=== PATIENT | male | born 1990 | race Caucasian/White ===

== ENCOUNTER → 2020-10-08 10:29 | Outpatient (BNVA) | payer MEDICARE, MEDICAID, SELFPAY | PROVIDERS: Visit Provider Nurse Practitioner Family | DX: Z20.822 Contact with and (suspected) exposure to COVID-19 (principal) | CPT/HCPCS: 87635 ==

== ENCOUNTER 2020-10-12 13:54 | Inpatient (IN) | payer MEDICARE, MEDICAID, SELFPAY ==
[2020-10-12] VITALS (18 sets, daily range): BP systolic 87–126; BP diastolic 47–76; PULSE 98–135; RESP 14–25; TEMP 36.8–38.5; O2SAT 97–100; BMI 37.8
--- NOTE | 2020-10-12 15:38 | CTR_ITS ---
PROCEDURE INFORMATION: Exam: CT Left Lower Extremity With Contrast Exam date and time: 10/12/2020 3:38 PM Age: 30 years old Clinical indication: Cellulitis; Hip and thigh; Left; Prior surgery; Surgery date: 6+ months; Surgery type: Hip nail; Patient HX: Noticed pressure sore approx 3-4 days ago; Additional info: Buttock abscess extending into the posterior thigh TECHNIQUE: Imaging protocol: CT of the Left lower extremity with intravenous contrast was performed. Total images: 329 Radiation optimization: All CT scans at this facility use at least one of these dose optimization techniques: automated exposure control; mA and/or kV adjustment per patient size (includes targeted exams where dose is matched to clinical indication); or iterative reconstruction. Contrast material: VISI 320; Contrast volume: 95 ml; Contrast route: INTRAVENOUS (IV); COMPARISON: No relevant prior studies available. RADIATION DOSE METRICS: Total DLP (mGy-cm): 915.47 FINDINGS: Bones/joints: No visible acute osseous abnormality involvement. Bilateral hip compression plate and screw fixation devices. Spina bifida period no grossly visible osteolytic or osteoblastic destructive process. Soft tissues: Obesity. 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 Total area involvement approximately 25 cm x 14 cm x 17 cm. No visible associated loculated fluid collection to suggest the presence of an organized abscess. Urinary bladder: Neurogenic bladder. Within the field of view no visible intraperitoneal or retroperitoneal active or acute pelvic pathology. No visible pneumoperitoneum or intraperitoneal ascites. Reproductive: Large right hydrocele. Mild scrotal edema. No visible evidence of scrotal involvement of the Carmelita's gangrene, however. CT/CT hip LT w con [id number] IMPRESSION: 1. 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 2. No visible associated loculated fluid collection to suggest the presence of an organized abscess. 3. Large right hydrocele. 4. No visible associated osseous involvement. Radiation Dose CTDIVOL = (mGy): DLP = 915.47 (mGy-cm)
--- NOTE | 2020-10-12 15:48 | W.ED.SKABFB ---
HPI - Skin/Abscess/Foreign Bdy General: Chief complaint: Skin/Abscess/Foreign Body Stated complaint: infected pressure sore Time Seen by Provider: 10/12/20 15:21 History of Present Illness: HPI narrative: 30-year-old male presents with complaint of a abscess on the left buttock. He was seen earlier this week and started on Bactrim at an outpatient clinic. He has noticed foul-smelling drainage from a left buttock wound. Patient is wheelchair-bound due to spina bifida. He has had fever sweats and chills. He denies any shortness of breath or cough. MD complaint: abscess/boil Onset (ago): day(s) Location: buttocks (Left ischial tuberosity) Severity: severe Quality: burning and aching Pain Consistency: constant Exacerbating factors: palpation Context: other Associated symptoms: Reports chills, fever(s) and myalgias; Deny arthralgias, cough, itching, nausea, rigidity, short of breath or vomiting Treatments prior to arrival: antibiotic Review of Systems Const: Reports: fever(s) and chills ENMT: Denies: throat pain, ear or mastoid pain, nasal discharge or nasal congestion Card: Denies: chest pain, edema, dyspnea on exertion or orthopnea Resp: Denies: dyspnea, productive cough or non-productive cough GI: Denies: nausea or vomiting : Denies: flank pain, dysuria, urinary frequency or urinary urgency Skin/Breast: Denies: rash or pruritus PFSH ED PFSH: Medical History (Updated 10/19/20 @ 08:45 by Rey Zamarripa DO) Congenital imperforate anus Glaucoma Neurogenic bladder Pressure ulcer caused by device Spina bifida aperta of lumbar spine Surgical History (Updated 10/17/20 @ 00:01 by ) Colostomy status Status post hip surgery Bilateral pin surgery Status post ventriculo-peritoneal shunt placement Family History Other Spina bifida Social History Smoking and tobacco status: never smoked Alcohol intake: never Physical Exam Const: COMMON NORMALS: no acute distress GENERAL APPEARANCE: cooperative and comfortable ORIENTATION/CONSCIOUSNESS: Yes awake, Yes oriented to person, Yes oriented to place and Yes oriented to time HENMT: COMMON NORMALS: normocephalic, atraumatic, hearing grossly normal bilaterally, external ears normal, EAC's normal, TM's normal bilaterally, Normal nasal mucous membranes and turbinates present, moist oral mucous membranes and oropharynx normal HEAD & SCALP: normocephalic and atraumatic NOSE: Normal nasal mucous membranes and turbinates present EXTERNAL EAR: Yes external ears normal EXTERNAL AUDITORY CANAL: EAC's normal TYMPANIC MEMBRANE: TM's normal bilaterally Neck/C-Spine: COMMON NORMALS: no JVD Lymph: LYMPHATIC: no lymphadenopathy noted and no lymphedema noted Resp: COMMON NORMALS: normal respiratory effort, No retractions, No use of accessory muscles and clear to auscultation bilaterally AUSCULTATION: clear to auscultation bilaterally Cardio: COMMON NORMALS: no JVD, regular rate, regular rhythm and No murmurs present (Cardio) RATE: regular rate RHYTHM: regular rhythm GI: COMMON NORMALS: Soft to palpation and No hepatosplenomegaly present AUSCULTATION: Yes normoactive bowel sounds PALPATION: Yes Soft to palpation, No Tenderness to palpation present (GI), No Guarding due to palpation present (GI) and Yes No hepatosplenomegaly present Extremity: OTHER: Approximately 2 inch necrotic ulcer with moderate foul-smelling drainage overlying the ischial tuberosity on the left. There is a indurated fluctuant track extending down to the popliteal fossa across the posterior thigh. Neuro: SENSORIUM/ORIENTATION: Yes oriented to person, Yes oriented to place and Yes oriented to time Skin: COMMON NORMALS: no rashes or lesions noted GENERAL SKIN EXAM: no rashes or lesions noted Course Vital Signs: Vital signs: Vital Signs Temperature 97.9 F 10/16/20 16:57 Pulse Rate 86 10/16/20 16:57 Respiratory Rate 15 10/16/20 16:57 Blood Pressure 112/72 10/16/20 16:57 Pulse Oximetry 98 10/16/20 16:57 MDM - Skin/Abscess/Foreign Bdy MDM Narrative: Medical decision making narrative: Patient septic with a necrotic abscess with gas formation is noted on the CT. Start antibiotics consult surgery. Dr. Crowell consulted for the hospitalist service. Patient be taken directly to the OR for incision drainage and debridement. Labs and imaging reviewed as noted on the chart. Lab Data: Labs: Lab Results 10/12/20 10/12/20 10/12/20 Range/Units 16:07 16:10 16:10 WBC 19.6 H (4.0-10.0) 10^3/ uL RBC 4.68 (4.1-5.3) 10^6/u L Hgb 13.3 (11.7-16.6) g/dL Hct 40.2 L (42.0-52.0) % MCV 85.9 (80-94) fl MCH 28.4 (28.0-34.0) pg MCHC 33.1 (30.0-36.0) g/dL RDW 12.8 (12.1-15.1) % Plt Count 307 (130-400) 10^3/c mm MPV 10.9 H (7.4-10.4) fL Neut % (Auto) 84.2 % Lymph % (Auto) 6.0 % [place] % (Auto) 7.3 % Eos % (Auto) 0.5 % Baso % (Auto) 0.3 % Neut # (Auto) 16.49 H (1.8-7.7) 10^3/u L Lymph # (Auto) 1.2 (0.8-4.8) 10^3/u L [place] # (Auto) 1.4 H (0.2-0.9) 10^3/u L Eos # (Auto) 0.1 (0.0-0.8) 10^3/u L Baso # (Auto) 0.1 (0.0-0.1) 10^3/u L Nucleated RBC % (a uto) 0 % Nucleated RBCs # 0.0 /100WBC Specimen Type Arterial Sample Site Radial, right ABG pH 7.48 H (7.35-7.45) ABG pCO2 23.1 L (35-45) mmHg ABG pO2 79.9 L (80.0-100.0) mmH g ABG HCO3 17.0 L (22-26) mmol/L ABG O2 Saturation 97.7 ABG Base Excess -4.6 L (-2.0-2.0) mmol/ L Tong Test Pos A-a O2 Gradient 5.0 (5-10) mmHg Hematocrit 42.7 (42-52) % Hgb O2 Saturation 96.0 (95-100) % Carboxyhemoglobin 1.4 (0.4-20.1) %THgb Methemoglobin 0.3 L (0.4-1.5) % Total Hemoglobin 13.9 L (14-18) g/dL Sodium 134.0 (131-143) mmol/L Potassium 4.0 (3.5-5.0) mmol/L Glucose 115.0 (70-115) mg/dL Ionized Calcium 1.2 (1.1-1.4) mmol/L O2 Delivery Device Room air FiO2 21.0 % Skip Hoist Operator ID [place]ro Chloride (98-107) mmol/L Carbon Dioxide (22-29) mmol/L Anion Gap (5-19) BUN (6-20) mg/dL Creatinine (0.7-1.2) mg/dL GFR Calculation (90-130) mL/min Calculated Osmolal ity (285-295) mOsm/k g Lactic Acid 1.4 (0.5-2.2) mmol/L Calcium (8.5-10.5) mg/dL Total Bilirubin (0.15-1.2) mg/dL AST (0-40) U/L ALT (0-41) U/L Alkaline Phosphata se (40-130) IU/L Creatine Kinase (39-308) U/L Total Protein (6.6-8.7) g/dL Albumin (3.5-5.2) g/dL Globulin (1.3-4.6) g/dL Serum Ketones (Negative) 10/12/20 10/12/20 Range/Units 16:10 16:10 WBC (4.0-10.0) 10^3/ uL RBC (4.1-5.3) 10^6/u L Hgb (11.7-16.6) g/dL Hct (42.0-52.0) % MCV (80-94) fl MCH (28.0-34.0) pg MCHC (30.0-36.0) g/dL RDW (12.1-15.1) % Plt Count (130-400) 10^3/c mm MPV (7.4-10.4) fL Neut % (Auto) % Lymph % (Auto) % [place] % (Auto) % Eos % (Auto) % Baso % (Auto) % Neut # (Auto) (1.8-7.7) 10^3/u L Lymph # (Auto) (0.8-4.8) 10^3/u L [place] # (Auto) (0.2-0.9) 10^3/u L Eos # (Auto) (0.0-0.8) 10^3/u L Baso # (Auto) (0.0-0.1) 10^3/u L Nucleated RBC % (a uto) % Nucleated RBCs # /100WBC Specimen Type Sample Site ABG pH (7.35-7.45) ABG pCO2 (35-45) mmHg ABG pO2 (80.0-100.0) mmH g ABG HCO3 (22-26) mmol/L ABG O2 Saturation ABG Base Excess (-2.0-2.0) mmol/ L Tong Test A-a O2 Gradient (5-10) mmHg Hematocrit (42-52) % Hgb O2 Saturation (95-100) % Carboxyhemoglobin (0.4-20.1) %THgb Methemoglobin (0.4-1.5) % Total Hemoglobin (14-18) g/dL Sodium 135 L (131-143) mmol/L Potassium 4.0 (3.5-5.0) mmol/L Glucose 101 (70-115) mg/dL Ionized Calcium (1.1-1.4) mmol/L O2 Delivery Device FiO2 % Skip Hoist Operator ID Chloride 99 (98-107) mmol/L Carbon Dioxide 19 L (22-29) mmol/L Anion Gap 21.0 H (5-19) BUN 19 (6-20) mg/dL Creatinine 1.1 (0.7-1.2) mg/dL GFR Calculation 78.1 L (90-130) mL/min Calculated Osmolal ity 282 L (285-295) mOsm/k g Lactic Acid (0.5-2.2) mmol/L Calcium 8.4 L (8.5-10.5) mg/dL Total Bilirubin 0.4 (0.15-1.2) mg/dL AST 15 (0-40) U/L ALT 23 (0-41) U/L Alkaline Phosphata se 74 (40-130) IU/L Creatine Kinase 238 (39-308) U/L Total Protein 6.8 (6.6-8.7) g/dL Albumin 2.8 L (3.5-5.2) g/dL Globulin 4.0 (1.3-4.6) g/dL Serum Ketones Negative (Negative) Discharge Plan Discharge Patient Disposition: Admitted As Inpatient Admit Provider: Jenny Crowell Clinical Impression: Necrotizing soft tissue infection, Cellulitis Condition: Stable Discharge Diet: Regular Discharge Activity: Resume usual activity Coding Level of Care Code ED Dental Professional for Petros Mays
[2020-10-12 16:19] LABS: ABG PCO2 23.1 mmHg (35-45); ABG PH Result 7.48 (7.35-7.45); Arterial Blood Gas Hematocrit 42.7 % (42-52); Base Excess ABG -4.6 mmol/L (-2.0-2.0); Blood Gas Allen Test Pos; Blood Gas Sample Type Arterial; Carboxyhemoglobin 1.4 %THgb (0.4-20.1); Ionized Calcium Level - ABG 1.2 mmol/L (1.1-1.4); Methemoglobin 0.3 % (0.4-1.5); Oxygen Saturation ABG 97.7; PO2 ABG 79.9 mmHg (80.0-100.0); Total Hemoglobin 13.9 g/dL (14-18)
[2020-10-12 16:20] LABS: Blood Gas Operator Identificat MONRO; Blood Gas Sample Site Radial, right; Oxygen Device ROOM AIR
[2020-10-12 16:34] LABS: Basophils # 0.1 10^3/uL (0.0-0.1); Basophils % 0.3 %; Eosinophils # 0.1 10^3/uL (0.0-0.8); Eosinophils % 0.5 %; Hematocrit 40.2 % (42.0-52.0); Hemoglobin 13.3 g/dL (11.7-16.6); Lymphocytes # 1.2 10^3/uL (0.8-4.8); Mean Corpuscular HGB Conc 33.1 g/dL (30.0-36.0); Mean Corpuscular Hemoglobin 28.4 pg (28.0-34.0); Mean Corpuscular Volume 85.9 fl (80-94); Mean Platelet Volume 10.9 fL (7.4-10.4); Monocytes # 1.4 10^3/uL (0.2-0.9); Monocytes % 7.3 %; Neutrophils # 16.49 10^3/uL (1.8-7.7); Neutrophils % 84.2 %; Nucleated Red Blood Cells % 0 %; Platelet Count 307 10^3/cmm (130-400); Red Blood Count 4.68 10^6/uL (4.1-5.3); Red Cell Distribution Width 12.8 % (12.1-15.1); White Blood Count 19.6 10^3/uL (4.0-10.0)
[2020-10-12] MEDS: iodixanol 320 mg/mL 100mL Btl IV (16:40)
--- NOTE | 2020-10-12 16:45 | PC.NURSE ---
pt to ct scan by stretcher with tech
[2020-10-12] MEDS: vancomycin 1,000 MG in sodium chloride 0.9% 250 ML 250 MG IV (16:55)
[2020-10-12] MEDS: sodium chloride 0.9% 1,000 ML 999 ML IV (16:55)
[2020-10-12] MEDS: ondansetron 2 mg/ML SDV 2 mL 4 MG IVP (16:55)
[2020-10-12 17:02] LABS: Alanine Aminotransferase 23 U/L (0-41); Albumin Level 2.8 g/dL (3.5-5.2); Alkaline Phosphatase 74 IU/L (40-130); Aspartate Amino Transferase 15 U/L (0-40); Blood Urea Nitrogen 19 mg/dL (6-20); Calcium 8.4 mg/dL (8.5-10.5); Carbon Dioxide 19 mmol/L (22-29); Chloride 99 mmol/L (98-107); Creatine Phosphokinase 238 U/L (39-308); Glomerular Filtration Rate 78.1 mL/min (90-130); Glucose 101 mg/dL (65-115); Osmolality Calculated 282 mOsm/kg (285-295); Sodium 135 mmol/L (136-145); Total Bilirubin 0.4 mg/dL (0.15-1.2); Total Protein 6.8 g/dL (6.6-8.7)
[2020-10-12 17:03] LABS: Lactic Sepsis W/Reflex 1.4 mmol/L (0.5-2.2)
[2020-10-12 17:13] LABS: Ketone (Acetest) Serum Negative (Negative)
[2020-10-12] MEDS: piperacillin-tazobactam 4.5 GM in sodium chloride 0.9% (plus) 50 ML IV (17:57)
--- NOTE | 2020-10-12 18:00 | PM.CONSULT ---
Providers/Reason For Consult Consulting Physician/Specialty*: Jared Miller DO Reason for Consult*: left lower extremity infection Attending Physician: Jared Miller DO Primary Care Provider: LUIS Coleman History of Present Illness History of Present Illness Nico Herrera is a 30 year old male with several day history of pain and swelling in the left lower extremity. Patient has a past medical history of spina bifida with hemiparesis of the lower extremities. He is mostly insensate below the level of the knees bilaterally. He notes a sore on his left lower extremity and a generalized feeling of malaise, fatigue, and recent fever. He presented to an outside facility for Covid testing which was negative. He was sent home on Bactrim which she notes did not improve his symptoms. The pain is described as a full feeling and is rated as a 5 out of 10. He notes that the sore. Open up over the last day or so with minimal drainage however there was a foul smell that started. Movement makes the pain/discomfort worse. He presented today to the ER with fever chills, tachycardia, and hypotension. CT scan of the left lower extremity reveals a large gas-filled pocket extending from the left buttock down the posterior aspect of the left lower extremity. Does not appear to involve the scrotum however that is a possibility. Review of Systems General: Reports: 10 or more systems reviewed and unremarkable except in HPI and below Const: Reports: fever(s), chills, body aches and fatigue Musc: Reports: extremity pain and extremity swelling Meds/Allergies Home Medications and Allergies Home Medications Medication Instructions Recorded Confirmed Last Taken Type omeprazole 40 mg capsule,delayed 40 mg PO DAILY #90 cap 06/04/20 10/12/20 Unknown Rx release catheter 16 Fr #150 ea 07/03/20 10/12/20 Unknown Rx colostomy bags #30 ea 07/03/20 10/12/20 Unknown Rx ostomy adhesive #2 tube 07/03/20 10/12/20 Unknown Rx ostomy supplies 4 X 4 wafer #20 wafer 07/03/20 10/12/20 Unknown Rx cephalexin 500 mg capsule 500 mg PO BID #14 cap 10/10/20 10/12/20 10/12/20 Rx miscellaneous medical supply #1 ea 10/10/20 10/12/20 Unknown Rx mupirocin 2 % topical ointment 1 applic TOPICAL TID #22 g 10/10/20 10/12/20 Unknown Rx Allergies Allergy/AdvReac Type Severity Reaction Status Date / Time acetaminophen [From Tylenol] Allergy itching Verified 10/12/20 14:13 latex Allergy rash Verified 10/12/20 14:13 PFSH Acute PFSH: Medical History (Updated 10/12/20 @ 18:20 by Jared Miller DO) Congenital imperforate anus Glaucoma Neurogenic bladder Spina bifida aperta of lumbar spine Surgical History Colostomy status Status post hip surgery Bilateral pin surgery Status post ventriculo-peritoneal shunt placement Family History Other Spina bifida Social History Smoking and tobacco status: never smoked Alcohol intake: never Vitals/I&O/Wt Last Vital Signs Temp 98.2 F 10/12/20 14:08 Pulse 130 H 10/12/20 16:59 Resp 18 10/12/20 14:08 BP 95/47 10/12/20 16:59 Pulse Ox 98 10/12/20 16:59 Weight last 48 hrs Weight 220 lb Physical Exam Const: COMMON NORMALS: no acute distress, patient oriented x3, healthy appearing, alert and well nourished GENERAL APPEARANCE: cooperative ORIENTATION/CONSCIOUSNESS: Yes awake, Yes oriented to person, Yes oriented to place and Yes oriented to time HENMT: COMMON NORMALS: normocephalic and atraumatic HEAD & SCALP: normocephalic and atraumatic Lymph: LYMPHATIC: lymphadenopathy (left groin) Chest: COMMONS NORMALS: normal inspection of the chest and normal palpation of entire chest wall Resp: COMMON NORMALS: normal respiratory effort and clear to auscultation bilaterally AUSCULTATION: clear to auscultation bilaterally Cardio: COMMON NORMALS: regular rate and regular rhythm RATE: regular rate RHYTHM: regular rhythm GI: COMMON NORMALS: Soft to palpation and non-tender PALPATION: Yes Soft to palpation : SCROTUM: Yes erythematous Scrotal erythema laterality: left and Yes scrotal swelling Scrotal swelling laterality: left Back/Pelvis: GENERAL BACK: Yes mass (lower back related to spina bifida) Extremity: LEFT LOWER EXTREMITY: Yes upper leg (large area of erythema and induration extending from an area of erosion and) Neuro: COMMON NORMALS: patient oriented x3 SENSORIUM/ORIENTATION: Yes alert, Yes oriented to person, Yes oriented to place and Yes oriented to time Psych: COMMON NORMALS: mental status grossly normal Skin: GENERAL SKIN EXAM: erythema, eschar, fluctuance and induration Sepsis: Is patient septic: Yes Data Imaging^: Other CT: I personally reviewed and interpreted this imaging study as follows: My impression: large area of necrotizing soft tissue infection of left thigh Radiologist's impression: IMPRESSION: 1. 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 2. No visible associated loculated fluid collection to suggest the presence of an organized abscess. 3. Large right hydrocele. 4. No visible associated osseous involvement. A&P Assessment and plan (1) Necrotizing soft tissue infection: Status: Acute Additional A&P Information 30-year-old male with past medical history of spina bifida and immobility presents with large area of likely necrotizing soft tissue infection of his left thigh. Plan will be to take patient to the OR for emergent incision and debridement of this area. Patient has signs and symptoms of sepsis and was started on broad-spectrum antibiotics by the ER physician. Patient also started on 30 cc/kg bolus for sepsis as well of crystalloid. The plan will be to admit to hospitalist with admission to the ICU due to his sepsis. We will continue broad-spectrum antibiotics. Plan for reoperation and further debridement tomorrow. Risk benefits and alternatives were discussed with patient and his patient has consented to the procedure and consented on the chart. Consult Attestations Medical Necessity Statement: Nico Herrera's hospital stay will require greater than 2 midnights for treatment of sepsis related to left lower extremity necrotizing soft tissue infection. Coding Level of Care Code Acute Computer Laboratory Technician for [facility] Diagnoses Necrotizing soft tissue infection M79.89
--- NOTE | 2020-10-12 18:35 | P.ANESASSM_ITS ---
Pre-Anesthetic Assessment Pre-Anesthetic Assessment: Height/Weight: Height 1.63 m Weight 99.79 kg Temp Pulse Resp BP Pulse Ox 98.2 F 123 H 18 95/54 100 10/12/20 14:08 10/12/20 18:01 10/12/20 14:08 10/12/20 18:01 10/12/20 18:01 Preop Diagnosis: infected pressure ulcer Proposed Procedure: I & D Familial anesthetic complications: None Was Beta Go taken within 24 hours: N/A Was Clonidine taken within 24 hours: N/A Last intake: > 8 hrs Social: Social History: Tobacco and No alcohol Exam: Pre-Anes Outpt Exam: alert, oriented x 3, clear to auscultation bilaterally and regular rate & rhythm Airway: MP: 2 Dentition: Full : Comments: one kidney GI: GI: GERD Comments: colostomy for imperforate anus Metabolic: Metabolic: Morbid obesity Neuropsych: Comments: spina bifida w/ paralysis Anesthetic Plan: ASA status: 3E Anesthesia: General Risk of > 500 ml blood loss (7ml/kg in children): No PFSH Anesthesia PFSH: Medical History (Updated 10/12/20 @ 18:20 by Jared Miller DO) Congenital imperforate anus Glaucoma Neurogenic bladder Spina bifida aperta of lumbar spine Surgical History Colostomy status Status post hip surgery Bilateral pin surgery Status post ventriculo-peritoneal shunt placement Family History Other Spina bifida Social History Smoking and tobacco status: never smoked Alcohol intake: never Data Anesthesia CBC & Chem 7: 10/12/20 16:10 10/12/20 16:10 Other Labs: Laboratory Results - last 48 hr 10/12/20 10/12/20 10/12/20 16:07 16:10 16:10 WBC 19.6 H RBC 4.68 Hgb 13.3 Hct 40.2 L MCV 85.9 MCH 28.4 MCHC 33.1 RDW 12.8 Plt Count 307 MPV 10.9 H Neut % (Auto) 84.2 Lymph % (Auto) 6.0 [place] % (Auto) 7.3 Eos % (Auto) 0.5 Baso % (Auto) 0.3 Neut # (Auto) 16.49 H Lymph # (Auto) 1.2 [place] # (Auto) 1.4 H Eos # (Auto) 0.1 Baso # (Auto) 0.1 Nucleated RBC % (auto) 0 Nucleated RBCs # 0.0 Specimen Type Arterial Sample Site Radial, right ABG pH 7.48 H ABG pCO2 23.1 L ABG pO2 79.9 L ABG HCO3 17.0 L ABG O2 Saturation 97.7 ABG Base Excess -4.6 L Tong Test Pos A-a O2 Gradient 5.0 Hematocrit 42.7 Hgb O2 Saturation 96.0 Carboxyhemoglobin 1.4 Methemoglobin 0.3 L Total Hemoglobin 13.9 L Sodium 134.0 Potassium 4.0 Glucose 115.0 Ionized Calcium 1.2 O2 Delivery Device Room air FiO2 21.0 Power Generation Turbine Room Operator ID [place] Chloride Carbon Dioxide Anion Gap BUN Creatinine GFR Calculation Calculated Osmolality Lactic Acid 1.4 Calcium Total Bilirubin AST ALT Alkaline Phosphatase Creatine Kinase Total Protein Albumin Globulin Serum Ketones 10/12/20 10/12/20 16:10 16:10 WBC RBC Hgb Hct MCV MCH MCHC RDW Plt Count MPV Neut % (Auto) Lymph % (Auto) [place] % (Auto) Eos % (Auto) Baso % (Auto) Neut # (Auto) Lymph # (Auto) [place] # (Auto) Eos # (Auto) Baso # (Auto) Nucleated RBC % (auto) Nucleated RBCs # Specimen Type Sample Site ABG pH ABG pCO2 ABG pO2 ABG HCO3 ABG O2 Saturation ABG Base Excess Tong Test A-a O2 Gradient Hematocrit Hgb O2 Saturation Carboxyhemoglobin Methemoglobin Total Hemoglobin Sodium 135 L Potassium 4.0 Glucose 101 Ionized Calcium O2 Delivery Device FiO2 Power Generation Turbine Room Operator ID Chloride 99 Carbon Dioxide 19 L Anion Gap 21.0 H BUN 19 Creatinine 1.1 GFR Calculation 78.1 L Calculated Osmolality 282 L Lactic Acid Calcium 8.4 L Total Bilirubin 0.4 AST 15 ALT 23 Alkaline Phosphatase 74 Creatine Kinase 238 Total Protein 6.8 Albumin 2.8 L Globulin 4.0 Serum Ketones Negative Cardiac Studies: No Data to Display
--- NOTE | 2020-10-12 19:15 | PM.HP ---
Providers/Chief Complaint Primary Care Provider: LUIS Coleman Chief Complaint: infected pressure sore History of Present Illness 30-year-old male who is wheelchair-bound due to spinal bifida aparta of lumbar spine, neurogenic bladder rq self catheterization 5x/daily, congenital imperforate anus hx of colostomy, who presented to the hospital for evaluation of infected decubitus ulcer on left lower extremity. Patient was recently started on Keflex outpatient. Despite initiation of antibiotics noted to have ongoing fever, chills and weakness. Also noted to have purulent discharge. Patient was applying mupirocin as well.Laboratory workup on arrival showed a WBC of 19.6, hemoglobin of 13.3, hematocrit of 40.2 and a platelet count of 307. Arterial blood gas showed a pH of 7.48, pCO2 23.1, PO2 of 79.9 and a bicarb of 17. Sodium 135, potassium 4.0, chloride 99, bicarb of 19, BUN 19 and creatinine 1.1. Lactic acid 1.4. LFTs within normal limits. Serum ketones were negative. 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 No visible abscess noted. Also noted to have a large right hydrocele.In emergency room patient was started on vancomycin and Zosyn. General surgery was promptly consulted. Patient was taken to OR. Initial vital signs on arrival noted a blood pressure of 120/70 however patient became hypotensive with a blood pressure of 95/54 shortly after. Heart rate was elevated up to 135, temperature of 96.5, respiratory of 18. Review of Systems General: Reports: 10 or more systems reviewed and unremarkable except in HPI and below Medications/Allergies Home Medications Medication Instructions Recorded Confirmed Last Taken Type omeprazole 40 mg capsule,delayed 40 mg PO DAILY #90 cap 06/04/20 10/12/20 Unknown Rx release catheter 16 Fr #150 ea 07/03/20 10/12/20 Unknown Rx colostomy bags #30 ea 07/03/20 10/12/20 Unknown Rx ostomy adhesive #2 tube 07/03/20 10/12/20 Unknown Rx ostomy supplies 4 X 4 wafer #20 wafer 07/03/20 10/12/20 Unknown Rx cephalexin 500 mg capsule 500 mg PO BID #14 cap 10/10/20 10/12/20 10/12/20 Rx miscellaneous medical supply #1 ea 10/10/20 10/12/20 Unknown Rx mupirocin 2 % topical ointment 1 applic TOPICAL TID #22 g 10/10/20 10/12/20 Unknown Rx Allergies Allergy/AdvReac Type Severity Reaction Status Date / Time acetaminophen [From Tylenol] Allergy itching Verified 10/12/20 14:13 latex Allergy rash Verified 10/12/20 14:13 PFSH Acute PFSH: Medical History (Updated 10/12/20 @ 19:43 by Delfin Acosta MD) Congenital imperforate anus Glaucoma Neurogenic bladder Spina bifida aperta of lumbar spine Surgical History Colostomy status Status post hip surgery Bilateral pin surgery Status post ventriculo-peritoneal shunt placement Family History Other Spina bifida Social History Smoking and tobacco status: never smoked Alcohol intake: never Vitals/I&O/Wt Last Vital Signs Temp 98.2 F 10/12/20 14:08 Pulse 123 H 10/12/20 18:01 Resp 18 10/12/20 14:08 BP 95/54 10/12/20 18:01 Pulse Ox 100 10/12/20 18:01 10/12/20 10/12/20 10/12/20 06:59 14:59 22:59 Intake Total 1250 / 1250 Balance 1250 / 1250 Weight last 48 hrs Weight 99.79 kg Physical Exam Narrative: EXAM NARRATIVE: General: Alert, Awake oriented x3 HEENT : Grossly unremarkable CVS; Sinus tachycardia Chest: Non-labored respiraton Abd: Colostomy Ext: Left hip ulcer with surrounding erythema,central Escher, scrotal edema Data : 10/12/20 16:10 10/12/20 16:10 A&P Assessment and plan (1) Sepsis associated hypotension: Temp 96, HR 130, WBC 19 Sepsis protocol 30mg/kg fluid Continue NS at 125cc/hr after Vancomycin Pharmacy to dose Zosyn Pharmacy to dose Blood culture x 2 Wound culture Repeat lab in AM Admit to ICU Status: Acute (2) Necrotizing soft tissue infection: 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 Surgery consulted Emergent taken to OR for Debridement Plan for repeat OR/ debridement tomorrow Pain control - cautious use due to hypotension Postop care per surgery Status: Acute (3) Neurogenic bladder: Weaver catheter placement Status: Acute Additional A&P Information DVT prophylaxis-SCDs Attestations Medical Necessity Statement*: Anticipate over 2 midnights stay in hospital for evaluation and treatment of sepsis Time Spent in Patient Care: Greater than 35 minutes (>than 50% of time spent in counselling and/or direct pt care on unit). Critical Care Time: Critical Care Time (min): 45 Coding Level of Care Code Acute Shovel Log Loader Operator for Chg Fwd Diagnoses Sepsis associated hypotension A41.9; I95.9 Necrotizing soft tissue infection M79.89 Neurogenic bladder N31.9
--- NOTE | 2020-10-12 20:22 | PC.PHAR ---
Vancomycin is dosed at 1500mg IVPB every 12 hours to produce a predicted trough level of 15.86 (population based pharmacokinetic analysis),. A trough level has been ordered from the lab to be obtained before the fourth dose to confirm and adjust if needed. The Zosyn is dosed at 3.375gm IVPB every 8 hours on the basis of the creatinine clearance of 103.8.
--- NOTE | 2020-10-12 20:37 | PM.OP ---
Operative Report Date of procedure: October 12, 2020 Pre-op Diagnosis: infected pressure ulcer Post-op diagnosis: other Post-op Diagnosis: Necrotizing soft tissue infection Post-op Findings: Spent significant amount of purulent fluid and necrotic tissue Procedure Done: 1. Incision and drainage of left lower extremity necrotizing soft tissue infection Specimens removed/disposition: Culture sent Surgeon: Jared Miller Anesthesia: General Estimated blood loss (mL): 200 IV fluids (mL): 1,000 Complications: None Findings: Significant amount of purulent fluid and necrotic tissue extends from left buttock to mid thigh Condition: critical Disposition: ICU Brief History: 30-year-old male with past medical history of spina bifida and pressure ulcer of left posterior buttock. Patient had signs and symptoms of infection and sepsis on presentation to the ER today. CT scan findings of significant gas and soft tissue edema of the left lower extremity with concern for possible necrotizing soft tissue infection. Procedure: Informed consent was obtained patient was brought back from the ER to the to the preoperative holding area and then to the OR. Patient was placed in a right lateral decubitus position. General ventricular incision was induced with an LMA. Patient was prepped and draped in the usual sterile fashion. A timeout was performed prior to start procedure. The area of greatest fluctuance was identified. There was an area of full thickness tissue necrosis. The overlying tissues of the necrotic area were debrided sharply. A large amount of purulence was noted to be emanating from the wound. Cultures were sent. The posterior thigh tissues were sequentially opened from the area of the inferior aspect of the left buttock down to approximately 20 cm above the thigh. The total length of the incision was 30 cm long 10 cm deep and 20 cm wide. All of the necrotic tissue was sharply debrided. The wound probed inferiorly and superiorly and then somewhat anteriorly but did not appear to involve the scrotum or the perineal area. Hemostasis was assured after irrigation with 2 L of normal saline. The wound was packed with 4 Betadine soaked Kerlix gauzes and ABDs were placed. Patient was awakened from general anesthesia and taken to the ICU in critical condition. Plan will be to take patient back tomorrow or Wednesday for repeat debridement depending on patient's condition. Associated Problem List Diagnoses (1) Necrotizing soft tissue infection:
[2020-10-12] MEDS: sodium chloride 0.9% 1,000 ML 125 ML IV (21:00)
[2020-10-12] MEDS: clindamycin 900 MG/50 ML PREMIX 100 MG IV (22:33)
[2020-10-13] VITALS (30 sets, daily range): BP systolic 79–126; BP diastolic 44–78; PULSE 91–105; RESP 9–25; TEMP 37.7; O2SAT 97–100; BMI 41.6; BMI 41.5
[2020-10-13 00:34] LABS: Add Urine Microscopic? NO; Charge for UA Resulting for Rev
[2020-10-13 00:39] LABS: Bilirubin Urine Neg (Negative); Blood Urine Neg (Negative); Glucose Urine UA Norm (Normal); Ketones Urine 1+ (Negative); Leukocyte Esterase Urine Negative (Negative); Nitrate Urine Negative (Negative); Protein Urine Neg (Negative); Urine Appearance Clear (CLEAR); Urine Color Yellow (Yellow); Urobilinogen Urine Norm (Negative); pH Urine 5 (5-7)
[2020-10-13] MEDS: piperacillin-tazobactam 3.375 GM in sodium chloride 0.9% (plus) 50 ML IV ×3 (01:03→18:02)
[2020-10-13] MEDS: vancomycin 1,500 MG/300 ML PIGGYBACK 150 MG IV ×2 (01:04→13:16)
--- NOTE | 2020-10-13 02:36 | PC.NURSE ---
Addendum entered by Lianne Mccullough RN 10/13/20 05:56: Patient tolerated repositioning, no prn pain medication required. Blood pressure remained stable throughout the shift and nurse did not have to start levophed. Art line positional, able to flush easily with blood return. Patient self cath's at home with dribbling of urine, kim cath placed per MD to keep open wound on buttock clean, kim patient and draining. Redness marked at beginning of shift remains within the marked area. Original Note: Shift Note Frequent safety and comfort rounds continue. Orders and/or nursing care completed as indicated. Patient monitored for response to intervention and treatment(s). Education provided includes signs/symptoms to report, art line, medications with side effects, fall safety. Patient and/or district sales representative verbalized understanding of education provided. Patient transferred from OR, report provided by Rose Marie VELASCO. Dr. Miller rounded at bedside post op, marked edges of redness around debridement site and stated to report if it worsens. Patient's girlfriend, Gela, was given special permission by MD to see patient post op for a few minutes and give him his cell phone. Will continue to monitor.
[2020-10-13] MEDS: clindamycin 900 MG/50 ML PREMIX 100 MG IV ×3 (04:28→20:14)
[2020-10-13] MEDS: sodium chloride 0.9% 1,000 ML 125 ML IV (04:28)
[2020-10-13 04:43] LABS: Basophils # 0.1 10^3/uL (0.0-0.1); Basophils % 0.5 %; Eosinophils # 0.1 10^3/uL (0.0-0.8); Eosinophils % 0.6 %; Hemoglobin 10.4 g/dL (11.7-16.6); Lymphocytes # 1.4 10^3/uL (0.8-4.8); Lymphocytes % 8.1 %; Mean Corpuscular HGB Conc 31.5 g/dL (30.0-36.0); Mean Corpuscular Hemoglobin 28.7 pg (28.0-34.0); Mean Corpuscular Volume 90.9 fl (80-94); Monocytes # 1.3 10^3/uL (0.2-0.9); Monocytes % 7.8 %; Neutrophils # 13.72 10^3/uL (1.8-7.7); Neutrophils % 81.8 %; Nucleated Red Blood Cells % 0 %; Platelet Count 264 10^3/cmm (130-400); Red Blood Count 3.63 10^6/uL (4.1-5.3); White Blood Count 16.8 10^3/uL (4.0-10.0)
[2020-10-13 05:09] LABS: Alanine Aminotransferase 17 U/L (0-41); Albumin Level 2.1 g/dL (3.5-5.2); Alkaline Phosphatase 57 IU/L (40-130); Anion Gap 16.9 (5-19); Aspartate Amino Transferase 14 U/L (0-40); Blood Urea Nitrogen 11 mg/dL (6-20); Carbon Dioxide 16 mmol/L (22-29); Chloride 106 mmol/L (98-107); Glomerular Filtration Rate 87.2 mL/min (90-130); Glucose 112 mg/dL (65-115); Osmolality Calculated 280 mOsm/kg (285-295); Potassium 3.9 mmol/L (3.5-5.1); Sodium 135 mmol/L (136-145); Total Bilirubin 0.5 mg/dL (0.15-1.2); Total Protein 5.1 g/dL (6.6-8.7)
[2020-10-13 05:11] LABS: Lactic Sepsis W/Reflex 0.9 mmol/L (0.5-2.2)
[2020-10-13 05:43] LABS: Alanine Aminotransferase 17 U/L (0-41); Albumin Level 2.1 g/dL (3.5-5.2); Alkaline Phosphatase 46 IU/L (40-130); Anion Gap 16.7 (5-19); Aspartate Amino Transferase 11 U/L (0-40); Blood Urea Nitrogen 14 mg/dL (6-20); Calcium 6.9 mg/dL (8.5-10.5); Carbon Dioxide 15 mmol/L (22-29); Chloride 105 mmol/L (98-107); Globulin 3.2 g/dL (1.3-4.6); Glomerular Filtration Rate 87.2 mL/min (90-130); Glucose 97 mg/dL (65-115); Osmolality Calculated 276 mOsm/kg (285-295); Potassium 3.7 mmol/L (3.5-5.1); Sodium 133 mmol/L (136-145); Total Bilirubin 0.5 mg/dL (0.15-1.2); Total Protein 5.3 g/dL (6.6-8.7)
[2020-10-13 05:50] LABS: Procalcitonin 1.62 ng/mL (0-0.5)
[2020-10-13 07:59] LABS: Glucose Point of Care 133 mg/dL (70-110)
--- NOTE | 2020-10-13 08:05 | PC.NURSE ---
recd. alert. req. repositioning. to right side more. discussed possibility of return to o.r. and the fact he had heparin due. will hold for now. also discussed scd's with pt. not to thrilled with that but will do and see how it goes.
--- NOTE | 2020-10-13 08:19 | PC.NURSE ---
no noticeable increased redness around left hip wound.
[2020-10-13] MEDS: pantoprazole DR 40 mg Tablet PO (09:38)
--- NOTE | 2020-10-13 09:56 | PC.NURSE ---
Addendum entered by Christi Campos RN 10/13/20 10:01: below charting on wrong pt. Original Note: 2327 dr. perez notified of consistently low b/p after dopamine turned off. orders to restart dopamine, midorine on board and when in room to restart dopamine, next reading of b/p showing map of 71. will monitor map before turning dopamine.
[2020-10-13] MEDS: ondansetron 2 mg/ML SDV 2 mL 4 MG IVP (10:45)
[2020-10-13] MEDS: morphine 4 mg/mL SDV 1 mL IVP (10:45)
[2020-10-13] MEDS: heparin 5,000 unit/mL INJ 1 mL 5000 UNIT SUBCUT ×3 (10:47→21:57)
--- NOTE | 2020-10-13 10:51 | PM.PN ---
Subjective Subjective: Interval history: no acute events overnight, patient notes feeling 95% better than yesterday Vitals/I&O/Wt Last Vital Signs Temp 99.9 F H 10/13/20 04:00 Pulse 101 H 10/13/20 08:00 Resp 16 10/13/20 08:00 BP 90/51 10/13/20 08:00 Pulse Ox 99 10/13/20 08:00 10/12/20 10/13/20 10/13/20 22:59 06:59 14:59 Intake Total 4293.7 / 4293.7 1383.333 / 5677.033 Output Total 650 / 650 Balance 4293.7 / 4293.7 733.333 / 5027.033 Weight last 48 hrs Weight 242 lb 9.6 oz Weight 220 lb Physical Exam Const: COMMON NORMALS: no acute distress and patient oriented x3 Resp: COMMON NORMALS: normal respiratory effort Cardio: COMMON NORMALS: regular rate and regular rhythm RATE: regular rate RHYTHM: regular rhythm GI: COMMON NORMALS: Normal to inspection, nondistended, normoactive bowel sounds present Extremity: NARRATIVE EXTREMITY EXAM: LLE- packing removed, no further areas of necrosis identified on inspection, erythema stable from yesterday with some areas of resolution Neuro: COMMON NORMALS: patient oriented x3 Urinary Catheter Management^: Weaver: Cath Placed During This Visit: yes Reason for Continuing Indwelling Catheter: Assist healing open wound Urinary Catheter Date of Insertion: 10/12/20 Urinary Catheter Time of Insertion: 21:30 Data : 10/13/20 04:23 10/13/20 04:23 Micro: Microbiology 10/12/20 19:22 Gram Stain - Final Buttock 10/12/20 04:23 Blood Culture - Preliminary Blood SPECIMEN COLLECTED 10/12/20 04:23 Blood Culture - Preliminary Blood SPECIMEN COLLECTED A&P Additional A&P Information 30 yo male with necrotozing soft tissue infection of LLE. POD #1 from I&D. - improving hemodynamically - continue ICU care for now but may be able to transfer out later today if remains stable - d/c art line - regular diet - d/c IVF if tolerating diet well - no plan for OR today- will reassess in the AM Please call for any changes. [phone]. Attestations Medical Necessity Statement*: Nico Herrera's hospital stay will require greater than 2 midnights for sepsis and necrotizing soft tissue infection. Coding Level of Care Code Acute Credit Department Manager for Petros Mays
--- NOTE | 2020-10-13 10:57 | PC.NURSE ---
Addendum entered by Christi Campos RN 10/13/20 16:56: 1 roll kerlix used, dry to pack wound and covered with 2 abds Original Note: dr. buckner in. dressing change in room. unique and nadira given.
--- NOTE | 2020-10-13 13:03 | PC.NURSE ---
art line to right wrist removed intact. pressure applied to site for 2 min. no oozing noted. pressure dressing applied. eating lunch.
--- NOTE | 2020-10-13 13:38 | PC.NURSE ---
resting quietly, visiting with girlfriend.
--- NOTE | 2020-10-13 15:34 | PC.NURSE ---
dr. del cid in .
[2020-10-13 16:05] LABS: Basophils # 0.1 10^3/uL (0.0-0.1); Basophils % 0.6 %; Eosinophils # 0.1 10^3/uL (0.0-0.8); Eosinophils % 0.7 %; Hematocrit 32.5 % (42.0-52.0); Hemoglobin 10.3 g/dL (11.7-16.6); Lymphocytes # 1.8 10^3/uL (0.8-4.8); Lymphocytes % 11.7 %; Mean Corpuscular HGB Conc 31.7 g/dL (30.0-36.0); Mean Corpuscular Hemoglobin 28.7 pg (28.0-34.0); Mean Corpuscular Volume 90.5 fl (80-94); Mean Platelet Volume 11.7 fL (7.4-10.4); Monocytes # 1.3 10^3/uL (0.2-0.9); Monocytes % 8.2 %; Neutrophils # 12.09 10^3/uL (1.8-7.7); Neutrophils % 77.5 %; Nucleated Red Blood Cells % 0 %; Platelet Count 294 10^3/cmm (130-400); Red Blood Count 3.59 10^6/uL (4.1-5.3); Red Cell Distribution Width 13.2 % (12.1-15.1); White Blood Count 15.6 10^3/uL (4.0-10.0)
[2020-10-13 16:31] LABS: Albumin Level 2.1 g/dL (3.5-5.2); Alkaline Phosphatase 80 IU/L (40-130); Blood Urea Nitrogen 12 mg/dL (6-20); Calcium 7.3 mg/dL (8.5-10.5); Carbon Dioxide 15 mmol/L (22-29); Chloride 105 mmol/L (98-107); Globulin 3.4 g/dL (1.3-4.6); Glomerular Filtration Rate 131.5 mL/min (90-130); Glucose 102 mg/dL (65-115); Osmolality Calculated 278 mOsm/kg (285-295); Sodium 134 mmol/L (136-145); Total Bilirubin 0.4 mg/dL (0.15-1.2); Total Protein 5.5 g/dL (6.6-8.7)
[2020-10-13 16:42] LABS: Anion Gap 18.2 (5-19); Aspartate Amino Transferase 21 U/L (0-40); Potassium 4.2 mmol/L (3.5-5.1)
[2020-10-13 16:43] LABS: Alanine Aminotransferase 19 U/L (0-41)
--- NOTE | 2020-10-13 18:07 | P.PN_ITS ---
Subjective Subjective: Interval history: 30-year-old male who is wheelchair-bound due to spinal bifida aparta of lumbar spine, neurogenic bladder rq self catheterization 5x/daily, congenital imperforate anus hx of colostomy, who presented to the hospital for evaluation of infected decubitus ulcer on left lower extremity. Patient was recently started on Keflex outpatient. Despite initiation of antibiotics noted to have ongoing fever, chills and weakness. Also noted to have purulent discharge. Patient was applying mupirocin as well.Laboratory workup on arrival showed a WBC of 19.6, hemoglobin of 13.3, hematocrit of 40.2 and a platelet count of 307. Arterial blood gas showed a pH of 7.48, pCO2 23.1, PO2 of 79.9 and a bicarb of 17. Sodium 135, potassium 4.0, chloride 99, bicarb of 19, BUN 19 and creatinine 1.1. Lactic acid 1.4. LFTs within normal limits. Serum ketones were negative. 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 No visible abscess noted. Also noted to have a large right hydrocele.In emergency room patient was started on vancomycin and Zosyn. General surgery was promptly consulted. Patient was taken to OR. Initial vital signs on arrival noted a blood pressure of 120/70 however patient became hypotensive with a blood pressure of 95/54 shortly after. Heart rate was elevated up to 135, temperature of 96.5, respiratory of 18. In review of operative report patient was noted to have full thickness tissue necrosis. The overlying tissues of the necrotic area was debrided sharply. A large amount of purulence was noted to be emanating from the wound. Cultures were sent. The posterior thigh tissues were sequentially opened from the area of the inferior aspect of the left buttock down to approximately 20 cm above the thigh. The total length of the incision was 30 cm long 10 cm deep and 20 cm wide. All of the necrotic tissue was sharply debrided. The wound probed inferiorly and superiorly and then somewhat anteriorly but did not appear to involve the scrotum or the perineal area. Wound gram stain showed many gram negative rods and moderate gram positive cocci. WBC improved to 15. On 10/13, Patient was stable at the time of my eval. Stated he felt significantly better with notable pain improvement. No new complaints. Medications: Reviewed: Yes Vitals/I&O/Wt Last Vital Signs Temp 99.8 F H 10/13/20 20:27 Pulse 91 10/13/20 22:00 Resp 25 H 10/13/20 20:00 BP 95/73 10/13/20 20:00 Pulse Ox 99 10/13/20 20:00 10/13/20 10/13/20 10/14/20 14:59 22:59 06:59 Intake Total 1580 / 1580 760 / 2340 Output Total 800 / 800 Balance 1580 / 1580 -40 / 1540 Weight last 48 hrs Weight 109.769 kg Weight 110.042 kg Weight 99.79 kg Physical Exam Narrative: EXAM NARRATIVE: General: Alert, Awake oriented x3 HEENT : Grossly unremarkable CVS; Sinus tachycardia Chest: Non-labored respiraton Abd: Colostomy Ext: Left hip ulcer with surrounding erythema,central Escher, scrotal edema Urinary Catheter Management^: Weaver: Cath Placed During This Visit: yes Reason for Continuing Indwelling Catheter: Accurate Measurement of Urinary Output in Critically Ill Patients Urinary Catheter Date of Insertion: 10/12/20 Urinary Catheter Time of Insertion: 21:30 Data : 10/13/20 13:55 10/13/20 13:55 Micro: Microbiology 10/12/20 19:22 Gram Stain - Final Buttock 10/12/20 04:23 Blood Culture - Preliminary Blood SPECIMEN COLLECTED 10/12/20 04:23 Blood Culture - Preliminary Blood SPECIMEN COLLECTED A&P Assessment and plan (1) Sepsis associated hypotension: Temp 96, HR 130, WBC 19 on arrival On oral intake IVF stopped Vancomycin Pharmacy to dose Zosyn Pharmacy to dose Blood culture x 2 - NGTD Wound culture - Gram stain noted. 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 Surgery consulted Emergent taken to OR for Debridement - stable post op - management per surgery Pain control Status: Acute (3) Neurogenic bladder: Weaver catheter placement Status: Acute Additional A&P Information DVT prophylaxis-SCDs Attestations Medical Necessity Statement*: Continue hospitalization for management of necrotizing ulcer requiring debridement on IV antibiotics Time Spent in Patient Care: Greater than 35 minutes (>than 50% of time spent in counselling and/or direct pt care on unit) . Coding Level of Care Code Acute Junior Network Administrator for g Fwd Diagnoses Sepsis associated hypotension A41.9; I95.9 Necrotizing soft tissue infection M79.89 Neurogenic bladder N31.9
--- NOTE | 2020-10-13 18:41 | PC.NURSE ---
pt. turned q 2hr or more. wound with margin redness , not advanced some oozing to abds.
[2020-10-14] VITALS (15 sets, daily range): BP systolic 88–123; BP diastolic 58–85; PULSE 79–100; RESP 12–26; TEMP 36.7–37.3; O2SAT 94–99; BMI 41.5
[2020-10-14] MEDS: vancomycin 1,500 MG/300 ML PIGGYBACK 150 MG IV ×2 (01:35→14:38)
[2020-10-14] MEDS: piperacillin-tazobactam 3.375 GM in sodium chloride 0.9% (plus) 50 ML IV ×3 (01:35→18:02)
[2020-10-14 04:23] LABS: Basophils # 0.1 10^3/uL (0.0-0.1); Basophils % 0.5 %; Eosinophils # 0.2 10^3/uL (0.0-0.8); Eosinophils % 1.9 %; Hematocrit 29.2 % (42.0-52.0); Hemoglobin 9.4 g/dL (11.7-16.6); Lymphocytes # 1.8 10^3/uL (0.8-4.8); Lymphocytes % 14.2 %; Mean Corpuscular HGB Conc 32.2 g/dL (30.0-36.0); Mean Corpuscular Hemoglobin 28.7 pg (28.0-34.0); Mean Corpuscular Volume 89.3 fl (80-94); Mean Platelet Volume 11.3 fL (7.4-10.4); Monocytes % 8.1 %; Neutrophils # 9.03 10^3/uL (1.8-7.7); Nucleated Red Blood Cells % 0 %; Platelet Count 323 10^3/cmm (130-400); Red Blood Count 3.27 10^6/uL (4.1-5.3); Red Cell Distribution Width 13.3 % (12.1-15.1); White Blood Count 12.4 10^3/uL (4.0-10.0)
[2020-10-14] MEDS: clindamycin 900 MG/50 ML PREMIX 100 MG IV ×2 (04:49→15:13)
[2020-10-14 05:03] LABS: Procalcitonin 1.07 ng/mL (0-0.5)
[2020-10-14] MEDS: heparin 5,000 unit/mL INJ 1 mL 5000 UNIT SUBCUT ×3 (06:30→22:56)
--- NOTE | 2020-10-14 08:29 | PC.CHAP ---
Pastoral Care Encounter/Spiritual Assessment Type of Contact [] Declined paint specialist visit [] Patient/Family/Request visit [] Outpatient visit [] Follow-up visit [] Physician referral [] Code/Alert [x] Routine visit [] Staff referral [] Actively dying [] Patient sleeping [] Family support [] [] Out of room [] Palliative care [] [] Receiving care in room [] Pre-surgical visit [] Trauma [] Long length of stay [x] ICU visit [] Other: Relational/Emotional Strength [] Patient feels connected with others/family/visitors/staff [] Distress [] Loneliness/isolation [] Abandonment Spirituality of Patient [] Person of Ghada [] Attends Yazidism of their Ghada [] Believes in Prayer [] Reads Bible or Adventist materials [] There are Spiritual issues to be addressed Threading Machine Setter Interventions [x] Prayer [x] Active listening [x] Non-anxious presence [x] Spiritual/emotional support [] Crisis/trauma care [] Spiritual counseling [] Bereavement support [] Provided bereavement packet [] Provided Bible/devotional materials [] Provided toy/stuffed animal, coloring book to patient or family member [] Provided Communion [] Anointing/[place] [] Salvation [x] Completed spiritual assessment [] Other: Impact on Illness or Injury [] Angry [] Fearful [] Anxious [] Often cries [] Exhaustion [] Unable to work [] Unable to attend buddhism [] Unable to walk/stand [] Unable to read [] Unable to drive [] Unable to eat/drink [] Unable to sleep [] Unable to be with family [] Patient intubated [] Other: Summary Time spent with patient
[2020-10-14] MEDS: pantoprazole DR 40 mg Tablet PO (09:17)
[2020-10-14] MEDS: ondansetron 2 mg/ML SDV 2 mL 4 MG IVP (09:17)
--- NOTE | 2020-10-14 11:14 | P.PN_ITS ---
Subjective Subjective: Interval history: No acute overnight events. Patient notes that his pain is almost completely gone. He denies fever chills nausea vomiting or other constitutional signs or symptoms. Medications: Reviewed: Yes Vitals/I&O/Wt Last Vital Signs Temp 98.8 F 10/14/20 08:00 Pulse 92 10/14/20 08:00 Resp 16 10/14/20 09:17 BP 101/58 10/14/20 08:00 Pulse Ox 99 10/14/20 08:00 10/13/20 10/14/20 10/14/20 22:59 06:59 14:59 Intake Total 1010 / 2590 400 / 2990 Output Total 800 / 800 450 / 1250 350 / 350 Balance 210 / 1790 -50 / 1740 -350 / -350 Weight last 48 hrs Weight 242 lb 6.4 oz Weight 242 lb Weight 242 lb 9.6 oz Weight 220 lb Physical Exam Const: COMMON NORMALS: no acute distress and patient oriented x3 Resp: COMMON NORMALS: normal respiratory effort Cardio: COMMON NORMALS: regular rate and regular rhythm RATE: regular rate RHYTHM: regular rhythm GI: COMMON NORMALS: Normal to inspection, nondistended, normoactive bowel sounds present Extremity: NARRATIVE EXTREMITY EXAM: Left lower extremity?erythema has de creased from yesterday as has the induration. Dressing changed at bedside and patient with no evidence of further purulence or necrosis. Dressing reapplied Neuro: COMMON NORMALS: patient oriented x3 Urinary Catheter Management^: Weaver: Cath Placed During This Visit: yes Reason for Continuing Indwelling Catheter: Accurate Measurement of Urinary Output in Critically Ill Patients Urinary Catheter Date of Insertion: 10/12/20 Urinary Catheter Time of Insertion: 21:30 Data : 10/14/20 03:30 10/13/20 13:55 Micro: Microbiology 10/12/20 19:22 Gram Stain - Final Buttock Wound Culture - Preliminary Gram Negative Rods 10/12/20 04:23 Blood Culture - Preliminary Blood NEGATIVE TO DATE 10/12/20 04:23 Blood Culture - Preliminary Blood NEGATIVE TO DATE A&P Assessment and plan (1) Necrotizing soft tissue infection: Patient now is postop day 2 from incision and debridement of necrotizing soft tissue infection. Patient is looking good this morning and is able to be transferred from the ICU. He is tolerating bedside just changes well. The plan will be to place a wound VAC tomorrow morning. Discussed with nurse and she will initiate the necessary consults for home health and for the wound VAC. Status: Acute Attestations Medical Necessity Statement*: Nico Herrera's hospital stay will require greater than 2 midnights for sepsis related to necrotizing tissue infection of the left lower extremity. Coding Level of Care Code Acute Installment Account Checker for Petros Mays Diagnoses Necrotizing soft tissue infection M79.89
[2020-10-14] MEDS: bacitracin ointment 28 gm TOPICAL ×2 (14:40→21:13)
--- NOTE | 2020-10-14 15:58 | PM.PN ---
Subjective Subjective: Interval history: No acute overnight events. Patient notes that his pain is almost completely gone. He denies fever chills nausea vomiting or other constitutional signs or symptoms. Vitals/I&O/Wt Last Vital Signs Temp 99.2 F 10/14/20 15:03 Pulse 83 10/14/20 15:03 Resp 16 10/14/20 15:03 BP 109/70 10/14/20 15:03 Pulse Ox 98 10/14/20 15:03 10/14/20 10/14/20 10/14/20 06:59 14:59 22:59 Intake Total 400 / 2990 75 / 75 Output Total 450 / 1250 700 / 700 Balance -50 / 1740 -700 / -700 75 / -625 Weight last 48 hrs Weight 109.951 kg Weight 109.769 kg Weight 110.042 kg Physical Exam Narrative: EXAM NARRATIVE: General: Alert, Awake oriented x3 HEENT : Grossly unremarkable CVS; Sinus tachycardia Chest: Non-labored respiraton Abd: Colostomy Ext: Left hip with surgical dressing, no drainage or soakage. Scrotal edema Urinary Catheter Management^: Weaver: Cath Placed During This Visit: yes Reason for Continuing Indwelling Catheter: Accurate Measurement of Urinary Output in Critically Ill Patients Urinary Catheter Date of Insertion: 10/12/20 Urinary Catheter Time of Insertion: 21:30 Data : 10/14/20 03:30 10/13/20 13:55 Micro: Microbiology 10/12/20 19:22 Gram Stain - Final Buttock Wound Culture - Preliminary Gram Negative Rods 10/12/20 04:23 Blood Culture - Preliminary Blood NEGATIVE TO DATE 10/12/20 04:23 Blood Culture - Preliminary Blood NEGATIVE TO DATE A&P Assessment and plan (1) Sepsis associated hypotension: Status: Acute (2) Necrotizing soft tissue infection: Status: Acute (3) Neurogenic bladder: Weaver catheter placement Status: Acute (4) Congenital imperforate anus: Status: Acute (5) Colostomy status: Status: Acute (6) Spina bifida aperta of lumbar spine: Status: Acute Additional A&P Information Severe sepsis: No septic shock. Secondary to necrotizing cellulitis of left hip. Post debridement day 1. Appreciate surgical recommendations. For now will hold off on wound VAC. Wound dressing as per surgical team. For now continue with vancomycin and Zosyn. Wound cultures from OR growing gram-negative rods. Will await speciation and identification. Blood cultures so far negative. Pain control with tramadol 50 mg oral as needed every 8 hourly. Can be transferred out of ICU to regular floor. Regular diet. Famotidine for PUD prophylaxis. Heparin for DVT prophylaxis. Attestations Medical Necessity Statement*: Requires further hospitalization for management of severe sepsis secondary to necrotizing cellulitis of left hip in setting of bedbound status for spina bifida, neurogenic bladder, post colostomy status Time Spent in Patient Care: Greater than 35 minutes (>than 50% of time spent in counselling and/or direct pt care on unit). Coding Level of Care Code Acute Photovoltaic Technician for g Fwd Diagnoses Sepsis associated hypotension A41.9; I95.9 Necrotizing soft tissue infection M79.89 Neurogenic bladder N31.9 Congenital imperforate anus Q42.3 Colostomy status Z93.3 Spina bifida aperta of lumbar spine Q05.7
[2020-10-15] VITALS: BP 105/68; PULSE 86; RESP 18; TEMP 36.7; O2SAT 98
[2020-10-15 00:12] LABS: Vancomycin Trough 25.2 ug/mL (10-15)
[2020-10-15] MEDS: piperacillin-tazobactam 3.375 GM in sodium chloride 0.9% (plus) 50 ML IV ×3 (01:59→17:00)
[2020-10-15 04:00] VITALS: BP 107/70; PULSE 80; RESP 18; TEMP 36.6; O2SAT 97
[2020-10-15] MEDS: heparin 5,000 unit/mL INJ 1 mL 5000 UNIT SUBCUT ×3 (06:40→22:09)
[2020-10-15] MEDS: vancomycin 1,500 MG/300 ML PIGGYBACK 150 MG IV (06:40)
[2020-10-15 06:50] LABS: Basophils % 0.3 %; Eosinophils # 0.3 10^3/uL (0.0-0.8); Eosinophils % 2.5 %; Hematocrit 37.5 % (42.0-52.0); Hemoglobin 11.3 g/dL (11.7-16.6); Lymphocytes # 2.4 10^3/uL (0.8-4.8); Lymphocytes % 19.7 %; Mean Corpuscular HGB Conc 30.1 g/dL (30.0-36.0); Mean Corpuscular Hemoglobin 28.2 pg (28.0-34.0); Mean Corpuscular Volume 93.5 fl (80-94); Monocytes # 0.8 10^3/uL (0.2-0.9); Monocytes % 6.8 %; Neutrophils % 64.6 %; Nucleated Red Blood Cells % 0 %; Platelet Count 370 10^3/cmm (130-400); Red Blood Count 4.01 10^6/uL (4.1-5.3); Red Cell Distribution Width 13.6 % (12.1-15.1); White Blood Count 12.2 10^3/uL (4.0-10.0)
[2020-10-15 07:09] LABS: Alanine Aminotransferase 34 U/L (0-41); Albumin Level 2.2 g/dL (3.5-5.2); Alkaline Phosphatase 51 IU/L (40-130); Aspartate Amino Transferase 26 U/L (0-40); Blood Urea Nitrogen 9 mg/dL (6-20); Carbon Dioxide 16 mmol/L (22-29); Chloride 111 mmol/L (98-107); Creatinine Clr Calc Pharmacy 150.4435; Globulin 3.6 g/dL (1.3-4.6); Glomerular Filtration Rate 112.8 mL/min (90-130); Glucose 89 mg/dL (65-115); Magnesium 2.2 mg/dL (1.7-2.3); Osmolality Calculated 286 mOsm/kg (285-295); Sodium 139 mmol/L (136-145); Total Bilirubin 0.2 mg/dL (0.15-1.2); Total Protein 5.8 g/dL (6.6-8.7)
[2020-10-15 07:17] LABS: Anion Gap 16.2 (5-19); Potassium 4.2 mmol/L (3.5-5.1)
[2020-10-15 07:23] VITALS: BP 101/66; PULSE 76; RESP 18; TEMP 37.1; O2SAT 100
[2020-10-15 07:51] LABS: Slide Review Slide Review Perform
[2020-10-15 11:21] VITALS: BP 89/55; PULSE 75; RESP 12; TEMP 36.9; O2SAT 97
--- NOTE | 2020-10-15 11:21 | PC.SOCIAL ---
IMM update IMM updated with patient. Verbalized an understanding, copy Pg 2 provided. Initialled, dated, timed and placed in chart.
--- NOTE | 2020-10-15 13:20 | PM.PN ---
Subjective Subjective: Interval history: Patient doing a lot better. States pain is well controlled. Denies any nausea, vomiting, headache. Has remained hemodynamically stable and afebrile last 24 hours. Medications: Reviewed: Yes Vitals/I&O/Wt Last Vital Signs Temp 98.5 F 10/15/20 11:21 Pulse 75 10/15/20 11:21 Resp 12 10/15/20 11:21 BP 89/55 10/15/20 11:21 Pulse Ox 97 10/15/20 11:21 10/14/20 10/15/20 10/15/20 22:59 06:59 14:59 Intake Total 1170 / 1170 530 / 1700 1430 / 1430 Output Total 300 / 1000 400 / 1400 300 / 300 Balance 870 / 170 130 / 300 1130 / 1130 Weight last 48 hrs Weight 109.769 kg Weight 109.951 kg Physical Exam Narrative: EXAM NARRATIVE: General: Alert, Awake oriented x3 HEENT : Grossly unremarkable CVS; Sinus tachycardia Chest: Non-labored respiraton Abd: Colostomy Ext: Left hip with surgical dressing, no drainage or soakage. Scrotal edema Urinary Catheter Management^: Weaver: Cath Placed During This Visit: yes Reason for Continuing Indwelling Catheter: Other Urinary Catheter Date of Insertion: 10/12/20 Urinary Catheter Time of Insertion: 21:30 Data : 10/15/20 06:30 10/15/20 06:30 Micro: Microbiology 10/12/20 19:22 Gram Stain - Final Buttock Wound Culture - Final Proteus mirabilis 10/12/20 19:32 Anaerobic Culture - Preliminary Buttock A&P Assessment and plan (1) Sepsis associated hypotension: Status: Acute (2) Necrotizing soft tissue infection: Status: Acute (3) Neurogenic bladder: Weaver catheter placement Status: Acute (4) Congenital imperforate anus: Status: Acute (5) Colostomy status: Status: Acute (6) Spina bifida aperta of lumbar spine: Status: Acute Additional A&P Information Severe sepsis: No septic shock. Secondary to necrotizing cellulitis of left hip. Post debridement day 2. Appreciate surgical recommendations. Wound dressing as per surgical team. Will place wound VAC on the day of discharge. Wound culture growing Proteus mirabilis. Sensitivities appreciated. For now continue with Zosyn. Stop vancomycin. On discharge patient will be on Levaquin 500 mg daily for next 10 days. Pain control with tramadol 50 mg oral as needed every 8 hourly. Regular diet. Famotidine for PUD prophylaxis. Heparin for DVT prophylaxis. Discharge planning: Plan to discharge home with home health. Patient would need wound VAC on discharge. He will need to follow-up with wound care services as an outpatient. Case management has been alerted and is working on home health placement. Attestations Medical Necessity Statement*: Requires further hospitalization for management of sepsis secondary to necrotizing cellulitis of left hip, post debridement Time Spent in Patient Care: Greater than 35 minutes (>than 50% of time spent in counselling and/or direct pt care on unit). Coding Level of Care Code Acute Territory Manager General Sales for g Fwd Diagnoses Sepsis associated hypotension A41.9; I95.9 Necrotizing soft tissue infection M79.89 Neurogenic bladder N31.9 Congenital imperforate anus Q42.3 Colostomy status Z93.3 Spina bifida aperta of lumbar spine Q05.7
--- NOTE | 2020-10-15 13:45 | PM.PN ---
Subjective Subjective: Interval history: Postop day #3 status post incision and drainage of a large left anterior gluteal and proximal posterior left thigh abscess. He has been receiving wet-to-dry dressing changes. Culture results pending. Feels substantially improved since drainage. Vital signs are stable. He is eager for discharge to home. Currently awaiting wound VAC arrival for placement prior to discharge. Vitals/I&O/Wt Last Vital Signs Temp 98.5 F 10/15/20 11:21 Pulse 75 10/15/20 11:21 Resp 12 10/15/20 11:21 BP 89/55 10/15/20 11:21 Pulse Ox 97 10/15/20 11:21 10/14/20 10/15/20 10/15/20 22:59 06:59 14:59 Intake Total 1170 / 1170 530 / 1700 1430 / 1430 Output Total 300 / 1000 400 / 1400 300 / 300 Balance 870 / 170 130 / 300 1130 / 1130 Weight last 48 hrs Weight 242 lb Weight 242 lb 6.4 oz Physical Exam Extremity: OTHER: The substantial incision and drainage area over the inferior left gluteal region and proximal posterior left thigh underwent careful inspection. Previous wet-to-dry dressing was removed. Wound bed is clean. There is no evidence for substantial undermining. A wet-to-dry dressing was applied utilizing saline and Kerlix gauze. I concur with plans for wound VAC placement to assist with outpatient management. Though obviously with some discomfort, he tolerated dressing change well. Urinary Catheter Management^: Weaver: Cath Placed During This Visit: yes Reason for Continuing Indwelling Catheter: Other Urinary Catheter Date of Insertion: 10/12/20 Urinary Catheter Time of Insertion: 21:30 Data : 10/15/20 06:30 10/15/20 06:30 Micro: Microbiology 10/12/20 19:22 Gram Stain - Final Buttock Wound Culture - Final Proteus mirabilis 10/12/20 19:32 Anaerobic Culture - Preliminary Buttock A&P Assessment and plan (1) Status post incision and drainage: Postop day #3 status post incision and drainage of left gluteal and posterior left thigh abscess. Wound remains very clean and continue wet-to-dry dressings for now until wound VAC is available for placement. I performed rounds and dressing change today as the general surgeon on-call was unavailable. I have concurred with the [facility] general surgical team. Hopefully, wound VAC can arrive later today or tomorrow to allow for placement prior to discharge and may be followed up through [facility] wound care services. Status: Acute Attestations Medical Necessity Statement*: POD #3 status post I&D left thigh abscess Time Spent in Patient Care: 16 - 35 minutes Coding Level of Care Code Acute Transitions Manager for Petros Mays Diagnoses Status post incision and drainage Z98.890
[2020-10-15 15:56] VITALS: BP 112/66; PULSE 78; RESP 20; TEMP 36.6; O2SAT 98
[2020-10-15] MEDS: bacitracin ointment 28 gm TOPICAL ×2 (16:00→21:37)
[2020-10-15 19:45] VITALS: BP 121/71; PULSE 73; RESP 20; TEMP 37.4; O2SAT 99
[2020-10-16] VITALS: BP 119/73; PULSE 70; RESP 20; TEMP 36.6; O2SAT 98
[2020-10-16] MEDS: piperacillin-tazobactam 3.375 GM in sodium chloride 0.9% (plus) 50 ML IV ×2 (01:22→08:33)
[2020-10-16 04:00] VITALS: BP 105/70; PULSE 73; RESP 18; TEMP 36.7; O2SAT 99
[2020-10-16] MEDS: heparin 5,000 unit/mL INJ 1 mL 5000 UNIT SUBCUT ×2 (06:20→15:23)
[2020-10-16 07:51] VITALS: BP 118/73; PULSE 79; RESP 17; TEMP 36.7; O2SAT 99
--- NOTE | 2020-10-16 10:19 | PM.DCS ---
Discharge Providers Date of Admission: 10/12/20 20:39 Date of Discharge: October 16, 2020 Attending Provider at Admission: Jenny Crowell MD Attending Provider at Discharge: Marcelo Adams MD Consults: Surgery: Dr. Patel Primary Care Provider: LUIS Coleman Diagnoses at Discharge Discharge Diagnosis (1) Status post incision and drainage: Status: Acute (2) Necrotizing soft tissue infection: Status: Acute (3) Sepsis associated hypotension: Status: Acute (4) Congenital imperforate anus: Status: Acute (5) Spina bifida aperta of lumbar spine: Status: Acute (6) Neurogenic bladder: Status: Acute (7) Colostomy status: Status: Acute Reason for Visit Reason for Visit: infected pressure sore Hospital Course Hospital Course 30-year-old male who is wheelchair-bound due to spinal bifida aparta of lumbar spine, neurogenic bladder rq self catheterization 5x/daily, congenital imperforate anus hx of colostomy, who presented to the hospital for evaluation of infected decubitus ulcer on left lower extremity. Patient was recently started on Keflex outpatient. Despite initiation of antibiotics noted to have ongoing fever, chills and weakness. Also noted to have purulent discharge. On admission patient was on severe sepsis without shock. Surgery was consulted. 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 Patient was started on broad-spectrum antibiotics and was taken to the OR emergently on October 12 where he underwent incision and drainage of left lower limb extremity necrotizing soft tissue infection. His postoperative state unremarkable. He was started on broad-spectrum antibiotics. Wound cultures were concerning for Proteus mirabilis. Antibiotics were changed as per culture results. Wound VAC has been placed in home and has been arranged. Patient is to follow-up with wound care services as an outpatient. He is being discharged on oral levofloxacin for 10 more days. Physical Exam Narrative: EXAM NARRATIVE: General: Alert, Awake oriented x3 HEENT : Grossly unremarkable CVS; Sinus tachycardia Chest: Non-labored respiraton Abd: Colostomy Ext: Left hip with surgical dressing, no drainage or soakage. Scrotal edema Urinary Catheter Management^: Weaver: Cath Placed During This Visit: yes Reason for Continuing Indwelling Catheter: Other Urinary Catheter Date of Insertion: 10/12/20 Urinary Catheter Time of Insertion: 21:30 Discharge Data Data Completed and Pending: Completed Studies During Hospitalization Category Date Time Status CT hip LT w con [id number] Stat Cat Scan 10/12/20 15:38 Completed Pending at discharge Category Date Time Status Anaerobic Culture Routine Lab 10/12/20 19:32 Results Blood Culture [facility] Lab 10/12/20 04:23 Results Addt'l Data from Hospital Stay: Laboratory Results WBC 12.2 10^3/uL (4.0 -10.0) H 10/15/20 06:30 RBC 4.01 10^6/uL (4.1 -5.3) L 10/15/20 06:30 Hgb 11.3 g/dL (11.7-1 6.6) L 10/15/20 06:30 Hct 37.5 % (42.0-52.0 ) L 10/15/20 06:30 MCV 93.5 fl (80-94) 10/15/20 06:30 MCH 28.2 pg (28.0-34. 0) 10/15/20 06:30 MCHC 30.1 g/dL (30.0-3 6.0) D 10/15/20 06:30 RDW 13.6 % (12.1-15.1 ) 10/15/20 06:30 Plt Count 370 10^3/cmm (130 -400) 10/15/20 06:30 MPV 11.0 fL (7.4-10.4 ) H 10/15/20 06:30 Neut % (Auto) 64.6 % 10/15/20 06:30 Lymph % (Auto) 19.7 % 10/15/20 06:30 Perry % (Auto) 6.8 % 10/15/20 06:30 Eos % (Auto) 2.5 % 10/15/20 06:30 Baso % (Auto) 0.3 % 10/15/20 06:30 Neut # (Auto) 7.90 10^3/uL (1.8 -7.7) H 10/15/20 06:30 Lymph # (Auto) 2.4 10^3/uL (0.8- 4.8) 10/15/20 06:30 Perry # (Auto) 0.8 10^3/uL (0.2- 0.9) 10/15/20 06:30 Eos # (Auto) 0.3 10^3/uL (0.0- 0.8) 10/15/20 06:30 Baso # (Auto) 0.0 10^3/uL (0.0- 0.1) 10/15/20 06:30 Nucleated RBC % (a uto) 0 % 10/15/20 06:30 Nucleated RBCs # 0.0 /100WBC 10/15/20 06:30 Specimen Type Arterial 10/12/20 16:07 Sample Site Radial, right 10/12/20 16:07 ABG pH 7.48 (7.35-7.45) H 10/12/20 16:07 ABG pCO2 23.1 mmHg (35-45) L 10/12/20 16:07 ABG pO2 79.9 mmHg (80.0-1 00.0) L 10/12/20 16:07 ABG HCO3 17.0 mmol/L (22-2 6) L 10/12/20 16:07 ABG O2 Saturation 97.7 10/12/20 16:07 ABG Base Excess -4.6 mmol/L (-2.0 -2.0) L 10/12/20 16:07 Tong Test Pos 10/12/20 16:07 A-a O2 Gradient 5.0 mmHg (5-10) 10/12/20 16:07 Hematocrit 42.7 % (42-52) 10/12/20 16:07 Hgb O2 Saturation 96.0 % (95-100) 10/12/20 16:07 Carboxyhemoglobin 1.4 %THgb (0.4-20 .1) 10/12/20 16:07 Methemoglobin 0.3 % (0.4-1.5) L 10/12/20 16:07 Total Hemoglobin 13.9 g/dL (14-18) L 10/12/20 16:07 Sodium 134.0 mmol/L (131 -143) 10/12/20 16:07 Potassium 4.0 mmol/L (3.5-5 .0) 10/12/20 16:07 Glucose 115.0 mg/dL (70-1 15) 10/12/20 16:07 Ionized Calcium 1.2 mmol/L (1.1-1 .4) 10/12/20 16:07 O2 Delivery Device Room air 10/12/20 16:07 FiO2 21.0 % 10/12/20 16:07 Planning Lead ID Rebecca 10/12/20 16:07 Sodium 139 mmol/L (136-1 45) 10/15/20 06:30 Potassium 4.2 mmol/L (3.5-5 .1) 10/15/20 06:30 Chloride 111 mmol/L (98-10 7) H 10/15/20 06:30 Carbon Dioxide 16 mmol/L (22-29) L 10/15/20 06:30 Anion Gap 16.2 (5-19) 10/15/20 06:30 BUN 9 mg/dL (6-20) 10/15/20 06:30 Creatinine 0.8 mg/dL (0.7-1. 2) 10/15/20 06:30 GFR Calculation 112.8 mL/min (90- 130) 10/15/20 06:30 Glucose 89 mg/dL (65-115) 10/15/20 06:30 POC Glucose 133 mg/dL (70-110 ) H 10/12/20 22:58 Calculated Osmolal ity 286 mOsm/kg (285- 295) 10/15/20 06:30 Lactic Acid 0.9 mmol/L (0.5-2 .2) 10/13/20 04:23 Calcium 8.0 mg/dL (8.5-10 .5) L 10/15/20 06:30 Magnesium 2.2 mg/dL (1.7-2. 3) 10/15/20 06:30 Total Bilirubin 0.2 mg/dL (0.15-1 .2) 10/15/20 06:30 AST 26 U/L (0-40) 10/15/20 06:30 ALT 34 U/L (0-41) 10/15/20 06:30 Alkaline Phosphata se 51 IU/L (40-130) 10/15/20 06:30 Creatine Kinase 238 U/L (39-308) 10/12/20 16:10 Total Protein 5.8 g/dL (6.6-8.7 ) L 10/15/20 06:30 Albumin 2.2 g/dL (3.5-5.2 ) L 10/15/20 06:30 Globulin 3.6 g/dL (1.3-4.6 ) 10/15/20 06:30 Procalcitonin 1.07 ng/mL (0-0.5 ) H 10/14/20 03:30 Urine Color Yellow (Yellow) 10/13/20 00:17 Urine Appearance Clear (CLEAR) 10/13/20 00:17 Urine pH 5 (5-7) 10/13/20 00:17 Ur Specific Gravit y 1.010 (1.005-1.0 30) 10/13/20 00:17 Urine Protein Neg (Negative) 10/13/20 00:17 Urine Glucose (UA) Norm (Normal) 10/13/20 00:17 Urine Ketones 1+ (Negative) H 10/13/20 00:17 Urine Blood Neg (Negative) 10/13/20 00:17 Urine Nitrate Negative (Negati ve) 10/13/20 00:17 Urine Bilirubin Neg (Negative) 10/13/20 00:17 Urine Urobilinogen Norm mg/dL (Negat mikayla) 10/13/20 00:17 Ur Leukocyte Aurora ase Negative (Negati ve) 10/13/20 00:17 Vancomycin Trough 25.2 ug/mL (10-15 ) H* 10/14/20 23:31 Serum Ketones Negative (Negati ve) 10/12/20 16:[address] 10/12/20 15:38 IMPRESSION: 1. 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 2. No visible associated loculated fluid collection to suggest the presence of an organized abscess. 3. Large right hydrocele. 4. No visible associated osseous involvement. Radiation Dose CTDIVOL = (mGy): DLP = 915.47 (mGy-cm) ADDENDUM: 10/12/20 2087 THIS REPORT CONTAINS FINDINGS THAT MAY BE CRITICAL TO PATIENT CARE. The findings were verbally communicated via telephone conference with TRINITY GAYLE at 5:12 PM CDT on 10/12/2020. The findings were acknowledged and understood. Radiation Dose CTDIVOL = (mGy): DLP = 915.47 (mGy-cm) Preliminary micro results at discharge 10/12/20 19:32 Anaerobic Culture - Preliminary Buttock 10/12/20 04:23 Blood Culture - Pr eliminary Blood NEGATIVE TO JEOVANNY E 10/12/20 04:23 Blood Culture - Pr eliminary Blood NEGATIVE TO JEOVANNY E Microbiology 10/12/20 19:22 Buttock Gram Stain - Final 10/12/20 19:22 Buttock Wound Culture - Final Proteus mirabilis 10/12/20 19:32 Buttock Anaerobic Culture - Preliminary 10/12/20 04:23 Blood Blood Culture - Preliminary NEGATIVE TO DATE 10/12/20 04:23 Blood Blood Culture - Preliminary NEGATIVE TO DATE Vitals: Last Vital Signs Temp 98.1 F 10/16/20 07:51 Pulse 79 10/16/20 07:51 Resp 17 10/16/20 07:51 BP 118/73 10/16/20 07:51 Pulse Ox 99 10/16/20 07:51 Discharge Plan Discharge Patient Disposition: Home Health Service Condition: Stable Prescriptions: New bacitracin 500 unit/gram Ointment 1 applic topical TID 10 Days Qty: 30 RF: 0 levofloxacin 500 mg tablet 500 mg PO Q24H 10 Days Qty: 10 RF: 0 Continued mupirocin 2 % ointment 1 applic topical TID Qty: 22 RF: 0 (DME) miscellaneous medical supply Misc See Rx Instructions .Route Qty: 1 RF: 0 omeprazole 40 mg capsule,delayed release(DR/EC) 40 mg PO DAILY Qty: 90 RF: 0 (DME) catheter 16 Fr misc See Rx Instructions .Route Qty: 150 RF: 0 (DME) Stomahesive Paste Paste See Rx Instructions .Route Qty: 2 RF: 11 (DME) ostomy supplies 4 X 4 wafer See Rx Instructions .Route Qty: 20 RF: 0 (DME) colostomy bags Misc See Rx Instructions .Route Qty: 30 RF: 0 Discontinued cephalexin 500 mg capsule 500 mg PO BID Qty: 14 RF: 0 Discharge Orders: Discharge Order (Routine); Ordered 10/16/20 Ordered By: Marcelo Adams Referrals: [facility] [Outside] ([facility] will be contacting you about a time to admit you to their services. If you have any questions please call them at [phone].) MICHAELA Lucero, CASTING MACHINE SERVICE OPERATOR [Primary Care Provider] - 7-10 days (repeat cmp) WOUND [facility]ARE CLINIC, [Staff Physician] - 1-3 days Discharge Diet: Regular Discharge Activity: Resume usual activity Patient Instructions: Opioid Safety Activity Restrictions/Additional Instructions: Continue to follow-up with wound care clinic as directed. Continue local care however 10 more days. Discharge Attestations Time Spent in Discharge Care*: greater than 30 min Specific Discharge Activities: educating patient, discussing with pcp/other providers, discussing with case mgr/social workers/dc planners, documenting/other paperwork and evaluating patient/reviewing data Status at Discharge: Cognitive status at discharge: cognitively intact, Behavioral status at discharge: cooperative, Functional status at discharge: wheelchair bound Overall status at discharge: patient is back to baseline Quality Metrics Clinical Quality Measures During this hospital stay, did patient experience: None Coding Level of Care Code Acute Chg DC note Diagnoses Status post incision and drainage Z98.890 Necrotizing soft tissue infection M79.89 Sepsis associated hypotension A41.9; I95.9 Congenital imperforate anus Q42.3 Spina bifida aperta of lumbar spine Q05.7 Neurogenic bladder N31.9 Colostomy status Z93.3
[2020-10-16 11:19] VITALS: BP 118/73; PULSE 79; RESP 17; TEMP 36.7; O2SAT 99
[2020-10-16 11:49] VITALS: BP 117/76; PULSE 81; RESP 16; TEMP 36.8; O2SAT 97
[2020-10-16 16:57] VITALS: BP 112/72; PULSE 86; RESP 15; TEMP 36.6; O2SAT 98
[2020-10-16] MEDS: TRAMadol 50 mg Tablet PO (19:12)
--- NOTE | 2020-10-17 11:13 | PC.SOCIAL ---
follow up call made. patient filled medications today and is taking as prescribed. is having pain and wanting tramadol. spoke with Dr. Adams, Tramadol 50 mg q 6 hours prn #14 tabs called into [facility] medicine. patient is aware of follow up appointments. Home health hasn't saw patient as of yet.
== END 2020-10-16 19:25 | disposition home health service (06) | DRG 555 ==
LOC: ER 15:38 → OR 17:57 → ICU 20:40 → MEDSURG 10-14 12:25
PROVIDERS: Anesthesiology Critical Care Medicine; Hospitalist; Admitting Provider Hospitalist; Emergency Provider Family Medicine; PCP Nurse Practitioner Family; Visit Provider Student in an Organized Health Care Education/Training Program
PROC: 0Y9J0ZZ Drainage of Left Lower Leg, Open Approach (ICD-10-PCS; principal; 2020-10-12 19:00)
DX: M79.89 Other specified soft tissue disorders (principal); A41.9 Sepsis, unspecified organism; R65.20 Severe sepsis without septic shock; G81.90 Hemiplegia, unspecified affecting unspecified side; Q42.3 Congenital absence, atresia and stenosis of anus without fistula; Q05.7 Lumbar spina bifida without hydrocephalus; H40.9 Unspecified glaucoma; N31.9 Neuromuscular dysfunction of bladder, unspecified; F17.200 Nicotine dependence, unspecified, uncomplicated; N49.3 Fournier gangrene; Z99.3 Dependence on wheelchair; Z93.3 Colostomy status; Z91.040 Latex allergy status; Z20.822 Contact with and (suspected) exposure to COVID-19
CPT/HCPCS: 36415; 36416; 36600; 51702; 73701; 80051; 80053; 80202; 81003; 82009; 82330; 82550; 82805; 82962; 83605; 83735; 84145; 85025; 87040; 87070; 87075; 87077; 87186; 87205; 96365; 96367; 96372; 96375; 97161; 99285; J1644; J2270; J2370; J2405; J2543; J2704; J3010; J3370; J3490; J7030; J7050; P9041; Q9967

== ENCOUNTER 2020-10-22 08:36 | Outpatient (CLI) | payer MEDICARE, MEDICAID, SELFPAY | END 2020-10-22 08:37 | disposition home or self-care (01) | LOC: WOUND 08:37 | PROVIDERS: PCP Nurse Practitioner Family; Visit Provider Thoracic Surgery (Cardiothoracic Vascular Surgery) | DX: T81.89XA Other complications of procedures, not elsewhere classified, initial encounter (principal); Y83.8 Other surgical procedures as the cause of abnormal reaction of the patient, or of later complication, without mention of misadventure at the time of the procedure; F17.210 Nicotine dependence, cigarettes, uncomplicated | CPT/HCPCS: 11042; 11045; 97606; G0463 ==

== ENCOUNTER 2020-10-29 10:32 | Outpatient (CLI) | payer MEDICARE, MEDICAID, SELFPAY | END 2020-10-29 10:33 | disposition home or self-care (01) | LOC: WOUND 10:33 | PROVIDERS: PCP Nurse Practitioner Family; Visit Provider Thoracic Surgery (Cardiothoracic Vascular Surgery) | DX: T81.89XA Other complications of procedures, not elsewhere classified, initial encounter (principal); Y83.8 Other surgical procedures as the cause of abnormal reaction of the patient, or of later complication, without mention of misadventure at the time of the procedure; F17.210 Nicotine dependence, cigarettes, uncomplicated | CPT/HCPCS: 11042; 11045; 97606; A6250 ==

== ENCOUNTER 2020-11-05 10:34 | Outpatient (CLI) | payer MEDICARE, MEDICAID, SELFPAY | END 2020-11-05 10:35 | disposition home or self-care (01) | LOC: WOUND 10:36 | PROVIDERS: PCP Nurse Practitioner Family; Visit Provider Thoracic Surgery (Cardiothoracic Vascular Surgery) | DX: T81.89XA Other complications of procedures, not elsewhere classified, initial encounter (principal); Y83.8 Other surgical procedures as the cause of abnormal reaction of the patient, or of later complication, without mention of misadventure at the time of the procedure; F17.210 Nicotine dependence, cigarettes, uncomplicated | CPT/HCPCS: 11042; 11045; 97606; A6250 ==

== ENCOUNTER 2020-11-12 10:06 | Outpatient (CLI) | payer MEDICARE, MEDICAID, SELFPAY | END 2020-11-12 10:07 | disposition home or self-care (01) | LOC: WOUND 10:07 | PROVIDERS: PCP Nurse Practitioner Family; Visit Provider Thoracic Surgery (Cardiothoracic Vascular Surgery) | DX: T81.89XA Other complications of procedures, not elsewhere classified, initial encounter (principal); Y83.8 Other surgical procedures as the cause of abnormal reaction of the patient, or of later complication, without mention of misadventure at the time of the procedure; F17.210 Nicotine dependence, cigarettes, uncomplicated | CPT/HCPCS: 11042; 11045; A6237; A6250 ==

== ENCOUNTER 2020-11-19 13:59 | Outpatient (CLI) | payer MEDICARE, MEDICAID, SELFPAY | END 2020-11-19 14:00 | disposition home or self-care (01) | LOC: WOUND 14:00 | PROVIDERS: PCP Nurse Practitioner Family; Visit Provider Nurse Practitioner Family | DX: T81.89XA Other complications of procedures, not elsewhere classified, initial encounter (principal); Y83.8 Other surgical procedures as the cause of abnormal reaction of the patient, or of later complication, without mention of misadventure at the time of the procedure; F17.210 Nicotine dependence, cigarettes, uncomplicated | CPT/HCPCS: 11042; 11045 ==

== ENCOUNTER 2020-11-26 13:48 | Outpatient (CLI) | payer MEDICARE, MEDICAID, SELFPAY | END 2020-11-26 13:49 | disposition home or self-care (01) | LOC: WOUND 13:50 | PROVIDERS: PCP Nurse Practitioner Family; Visit Provider Thoracic Surgery (Cardiothoracic Vascular Surgery) | DX: T81.89XA Other complications of procedures, not elsewhere classified, initial encounter (principal); Y83.8 Other surgical procedures as the cause of abnormal reaction of the patient, or of later complication, without mention of misadventure at the time of the procedure; F17.210 Nicotine dependence, cigarettes, uncomplicated | CPT/HCPCS: 97597; 97598 ==

== ENCOUNTER 2020-12-03 14:05 | Outpatient (CLI) | payer MEDICARE, MEDICAID, SELFPAY | END 2020-12-03 14:06 | disposition home or self-care (01) | LOC: WOUND 14:06 | PROVIDERS: PCP Nurse Practitioner Family; Visit Provider Nurse Practitioner Family | DX: T81.89XA Other complications of procedures, not elsewhere classified, initial encounter (principal); Y83.8 Other surgical procedures as the cause of abnormal reaction of the patient, or of later complication, without mention of misadventure at the time of the procedure | CPT/HCPCS: 11042; 11045; 97605; A6237; A6250 ==

== ENCOUNTER 2020-12-10 15:01 | Outpatient (CLI) | payer MEDICARE, MEDICAID, SELFPAY | END 2020-12-10 15:02 | disposition home or self-care (01) | LOC: WOUND 15:03 | PROVIDERS: PCP Nurse Practitioner Family; Visit Provider Thoracic Surgery (Cardiothoracic Vascular Surgery) | DX: T81.89XA Other complications of procedures, not elsewhere classified, initial encounter (principal); Y83.8 Other surgical procedures as the cause of abnormal reaction of the patient, or of later complication, without mention of misadventure at the time of the procedure; F17.210 Nicotine dependence, cigarettes, uncomplicated | CPT/HCPCS: 11042; 11045; 97605; A6237; A6250 ==

== ENCOUNTER 2020-12-17 14:11 | Outpatient (CLI) | payer MEDICARE, MEDICAID, SELFPAY | END 2020-12-17 14:12 | disposition home or self-care (01) | LOC: WOUND 14:12 | PROVIDERS: PCP Nurse Practitioner Family; Visit Provider Thoracic Surgery (Cardiothoracic Vascular Surgery) | DX: T81.89XA Other complications of procedures, not elsewhere classified, initial encounter (principal); Y83.8 Other surgical procedures as the cause of abnormal reaction of the patient, or of later complication, without mention of misadventure at the time of the procedure; F17.210 Nicotine dependence, cigarettes, uncomplicated | CPT/HCPCS: 11042; 11045 ==

== ENCOUNTER 2020-12-24 14:55 | Outpatient (CLI) | payer MEDICARE, MEDICAID, SELFPAY | END 2020-12-24 14:56 | disposition home or self-care (01) | LOC: WOUND 14:59 | PROVIDERS: PCP Nurse Practitioner Family; Visit Provider Thoracic Surgery (Cardiothoracic Vascular Surgery) | DX: T81.89XA Other complications of procedures, not elsewhere classified, initial encounter (principal); Y83.8 Other surgical procedures as the cause of abnormal reaction of the patient, or of later complication, without mention of misadventure at the time of the procedure; F17.210 Nicotine dependence, cigarettes, uncomplicated | CPT/HCPCS: 97597; 97598 ==

== ENCOUNTER 2021-01-07 14:37 | Outpatient (CLI) | payer MEDICARE, MEDICAID, SELFPAY | END 2021-01-07 14:38 | disposition home or self-care (01) | LOC: WOUND 14:38 | PROVIDERS: PCP Nurse Practitioner Family; Visit Provider Nurse Practitioner Family | DX: T81.89XA Other complications of procedures, not elsewhere classified, initial encounter (principal); Y83.8 Other surgical procedures as the cause of abnormal reaction of the patient, or of later complication, without mention of misadventure at the time of the procedure; F17.210 Nicotine dependence, cigarettes, uncomplicated | CPT/HCPCS: 11042; 11045 ==

== ENCOUNTER 2021-01-14 14:48 | Outpatient (CLI) | payer MEDICARE, MEDICAID, SELFPAY | END 2021-01-14 14:49 | disposition home or self-care (01) | LOC: WOUND 14:49 | PROVIDERS: PCP Nurse Practitioner Family; Visit Provider Emergency Medicine | DX: T81.89XA Other complications of procedures, not elsewhere classified, initial encounter (principal); Y83.8 Other surgical procedures as the cause of abnormal reaction of the patient, or of later complication, without mention of misadventure at the time of the procedure; F17.210 Nicotine dependence, cigarettes, uncomplicated | CPT/HCPCS: 11042; 11045 ==

== ENCOUNTER 2021-01-21 14:21 | Outpatient (CLI) | payer MEDICARE, MEDICAID, SELFPAY | END 2021-01-21 14:22 | disposition home or self-care (01) | LOC: WOUND 14:22 | PROVIDERS: PCP Nurse Practitioner Family; Visit Provider Thoracic Surgery (Cardiothoracic Vascular Surgery) | DX: T81.89XA Other complications of procedures, not elsewhere classified, initial encounter (principal); Y83.8 Other surgical procedures as the cause of abnormal reaction of the patient, or of later complication, without mention of misadventure at the time of the procedure; F17.210 Nicotine dependence, cigarettes, uncomplicated | CPT/HCPCS: 97597 ==

== ENCOUNTER 2021-01-28 14:51 | Outpatient (CLI) | payer MEDICARE, MEDICAID, SELFPAY | END 2021-01-28 14:52 | disposition home or self-care (01) | LOC: WOUND 14:52 | PROVIDERS: PCP Nurse Practitioner Family; Visit Provider Nurse Practitioner Family | DX: T81.89XA Other complications of procedures, not elsewhere classified, initial encounter (principal); Y83.8 Other surgical procedures as the cause of abnormal reaction of the patient, or of later complication, without mention of misadventure at the time of the procedure; F17.210 Nicotine dependence, cigarettes, uncomplicated | CPT/HCPCS: 11042 ==

== ENCOUNTER 2021-02-04 14:06 | Outpatient (CLI) | payer MEDICARE, MEDICAID, SELFPAY | END 2021-02-04 14:07 | disposition home or self-care (01) | LOC: WOUND 14:07 | PROVIDERS: PCP Nurse Practitioner Family; Visit Provider Nurse Practitioner Family | DX: T81.89XA Other complications of procedures, not elsewhere classified, initial encounter (principal); Y83.8 Other surgical procedures as the cause of abnormal reaction of the patient, or of later complication, without mention of misadventure at the time of the procedure; F17.210 Nicotine dependence, cigarettes, uncomplicated | CPT/HCPCS: 11042 ==

== ENCOUNTER 2021-02-26 13:58 | Outpatient (CLI) | payer MEDICARE, MEDICAID, SELFPAY | END 2021-02-26 13:59 | disposition home or self-care (01) | LOC: WOUND 13:59 | PROVIDERS: PCP Nurse Practitioner Family; Visit Provider Nurse Practitioner Family | DX: T81.89XA Other complications of procedures, not elsewhere classified, initial encounter (principal); Y83.8 Other surgical procedures as the cause of abnormal reaction of the patient, or of later complication, without mention of misadventure at the time of the procedure; F17.210 Nicotine dependence, cigarettes, uncomplicated | CPT/HCPCS: 11042; A6219 ==

== ENCOUNTER 2021-03-05 14:50 | Outpatient (CLI) | payer MEDICARE, MEDICAID, SELFPAY | END 2021-03-05 14:51 | disposition home or self-care (01) | LOC: WOUND 14:51 | PROVIDERS: PCP Nurse Practitioner Family; Visit Provider Thoracic Surgery (Cardiothoracic Vascular Surgery) | DX: T81.89XA Other complications of procedures, not elsewhere classified, initial encounter (principal); Y83.8 Other surgical procedures as the cause of abnormal reaction of the patient, or of later complication, without mention of misadventure at the time of the procedure; F17.210 Nicotine dependence, cigarettes, uncomplicated | CPT/HCPCS: 97597 ==

== ENCOUNTER 2021-03-19 13:54 | Outpatient (CLI) | payer MEDICARE, MEDICAID, SELFPAY | END 2021-03-19 13:55 | disposition home or self-care (01) | LOC: WOUND 13:55 | PROVIDERS: PCP Nurse Practitioner Family; Visit Provider Thoracic Surgery (Cardiothoracic Vascular Surgery) | DX: T81.89XA Other complications of procedures, not elsewhere classified, initial encounter (principal); Y83.8 Other surgical procedures as the cause of abnormal reaction of the patient, or of later complication, without mention of misadventure at the time of the procedure; F17.210 Nicotine dependence, cigarettes, uncomplicated | CPT/HCPCS: 97597 ==

== ENCOUNTER 2021-04-16 14:04 | Outpatient (CLI) | payer MEDICARE, MEDICAID, SELFPAY | END 2021-04-16 14:05 | disposition home or self-care (01) | LOC: WOUND 14:06 | PROVIDERS: PCP Nurse Practitioner Family; Visit Provider Thoracic Surgery (Cardiothoracic Vascular Surgery) | DX: Z09 Encounter for follow-up examination after completed treatment for conditions other than malignant neoplasm (principal); L97.828 Non-pressure chronic ulcer of other part of left lower leg with other specified severity; F17.210 Nicotine dependence, cigarettes, uncomplicated | CPT/HCPCS: 99212 ==

== ENCOUNTER → 2021-09-17 09:28 | Outpatient (BNVA) | payer MEDICARE, MEDICAID, SELFPAY | PROVIDERS: PCP Nurse Practitioner Family; Visit Provider Thoracic Surgery (Cardiothoracic Vascular Surgery) | DX: I96 Gangrene, not elsewhere classified (principal); L89.322 Pressure ulcer of left buttock, stage 2 | CPT/HCPCS: 97597; 97598; 99213; A6210 ==

== ENCOUNTER → 2021-09-24 09:42 | Outpatient (BNVA) | payer MEDICARE, MEDICAID, SELFPAY | PROVIDERS: PCP Nurse Practitioner Family; Visit Provider Thoracic Surgery (Cardiothoracic Vascular Surgery) | DX: L89.622 Pressure ulcer of left heel, stage 2 (principal); I96 Gangrene, not elsewhere classified | CPT/HCPCS: 11042; 11045; A6210 ==

== ENCOUNTER → 2021-10-01 13:00 | Outpatient (BNVA) | payer MEDICARE, MEDICAID, SELFPAY | PROVIDERS: PCP Nurse Practitioner Family; Visit Provider Thoracic Surgery (Cardiothoracic Vascular Surgery) | DX: I96 Gangrene, not elsewhere classified (principal); L89.322 Pressure ulcer of left buttock, stage 2 | CPT/HCPCS: 97597; A6021 ==

== ENCOUNTER → 2021-10-08 08:39 | Outpatient (BNVA) | payer MEDICARE, MEDICAID, SELFPAY | PROVIDERS: PCP Nurse Practitioner Family; Visit Provider Nurse Practitioner Family | DX: L89.322 Pressure ulcer of left buttock, stage 2 (principal); I96 Gangrene, not elsewhere classified | CPT/HCPCS: 11042; A6021 ==

== ENCOUNTER → 2021-10-15 08:58 | Outpatient (BNVA) | payer MEDICARE, MEDICAID, SELFPAY | PROVIDERS: PCP Nurse Practitioner Family; Visit Provider Thoracic Surgery (Cardiothoracic Vascular Surgery) | DX: I96 Gangrene, not elsewhere classified (principal); L89.322 Pressure ulcer of left buttock, stage 2 | CPT/HCPCS: 97597; A6021 ==

== ENCOUNTER → 2021-10-29 09:00 | Outpatient (BNVA) | payer MEDICARE, MEDICAID, SELFPAY | PROVIDERS: PCP Nurse Practitioner Family; Visit Provider Thoracic Surgery (Cardiothoracic Vascular Surgery) | DX: I96 Gangrene, not elsewhere classified (principal); L89.322 Pressure ulcer of left buttock, stage 2 | CPT/HCPCS: 97597; A6021 ==

== ENCOUNTER → 2021-11-05 09:26 | Outpatient (BNVA) | payer MEDICARE, MEDICAID, SELFPAY | PROVIDERS: PCP Nurse Practitioner Family; Visit Provider Thoracic Surgery (Cardiothoracic Vascular Surgery) | DX: I96 Gangrene, not elsewhere classified (principal); L89.322 Pressure ulcer of left buttock, stage 2 | CPT/HCPCS: 11042 ==

== ENCOUNTER → 2021-11-12 10:26 | Outpatient (BNVA) | payer MEDICARE, MEDICAID, SELFPAY | PROVIDERS: PCP Nurse Practitioner Family; Visit Provider Thoracic Surgery (Cardiothoracic Vascular Surgery) | DX: L89.322 Pressure ulcer of left buttock, stage 2 (principal); I96 Gangrene, not elsewhere classified | CPT/HCPCS: 11042; A6021; A6248 ==

== ENCOUNTER → 2021-11-19 08:21 | Outpatient (BNVA) | payer MEDICARE, MEDICAID, SELFPAY | PROVIDERS: PCP Nurse Practitioner Family; Visit Provider Thoracic Surgery (Cardiothoracic Vascular Surgery) | DX: I96 Gangrene, not elsewhere classified (principal); L89.892 Pressure ulcer of other site, stage 2 | CPT/HCPCS: 11042; A6021; A6248 ==

== ENCOUNTER → 2021-11-26 08:09 | Outpatient (BNVA) | payer MEDICARE, MEDICAID, SELFPAY | PROVIDERS: PCP Nurse Practitioner Family; Visit Provider Thoracic Surgery (Cardiothoracic Vascular Surgery) | DX: I96 Gangrene, not elsewhere classified (principal); L89.322 Pressure ulcer of left buttock, stage 2 | CPT/HCPCS: 11042; A6021 ==

== ENCOUNTER → 2021-12-03 08:10 | Outpatient (BNVA) | payer MEDICARE, MEDICAID, SELFPAY | PROVIDERS: PCP Nurse Practitioner Family; Visit Provider Thoracic Surgery (Cardiothoracic Vascular Surgery) | DX: I96 Gangrene, not elsewhere classified (principal); L89.322 Pressure ulcer of left buttock, stage 2 | CPT/HCPCS: 97597; A6021 ==

== ENCOUNTER → 2021-12-10 08:06 | Outpatient (BNVA) | payer MEDICARE, MEDICAID, SELFPAY | PROVIDERS: PCP Nurse Practitioner Family; Visit Provider Thoracic Surgery (Cardiothoracic Vascular Surgery) | DX: I96 Gangrene, not elsewhere classified (principal); L89.322 Pressure ulcer of left buttock, stage 2 | CPT/HCPCS: 11042; A6021 ==

== ENCOUNTER → 2021-12-17 08:07 | Outpatient (BNVA) | payer MEDICARE, MEDICAID, SELFPAY | PROVIDERS: PCP Nurse Practitioner Family; Visit Provider Thoracic Surgery (Cardiothoracic Vascular Surgery) | DX: I96 Gangrene, not elsewhere classified (principal); L89.322 Pressure ulcer of left buttock, stage 2 | CPT/HCPCS: 97597; A6021 ==

== ENCOUNTER → 2021-12-24 08:12 | Outpatient (BNVA) | payer MEDICARE, MEDICAID, SELFPAY | PROVIDERS: PCP Nurse Practitioner Family; Visit Provider Thoracic Surgery (Cardiothoracic Vascular Surgery) | DX: I96 Gangrene, not elsewhere classified (principal); L89.322 Pressure ulcer of left buttock, stage 2 | CPT/HCPCS: 11042 ==

== ENCOUNTER → 2022-01-07 08:10 | Outpatient (BNVA) | payer MEDICARE, MEDICAID, SELFPAY | PROVIDERS: PCP Nurse Practitioner Family; Visit Provider Nurse Practitioner Family | DX: I96 Gangrene, not elsewhere classified (principal); L89.322 Pressure ulcer of left buttock, stage 2 | CPT/HCPCS: 11042; A6021 ==

== ENCOUNTER → 2022-01-14 08:09 | Outpatient (BNVA) | payer MEDICARE, MEDICAID, SELFPAY | PROVIDERS: PCP Nurse Practitioner Family; Visit Provider Thoracic Surgery (Cardiothoracic Vascular Surgery) | DX: I96 Gangrene, not elsewhere classified (principal); L97.822 Non-pressure chronic ulcer of other part of left lower leg with fat layer exposed | CPT/HCPCS: 11042; A6021 ==

== ENCOUNTER → 2022-01-21 08:38 | Outpatient (BNVA) | payer MEDICARE, MEDICAID, SELFPAY | PROVIDERS: PCP Nurse Practitioner Family; Visit Provider Thoracic Surgery (Cardiothoracic Vascular Surgery) | DX: I96 Gangrene, not elsewhere classified (principal); L89.322 Pressure ulcer of left buttock, stage 2 | CPT/HCPCS: 11042; A6021 ==

== ENCOUNTER → 2022-02-04 08:43 | Outpatient (BNVA) | payer MEDICARE, MEDICAID, SELFPAY | PROVIDERS: PCP Nurse Practitioner Family; Visit Provider Surgery | DX: I96 Gangrene, not elsewhere classified (principal); L89.322 Pressure ulcer of left buttock, stage 2 | CPT/HCPCS: 97597; A6021 ==

== ENCOUNTER → 2022-02-11 08:37 | Outpatient (BNVA) | payer MEDICARE, MEDICAID, SELFPAY | PROVIDERS: PCP Nurse Practitioner Family; Visit Provider Thoracic Surgery (Cardiothoracic Vascular Surgery) | DX: I96 Gangrene, not elsewhere classified (principal); L89.322 Pressure ulcer of left buttock, stage 2 | CPT/HCPCS: 11042 ==

== ENCOUNTER → 2022-02-18 09:19 | Outpatient (BNVA) | payer MEDICARE, MEDICAID, SELFPAY | PROVIDERS: PCP Nurse Practitioner Family; Visit Provider Thoracic Surgery (Cardiothoracic Vascular Surgery) | DX: I96 Gangrene, not elsewhere classified (principal); L89.322 Pressure ulcer of left buttock, stage 2 | CPT/HCPCS: 11042 ==

== ENCOUNTER → 2022-02-25 08:09 | Outpatient (BNVA) | payer MEDICARE, MEDICAID, SELFPAY | PROVIDERS: PCP Nurse Practitioner Family; Visit Provider Thoracic Surgery (Cardiothoracic Vascular Surgery) | DX: I96 Gangrene, not elsewhere classified (principal); L89.322 Pressure ulcer of left buttock, stage 2 | CPT/HCPCS: 11042 ==

== ENCOUNTER → 2022-03-18 08:40 | Outpatient (BNVA) | payer MEDICARE, MEDICAID, SELFPAY | PROVIDERS: PCP Nurse Practitioner Family; Visit Provider Thoracic Surgery (Cardiothoracic Vascular Surgery) | DX: I96 Gangrene, not elsewhere classified (principal); L89.322 Pressure ulcer of left buttock, stage 2 | CPT/HCPCS: 11042 ==

== ENCOUNTER → 2022-03-25 08:50 | Outpatient (BNVA) | payer MEDICARE, MEDICAID, SELFPAY | PROVIDERS: PCP Nurse Practitioner Family; Visit Provider Thoracic Surgery (Cardiothoracic Vascular Surgery) | DX: I96 Gangrene, not elsewhere classified (principal); L89.322 Pressure ulcer of left buttock, stage 2 | CPT/HCPCS: 11042; A6197; A6252 ==

== ENCOUNTER → 2022-04-01 08:54 | Outpatient (BNVA) | payer MEDICARE, MEDICAID, SELFPAY | PROVIDERS: PCP Nurse Practitioner Family; Visit Provider Thoracic Surgery (Cardiothoracic Vascular Surgery) | DX: I96 Gangrene, not elsewhere classified (principal); L89.322 Pressure ulcer of left buttock, stage 2 | CPT/HCPCS: 11042; A6197; A6252 ==

== ENCOUNTER → 2022-04-08 08:53 | Outpatient (BNVA) | payer MEDICARE, MEDICAID, SELFPAY | PROVIDERS: PCP Nurse Practitioner Family; Visit Provider Thoracic Surgery (Cardiothoracic Vascular Surgery) | DX: I96 Gangrene, not elsewhere classified (principal); L89.322 Pressure ulcer of left buttock, stage 2 | CPT/HCPCS: 11042; A6197; A6252 ==

== ENCOUNTER → 2022-04-15 08:40 | Outpatient (BNVA) | payer MEDICARE, MEDICAID, SELFPAY | PROVIDERS: PCP Nurse Practitioner Family; Visit Provider Thoracic Surgery (Cardiothoracic Vascular Surgery) | DX: I96 Gangrene, not elsewhere classified (principal); L89.322 Pressure ulcer of left buttock, stage 2 | CPT/HCPCS: 11042; A6197; A6251 ==

== ENCOUNTER → 2022-04-22 08:08 | Outpatient (BNVA) | payer MEDICARE, MEDICAID, SELFPAY | PROVIDERS: PCP Nurse Practitioner Family; Visit Provider Thoracic Surgery (Cardiothoracic Vascular Surgery) | DX: I96 Gangrene, not elsewhere classified (principal); L89.322 Pressure ulcer of left buttock, stage 2 | CPT/HCPCS: 11042; A6197; A6251 ==

== ENCOUNTER → 2022-04-29 07:58 | Outpatient (BNVA) | payer MEDICARE, MEDICAID, SELFPAY | PROVIDERS: PCP Nurse Practitioner Family; Visit Provider Thoracic Surgery (Cardiothoracic Vascular Surgery) | DX: I96 Gangrene, not elsewhere classified (principal); L89.322 Pressure ulcer of left buttock, stage 2 | CPT/HCPCS: 11042; A6197 ==

== ENCOUNTER → 2022-05-06 07:54 | Outpatient (BNVA) | payer MEDICARE, MEDICAID, SELFPAY | PROVIDERS: PCP Nurse Practitioner Family; Visit Provider Thoracic Surgery (Cardiothoracic Vascular Surgery) | DX: I96 Gangrene, not elsewhere classified (principal); L89.322 Pressure ulcer of left buttock, stage 2 | CPT/HCPCS: 11042; A6197 ==

== ENCOUNTER → 2022-05-13 08:01 | Outpatient (BNVA) | payer MEDICARE, MEDICAID, SELFPAY | PROVIDERS: PCP Nurse Practitioner Family; Visit Provider Thoracic Surgery (Cardiothoracic Vascular Surgery) | DX: I96 Gangrene, not elsewhere classified (principal); L89.322 Pressure ulcer of left buttock, stage 2 | CPT/HCPCS: 11042; A6197 ==

== ENCOUNTER → 2022-05-20 08:06 | Outpatient (BNVA) | payer MEDICARE, MEDICAID, SELFPAY | PROVIDERS: PCP Nurse Practitioner Family; Visit Provider Thoracic Surgery (Cardiothoracic Vascular Surgery) | DX: I96 Gangrene, not elsewhere classified (principal); L89.322 Pressure ulcer of left buttock, stage 2 | CPT/HCPCS: 11042; A6021; A6251 ==

== ENCOUNTER → 2022-05-27 08:04 | Outpatient (BNVA) | payer MEDICARE, MEDICAID, SELFPAY | PROVIDERS: PCP Nurse Practitioner Family; Visit Provider Thoracic Surgery (Cardiothoracic Vascular Surgery) | DX: I96 Gangrene, not elsewhere classified (principal); L89.322 Pressure ulcer of left buttock, stage 2 | CPT/HCPCS: 11042; A6021 ==

== ENCOUNTER → 2022-06-03 08:06 | Outpatient (BNVA) | payer MEDICARE, MEDICAID, SELFPAY | PROVIDERS: PCP Nurse Practitioner Family; Visit Provider Thoracic Surgery (Cardiothoracic Vascular Surgery) | DX: I96 Gangrene, not elsewhere classified (principal); L89.322 Pressure ulcer of left buttock, stage 2 | CPT/HCPCS: 11042 ==

== ENCOUNTER → 2022-06-10 08:07 | Outpatient (BNVA) | payer MEDICARE, MEDICAID, SELFPAY | PROVIDERS: PCP Nurse Practitioner Family; Visit Provider Thoracic Surgery (Cardiothoracic Vascular Surgery) | DX: I96 Gangrene, not elsewhere classified (principal); L89.322 Pressure ulcer of left buttock, stage 2 | CPT/HCPCS: 11042; A6021 ==

== ENCOUNTER → 2022-06-17 08:07 | Outpatient (BNVA) | payer MEDICARE, MEDICAID, SELFPAY | PROVIDERS: PCP Nurse Practitioner Family; Visit Provider Thoracic Surgery (Cardiothoracic Vascular Surgery) | DX: L89.322 Pressure ulcer of left buttock, stage 2 (principal) | CPT/HCPCS: 11042; A6197 ==

== ENCOUNTER → 2022-06-24 08:02 | Outpatient (BNVA) | payer MEDICARE, MEDICAID, SELFPAY | PROVIDERS: PCP Nurse Practitioner Family; Visit Provider Thoracic Surgery (Cardiothoracic Vascular Surgery) | DX: I96 Gangrene, not elsewhere classified (principal); L89.322 Pressure ulcer of left buttock, stage 2 | CPT/HCPCS: 11042; A6197; A6220; A6251 ==

== ENCOUNTER → 2022-07-01 08:12 | Outpatient (BNVA) | payer MEDICARE, MEDICAID, SELFPAY | PROVIDERS: PCP Nurse Practitioner Family; Visit Provider Thoracic Surgery (Cardiothoracic Vascular Surgery) | DX: I96 Gangrene, not elsewhere classified (principal); L89.322 Pressure ulcer of left buttock, stage 2 | CPT/HCPCS: 11042; A6210 ==

== ENCOUNTER → 2022-07-08 08:10 | Outpatient (BNVA) | payer MEDICARE, MEDICAID, SELFPAY | PROVIDERS: PCP Nurse Practitioner Family; Visit Provider Thoracic Surgery (Cardiothoracic Vascular Surgery) | DX: I96 Gangrene, not elsewhere classified (principal); L89.322 Pressure ulcer of left buttock, stage 2 | CPT/HCPCS: 11042; 11045 ==

== ENCOUNTER → 2022-07-15 07:59 | Outpatient (BNVA) | payer MEDICARE, MEDICAID, SELFPAY | PROVIDERS: PCP Nurse Practitioner Family; Visit Provider Thoracic Surgery (Cardiothoracic Vascular Surgery) | DX: I96 Gangrene, not elsewhere classified (principal); L89.322 Pressure ulcer of left buttock, stage 2 | CPT/HCPCS: 11042 ==

== ENCOUNTER → 2022-07-22 07:55 | Outpatient (BNVA) | payer MEDICARE, MEDICAID, SELFPAY | PROVIDERS: PCP Nurse Practitioner Family; Visit Provider Thoracic Surgery (Cardiothoracic Vascular Surgery) | DX: I96 Gangrene, not elsewhere classified (principal); L89.322 Pressure ulcer of left buttock, stage 2 | CPT/HCPCS: 11042 ==

== ENCOUNTER → 2022-07-29 07:56 | Outpatient (BNVA) | payer MEDICARE, MEDICAID, SELFPAY | PROVIDERS: PCP Nurse Practitioner Family; Visit Provider Thoracic Surgery (Cardiothoracic Vascular Surgery) | DX: I96 Gangrene, not elsewhere classified (principal); L89.323 Pressure ulcer of left buttock, stage 3 | CPT/HCPCS: 11042; 87070; 87077; 87176; 87186; 87205 ==

== ENCOUNTER → 2022-08-05 07:58 | Outpatient (BNVA) | payer MEDICARE, MEDICAID, SELFPAY | PROVIDERS: PCP Nurse Practitioner Family; Visit Provider Thoracic Surgery (Cardiothoracic Vascular Surgery) | DX: I96 Gangrene, not elsewhere classified (principal); L89.323 Pressure ulcer of left buttock, stage 3 | CPT/HCPCS: 11042 ==

== ENCOUNTER 2022-08-14 10:44 | Inpatient (IN) | payer MEDICARE, MEDICAID, SELFPAY ==
[2022-08-14] VITALS (7 sets, daily range): BP systolic 103–123; BP diastolic 62–82; PULSE 91–117; RESP 16–18; TEMP 36.1–37.4; O2SAT 93–99; BMI 41.1
--- NOTE | 2022-08-14 12:59 | ED_ITS ---
HPI - Skin/Abscess/Foreign Bdy General: Chief complaint: Skin/Abscess/Foreign Body Stated complaint: Left buttock sores Time Seen by Provider: 08/14/22 12:24 History of Present Illness: Patient's noticed 2 new pressure sores on buttocks. Patient currently sees Dr. Pereira for various other wounds on patient's buttocks. Patient is wheelchair-bound. She just recently finished up 1 round of levofloxacin approximately 3 days ago. Patient is having intermittent fever and chills. Review of Systems General: Reports: 10 or more systems reviewed and unremarkable except in HPI and below PFSH ED PFSH: Medical History Anxiety Congenital imperforate anus Essential hypertension Glaucoma Hypertension screen Medication management Neurogenic bladder Pressure ulcer caused by device Spina bifida aperta of lumbar spine Vitamin D deficiency Surgical History Colostomy status History of right nephrectomy 2013 [facility] Status post hip surgery Bilateral pin surgery Status post ventriculo-peritoneal shunt placement Family History Other Spina bifida Social History Smoking and tobacco status: former smoker Alcohol intake: never Substance/Drug Use: never Physical Exam Const: COMMON NORMALS: no acute distress, average body habitus, patient orient ed x3, no limitations, healthy appearing, alert and well nourished HENMT: COMMON NORMALS: normocephalic, atraumatic, hearing grossly normal bilaterally, external ears normal, Normal external nose present and moist oral mucous membranes HEAD & SCALP: normocephalic and atraumatic NOSE: Normal external nose present EXTERNAL EAR: Yes external ears normal Neck/C-Spine: COMMON NORMALS: full ROM, no lymphadenopathy, supple, no meningeal signs, no JVD and Thyroid normal THYROID: Thyroid normal Chest: COMMONS NORMALS: normal inspection of the chest and normal palpation of entire chest wall Resp: COMMON NORMALS: normal respiratory effort, No retractions, No use of accessory muscles and clear to auscultation bilaterally AUSCULTATION: clear to auscultation bilaterally Cardio: COMMON NORMALS: no JVD, regular rate, regular rhythm, S1 normal heart sound present, S2 normal heart sound present, No gallops present (Cardio), No clicks present (Cardio), No murmurs present (Cardio) and No rub (Cardio) RATE: regular rate RHYTHM: regular rhythm HEART SOUNDS: S1 normal heart sound present and S2 normal heart sound present GI: COMMON NORMALS: Normal to inspection, nondistended, normoactive bowel sounds present, Soft to palpation, non-tender, No hepatosplenomegaly present and no masses PALPATION: Yes Soft to palpation and Yes No hepatosplenomegaly present Neuro: COMMON NORMALS: patient oriented x3 SENSORIUM/ORIENTATION: Yes alert MENINGEAL SIGNS: Yes no meningeal signs Course Vital Signs: Vital signs: Vital Signs Temperature 99.4 F 08/14/22 17:16 Pulse Rate 117 H 08/14/22 17:16 Respiratory Rate 18 08/14/22 17:16 Blood Pressure 118/72 08/14/22 17:16 Pulse Oximetry 96 08/14/22 17:16 Oxygen Delivery Me thod Room Air 08/14/22 17:16 MDM - Skin/Abscess/Foreign Bdy Medicial Decision Making Patient presents to the ER with complaints of having another left buttock ulceration/abscess. Patient normally sees wound care for these was unable to see them at the last appointment. Patient is wheelchair-bound secondary to spina bifida and paralysis. Patient just finished a round of Levaquin. Patient's lab work showed elevated white count at 17.3. Patient's abdominal pelvic CT with contrast showed posterior subcutaneous fluid collection at L5, probable soft tissue abscess in the right buttock in the left buttock region measuring about 16.[address] Carrera was consulted for possible inpatient for further evaluation and treatment. He agreed and accepted however he did want surgery consulted Dr. Lerma surgeon was consulted. Differential Diagnosis Likely abscess of skin or subcutaneous tissue; Unlikely viral exanthem, dermatophytosis, urticaria, herpes zoster, allergic reaction to drug, cellulitis, eczema, insect bites, impetigo or contact dermatitis Medical Records I reviewed the patient's medical records. Lab Data I reviewed the patient's lab results. 08/14/22 13:00 08/14/22 13:00 Radiology Impressions Abdomen/Pelvis CT 08/14/22 14:06 Impression: 1. Posterior subcutaneous fluid containing density at the level of L5. 2. Probable soft tissue abscess in the buttocks unchanged in size and configuration from earlier study. 3. Absent right kidney. 4. Left lower quadrant colostomy. Cholecystectomy and peritoneal shunt tube. Laboratory Results WBC 17.3 10^3/uL (4.0-10.0) H 08/14/22 13:00 RBC 5.28 10^6/uL (4.1-5.3) 08/14/22 13:00 Hgb 12.5 g/dL (11.7-16.6) 08/14/22 13:00 Hct 42.5 % (42.0-52.0) 08/14/22 13:00 MCV 80.5 fl (80-94) 08/14/22 13:00 MCH 23.7 pg (28.0-34.0) L 08/14/22 13:00 MCHC 29.4 g/dL (30.0-36.0) L 08/14/22 13:00 RDW 15.9 % (12.1-15.1) H 08/14/22 13:00 Plt Count 504 10^3/cmm (130-400) H 08/14/22 13:00 MPV 10.2 fL (7.4-10.4) 08/14/22 13:00 Lymph % (Auto) Not Reportable 08/14/22 13:00 [place] % (Auto) Not Reportable 08/14/22 13:00 Lymph # (Auto) Not Reportable 08/14/22 13:00 [place] # (Auto) Not Reportable 08/14/22 13:00 Total Counted 100 (0-100) 08/14/22 13:00 Atypical Lymphs % 0.0 % (0-5) 08/14/22 13:00 Absolute Neutrophils 13.7 10^3/cmm (1.4-6.5) H 08/14/22 13:00 Segmented Neutrophils 78 % 08/14/22 13:00 Abs Segm Neuts (Man) 13.5 10/cmm (1.6-7.1) H 08/14/22 13:00 Band Neutrophils 1.0 % 08/14/22 13:00 Abs Band Neuts (Man) 0.2 10^3/cmm (0.0-1.2) 08/14/22 13:00 Absolute Lymphocytes 2.1 10^3/cmm (1.2-3.4) 08/14/22 13:00 Lymphocytes (Manual) 12 % 08/14/22 13:00 Monocytes (Manual) 4.0 % 08/14/22 13:00 Absolute Monocytes 0.7 10^3/cmm (0.1-0.6) H 08/14/22 13:00 Eosinophils (Manual) 1 % 08/14/22 13:00 Absolute Eosinophils 0.1 10^3/cmm (0.0-0.7) 08/14/22 13:00 Basophils (Manual) 1.0 % 08/14/22 13:00 Absolute Basophils 0.2 10^3/cmm (0.0-0.2) 08/14/22 13:00 Metamyelocytes 2.0 % 08/14/22 13:00 Myelocytes 1.0 % 08/14/22 13:00 Promyelocytes 0.0 % 08/14/22 13:00 Blast Cells Cnc Machine Programmer 08/14/22 13:00 Toxic Vacuolation 1+ H 08/14/22 13:00 Platelet Estimate Increased (Normal) 08/14/22 13:00 Hypochromasia 1+ H 08/14/22 13:00 ESR 125 mm/hr (0-10) H 08/14/22 13:00 Sodium 137 mmol/L (136-145) 08/14/22 13:00 Potassium 4.6 mmol/L (3.5-5.1) 08/14/22 13:00 Chloride 106 mmol/L (98-107) 08/14/22 13:00 Carbon Dioxide 16 mmol/L (22-29) L 08/14/22 13:00 Anion Gap 19.6 (5-19) H 08/14/22 13:00 BUN 15 mg/dL (6-20) 08/14/22 13:00 Creatinine 0.8 mg/dL (0.7-1.2) 08/14/22 13:00 GFR Calculation 111.3 mL/min (90-130) 08/14/22 13:00 Glucose 96 mg/dL (65-115) 08/14/22 13:00 Calculated Osmolality 285 mOsm/kg (285-295) 08/14/22 13:00 Lactic Acid 1.9 mmol/L (0.5-2.2) 08/14/22 13:00 Calcium 9.2 mg/dL (8.5-10.5) 08/14/22 13:00 Total Bilirubin 0.2 mg/dL (0.15-1.2) 08/14/22 13:00 AST 18 U/L (0-40) 08/14/22 13:00 ALT 46 U/L (0-41) H 08/14/22 13:00 Alkaline Phosphatase 105 U/L (40-130) 08/14/22 13:00 C-Reactive Protein 216.0 mg/L (0.0-4.9) H 08/14/22 13:00 Total Protein 8.5 g/dL (6.6-8.7) 08/14/22 13:00 Albumin 2.6 g/dL (3.5-5.2) L 08/14/22 13:00 Globulin 5.9 g/dL (1.3-4.6) H 08/14/22 13:00 Discharge Plan Discharge Patient Disposition: Admitted As Inpatient Admit Provider: Keith Carrera Clinical Impression: Pressure sore, Spina bifida aperta of lumbar spine, Abscess of left buttock Condition: Stable Coding Level of Care Code ED Dock Manager for Petros Mays
[2022-08-14 13:23] LABS: Hematocrit 42.5 % (42.0-52.0); Hemoglobin 12.5 g/dL (11.7-16.6); Mean Corpuscular HGB Conc 29.4 g/dL (30.0-36.0); Mean Corpuscular Hemoglobin 23.7 pg (28.0-34.0); Mean Corpuscular Volume 80.5 fl (80-94); Mean Platelet Volume 10.2 fL (7.4-10.4); Platelet Count 504 10^3/cmm (130-400); Red Blood Count 5.28 10^6/uL (4.1-5.3); Red Cell Distribution Width 15.9 % (12.1-15.1); White Blood Count 17.3 10^3/uL (4.0-10.0)
[2022-08-14 13:26] LABS: Slide Review Slide Review Perform
[2022-08-14 13:27] LABS: Erythrocyte Sedimentation Rate 125 mm/hr (0-10)
[2022-08-14 13:43] LABS: Alanine Aminotransferase 46 U/L (0-41); Albumin Level 2.6 g/dL (3.5-5.2); Alkaline Phosphatase 105 U/L (40-130); Aspartate Amino Transferase 18 U/L (0-40); Blood Urea Nitrogen 15 mg/dL (6-20); Calcium 9.2 mg/dL (8.5-10.5); Carbon Dioxide 16 mmol/L (22-29); Chloride 106 mmol/L (98-107); Globulin 5.9 g/dL (1.3-4.6); Glomerular Filtration Rate 111.3 mL/min (90-130); Glucose 96 mg/dL (65-115); Osmolality Calculated 285 mOsm/kg (285-295); Sodium 137 mmol/L (136-145); Total Bilirubin 0.2 mg/dL (0.15-1.2); Total Protein 8.5 g/dL (6.6-8.7)
[2022-08-14 13:44] LABS: Lactic Sepsis W/Reflex 1.9 mmol/L (0.5-2.2)
[2022-08-14 13:46] LABS: Anion Gap 19.6 (5-19); Potassium 4.6 mmol/L (3.5-5.1)
[2022-08-14 13:48] LABS: Absolute Eosinophils 0.1 10^3/cmm (0.0-0.7); Absolute Neutrophil 13.7 10^3/cmm (1.4-6.5); Absolute Segmented Neutrophil 13.5 10/cmm (1.6-7.1); Band Neutrophils Absolute 0.2 10^3/cmm (0.0-1.2); Basophils Absolute 0.2 10^3/cmm (0.0-0.2); Eosinophils 1 %; Hypochromasia 1+; Lymphocytes 12 %; Lymphocytes Absolute 2.1 10^3/cmm (1.2-3.4); Monocytes Absolute 0.7 10^3/cmm (0.1-0.6); Platelet Estimate Increased (Normal); Segmented Neutrophils 78 %; Total Cells Counted 100 (0-100)
[2022-08-14 13:49] LABS: Toxic Vacuolation 1+
--- NOTE | 2022-08-14 14:06 | CT_ITS ---
WS: [id number] CT scan of the abdomen and pelvis with IV contrast. Additional two-dimensional coronal and sagittal r econstruction was performed. 08/14/2022 Clinical Data: multiple pressure sore buttock, r/o abscess Comparison: CT left hip and buttocks, 10/12/2020 DLP: 1296.[address] scans at [facility] use at least one of these dose optimization techniques: automated e xposure control; mA and/or kV adjustment per patient size (includes targeted exams where dose is matc hed to clinical indication); or iterative reconstruction. Findings: The lower lungs show no nodules, masses or effusions. The liver, gallbladder, spleen, adrenal glands and pancreas are normal. Right kidney is absent. The left kidney shows normal excretion with small lobulations of the superior aspect. No left renal masses, hydronephrosis or calculi are seen. A peritoneal shunt tube is seen. T here is a left lower quadrant colostomy. The abdominal aorta is normal in size. No appendicitis or diverticulitis is seen. The stomach and small bowel are unremarkable. No intra-abd ominal abscess, ascites, mass, obstruction, or free air is seen. There is spina bifida at L5. There is a posterior 12.5 cm complex soft tissue mass which probably contains fluid at the level of L5. The bladder shows wall thickening with irregularity. There are orthopedic devices in both femoral tro chanters. There is a soft tissue abscess containing air in the buttocks. This abscess has a transver se diameter of 16.5 cm and contains air. No osteomyelitis is seen. No inguinal hernia is seen. CT/CT abdomen pelvis w con* [id number] Impression: 1. Posterior subcutaneous fluid containing density at the level of L5. 2. Probable soft tissue abscess in the buttocks unchanged in size and configura tion from earlier study. 3. Absent right kidney. 4. Left lower quadrant colostomy. Cholecystectomy and peritoneal shunt tube.
--- NOTE | 2022-08-14 16:56 | PC.NURSE ---
PT SELF CATHS AND HAS HIS PRODUCTS TO DO SO. PT ALSO HAS OSTOMY SUPPLIES
--- NOTE | 2022-08-14 16:59 | P.CONIM_ITS ---
Providers/Reason For Consult Consulting Physician/Specialty*: Gerardo zhu MD general surgery Reason for Consult*: infected decubitus ulcer left side, new areas x2 Requesting Physician: Red Potts in ER History of Present Illness History of Present Illness Nico Herrera is a 32 year old male born with spina bifida paraplegia with mi nimal sensation. He was last hospitalized withleft leg and ischial ulcer. He continues to be seen in our wound center for this nonhealing ulcer for at least 6 months. Now over last few days especially over last 24 hours has noted increased drainage and two new ulcers both cephalad and medial to current ulcer. No high grade F/C/S. He uses RoHo cushion on wheelchair and just memory foam topper on bed. He normally lies on sides because it hurts along spine if lies flat from spina biffida and can't lie on stomach. He has not eaten in 24 hours and while probing the three connecting wounds it did not cause any discomfort. Review of Systems Narrative: Constitutional: denies rigors, significant weight gain, increased appetite HEENT: denies chronic cough, blurry vision, excessive tearing, eye pain, flashing lights, odynophagia, painful mastication, change in voice, change in taste, chronic sore throat, hypersalivation Heart: denies racing heart, palpitations, othropnea, PND Lungs: denies hemoptysis, pain with deep inspiration, chronic bronchitis GI: denies hematemesis, hematochezia, dysphagia, tenesmus : denies polyuria, hematuria, painful micturation Musculoskeletal: denies hemarthrosis Neuro: denies new onset syncope, ptosis eyelid or face SKin: denies new onset hyperalgia, new rash new cyanosis Endocrine: denies new polyuria, polydipsia, polyphagia, heat intolerance, excessive energy Hem/Onc: denies new petechiae, swollen glands, new excessive epstaxis Psych: denies racing thought Medications/Allergies Home Medications Medication Instructions Recorded Confirmed Last Taken Type catheter 16 Fr #150 ea 07/03/20 08/14/22 Unknown Rx colostomy bags #30 ea 07/03/20 08/14/22 Unknown Rx ostomy adhesive (Stomahesive Paste) #2 tubes 07/03/20 08/14/22 Unknown Rx ostomy supplies 4 X 4 wafer #20 wafers 07/03/20 08/14/22 Unknown Rx miscellaneous medical supply 1 ea miscellaneous ONCE #1 ea 04/01/22 08/14/22 Unknown Rx DME: Walker #1 ea 04/21/22 08/14/22 Unknown Rx miscellaneous medical supply #1 ea 07/15/22 08/14/22 Unknown Rx WHEELCHAIR #1 ea 07/30/22 08/14/22 Unknown Rx levofloxacin 500 mg tablet 500 mg PO DAILY #10 tabs 08/03/22 08/14/22 08/12/22 Rx FINISHED 08/12/22 ibuprofen 200 mg tablet 800 mg PO BID 08/14/22 08/14/22 08/14/22 07:30 History lisinopril 5 mg tablet 5 mg PO QAM 08/14/22 08/14/22 08/14/22 07:30 History omeprazole 40 mg capsule,delayed 40 mg PO QAM 08/14/22 08/14/22 08/14/22 07:30 History release sertraline 50 mg tablet 50 mg PO QAM 08/14/22 08/14/22 08/14/22 07:30 History sodium hypochlorite 0.25 % 1 applic topical .2-3 TIMES A DAY 08/14/22 08/14/22 Unknown History solution (Dakin's Solution) WTD dressing changes Allergies Allergy/AdvReac Type Severity Reaction Status Date / Time acetaminophen [From Tylenol] Allergy itching Verified 08/14/22 16:13 latex Allergy rash Verified 08/14/22 16:13 PFSH Acute PFSH: Medical History Anxiety Congenital imperforate anus Essential hypertension Glaucoma Hypertension screen Medication management Neurogenic bladder Pressure ulcer caused by device Spina bifida aperta of lumbar spine Vitamin D deficiency Surgical History Colostomy status History of right nephrectomy 2013 [facility] Status post hip surgery Bilateral pin surgery Status post ventriculo-peritoneal shunt placement Family History Other Spina bifida Social History Smoking and tobacco status: former smoker Alcohol intake: never Substance/Drug Use: never Vitals/I&O/Wt Last Vital Signs Temp 98.2 F 08/14/22 11:12 Pulse 91 08/14/22 11:12 Resp 17 08/14/22 11:12 BP 123/82 08/14/22 11:12 Pulse Ox 97 08/14/22 11:12 O2 Del Method Room Air 08/14/22 11:12 Weight last 48 hrs Weight 240 lb Physical Exam Narrative: Patient is a well developed well nourished and in NAD and is afebrile with vitals stable and is answering questions appropriately with a normal affect and is alert and oriented x3 HEENT: normocephalic with normal external ears and nonicteric, oral mucosa moist and dentition normal for age, trachea midline with no large masses visualized Heart: RRR, no gallops murmurs or rubs, normal PMI with no thrills Lungs: normal excursions, no loud audible wheezing, no subcutaneous emphysema Abdomen: nondistended, no gross hepatosplenomegaly, no masses, no rigidity or rebound, no loud borborygmi Neuro: paraplegic lower extremities and essentially no sensation here Musculoskeletal: paraplegic in lower legs Skin: pink warm and dry with no rashes or ecchymosis Vascular: good radial pulses, no ulceration, less than 2 second capillary refill in hand : deferred chronic 6-8 cm left ischial ulcer with deep extention with deep necrotic material andcephalad and medial undermining tunnel to 4-5 cm ulcer with moist black eschar and another more cephalad and medial with 2-3 cm black eshar Data 08/14/22 13:00 08/14/22 13:00 Micro: Microbiology 08/14/22 13:00 Blood Culture - Preliminary Blood SPECIMEN COLLECTED A&P Assessment and plan (1) Abscess of left buttock: (2) Spina bifida aperta of lumbar spine: (3) Pressure sore: Qualifiers: Laterality: left Pressure injury location: buttock Pressure injury stage: unspecified pressure injury stage Qualified Code(s): L89.329 - Pressure ulcer of left buttock, unspecified stage Plan Patient will need sharp debridement and pressure irrigation of deep ulcers that have tunneling connects and necrotic skin and necrotic material deep. 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 He last ate yesterday. He does not have much feeling and does not want deep sedation. He may require no local or minimal local anesthesia. Coding Level of Care Code 80920 Diagnoses Abscess of left buttock L02.31 Spina bifida aperta of lumbar spine Q05.7 Pressure sore L89.329 Laterality: left Pressure injury location: buttock Pressure injury stage: unspecified pressure injury stage
--- NOTE | 2022-08-14 17:38 | ANES.PREANE2 ---
Pre-Anesthetic Assessment Height/Weight: Height 1.63 m Weight 108.862 kg Temp Pulse Resp BP Pulse Ox O2 Del Method 99.4 F 117 H 18 118/72 96 Room Air 08/14/22 17:16 08/14/22 17:16 08/14/22 17:16 08/14/22 17:16 08/14/22 17:16 08/14/22 17:16 Operation Date: 08/14/22 18:00 Proposed Procedures p Incision And Drainage(Not Applicable) - Elias Lerma MD Familial anesthetic complications: none Was Beta Go taken within 24 hours: N/A Was Clonidine taken within 24 hours: N/A Social No alcohol and No tobacco Exam alert, oriented x 3, clear to auscultation bilaterally and regular rate & rhythm Airway Submandibular: within normal limits Cervical ROM: within normal limits Mallampati: Class II Dentition: full CV/HEM Hypertension h/o nephrectomy GI Gastroesophageal Reflux Disease Neuropsych Anxiety and Depression Spina bifida Anesthetic Plan ASA status: 3E Anesthesia: Choice Medications/Allergies Home Medications Medication Instructions Recorded Confirmed Last Taken Type catheter 16 Fr #150 ea 07/03/20 08/14/22 Unknown Rx colostomy bags #30 ea 07/03/20 08/14/22 Unknown Rx ostomy adhesive (Stomahesive Paste) #2 tubes 07/03/20 08/14/22 Unknown Rx ostomy supplies 4 X 4 wafer #20 wafers 07/03/20 08/14/22 Unknown Rx miscellaneous medical supply 1 ea miscellaneous ONCE #1 ea 04/01/22 08/14/22 Unknown Rx DME: Walker #1 ea 04/21/22 08/14/22 Unknown Rx miscellaneous medical supply #1 ea 07/15/22 08/14/22 Unknown Rx WHEELCHAIR #1 ea 07/30/22 08/14/22 Unknown Rx levofloxacin 500 mg tablet 500 mg PO DAILY #10 tabs 08/03/22 08/14/22 08/12/22 Rx FINISHED 08/12/22 ibuprofen 200 mg tablet 800 mg PO BID 08/14/22 08/14/22 08/14/22 07:30 History lisinopril 5 mg tablet 5 mg PO QAM 08/14/22 08/14/22 08/14/22 07:30 History omeprazole 40 mg capsule,delayed 40 mg PO QAM 08/14/22 08/14/22 08/14/22 07:30 History release sertraline 50 mg tablet 50 mg PO QAM 08/14/22 08/14/22 08/14/22 07:30 History sodium hypochlorite 0.25 % 1 applic topical .2-3 TIMES A DAY 08/14/22 08/14/22 Unknown History solution (Dakin's Solution) WTD dressing changes Allergies Allergy/AdvReac Type Severity Reaction Status Date / Time acetaminophen [From Tylenol] Allergy itching Verified 08/14/22 16:13 latex Allergy rash Verified 08/14/22 16:13 [facility] Anesthesia Medical History Anxiety Congenital imperforate anus Essential hypertension Glaucoma Hypertension screen Medication management Neurogenic bladder Pressure ulcer caused by device Spina bifida aperta of lumbar spine Vitamin D deficiency Surgical History Colostomy status History of right nephrectomy 2013 [facility] Status post hip surgery Bilateral pin surgery Status post ventriculo-peritoneal shunt placement Family History Other Spina bifida Social History Smoking and tobacco status: former smoker Alcohol intake: never Substance/Drug Use: never Data Anesthesia 08/14/22 13:00 08/14/22 13:00 Short CBC 08/14/22 Range/Units 13:00 WBC 17.3 H (4.0-10.0) 10^3/uL Hgb 12.5 (11.7-16.6) g/dL Hct 42.5 (42.0-52.0) % MCV 80.5 (80-94) fl Plt Count 504 H (130-400) 10^3/cmm BMP 08/14/22 13:00 Sodium 137 Potassium 4.6 Chloride 106 Carbon Dioxide 16 L BUN 15 Creatinine 0.8 Glucose 96 Calcium 9.2 Liver Function 08/14/22 Range/Units 13:00 Total Bilirubin 0.2 (0.15-1.2) mg/dL AST 18 (0-40) U/L ALT 46 H (0-41) U/L Alkaline Phosphatase 105 (40-130) U/L Albumin 2.6 L (3.5-5.2) g/dL Coags 08/14/22 08/14/22 13:00 13:00 ESR 125 H C-Reactive Protein 216.0 H Microbiology 08/14/22 13:00 Blood Culture - Preliminary Blood SPECIMEN COLLECTED Cardiac Studies: No Data to Display
[2022-08-14] MEDS: sodium chloride 0.9% 1,000 ML 30 ML IV (17:39)
--- NOTE | 2022-08-14 17:39 | P.HP_ITS ---
Providers/Chief Complaint Admitting Physician: Keith Carrera MD Chief Complaint: Left buttock sores History of Present Illness Nico Herrera is a 32 year old male wheelchair-bound due to spinal bifida aparta of lumbar spine, neurogenic bladder rq self catheterization 5x/daily, congenital imperforate anus hx of colostomy came in today with complaints of having another left buttock ulceration/abscess.? Patient normally sees wound ca re for these was unable to see them at the last appointment.? Patient is wheelchair-bound secondary to spina bifida and paralysis.? Patient just finished a round of Levaquin.? Patient's lab work showed elevated white count at 17.3.? Patient's abdominal pelvic CT with contrast showed posterior subcutaneous fluid collection at L5, probable soft tissue abscess in the right buttock in the left buttock region measuring about 16.5 cm.Surgery was consulted by ER debridement, patient has been started on broard spectrum abxs. Review of Systems General: Reports: 10 or more systems reviewed and unremarkable except in HPI and below Const: Denies: fever(s), chills, body aches, change in appetite or diaphoresis Card: Denies: palpitations, edema, swelling of feet/ankles, dyspnea on exertion, orthopnea or leg pain with exertion Resp: Denies: dyspnea, productive cough, wheezing or pain on inspiration GI: Denies: abdominal pain, nausea, vomiting, diarrhea or constipation : Denies: flank pain or difficulty urinating Musc: Denies: back pain, extremity pain or extremity swelling Neuro: Denies: headache(s) or confusion Medications/Allergies Home Medications Medication Instructions Recorded Confirmed Last Taken Type catheter 16 Fr #150 ea 07/03/20 08/14/22 Unknown Rx colostomy bags #30 ea 07/03/20 08/14/22 Unknown Rx ostomy adhesive (Stomahesive Paste) #2 tubes 07/03/20 08/14/22 Unknown Rx ostomy supplies 4 X 4 wafer #20 wafers 07/03/20 08/14/22 Unknown Rx miscellaneous medical supply 1 ea miscellaneous ONCE #1 ea 04/01/22 08/14/22 Unknown Rx DME: Walker #1 ea 04/21/22 08/14/22 Unknown Rx miscellaneous medical supply #1 ea 07/15/22 08/14/22 Unknown Rx WHEELCHAIR #1 ea 07/30/22 08/14/22 Unknown Rx levofloxacin 500 mg tablet 500 mg PO DAILY #10 tabs 08/03/22 08/14/22 08/12/22 Rx FINISHED 08/12/22 ibuprofen 200 mg tablet 800 mg PO BID 08/14/22 08/14/22 08/14/22 07:30 History lisinopril 5 mg tablet 5 mg PO QAM 08/14/22 08/14/22 08/14/22 07:30 History omeprazole 40 mg capsule,delayed 40 mg PO QAM 08/14/22 08/14/22 08/14/22 07:30 History release sertraline 50 mg tablet 50 mg PO QAM 08/14/22 08/14/22 08/14/22 07:30 History sodium hypochlorite 0.25 % 1 applic topical .2-3 TIMES A DAY 08/14/22 08/14/22 Unknown History solution (Dakin's Solution) WTD dressing changes Allergies Allergy/AdvReac Type Severity Reaction Status Date / Time acetaminophen [From Tylenol] Allergy itching Verified 08/14/22 16:13 latex Allergy rash Verified 08/14/22 16:13 PFSH Acute PFSH: Medical History Anxiety Congenital imperforate anus Essential hypertension Glaucoma Hypertension screen Medication management Neurogenic bladder Pressure ulcer caused by device Spina bifida aperta of lumbar spine Vitamin D deficiency Surgical History Colostomy status History of right nephrectomy 2013 [facility] Status post hip surgery Bilateral pin surgery Status post ventriculo-peritoneal shunt placement Family History Other Spina bifida Social History Smoking and tobacco status: former smoker Alcohol intake: never Substance/Drug Use: never Vitals/I&O/Wt Last Vital Signs Temp 99.4 F 08/14/22 17:16 Pulse 117 H 08/14/22 17:16 Resp 18 08/14/22 17:16 BP 118/72 08/14/22 17:16 Pulse Ox 96 08/14/22 17:16 O2 Del Method Room Air 08/14/22 17:31 Weight last 48 hrs Weight 108.862 kg Weight 108.862 kg Physical Exam HENMT: COMMON NORMALS: normocephalic and atraumatic HEAD & SCALP: normocephalic and atraumatic Resp: COMMON NORMALS: normal respiratory effort, No retractions, No use of accessory muscles and clear to auscultation bilaterally EFFORT & INSPECTION: Yes symmetric chest movement AUSCULTATION: clear to auscultation bilaterally Cardio: COMMON NORMALS: regular rate, regular rhythm, S1 normal heart sound present, S2 normal heart sound present, No gallops present (Cardio), No murmurs present (Cardio), No rub (Cardio) and Peripheral pulses 2+ throughout RATE: regular rate RHYTHM: regular rhythm HEART SOUNDS: S1 normal heart sound present and S2 normal heart sound present PERIPHERAL PULSES: Peripheral pulses 2+ throughout GI: COMMON NORMALS: Normal to inspection, nondistended, normoactive bowel sounds present, Soft to palpation, non-tender, No hepatosplenomegaly present and no masses AUSCULTATION: Yes normoactive bowel sounds PALPATION: Yes Soft to palpation and Yes No hepatosplenomegaly present RECTAL EXAM: Yes deferred Extremity: COMMON NORMALS: no clubbing, cyanosis or edema and no pedal edema Data 08/15/22 06:06 08/15/22 06:06 Micro: Microbiology 08/14/22 13:00 Blood Culture - Preliminary Blood SPECIMEN COLLECTED A&P Assessment and plan (1) Abscess of left buttock: (2) Spina bifida aperta of lumbar spine: (3) Essential hypertension: (4) History of right nephrectomy: Plan 32 year old male wheelchair-bound due to spinal bifida aparta of lumbar spine, neurogenic bladder rq self catheterization 5x/daily, congenital imperforate anus hx of colostomy came in today with complaints of having another left buttock ulceration/abscess.? Assessment : left decubitus ulcers of buttock : Follow Blood Culture [facility] Code Status :Full Code DVT PPX: Attestations Medical Necessity Statement*: Patient need to be in hospital for the management of lt decubitus ulcer,need for I.V Abxs. Anticipated LOS greater then 2 midnights. Coding Level of Care Code Acute Code for g Fwd Diagnoses Abscess of left buttock L02.31 Spina bifida aperta of lumbar spine Q05.7 Essential hypertension I10 History of right nephrectomy Z90.5
[2022-08-14 18:04] LABS: Add Urine Microscopic? YES; Bilirubin Urine Neg (Negative); Blood Urine Neg (Negative); Glucose Urine UA Norm (Normal); Ketones Urine 2+ (Negative); Leukocyte Esterase Urine 1+ (Negative); Nitrate Urine Negative (Negative); Protein Urine Neg (Negative); Urine Appearance Hazy (CLEAR); Urine Color Colorless (Yellow); Urobilinogen Urine Norm (Negative); pH Urine 5 (5-7)
[2022-08-14] MEDS: ceFAZolin 2,000 MG in sodium chloride 0.9% (plus) 50 ML 100 MG IV (18:05)
[2022-08-14 18:06] LABS: RBC Urine 25-40 /hpf (0-2); Squamous Epithelial Cell Urine 0-4 /hpf (0-5)
[2022-08-14 18:07] LABS: Bacteria Urine TRACE /hpf; WBC Urine 55-80 /hpf (0-5)
[2022-08-14 18:08] LABS: Hyaline Casts Urine 0-4 /lpf; Mucus Urine TRACE /hpf
[2022-08-14 18:09] LABS: Add Urine Culture? Yes
[2022-08-14] MEDS: ceFAZolin 2,000 mg SDV 3000 MG IRRIGATION (18:45)
--- NOTE | 2022-08-14 19:19 | ANE.PACU2 ---
Inpatient post-anesthesia follow up: Airway intact: Yes Vital signs: Temperature 97 F Pulse Rate 101 Respiratory Rate 16 Blood Pressure 114/62 Pulse Oximetry 98 Oxygen Delivery Me thod Room Air Oxygen Flow Rate Fraction of Inspir ed Oxygen Hydration adequate: Yes Nausea and vomiting: No Pain level: 1 Mental status: Baseline
[2022-08-14] MEDS: vancomycin 1,500 MG/300 ML PIGGYBACK 200 MG IV (19:53)
--- NOTE | 2022-08-14 20:18 | P.OP_ITS ---
Operative Report Date of procedure: August 14, 2022 Pre-op diagnosis: left decubitus ulcers of ischial and buttock Post-op diagnosis: same Procedure done: ID infection/abscess of left old decubitus ischial ulcer and debridement of two new ulcers medial and cephalad to old ulcer Specimens removed/disposition: skin and subcutaneous tissue, culture and sensitivity of fluid from wound Surgeon: Gerardo Lerma MD general surgery Anesthesia: MAC Brief History: Patient born with imperforate anus and paraplegia from spina bifida. He has had previous decubitus ulcers in past and healed with dressing changes and wound v ac. He is being followed for what appears to be left ischial ulcer in our wound clinic for 6 months. For the last few days he has noted increased drainage and formation of two new decubitus ulcers on the left side. CT scan is showing abscess and on exam he has necrotic skin and subcutaneous tissue. He understands risks, benfits and alternatives to procedure including bleeding, infection, cardiopulmonary problems, poor cosmesis, poor healing, more surgery. Procedure: Patient does not have much sensation where ulcers are at. He was given MAC and told to tell me if he felt discomfort and lidocaine could be instilled but he never felt anything. Area was prepped and draped in sterile manner. Old decubitu in left ischial area had some necrotic skin and deeper necrotic tissue that was black and [place]. It was foul smelling. Fluid here was sent for culture and sensitivity. This area had opening of 8 cm and was about 4 cm deep. Itconnected with a tunnel to the second new ulcer with necrotic black skin and appeared at anal dimple and was 6 cm in diameter and about 3 cm deep. This further was connected to the third ulcer with overlying necrotic black skin and this was more cephalad and medial and skin was 4 cm wide and about 2 cm deep. Necrotic skin and subcutaneous fat was excised and sent to path. Wounds were pressure washed with 4 liters of saline with a gram of ancef in it with pulsavac magic wand that appeared to be a bottle brush type of end. It was used along tunnels. Wounds were then packed with 2 inch roller guaze with three tied together at ends forming one long roll that was soaked in betadine. It was placed in all three cavities and along tract. Wound was covered with ABD dressing and held in place with Depends incontinence underwear. Patient tolerated procedure well.
[2022-08-14] MEDS: piperacillin-tazobactam 3.375 GM in sodium chloride 0.9% (plus) 50 ML IV (21:42)
[2022-08-15] VITALS (15 sets, daily range): BP systolic 101–129; BP diastolic 58–78; PULSE 79–108; RESP 15–18; TEMP 36.3–37.7; O2SAT 97–100
[2022-08-15] MEDS: vancomycin 1,500 MG/300 ML PIGGYBACK 200 MG IV (03:01)
[2022-08-15] MEDS: pantoprazole DR 40 mg Tablet PO (06:03)
[2022-08-15] MEDS: sertraline 50 mg Tablet PO (06:03)
[2022-08-15] MEDS: piperacillin-tazobactam 3.375 GM in sodium chloride 0.9% (plus) 50 ML IV ×2 (06:04→17:03)
[2022-08-15 06:19] LABS: Basophils # 0.1 10^3/uL (0.0-0.1); Basophils % 0.5 %; Eosinophils # 0.1 10^3/uL (0.0-0.8); Eosinophils % 0.4 %; Hematocrit 32.8 % (42.0-52.0); Hemoglobin 10.2 g/dL (11.7-16.6); Lymphocytes # 2.3 10^3/uL (0.8-4.8); Lymphocytes % 11.5 %; Mean Corpuscular HGB Conc 31.1 g/dL (30.0-36.0); Mean Corpuscular Hemoglobin 24.4 pg (28.0-34.0); Mean Corpuscular Volume 78.5 fl (80-94); Mean Platelet Volume 9.2 fL (7.4-10.4); Monocytes # 1.5 10^3/uL (0.2-0.9); Monocytes % 7.6 %; Neutrophils # 14.68 10^3/uL (1.8-7.7); Nucleated Red Blood Cells % 0 %; Platelet Count 577 10^3/cmm (130-400); Red Blood Count 4.18 10^6/uL (4.1-5.3); Red Cell Distribution Width 15.8 % (12.1-15.1); White Blood Count 19.7 10^3/uL (4.0-10.0)
[2022-08-15 06:38] LABS: Anion Gap 17.3 (5-19); Blood Urea Nitrogen 13 mg/dL (6-20); Calcium 8.1 mg/dL (8.5-10.5); Carbon Dioxide 18 mmol/L (22-29); Chloride 105 mmol/L (98-107); Glomerular Filtration Rate 111.3 mL/min (90-130); Glucose 110 mg/dL (65-115); Osmolality Calculated 283 mOsm/kg (285-295); Potassium 4.3 mmol/L (3.5-5.1); Sodium 136 mmol/L (136-145)
[2022-08-15 06:44] LABS: Procalcitonin 0.61 ng/mL (0-0.5)
--- NOTE | 2022-08-15 06:54 | PC.NURSE ---
Lisionpril non-admined morning of surgery per protocol. Blood pressure 105/69.
[2022-08-15 07:16] LABS: Neutrophils % 80.4 %
[2022-08-15 07:17] LABS: Slide Review Slide Review Perform
--- NOTE | 2022-08-15 10:59 | ANES.PAUD2 ---
Pre-Anesthetic Update Pre-Anesthetic Assessment: Date of Surgery/Procedure: 08/15/22 Proposed Procedure: Operation Date: 08/14/22 18:00 Proposed Procedures p Incision And Drainage(Not Applicable) - Elias Lerma MD Operation Date: 08/15/22 12:10 Proposed Procedures p Incision And Drainage with pulse vac(Not Applicable) - Elias Lerma MD Operation Date: 08/15/22 15:00 Proposed Procedures p Incision And Drainage(Not Applicable) - Elias Lerma MD Operation Date: 08/16/22 10:40 Proposed Procedures p Incision And Drainage with pulse vac(Not Applicable) - Elias Lerma MD Any changes to Pre-Anesthetic Assessment?: No Last Intake: Intake Last Liquid Date 08/14/22 Last Liquid Time 11:30 Last Solid Date 08/13/22 Last Solid Time 19:30 Labs Last 48hrs: Short CBC 08/14/22 08/15/22 Range/Units 13:00 06:06 WBC 17.3 H 19.7 H (4.0-10.0) 10^3/ uL Hgb 12.5 10.2 L (11.7-16.6) g/dL Hct 42.5 32.8 L (42.0-52.0) % MCV 80.5 78.5 L (80-94) fl Plt Count 504 H 577 H (130-400) 10^3/c mm Neut % (Auto) 80.4 % Neut # (Auto) 14.68 H (1.8-7.7) 10^3/u L BMP 08/14/22 08/15/22 13:00 06:06 Sodium 137 136 Potassium 4.6 4.3 Chloride 106 105 Carbon Dioxide 16 L 18 L BUN 15 13 Creatinine 0.8 0.8 Glucose 96 110 Calcium 9.2 8.1 L Liver Function 08/14/22 Range/Units 13:00 Total Bilirubin 0.2 (0.15-1.2) mg/dL AST 18 (0-40) U/L ALT 46 H (0-41) U/L Alkaline Phosphata se 105 (40-130) U/L Albumin 2.6 L (3.5-5.2) g/dL Urine 08/14/22 Range/Units 17:41 Urine Color Colorless (Yellow) Urine Appearance Hazy A (CLEAR) Urine pH 5 (5-7) Ur Specific Gravit y 1.010 (1.005-1.030) Urine Protein Neg (Negative) Urine Glucose (UA) Norm (Normal) Urine Ketones 2+ H (Negative) Urine Nitrate Negative (Negative) Urine Bilirubin Neg (Negative) Ur Leukocyte Aurora ase 1+ H (Negative) Urine RBC 25-40 H (0-2) /hpf Urine WBC 55-80 H (0-5) /hpf Coags 08/14/22 08/14/22 13:00 13:00 ESR 125 H C-Reactive Protein 216.0 H Vitals: Temperature 98.9 F 08/15/22 07:54 Temperature Source Oral 08/15/22 07:54 Pulse Rate 88 08/15/22 07:54 Respiratory Rate 17 08/15/22 07:54 Respiratory Effort Spontaneous, Non- Labored 08/14/22 19:21 Respiratory Depth Normal 08/14/22 19:21 Respiratory Patter n Normal 08/14/22 19:21 Blood Pressure 102/67 08/15/22 07:54 Blood Pressure Myriam n 78 08/15/22 07:54 Pulse Oximetry 97 08/15/22 07:54 Oxygen Delivery Me thod Room Air 08/15/22 07:54 Sepsis Recent Feve r Within 48 Hours Yes 08/14/22 11:12 Exam: Pre-Anes Outpt Exam: alert, oriented x 3, clear to auscultation bilaterally and regular rate & rhythm Cardiac Studies: No Data to Display
[2022-08-15] MEDS: ceFAZolin 1,000 mg SDV 3000 MG IRRIGATION (12:52)
[2022-08-15] MEDS: vancomycin 1,500 MG/300 ML PIGGYBACK 150 MG IV (13:50)
--- NOTE | 2022-08-15 15:12 | ANE.PACU2 ---
Inpatient post-anesthesia follow up: Airway intact: Yes Vital signs: Temperature 97.6 F Pulse Rate 82 Respiratory Rate 16 Blood Pressure 109/70 Pulse Oximetry 100 Oxygen Delivery Me thod Room Air Oxygen Flow Rate Fraction of Inspir ed Oxygen Hydration adequate: Yes Nausea and vomiting: No Pain level: 1 Mental status: Baseline
--- NOTE | 2022-08-15 15:25 | PM.PN ---
Subjective Subjective: Patient was seen and examined this morning denied any significant, buttock pain, he is due for his another round of washout today, continue IV antibiotics for now. Medications: Medication Review Details: Generic Name Dose Route Start Last Admin Trade Name Evans PRN Reason Stop Dose Admin Sodium Chloride 1,000 mls @ 30 ml s/hr 08/14/22 17:30 08/15/22 06:20 Sodium Chloride 0.9% IV 08/15/22 17:29 Infused .Q24H [facility] Infusion Piperacillin Sod/T azobactam 50 mls @ 12.5 mls /hr 08/14/22 19:30 08/15/22 10:28 Sod 3.375 gm/ So dium Chloride IV Infused Q8H [facility] Protocol Vancomycin/PEG/NAD A/Lysine/Water 1,500 mg in 300 m ls @ 200 mls/hr 08/14/22 20:00 08/15/22 13:50 Vancocin IV 150 mls/hr Q8H [facility] Administration Pantoprazole Sodiu m 40 mg 08/15/22 06:00 08/15/22 06:[address] 40 Mg Tablet PO 40 mg QAM [facility] Administration Sertraline HCl 50 mg 08/15/22 06:00 08/15/22 06:03 Sertraline 50 Mg Tablet PO 50 mg QAM [facility] Administration Vitals/I&O/Wt Last Vital Signs Temp 97.6 F 08/15/22 13:20 Pulse 82 08/15/22 13:25 Resp 16 08/15/22 13:25 BP 109/70 08/15/22 13:25 Pulse Ox 100 08/15/22 13:25 O2 Del Method Room Air 08/15/22 13:25 08/15/22 08/15/22 08/15/22 06:59 14:59 22:59 Intake Total 550.000 / 900.000 100 / 100 Output Total Balance 550.000 / 895.000 99 / 99 Weight last 48 hrs Weight 108.862 kg Weight 108.862 kg Physical Exam HENMT: COMMON NORMALS: normocephalic and atraumatic HEAD & SCALP: normocephalic and atraumatic Resp: COMMON NORMALS: normal respiratory effort, No retractions, No use of accessory muscles and clear to auscultation bilaterally EFFORT & INSPECTION: Yes symmetric chest movement AUSCULTATION: clear to auscultation bilaterally Cardio: COMMON NORMALS: regular rate, regular rhythm, S1 normal heart sound present, S2 normal heart sound present, No gallops present (Cardio), No murmurs present (Cardio), No rub (Cardio) and Peripheral pulses 2+ throughout RATE: regular rate RHYTHM: regular rhythm HEART SOUNDS: S1 normal heart sound present and S2 normal heart sound present PERIPHERAL PULSES: Peripheral pulses 2+ throughout GI: COMMON NORMALS: Normal to inspection, nondistended, normoactive bowel sounds present, Soft to palpation, non-tender, No hepatosplenomegaly present and no masses AUSCULTATION: Yes normoactive bowel sounds PALPATION: Yes Soft to palpation and Yes No hepatosplenomegaly present RECTAL EXAM: Yes deferred Extremity: COMMON NORMALS: no clubbing, cyanosis or edema and no pedal edema Data 08/15/22 06:06 08/15/22 06:06 Micro: Microbiology 08/14/22 13:00 Blood Culture - Preliminary Blood NEGATIVE TO DATE 08/14/22 17:41 Urine Culture - Preliminary Urine,Clean Catch A&P Assessment and plan (1) Abscess of left buttock: (2) Spina bifida aperta of lumbar spine: (3) Essential hypertension: (4) History of right nephrectomy: Plan 32 year old male wheelchair-bound due to spinal bifida aparta of lumbar spine, neurogenic bladder rq self catheterization 5x/daily, congenital imperforate anus hx of colostomy came in today with complaints of having another left buttock ulceration/abscess.? Assessment : left decubitus ulcers of buttock : Follow Blood Culture Currently on braod spectrum Abxs [facility] Surgery on Board Code Status :Full Code DVT PPX: Attestations Medical Necessity Statement*: Needs to be in hospital for IV antibiotics. Coding Level of Care Code Acute Code for Chg Fwd Diagnoses Abscess of left buttock L02.31 Spina bifida aperta of lumbar spine Q05.7 Essential hypertension I10 History of right nephrectomy Z90.5
--- NOTE | 2022-08-15 16:43 | PM.OP ---
Operative Report Date of procedure: August 15, 2022 Pre-op diagnosis: left decubitus ulcers of ischial and buttock Post-op diagnosis: same Procedure done: debridement of decubitus ulcers and pulsa vac irrigation and dressing change Specimens removed/disposition: necrotic deep tissue on old lateral large ischial ulcer Surgeon: Gerardo zhu MD general surgeon Estimated blood loss: minimal Brief History: Patient born paraplegic from spina bifida and imperforate anus. He now comes in with two new decubitus ulcers connected to old left ischial ulcer treated at wound clinic with wet to dry dakins solution dressing changes. He is here for second debridement and pressure irrigation and dressing change. Procedure: After adequate prepping and draping patient and after some sedation, some necrotic tissue deep in old left ischial ulcer was debrided out. Then all three ulcers that are connected with subcutaneous tunnels were irrigated with ancef solution puls a vac pressure irrigation. Wound was repacked with 3 roller guaze packages of 2 inch dressing soaked in betadine. The rolls' ends were tied to each other forming a long one and passed between the three ulcers through the connecting tunnels. Wound was then covered with ABD guaze and held in place with depends incontinence underwear. Patient tolerated procedure well and taken to recovery room in stable condition.
[2022-08-15 20:10] LABS: Vancomycin Trough 28.4 ug/mL (10-15)
--- NOTE | 2022-08-15 20:12 | PC.NURSE ---
Vanc trough 28.4. Pharmacy notified.
[2022-08-15] MEDS: vancomycin 1,250 MG/250 ML PIGGYBACK 250 MG IV (22:21)
[2022-08-16] VITALS (11 sets, daily range): BP systolic 80–123; BP diastolic 59–71; PULSE 72–87; RESP 16–18; TEMP 36.2–36.8; O2SAT 96–99
[2022-08-16] MEDS: piperacillin-tazobactam 3.375 GM in sodium chloride 0.9% (plus) 50 ML IV ×2 (00:09→17:44)
--- NOTE | 2022-08-16 00:58 | PC.NURSE ---
Patient empties ostomy and does straight cath without nursing assistance. Fiance at bedside. Patient and fiance stated they do not need nursing assistance or supplies for straight cathing or ostomy, as patient as supplies from home.
[2022-08-16] MEDS: sertraline 50 mg Tablet PO (05:51)
[2022-08-16] MEDS: pantoprazole DR 40 mg Tablet PO (05:51)
[2022-08-16 06:20] LABS: Basophils # 0.1 10^3/uL (0.0-0.1); Basophils % 0.6 %; Eosinophils # 0.1 10^3/uL (0.0-0.8); Eosinophils % 0.4 %; Hematocrit 32.6 % (42.0-52.0); Hemoglobin 10.1 g/dL (11.7-16.6); Lymphocytes # 2.1 10^3/uL (0.8-4.8); Lymphocytes % 11.5 %; Mean Corpuscular Hemoglobin 24.3 pg (28.0-34.0); Mean Corpuscular Volume 78.6 fl (80-94); Mean Platelet Volume 9.3 fL (7.4-10.4); Monocytes # 1.1 10^3/uL (0.2-0.9); Monocytes % 6.1 %; Neutrophils # 13.82 10^3/uL (1.8-7.7); Nucleated Red Blood Cells % 0 %; Platelet Count 528 10^3/cmm (130-400); Red Blood Count 4.15 10^6/uL (4.1-5.3); Red Cell Distribution Width 15.8 % (12.1-15.1); White Blood Count 18.3 10^3/uL (4.0-10.0)
[2022-08-16 06:36] LABS: Anion Gap 13.9 (5-19); Blood Urea Nitrogen 9 mg/dL (6-20); Calcium 7.7 mg/dL (8.5-10.5); Carbon Dioxide 17 mmol/L (22-29); Chloride 103 mmol/L (98-107); Glomerular Filtration Rate 111.3 mL/min (90-130); Glucose 118 mg/dL (65-115); Osmolality Calculated 270 mOsm/kg (285-295); Potassium 3.9 mmol/L (3.5-5.1); Sodium 130 mmol/L (136-145)
[2022-08-16 06:38] LABS: Neutrophils % 81.3 %
[2022-08-16 06:39] LABS: Vancomycin Trough 21.7 ug/mL (10-15)
--- NOTE | 2022-08-16 06:49 | PC.NURSE ---
Pharmacy notified of vanc trough of 21.7.
--- NOTE | 2022-08-16 09:16 | ANES.PAUD2 ---
Pre-Anesthetic Update Pre-Anesthetic Assessment: Date of Surgery/Procedure: 08/16/22 Proposed Procedure: Operation Date: 08/14/22 18:00 Proposed Procedures p Incision And Drainage(Not Applicable) - Elias Lerma MD Operation Date: 08/15/22 12:10 Proposed Procedures p Incision And Drainage with pulse vac(Not Applicable) - Elias Lerma MD Operation Date: 08/15/22 15:00 Proposed Procedures p Incision And Drainage(Not Applicable) - Elias Lerma MD Operation Date: 08/16/22 11:40 Proposed Procedures p Incision And Drainage with pulse vac(Not Applicable) - Elias Lerma MD Any changes to Pre-Anesthetic Assessment?: No Last Intake: Intake Last Liquid Date 08/14/22 Last Liquid Time 23:59 Last Solid Date 08/14/22 Last Solid Time 22:00 Labs Last 48hrs: Short CBC 08/14/22 08/15/22 08/16/22 Range/Units 13:00 06:06 06:00 WBC 17.3 H 19.7 H 18.3 H (4.0-10.0) 10^3/ uL Hgb 12.5 10.2 L 10.1 L (11.7-16.6) g/dL Hct 42.5 32.8 L 32.6 L (42.0-52.0) % MCV 80.5 78.5 L 78.6 L (80-94) fl Plt Count 504 H 577 H 528 H (130-400) 10^3/c mm Neut % (Auto) 80.4 81.3 % Neut # (Auto) 14.68 H 13.82 H (1.8-7.7) 10^3/u L BMP 08/14/22 08/15/22 08/16/22 13:00 06:06 06:00 Sodium 137 136 130 L Potassium 4.6 4.3 3.9 Chloride 106 105 103 Carbon Dioxide 16 L 18 L 17 L BUN 15 13 9 Creatinine 0.8 0.8 0.8 Glucose 96 110 118 H Calcium 9.2 8.1 L 7.7 L Liver Function 08/14/22 Range/Units 13:00 Total Bilirubin 0.2 (0.15-1.2) mg/dL AST 18 (0-40) U/L ALT 46 H (0-41) U/L Alkaline Phosphata se 105 (40-130) U/L Albumin 2.6 L (3.5-5.2) g/dL Urine 08/14/22 Range/Units 17:41 Urine Color Colorless (Yellow) Urine Appearance Hazy A (CLEAR) Urine pH 5 (5-7) Ur Specific Gravit y 1.010 (1.005-1.030) Urine Protein Neg (Negative) Urine Glucose (UA) Norm (Normal) Urine Ketones 2+ H (Negative) Urine Nitrate Negative (Negative) Urine Bilirubin Neg (Negative) Ur Leukocyte Aurora ase 1+ H (Negative) Urine RBC 25-40 H (0-2) /hpf Urine WBC 55-80 H (0-5) /hpf Coags 08/14/22 08/14/22 13:00 13:00 ESR 125 H C-Reactive Protein 216.0 H Vitals: Temperature 97.1 F L 08/16/22 08:12 Temperature Source Temporal Artery S can 08/16/22 08:00 Pulse Rate 80 08/16/22 08:12 Respiratory Rate 16 08/16/22 08:12 Respiratory Effort Spontaneous, Non- Labored 08/15/22 08:00 Respiratory Depth Normal 08/15/22 08:00 Respiratory Patter n Normal 08/15/22 08:00 Blood Pressure 100/65 08/16/22 08:12 Blood Pressure Myriam n 76 08/16/22 08:12 Blood Pressure Pos ition Semi Fowlers 08/16/22 04:00 Pulse Oximetry 98 08/16/22 08:12 Oxygen Delivery Me thod Room Air 08/16/22 08:12 Sepsis Recent Feve r Within 48 Hours Yes 08/14/22 11:12 Exam: Pre-Anes Outpt Exam: alert, oriented x 3, clear to auscultation bilaterally and regular rate & rhythm Cardiac Studies: No Data to Display
[2022-08-16] MEDS: ceFAZolin 1,000 mg SDV 3000 MG IRRIGATION (09:25)
[2022-08-16] MEDS: sodium chloride 0.9% 1,000 ML 100 ML IV ×2 (10:49→20:44)
[2022-08-16] MEDS: vancomycin 1,000 MG in sodium chloride 0.9% 250 ML 250 MG IV ×2 (10:49→23:20)
--- NOTE | 2022-08-16 11:51 | ANE.PACU2 ---
Inpatient post-anesthesia follow up: Airway intact: Yes Vital signs: Temperature 97.7 F Pulse Rate 81 Respiratory Rate 18 Blood Pressure 99/61 Pulse Oximetry 96 Oxygen Delivery Me thod Room Air Oxygen Flow Rate Fraction of Inspir ed Oxygen Hydration adequate: Yes Nausea and vomiting: No Pain level: 1 Mental status: Baseline
--- NOTE | 2022-08-16 15:23 | PM.PN ---
Subjective Subjective: Patient was seen and examined this morning, has remained afebrile, s/p debridement yesterday, clinical suspicion for ischial osteomyelitis. Medications: Medication Review Details: Generic Name Dose Route Start Last Admin Trade Name Evans PRN Reason Stop Dose Admin Enoxaparin Sodium 30 mg 08/15/22 19:00 08/15/22 18:51 Enoxaparin 30 Mg /0.3 Ml Syringe SUBCUT Not Given Q24H [facility]IAN Piperacillin Sod/T azobactam 50 mls @ 12.5 mls /hr 08/14/22 19:30 08/16/22 04:47 Sod 3.375 gm/ So dium Chloride IV Infused Q8H [facility] Infusion Protocol Vancomycin HCl 1,0 00 mg/ 250 mls @ 250 mls /hr 08/16/22 11:00 08/16/22 12:05 Sodium Chloride IV Infused Q8H [facility] Infusion Sodium Chloride 1,000 mls @ 100 m ls/hr 08/16/22 08:15 08/16/22 10:49 Sodium Chloride 0.9% IV 08/17/22 08:14 100 mls/hr .Q10H [facility]IAN Administration Pantoprazole Sodiu m 40 mg 08/15/22 06:00 08/16/22 05:[address] 40 Mg Tablet PO 40 mg QAM [facility]IAN Administration Sertraline HCl 50 mg 08/15/22 06:00 08/16/22 05:51 Sertraline 50 Mg Tablet PO 50 mg QAM [facility] Administration Vitals/I&O/Wt Last Vital Signs Temp 97.7 F 08/16/22 11:33 Pulse 81 08/16/22 11:33 Resp 18 08/16/22 11:33 BP 99/61 08/16/22 11:33 Pulse Ox 96 08/16/22 11:33 O2 Del Method Room Air 08/16/22 11:33 08/16/22 08/16/22 08/16/22 06:59 14:59 22:59 Intake Total 300 / 990 730 / 730 Output Total Balance 300 / 689 729 / 729 Weight last 48 hrs Weight 108.862 kg Physical Exam HENMT: COMMON NORMALS: normocephalic and atraumatic HEAD & SCALP: normocephalic and atraumatic Resp: COMMON NORMALS: normal respiratory effort, No retractions, No use of accessory muscles and clear to auscultation bilaterally EFFORT & INSPECTION: Yes symmetric chest movement AUSCULTATION: clear to auscultation bilaterally Cardio: COMMON NORMALS: regular rate, regular rhythm, S1 normal heart sound present, S2 normal heart sound present, No gallops present (Cardio), No murmurs present (Cardio), No rub (Cardio) and Peripheral pulses 2+ throughout RATE: regular rate RHYTHM: regular rhythm HEART SOUNDS: S1 normal heart sound present and S2 normal heart sound present PERIPHERAL PULSES: Peripheral pulses 2+ throughout GI: COMMON NORMALS: Normal to inspection, nondistended, normoactive bowel sounds present, Soft to palpation, non-tender, No hepatosplenomegaly present and no masses AUSCULTATION: Yes normoactive bowel sounds PALPATION: Yes Soft to palpation and Yes No hepatosplenomegaly present RECTAL EXAM: Yes deferred : COMMON NORMALS: Yes no CVA tenderness BLADDER/KIDNEY EXAM: Yes no CVA tenderness Back/Pelvis: COMMON NORMALS: no CVA tenderness Extremity: COMMON NORMALS: no clubbing, cyanosis or edema and no pedal edema Data 08/16/22 06:00 08/16/22 06:00 Micro: Microbiology 08/14/22 18:18 Gram Stain - Final Buttock Anaerobic Culture - Preliminary 08/14/22 17:41 Urine Culture - Final Urine,Clean Catch 08/14/22 18:18 Gram Stain - Final Buttock 08/14/22 13:00 Blood Culture - Preliminary Blood NEGATIVE TO DATE A&P Assessment and plan (1) Abscess of left buttock: (2) Spina bifida aperta of lumbar spine: (3) Essential hypertension: (4) History of right nephrectomy: Plan 32 year old male wheelchair-bound due to spinal bifida aparta of lumbar spine, neurogenic bladder rq self catheterization 5x/daily, congenital imperforate anus hx of colostomy came in today with complaints of having another left buttock ulceration/abscess.? 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 Code Status :Full Code DVT PPX: Attestations Medical Necessity Statement*: Needs to be in hospital for IV antibiotics. Coding Level of Care Code Acute Code for Chg Fwd Diagnoses Abscess of left buttock L02.31 Spina bifida aperta of lumbar spine Q05.7 Essential hypertension I10 History of right nephrectomy Z90.5
[2022-08-17] VITALS: BP 97/61; PULSE 83; RESP 17; TEMP 36.5; O2SAT 98
[2022-08-17] MEDS: piperacillin-tazobactam 3.375 GM in sodium chloride 0.9% (plus) 50 ML IV ×3 (01:45→16:59)
[2022-08-17 04:00] VITALS: BP 118/67; PULSE 72; RESP 16; TEMP 36.6; O2SAT 98
[2022-08-17] MEDS: pantoprazole DR 40 mg Tablet PO (06:10)
[2022-08-17] MEDS: sertraline 50 mg Tablet PO (06:10)
[2022-08-17] MEDS: vancomycin 1,000 MG in sodium chloride 0.9% 250 ML 250 MG IV ×3 (06:11→21:44)
[2022-08-17 06:42] LABS: Hematocrit 34.5 % (42.0-52.0); Hemoglobin 10.3 g/dL (11.7-16.6); Mean Corpuscular HGB Conc 29.9 g/dL (30.0-36.0); Mean Corpuscular Hemoglobin 24.5 pg (28.0-34.0); Mean Corpuscular Volume 81.9 fl (80-94); Mean Platelet Volume 9.3 fL (7.4-10.4); Platelet Count 500 10^3/cmm (130-400); Red Blood Count 4.21 10^6/uL (4.1-5.3); Red Cell Distribution Width 15.8 % (12.1-15.1); White Blood Count 14.4 10^3/uL (4.0-10.0)
[2022-08-17 06:55] LABS: Anion Gap 13.1 (5-19); Blood Urea Nitrogen 8 mg/dL (6-20); Calcium 8.1 mg/dL (8.5-10.5); Carbon Dioxide 19 mmol/L (22-29); Chloride 111 mmol/L (98-107); Glomerular Filtration Rate 129.9 mL/min (90-130); Glucose 97 mg/dL (65-115); Osmolality Calculated 286 mOsm/kg (285-295); Potassium 4.1 mmol/L (3.5-5.1); Sodium 139 mmol/L (136-145)
--- NOTE | 2022-08-17 06:55 | PM.OP ---
Operative Report Date of procedure: August 16, 2022 Pre-op diagnosis: left decubitus ulcers of ischial and buttock Post-op diagnosis: same and possible osteomyelitis of left ischial tuberosity Post-op findings: 1-2 cm [place] tissue overllying left ischial tuberosity that can now be palpated in deepest part of wound Procedure done: Pressure irrigation of wounds with pulsavac and dressing change Brief History: Patient with recurrent decubitus ulcers followed at wound clinic with malia wet to dry as outpatient. He developed two new ulcers with connection by subcutaneous tunnels from old main and larger left ischial ulcer. Procedure: After adequate IV sedation, area was prepped and draped at left ischial ulcer and two new connecting ulcers. Old packing had been removed. There was not any soft necrotic tissue to excise. There was some soft [place] tissue about 1-2 cm overlying palpable left ishcial tuberositiy. This tissue was left in situ to avoid exposing bone. This tissue was about 2-3 cm in diameter over the bone. Pulsavac with ancef was used to pressure wash wounds and then betadine soaked roller guazed was used in one long continuous packing into all three ulcers and both tunnels. Wounds was aseptically dressed. There is concern patient may have oseomyelitis of ischial tuberosity since it is essentially exposed. He is on vancomycin for staph coverage. He only has one functioning kidney but his vanco levels are being monitored.
[2022-08-17 07:06] LABS: Slide Review Slide Review Perform
[2022-08-17 07:19] LABS: Absolute Segmented Neutrophil 10.2 10/cmm (1.6-7.1); Eosinophils 0 %; Lymphocytes 14 %; Monocytes Absolute 0.9 10^3/cmm (0.1-0.6); Segmented Neutrophils 71 %; Total Cells Counted 100 (0-100)
[2022-08-17 07:20] LABS: Anisocytosis Trace; Poikilocytosis Trace; Toxic Granulation 1+
[2022-08-17 07:21] LABS: Absolute Neutrophil 11.2 10^3/cmm (1.4-6.5); Giant Platelets Trace; Platelet Estimate Increased (Normal); Smudge Cells 1+
[2022-08-17 07:30] VITALS: BP 103/68; PULSE 80; RESP 17; TEMP 36.7; O2SAT 99
--- NOTE | 2022-08-17 10:26 | PC.SOCIAL ---
Imm update Imm updated with patient at bedside. Copy of page 2 provided. Patient verbalized understanding. Copy in chart initialed, dated and timed.
[2022-08-17 11:48] VITALS: BP 111/73; PULSE 76; RESP 16; TEMP 36.3; O2SAT 98
--- NOTE | 2022-08-17 13:19 | PM.PN ---
Subjective Subjective: Patient seen and examined. He reports no pain Vitals/I&O/Wt Last Vital Signs Temp 97.4 F L 08/17/22 11:48 Pulse 76 08/17/22 11:48 Resp 16 08/17/22 11:48 BP 111/73 08/17/22 11:48 Pulse Ox 98 08/17/22 11:48 O2 Del Method Room Air 08/16/22 16:00 08/16/22 08/17/22 08/17/22 22:59 06:59 14:59 Intake Total 1281.667 / 2010.667 350 / 2361.667 1850 / 1850 Output Total 1000 / 1001 900 / 900 Balance 1281.667 / 2009.667 -650 / 1360.667 950 / 950 Physical Exam Narrative: General: No acute distress, awake alert and oriented x3 Skin: Dressings removed and significant fibrinous material still in wound Data 08/17/22 05:33 08/17/22 05:33 Micro: Microbiology 08/14/22 18:18 Gram Stain - Final Buttock Tissue Culture - Preliminary 08/14/22 18:18 Gram Stain - Final Buttock Anaerobic Culture - Preliminary Abscess Culture - Preliminary 08/14/22 17:41 Urine Culture - Final Urine,Clean Catch A&P Assessment and plan (1) Pressure sore: Qualifiers: Laterality: left Pressure injury location: buttock Pressure injury stage: unspecified pressure injury stage Qualified Code(s): L89.329 - Pressure ulcer of left buttock, unspecified stage Plan N.p.o. after midnight To operating room tomorrow for debridement of ischial decubitus ulcer The risks and benefits of the procedure, including but not limited to, bleeding, infection, scar, numbness, pain, damage to surrounding structures, need for repeat surgery, problems with wound healing, were explained to the patient. He is understanding of the risks and wishes to proceed Attestations Medical Necessity Statement*: Patient requires least 2 more nights in the hospital for treatment of large ischial decubitus ulcer including debridement tomorrow Coding Level of Care Code Acute Code for Chg Fwd Diagnoses Pressure sore L89.329 Laterality: left Pressure injury location: buttock Pressure injury stage: unspecified pressure injury stage
[2022-08-17 13:52] LABS: Procalcitonin 0.21 ng/mL (0-0.5); Thyroid Stimulating Hormone 3.66 uIU/mL (0.27-4.20); Vitamin B12 627 pg/mL (232-1245)
[2022-08-17 14:03] LABS: C Reactive Protein 55.1 mg/L (0.0-4.9); Iron 32 ug/dL (59-158); Percent Saturation 24.6 % (20-50); Total Iron Binding Capacity 130 mcg/dl; Unsaturated Iron Binding 98 ug/dL (112-347)
--- NOTE | 2022-08-17 14:52 | PM.PN ---
Subjective Subjective: Hospital course, labs appreciated. Examination patient lying comfortably in bed, AOx3. Caregiver at bedside. Patient denies any nausea, vomiting, headache. Has remained hemodynamically stable and afebrile. Tmax 99.9 on August 15 since admission. Blood work stools slight improvement in leukocytosis down to 14.4, stable hemoglobin of 10.3, stable BMP. Vitals/I&O/Wt Last Vital Signs Temp 97.4 F L 08/17/22 11:48 Pulse 76 08/17/22 11:48 Resp 16 08/17/22 11:48 BP 111/73 08/17/22 11:48 Pulse Ox 98 08/17/22 11:48 O2 Del Method Room Air 08/16/22 16:00 08/16/22 08/17/22 08/17/22 22:59 06:59 14:59 Intake Total 1281.667 / 2010.667 350 / 2361.667 1850 / 1850 Output Total 1000 / 1001 900 / 900 Balance 1281.667 / 2009.667 -650 / 1360.667 950 / 950 Physical Exam HENMT: COMMON NORMALS: normocephalic and atraumatic HEAD & SCALP: normocephalic and atraumatic Resp: COMMON NORMALS: normal respiratory effort, No retractions, No use of accessory muscles and clear to auscultation bilaterally EFFORT & INSPECTION: Yes symmetric chest movement AUSCULTATION: clear to auscultation bilaterally Cardio: COMMON NORMALS: regular rate, regular rhythm, S1 normal heart sound present, S2 normal heart sound present, No gallops present (Cardio), No murmurs present (Cardio), No rub (Cardio) and Peripheral pulses 2+ throughout RATE: regular rate RHYTHM: regular rhythm HEART SOUNDS: S1 normal heart sound present and S2 normal heart sound present PERIPHERAL PULSES: Peripheral pulses 2+ throughout GI: COMMON NORMALS: Normal to inspection, nondistended, normoactive bowel sounds present, Soft to palpation, non-tender, No hepatosplenomegaly present and no masses AUSCULTATION: Yes normoactive bowel sounds PALPATION: Yes Soft to palpation and Yes No hepatosplenomegaly present RECTAL EXAM: Yes deferred : COMMON NORMALS: Yes no CVA tenderness BLADDER/KIDNEY EXAM: Yes no CVA tenderness Back/Pelvis: COMMON NORMALS: no CVA tenderness Extremity: COMMON NORMALS: no clubbing, cyanosis or edema and no pedal edema Data 08/17/22 05:33 08/17/22 05:33 Micro: Microbiology 08/14/22 18:18 Gram Stain - Final Buttock Tissue Culture - Preliminary 08/14/22 18:18 Gram Stain - Final Buttock Anaerobic Culture - Preliminary Abscess Culture - Preliminary 08/14/22 17:41 Urine Culture - Final Urine,Clean Catch A&P Assessment and plan (1) Abscess of left buttock: (2) Spina bifida aperta of lumbar spine: (3) Essential hypertension: (4) History of right nephrectomy: (5) Single functional kidney: (6) Status post incision and drainage: Plan 32 year old male wheelchair-bound due to spinal bifida aparta of lumbar spine, neurogenic bladder rq self catheterization 5x/daily, congenital imperforate anus hx of colostomy came in today with complaints of having another left buttock ulceration/abscess.? Assessment : left decubitus ulcers of buttock : With some concerns for ischial left tuberosity osteomyelitis intraoperatively. S/p debridement. Plan for further debridement in AM. N.p.o. after midnight. Follow-up blood culture and wound culture. Review of old culture history wound cultures have been growing Proteus mirabilis which has been developing resistance with last culture on July 2022 2 ceftriaxone and cefuroxime though is sensitive to Zosyn. For now continue with empiric vancomycin and Zosyn. ID has been consulted from surgery. Will follow recommendations. Patient most likely will need 6 weeks of IV antibiotics. If blood cultures remain negative can plan for PICC line placement. Wound care as per surgical team. History of single functional kidney post right nephrectomy Spina bifida History of hypertension Attestations Medical Necessity Statement*: Requires further hospitalization for management of likely colitis ulcer with abscess along with high concerns for left ischial tuberosity osteomyelitis requiring multiple debridement and most likely long-term IV antibiotics Diagnoses Abscess of left buttock L02.31 Spina bifida aperta of lumbar spine Q05.7 Essential hypertension I10 History of right nephrectomy Z90.5 Single functional kidney Z90.5 Status post incision and drainage Z98.890
[2022-08-17 15:55] VITALS: BP 100/64; PULSE 84; RESP 16; O2SAT 98
[2022-08-17 20:00] VITALS: BP 103/64; PULSE 78; RESP 18; TEMP 36.4; O2SAT 97
[2022-08-17 21:51] LABS: Vancomycin Trough 21.8 ug/mL (10-15)
[2022-08-18] VITALS (19 sets, daily range): BP systolic 96–130; BP diastolic 61–89; PULSE 58–87; RESP 14–21; TEMP 36.2–36.8; O2SAT 96–100
[2022-08-18] MEDS: piperacillin-tazobactam 3.375 GM in sodium chloride 0.9% (plus) 50 ML IV ×3 (00:19→16:47)
--- NOTE | 2022-08-18 06:43 | P.CONIM_ITS ---
Providers/Reason For Consult Consulting Physician/Specialty*: Radha Barragan MD/ Infectious Disease Reason for Consult*: possible osteomyelitis Requesting Physician: Elias Lerma MD/General surgery Attending Physician: Elias Lerma MD History of Present Illness History of Present Illness 32M with Spina bifida, congenital imperforate anus, status post colonoscopy. Currently he has developed a left posterior thigh wound at the inferior margin of the left buttock since September 2021. This wound occurred at the superior margin of the previously healed left thigh wound. He has been followed by wound care closely since September and the wound has had a waxing and waning course though for the most part it appears it was stable to improving with local wound care measures until July 2022. Mr. Herrera continues to be fairly active in spite of being in a wheelchair. He has had extended hours at work recently. In july he was noted to have regression of his wound, increased discharge and maceration. He received treatment with clindamycin 300 mg 3 times daily in late July however the wound continued to worsen. He started developing low-grade fever up to 100.7 Fahrenheit at home. Levaquin was then added on August 05, 2022. VAC was started on July 29 but then held by August 05 due to concern for infection. He was recommended to take a break from work to allow offloading. He presented to the emergency room on August 14, 2022 after he noticed increased drainage and formation of 2 new decubitus ulcers on the left side. CT of the pelvis was performed which showed an abscess in the buttocks. He was evaluated by general surgery in the hospital and exam showed abundant necrotic skin and subcutaneous tissue. he underwent I&D on August 14 and August 15. Intraoperative findings were dose with an 8 x 4 cm left ischial ulcer which connected with a tunnel to a second new ulcer with necrotic black skin and appeared at anal dimple and was 6 cm x 3 cm deep. This further connected to a third ulcer with overlying necrotic black skin which was more cephalad. He is planned to undergo further debridement today. Tmax 99.9 Fahrenheit since admission. Leukocytosis of 17.3 upon admission. CRP 216, ESR 125. He was previosuly treated for Carmelita's gangrene in 2020. Review of Systems General: Reports: 10 or more systems reviewed and unremarkable except in HPI and below Const: Denies: fever(s), chills or body aches Eyes: Denies: change in vision, blurry vision or photophobia ENMT: Reports: hoarseness; Denies: throat pain, enlarged tonsils, odynophagia or nasal congestion Card: Denies: chest pain, palpitations, irregular heart rhythm, edema, swelling of feet/ankles, lightheadedness, pre-syncope, dyspnea on exertion or orthopnea Resp: Denies: dyspnea, productive cough, non-productive cough, wheezing, stridor, pain on inspiration, change in phlegm color, hemoptysis or chest congestion GI: Denies: abdominal pain, nausea, vomiting, hematemesis, coffee ground emesis, dysphagia, heartburn, diarrhea, constipation, GI cramping, change in stool character, hematochezia or melena : Denies: flank pain, dysuria, urinary frequency, urinary urgency, urinary hesitancy or hematuria Musc: Denies: neck pain, back pain, extremity pain, joint swelling, joint warmth or deformity Neuro: Denies: headache(s), numbness in extremities, weakness in extremities, sensory changes, difficulty walking, frequent falls, dizziness, vertigo, behavioral changes, Slurred speech present or seizure-like activity Psych: Denies: anxiety, depression, suicidal ideation or homicidal ideation Endo: Denies: polyuria, polydipsia, tired all the time, cold intolerance or hot flashes Bradly/Lymph: Denies: easy bruising or easy bleeding Medications/Allergies Home Medications Medication Instructions Recorded Confirmed Last Taken Type catheter 16 Fr #150 ea 07/03/20 08/25/22 Unknown Rx colostomy bags #30 ea 07/03/20 08/25/22 Unknown Rx ostomy adhesive (Stomahesive Paste) #2 tubes 07/03/20 08/25/22 Unknown Rx ostomy supplies 4 X 4 wafer #20 wafers 07/03/20 08/25/22 Unknown Rx miscellaneous medical supply 1 ea miscellaneous ONCE #1 ea 04/01/22 08/25/22 Unknown Rx DME: Walker #1 ea 04/21/22 08/25/22 Unknown Rx miscellaneous medical supply #1 ea 07/15/22 08/25/22 Unknown Rx WHEELCHAIR #1 ea 07/30/22 08/25/22 Unknown Rx ibuprofen 200 mg tablet 800 mg PO BID 08/14/22 08/25/22 08/14/22 07:30 History omeprazole 40 mg capsule,delayed 40 mg PO QAM 08/14/22 08/25/22 08/14/22 07:30 History release sertraline 50 mg tablet 50 mg PO QAM 08/14/22 08/25/22 08/14/22 07:30 History sodium hypochlorite 0.25 % 1 applic topical .2-3 TIMES A DAY 08/14/22 08/25/22 Unknown History solution (Dakin's Solution) WTD dressing changes Allergies Allergy/AdvReac Type Severity Reaction Status Date / Time acetaminophen [From Tylenol] Allergy itching Verified 08/25/22 09:56 latex Allergy rash Verified 08/25/22 09:56 Current Medications Generic Name Dose Route Start Last Admin Trade Name Freq PRN Reason Stop Dose Admin Enoxaparin Sodium 30 mg 08/15/22 19:00 08/17/22 16:57 Enoxaparin 30 Mg/0.3 Ml Syringe SUBCUT Not Given Q24H CHRISTIAN Piperacillin Sod/Tazobactam 50 mls @ 12.5 mls/hr 08/14/22 19:30 08/18/22 00:19 Sod 3.375 gm/ Sodium Chloride IV 12.5 mls/hr Q8H CHRISTIAN Administration Protocol Pantoprazole Sodium 40 mg 08/15/22 06:00 08/18/22 06:[address] 40 Mg Tablet PO Not Given QAM CHRISTIAN Sertraline HCl 50 mg 08/15/22 06:00 08/18/22 06:11 Sertraline 50 Mg Tablet PO Not Given QAM CHRISTIAN PFSH Acute PFSH: Medical History Anxiety Congenital imperforate anus Essential hypertension Glaucoma Hypertension screen Medication management Neurogenic bladder Pressure ulcer caused by device Single functional kidney Spina bifida aperta of lumbar spine Vitamin D deficiency Surgical History Colostomy status History of right nephrectomy 2013 [facility] Status post hip surgery Bilateral pin surgery Status post ventriculo-peritoneal shunt placement Family History Other Spina bifida Social History Smoking and tobacco status: former smoker Alcohol intake: never Substance/Drug Use: never Vitals/I&O/Wt Last Vital Signs Temp 97.8 F 08/18/22 04:00 Pulse 80 08/18/22 04:00 Resp 17 08/18/22 04:00 BP 110/70 08/18/22 04:00 Pulse Ox 99 08/18/22 04:00 O2 Del Method Room Air 08/17/22 15:55 08/17/22 08/17/22 08/18/22 14:59 22:59 06:59 Intake Total 1850 / 1850 490 / 2340 50 / 2390 Output Total 900 / 900 1450 / 2350 Balance 950 / 950 490 / 1440 -1400 / 40 Physical Exam Narrative: General: No acute distress, AO x3 HEENT: PERRLA, pupils bilaterally equal and reactive, pallors not present Chest: Normal vesicular breath sounds, no added sounds, equal good air entry bilaterally CVS: S1-S2 regular, no murmurs, no tachycardia, no gallops, no rubs Abdomen: Soft, nontender, no organomegaly, bowel sounds present Extremities: Data 08/19/22 10:27 08/19/22 10:27 Micro: Microbiology 08/14/22 18:18 Gram Stain - Final Buttock Tissue Culture - Preliminary 08/14/22 18:18 Gram Stain - Final Buttock Anaerobic Culture - Preliminary Abscess Culture - Preliminary [facility] [address] [place] [address] DR. REMBERTO DE LOS SANTOS, BEHAVIORAL HEALTH TECHNICIAN NAME: [facility] Herrera [id number] LOC: [facility] U #: [id number] AGE/SX: 32/M ROOM: 257 RE08/14/[address]: Elias Lerma MD : 1990 BED: 1 DIS: FAX #: STATUS: ADM IN TLOC: Spec #: [id number] Ruby: 08/14/22 Status: RES Req #: [id number] Recd: 08/14/[address]: Elias Lerma MD Src: Buttock SpDesc: Ordered: Absces Cult&GS, Anaer Comments: Comment left side decubitus ulcer Procedure Result Verified Site Gram Stain Final 08/15/22 Result MODERATE GRAM POSITIVE COCCI MANY GRAM NEGATIVE RODS MANY GRAM NEGATIVE COCCI MANY POLYMORPHONUCLEAR NEUTROPHILS Anaerobic Culture Preliminary 08/17/22-1143 NO ANAEROBES ISOLATED ON DAY 2 Anaerobic Culture Preliminary (changed) 08/16/22-1432 NO ANAEROBES ISOLATED ON DAY 1 Abscess Culture Preliminary 08/17/22-1247 MODERATE MIXED SUPERFICIAL RONNELL ON DAY 2 Abscess Culture Preliminary (changed) 08/16/22-1536 MODERATE MIXED SUPERFICIAL RONNELL ON DAY 1 [facility] [address] [place] [address] [id number] [address] REMBERTO DE LOS SANTOS, BEHAVIORAL HEALTH TECHNICIAN NAME: Nico Herrera LOC: [facility] U #: [id number] AGE/SX: 32/M ROOM: 257 RE08/14/[address]: Elias Lerma MD : 1990 BED: 1 DIS: FAX #: STATUS: ADM IN TLOC: Spec #: [id number] Ruby: 08/14/22 Status: RES Req #: [id number] Recd: 08/14/[address]: Amos Guallpa Src: Blood SpDesc: Ordered: Bcult Procedure Result Verified Site Blood Culture Preliminary 08/15/22 NEGATIVE TO DATE Blood Culture Preliminary (changed) 08/14/22 SPECIMEN COLLECTED [facility] [address] [place] [id number] [address] REMBERTO DE LOS SANTOS, BEHAVIORAL HEALTH TECHNICIAN NAME: Nico Herrera LOC: [facility] U #: [id number] AGE/SX: 32/M ROOM: 257 RE08/14/[address]: Elias Lerma MD : 1990 BED: 1 DIS: FAX #: STATUS: ADM IN TLOC: Spec #: [id number] Ruby: 08/14/22 Status: RES Req #: [id number] Recd: 08/14/[address]: Elias Lerma MD Src: Buttock SpDesc: Ordered: Tissue Cult GS Comments: Comment tissue decubitus ulcer Procedure Result Verified Site Gram Stain Final 08/15/22-1538 Result MANY GRAM NEGATIVE COCCI MANY GRAM NEGATIVE RODS MODERATE GRAM POSITIVE COCCI MODERATE GRAM POSITIVE RODS FEW WHITE BLOOD CELLS Tissue Culture Preliminary 08/17/22-1256 MODERATE MIXED SUPERFICIAL RONNELL ON DAY 2 Tissue Culture Preliminary (changed) 08/16/22-153 MODERATE MIXED SUPERFICIAL RONNELL ON DAY 1 [facility] [address] [place] [id number] REMBERTO DE LOS SANTOS, BEHAVIORAL HEALTH TECHNICIAN NAME: Nico Herrera LOC: [facility] U #: [id number] AGE/SX: 32/M ROOM: RE07/29/[address]: Curtis Pereira(A : 1990 BED: DIS: FAX #: STATUS: DEP AMB TLOC: Spec #: [id number] Ruby: 07/29/22 Status: COMP Req #: [id number] Recd: 07/29/[address]: Curtis Pereira([facility]) Src: Buttock SpDesc: Ordered: Tissue Cult GS Procedure Result Verified Site Gram Stain Final 07/30/22-154 Result MODERATE GRAM NEGATIVE COCCI IN PAIRS RARE GRAM NEGATIVE RODS NO WHITE BLOOD CELLS Tissue Culture Final 08/01/22-1818 Organism 1 Proteus mirabilis Growth HEAVY Organism 2 Strep agalactiae - (group b) Growth MODERATE Strep Typing Strep Typing DAY 3 P mirabili M.I.C. RX --------- ------ * Amikacin <=16 S * Amoxicillin/Clavulanate >16/8 R * Ampicillin >16 R * Ampicillin/Sulbactam >16/8 R * Aztreonam 16 I * Cefepime <=8 S * Ceftriaxone >32 R * Cefuroxime >16 R * Ciprofloxacin 2 I * Gentamicin 8 I * Levofloxacin <=2 S * Tetracycline >8 R * Tobramycin <=4 S * Trimethoprim/Sulfamethoxazole >2/38 R * Piperacillin/Tazobactam <=16 S Tissue Culture Preliminary (changed) 07/31/22-1951 Organism 1 Gram Negative Rods Growth FEW Organism 2 Strep agalactiae - (group b) Growth MODERATE Strep Typing Strep Typing DAY 2, RESULTS TO FOLLOW Tissue Culture Preliminary (changed) 07/30/22-1600 DAY 1, RESULTS TO FOLLOW Other data: inophen, latex Close Abdomen/Pelvis CT (Signed) Malena Caballero - 08/14/[address] (Signed) Javier Mg - 10/12/20 Launch?Image [facility] [address] [place] [address] CT Scan Report Signed Patient: Nico Herrera Unit #: [id number] : 1990 Age/Sex: 32 / M ADM Date: 08/14/22 Loc: ER Room/Bed: Attending Dr: Ordering Provider/Ordering MD: Red Quevedo DO Date of Service: 08/14/22 Procedure(s): CT abdomen pelvis w con* [id number] Accession Number(s): [id number] Report Number: [id number] WS: [id number] CT scan of the abdomen and pelvis with IV contrast. Additional two-dimensional coronal and sagittal reconstruction was performed. 08/14/2022 Clinical Data: multiple pressure sore buttock, r/o abscess Comparison: CT left hip and buttocks, 10/12/2020 DLP: 1296.[address] scans at [facility] use at least one of these dose optimization techniques: automated exposure control; mA and/or kV adjustment per patient size (includes targeted exams where dose is matched to clinical indication); or iterative reconstruction. Findings: The lower lungs show no nodules, masses or effusions. The liver, gallbladder, spleen, adrenal glands and pancreas are normal. Right kidney is absent. The left kidney shows normal excretion with small lobulations of the superior aspect. No left renal masses, hydronephrosis or calculi are seen. A peritoneal shunt tube is seen. There is a left lower quadrant colostomy. The abdominal aorta is normal in size. No appendicitis or diverticulitis is seen. The stomach and small bowel are unremarkable. No intra-abdominal abscess, ascites, mass, obstruction, or free air is seen. There is spina bifida? at L5. There is a posterior 12.5 cm complex soft tissue mass which probably contains fluid at the level of L5. The bladder shows wall thickening with irregularity. There are orthopedic devices in both femoral trochanters. There is a soft tissue abscess containing air in the buttocks. This abscess has a? transverse diameter? of 16.5 cm and contains air. No osteomyelitis is seen. No inguinal hernia is seen. CT/CT abdomen pelvis w con* [id number] Impression: ? 1. Posterior subcutaneous fluid containing density at the level of L5. 2. Probable soft tissue abscess in the buttocks unchanged in size and configuration from earlier study. 3. Absent right kidney. 4. Left lower quadrant colostomy. Cholecystectomy and peritoneal shunt tube. A&P Assessment and plan (1) Abscess of left buttock: 32-year-old male wheelchair-bound due to spina bifida, currently admitted to the hospital with worsening pressure ulcers over the left buttocks. He has undergone multiple debridements here during the course of his admission on August 14 August 16 and again today. Discussed extensively with Dr. Cristina today. There was no evidence of bone exposure on multiple debridements. CT imaging is currently negative for signs of osteomyelitis. Discussed with the patient that an MRI would be optimal to exclude any definitive evidence of osteomyelitis, however patient is resistant to the idea of getting more imaging or having a PICC line placed and doing long- term antibiotics. Since changes are not currently seen extending down to the bone, possibility of osteomyelitis is low and further testing is deferred after risk-benefit discuss ion with the patient. For his complicated skin and soft tissue infection and review of cultures, r ecommend ertapenem 1 g IV 24 hours for overall 10-14 days from last day of debridement. Recommended to continue follow-up with wound care clinic. Thank you for this consult. Please call with any further questions. Consult Attestations Medical Necessity Statement: per admitting Coding Level of Care Code Acute Code for [facility] Fw Diagnoses Abscess of left buttock L02.31
[2022-08-18 08:16] LABS: Basophils # 0.1 10^3/uL (0.0-0.1); Basophils % 0.9 %; Eosinophils # 0.1 10^3/uL (0.0-0.8); Eosinophils % 0.4 %; Hematocrit 36.8 % (42.0-52.0); Hemoglobin 10.5 g/dL (11.7-16.6); Lymphocytes # 1.8 10^3/uL (0.8-4.8); Lymphocytes % 15.3 %; Mean Corpuscular HGB Conc 28.5 g/dL (30.0-36.0); Mean Corpuscular Hemoglobin 24.3 pg (28.0-34.0); Mean Corpuscular Volume 85.2 fl (80-94); Mean Platelet Volume 9.9 fL (7.4-10.4); Monocytes # 0.7 10^3/uL (0.2-0.9); Monocytes % 5.9 %; Neutrophils # 8.38 10^3/uL (1.8-7.7); Neutrophils % 73.2 %; Nucleated Red Blood Cells % 0 %; Platelet Count 377 10^3/cmm (130-400); Red Blood Count 4.32 10^6/uL (4.1-5.3); Red Cell Distribution Width 15.7 % (12.1-15.1); White Blood Count 11.4 10^3/uL (4.0-10.0)
[2022-08-18] MEDS: vancomycin 1,250 MG/250 ML PIGGYBACK 250 MG IV ×2 (08:29→22:17)
[2022-08-18 08:30] LABS: Alanine Aminotransferase 38 U/L (0-41); Alkaline Phosphatase 65 U/L (40-130); Blood Urea Nitrogen 8 mg/dL (6-20); Calcium 8.4 mg/dL (8.5-10.5); Carbon Dioxide 17 mmol/L (22-29); Chloride 109 mmol/L (98-107); Globulin 4.6 g/dL (1.3-4.6); Glomerular Filtration Rate 129.9 mL/min (90-130); Glucose 92 mg/dL (65-115); Osmolality Calculated 278 mOsm/kg (285-295); Sodium 135 mmol/L (136-145); Total Bilirubin 0.2 mg/dL (0.15-1.2); Total Protein 6.6 g/dL (6.6-8.7)
[2022-08-18 08:48] LABS: Anion Gap 13.5 (5-19); Potassium 4.5 mmol/L (3.5-5.1)
[2022-08-18 08:49] LABS: Aspartate Amino Transferase 20 U/L (0-40)
[2022-08-18 11:18] LABS: Estmated Average Glucose 120; Hemoglobin A1C 5.8 % (4.0-6.0)
[2022-08-18 11:47] LABS: Chol HDL Ratio 3.95 mg/dL (1.0-5.00); Cholesterol 83 mg/dL (0-200); HDL Cholesterol 21 mg/dL (60-100); LDL Cholesterol Calculated 48 mg/dL (50-129); Triglycerides 69 mg/dL (0-150); VLDL Cholestrol Calculation 14 mg/dL (0-30)
[2022-08-18 11:52] LABS: Folate Level 13.6 ng/mL (4.5-32.2)
--- NOTE | 2022-08-18 12:51 | ANES.PREANE2 ---
Pre-Anesthetic Assessment Height/Weight: Height 1.63 m Weight 108.862 kg Temp Pulse Resp BP Pulse Ox O2 Del Method 98.2 F 79 16 117/66 98 Room Air 08/18/22 11:14 08/18/22 12:29 08/18/22 12:29 08/18/22 12:29 08/18/22 12:29 08/18/22 12:29 Operation Date: 08/14/22 18:00 Proposed Procedures p Incision And Drainage(Not Applicable) - Elias Lerma MD Operation Date: 08/15/22 12:10 Proposed Procedures p Incision And Drainage with pulse vac(Not Applicable) - Elias Lerma MD Operation Date: 08/15/22 15:00 Proposed Procedures p Incision And Drainage(Not Applicable) - Elias Lerma MD Operation Date: 08/16/22 11:40 Proposed Procedures p Incision And Drainage with pulse vac(Not Applicable) - Elias Lerma MD Operation Date: 08/18/22 12:50 Proposed Procedures p DEBRIDEMENT ISCHIAL DECUBITUS ULCER(Not Applicable) - Marty Cristina, DO Was Beta Go taken within 24 hours: Yes Was Clonidine taken within 24 hours: N/A Last intake: Intake Last Liquid Date 08/17/22 Last Liquid Time 23:00 Last Solid Date 08/17/22 Last Solid Time 23:00 Social No alcohol and No tobacco Exam alert, oriented x 3, clear to auscultation bilaterally and regular rate & rhythm Airway Submandibular: within normal limits Cervical ROM: within normal limits Mallampati: Class II Dentition: full History/ROS No significant history except as noted and No significant complaints Pulmonary None reported CV/HEM Hypertension Neurogenic bladder. Single kidney Hepatic None reported GI Gastroesophageal Reflux Disease (controlled) Metabolic None reported Musc/skel Spina Bifida Neuropsych Anxiety Anesthetic Plan ASA status: 3 Anesthesia: Anesthesia Evaluation and General Risk of > 500 ml blood loss (7ml/kg in children): No Medications/Allergies Home Medications Medication Instructions Recorded Confirmed Last Taken Type catheter 16 Fr #150 ea 07/03/20 08/14/22 Unknown Rx colostomy bags #30 ea 07/03/20 08/14/22 Unknown Rx ostomy adhesive (Stomahesive Paste) #2 tubes 07/03/20 08/14/22 Unknown Rx ostomy supplies 4 X 4 wafer #20 wafers 07/03/20 08/14/22 Unknown Rx miscellaneous medical supply 1 ea miscellaneous ONCE #1 ea 04/01/22 08/14/22 Unknown Rx DME: Walker #1 ea 04/21/22 08/14/22 Unknown Rx miscellaneous medical supply #1 ea 07/15/22 08/14/22 Unknown Rx WHEELCHAIR #1 ea 07/30/22 08/14/22 Unknown Rx levofloxacin 500 mg tablet 500 mg PO DAILY #10 tabs 08/03/22 08/14/22 08/12/22 Rx FINISHED 08/12/22 ibuprofen 200 mg tablet 800 mg PO BID 08/14/22 08/14/22 08/14/22 07:30 History lisinopril 5 mg tablet 5 mg PO QAM 08/14/22 08/14/22 08/14/22 07:30 History omeprazole 40 mg capsule,delayed 40 mg PO QAM 08/14/22 08/14/22 08/14/22 07:30 History release sertraline 50 mg tablet 50 mg PO QAM 08/14/22 08/14/22 08/14/22 07:30 History sodium hypochlorite 0.25 % 1 applic topical .2-3 TIMES A DAY 08/14/22 08/14/22 Unknown History solution (Dakin's Solution) WTD dressing changes Allergies Allergy/AdvReac Type Severity Reaction Status Date / Time acetaminophen [From Tylenol] Allergy itching Verified 08/14/22 16:13 latex Allergy rash Verified 08/14/22 16:13 Current Medications Generic Name Dose Route Start Last Admin Trade Name Freq PRN Reason Stop Dose Admin Enoxaparin Sodium 30 mg 08/15/22 19:00 08/17/22 16:57 Enoxaparin 30 Mg/0.3 Ml Syringe SUBCUT Not Given Q24H CHRISTIAN Piperacillin Sod/Tazobactam 50 mls @ 12.5 mls/hr 08/14/22 19:30 08/18/22 09:41 Sod 3.375 gm/ Sodium Chloride IV 12.5 mls/hr Q8H CHRISTIAN Administration Protocol Vancomycin/PEG/NADA/Lysine/Water 1,250 mg in 250 mls @ 250 mls/hr 08/18/22 10:00 08/18/22 09:33 Vancocin IV Infused Q12H CHRISTIAN Infusion Pantoprazole Sodium 40 mg 08/15/22 06:00 08/18/22 06:[address] 40 Mg Tablet PO Not Given QAM CHRISTIAN Sertraline HCl 50 mg 08/15/22 06:00 08/18/22 06:11 Sertraline 50 Mg Tablet PO Not Given QAM CHRISTIAN Additional Medication Information Generic Name Dose Route Start Last Admin Trade Name Evans PRN Reason Stop Dose Admin Enoxaparin Sodium 30 mg 08/15/22 19:00 08/15/22 18:51 Enoxaparin 30 Mg/0.3 Ml Syringe SUBCUT Not Given Q24H CHRISTIAN Piperacillin Sod/Tazobactam 50 mls @ 12.5 mls/hr 08/14/22 19:30 08/16/22 04:47 Sod 3.375 gm/ Sodium Chloride IV Infused Q8H CHRISTIAN Infusion Protocol Vancomycin HCl 1,000 mg/ 250 mls @ 250 mls/hr 08/16/22 11:00 08/16/22 12:05 Sodium Chloride IV Infused Q8H CHRISTIAN Infusion Sodium Chloride 1,000 mls @ 100 mls/hr 08/16/22 08:15 08/16/22 10:49 Sodium Chloride 0.9% IV 08/17/22 08:14 100 mls/hr .Q10H CHRISTIAN Administration Pantoprazole Sodium 40 mg 08/15/22 06:00 08/16/22 05:[address] 40 Mg Tablet PO 40 mg QAM CHRISTIAN Administration Sertraline HCl 50 mg 08/15/22 06:00 08/16/22 05:51 Sertraline 50 Mg Tablet PO 50 mg QAM CHRISTIAN Administration [facility] Anesthesia Medical History Anxiety Congenital imperforate anus Essential hypertension Glaucoma Hypertension screen Medication management Neurogenic bladder Pressure ulcer caused by device Single functional kidney Spina bifida aperta of lumbar spine Vitamin D deficiency Surgical History Colostomy status History of right nephrectomy 2013 [facility] Status post hip surgery Bilateral pin surgery Status post ventriculo-peritoneal shunt placement Family History Other Spina bifida Social History Smoking and tobacco status: former smoker Alcohol intake: never Substance/Drug Use: never Data Anesthesia 08/18/22 07:33 08/18/22 07:33 Short CBC 08/17/22 08/18/22 Range/Units 05:33 07:33 WBC 14.4 H 11.4 H (4.0-10.0) 10^3/uL Hgb 10.3 L 10.5 L (11.7-16.6) g/dL Hct 34.5 L 36.8 L (42.0-52.0) % MCV 81.9 85.2 (80-94) fl Plt Count 500 H 377 (130-400) 10^3/cmm Neut % (Auto) 73.2 % Neut # (Auto) 8.38 H (1.8-7.7) 10^3/uL BMP 08/17/22 08/18/22 05:33 07:33 Sodium 139 135 L Potassium 4.1 4.5 Chloride 111 H 109 H Carbon Dioxide 19 L 17 L BUN 8 8 Creatinine 0.7 0.7 Glucose 97 92 Calcium 8.1 L 8.4 L Liver Function 08/18/22 Range/Units 07:33 Total Bilirubin 0.2 (0.15-1.2) mg/dL AST 20 (0-40) U/L ALT 38 (0-41) U/L Alkaline Phosphatase 65 (40-130) U/L Albumin 2.0 L (3.5-5.2) g/dL Coags 08/17/22 05:33 C-Reactive Protein 55.1 H Microbiology 08/14/22 18:18 Gram Stain - Final Buttock Tissue Culture - Preliminary 08/14/22 18:18 Gram Stain - Final Buttock Anaerobic Culture - Preliminary Abscess Culture - Preliminary Cardiac Studies: No Data to Display
--- NOTE | 2022-08-18 13:16 | PM.PN ---
Vitals/I&O/Wt Last Vital Signs Temp 98.2 F 08/18/22 11:14 Pulse 79 08/18/22 12:29 Resp 16 08/18/22 12:29 BP 117/66 08/18/22 12:29 Pulse Ox 98 08/18/22 12:29 O2 Del Method Room Air 08/18/22 12:29 08/17/22 08/18/22 08/18/22 22:59 06:59 14:59 Intake Total 490 / 2340 50 / 2390 550 / 550 Output Total 1450 / 2350 800 / 800 Balance 490 / 1440 -1400 / 40 -250 / -250 Data 08/18/22 07:33 08/18/22 07:33 Micro: Microbiology 08/14/22 18:18 Gram Stain - Final Buttock Anaerobic Culture - Preliminary Abscess Culture - Final 08/14/22 18:18 Gram Stain - Final Buttock Tissue Culture - Final A&P Assessment and plan (1) Pressure sore: Qualifiers: Laterality: left Pressure injury location: buttock Pressure injury stage: unspecified pressure injury stage Qualified Code(s): L89.329 - Pressure ulcer of left buttock, unspecified stage Plan To operating room tomorrow for debridement of ischial decubitus ulcer The risks and benefits of the procedure, including but not limited to, bleeding, infection, scar, numbness, pain, damage to surrounding structures, need for repeat surgery, problems with wound healing, were explained to the patient. He is understanding of the risks and wishes to proceed Attestations Medical Necessity Statement*: Requires further hospitalization for management of likely colitis ulcer with abscess along with high concerns for left ischial tuberosity osteomyelitis requiring multiple debridement and most likely long-term IV antibiotics Coding Level of Care Code Acute Code for Chg Fwd Diagnoses Pressure sore L89.329 Laterality: left Pressure injury location: buttock Pressure injury stage: unspecified pressure injury stage
[2022-08-18] MEDS: sodium chloride 0.9% 1,000 ML 30 ML IV (13:17)
--- NOTE | 2022-08-18 14:34 | P.PN_ITS ---
Subjective Subjective: No acute events overnight. Patient has remained hemodynamically stable and afebrile. Today morning laying comfortably in bed. Denies any nausea, vomiting, headache. Awaiting to go to the OR for further debridement. Blood work today shows improving leukocytosis with WBC down to 11.4, stable he moglobin, stable CMP. Vitals/I&O/Wt Last Vital Signs Temp 98.2 F 08/18/22 11:14 Pulse 79 08/18/22 12:29 Resp 16 08/18/22 12:29 BP 117/66 08/18/22 12:29 Pulse Ox 98 08/18/22 12:29 O2 Del Method Room Air 08/18/22 12:29 08/17/22 08/18/22 08/18/22 22:59 06:59 14:59 Intake Total 490 / 2340 50 / 2390 550 / 550 Output Total 1450 / 2350 800 / 800 Balance 490 / 1440 -1400 / 40 -250 / -250 Physical Exam HENMT: COMMON NORMALS: normocephalic and atraumatic HEAD & SCALP: normocephalic and atraumatic Resp: COMMON NORMALS: normal respiratory effort, No retractions, No use of accessory muscles and clear to auscultation bilaterally EFFORT & INSPECTION: Yes symmetric chest movement AUSCULTATION: clear to auscultation bilaterally Cardio: COMMON NORMALS: regular rate, regular rhythm, S1 normal heart sound present, S2 normal heart sound present, No gallops present (Cardio), No murmurs present (Cardio), No rub (Cardio) and Peripheral pulses 2+ throughout RATE: regular rate RHYTHM: regular rhythm HEART SOUNDS: S1 normal heart sound present and S2 normal heart sound present PERIPHERAL PULSES: Peripheral pulses 2+ throughout GI: COMMON NORMALS: Normal to inspection, nondistended, normoactive bowel sounds present, Soft to palpation, non-tender, No hepatosplenomegaly present and no masses AUSCULTATION: Yes normoactive bowel sounds PALPATION: Yes Soft to palpation and Yes No hepatosplenomegaly present RECTAL EXAM: Yes deferred : COMMON NORMALS: Yes no CVA tenderness BLADDER/KIDNEY EXAM: Yes no CVA tenderness Back/Pelvis: COMMON NORMALS: no CVA tenderness Extremity: COMMON NORMALS: no clubbing, cyanosis or edema and no pedal edema Data 08/18/22 07:33 08/18/22 07:33 Micro: Microbiology 08/14/22 18:18 Gram Stain - Final Buttock Anaerobic Culture - Preliminary Abscess Culture - Final 08/14/22 18:18 Gram Stain - Final Buttock Tissue Culture - Final A&P Assessment and plan (1) Abscess of left buttock: (2) Spina bifida aperta of lumbar spine: (3) Essential hypertension: (4) History of right nephrectomy: (5) Single functional kidney: (6) Status post incision and drainage: Plan 32 year old male wheelchair-bound due to spinal bifida aparta of lumbar spine, neurogenic bladder rq self catheterization 5x/daily, congenital imperforate anus hx of colostomy came in today with complaints of having another left buttock ulceration/abscess.? Assessment : left decubitus ulcers of buttock : With some concerns for ischial left tuberosity osteomyelitis intraoperatively. S/p debridement x2 on 0 08/14 and 08/17. Plan for further debridement today. Follow-up intraoperative cultures. Blood cultures so far negative. Review of old culture history wound cultures have been growing Proteus mirabilis. Appreciate surgical and ID recommendations. ID recommends patient to have antibiotics for at least 6 weeks with high concern for osteomyelitis. Patient so far does not want to have 6 weeks of IV antibiotics until osteomyelitis is confirmed. Patient will need MRI for confirmation of osteomyelitis which is going to be difficult to obtain given concerns for hardware in bilateral hips. Will confirm and get paperwork from outside [facility] in [place] where hardware was placed. If MRI is not able to obtained plan will be to IV antibiotics for at least 2 weeks. Plan for PICC line placement. Patient is agreeable for PICC line given IV antibiotic requirement for at least 2 weeks. For now continue with empiric vancomycin and Zosyn. Maintain vancomycin trough between 15-20. Wound care as per surgical team. Does have lumbar collection. As per patient he has history of collection in lumbar area for a long time which has not been excised given concerns for possible nerve involvement in past. We will hold off on CT lumbar spine for now and will try to do MRI if able to. History of single functional kidney post right nephrectomy Spina bifida History of hypertension N.p.o. for now. Regular diet postoperatively. Lovenox for DVT prophylaxis Protonix for PUD prophylaxis. Attestations Medical Necessity Statement*: Requires further hospitalization for management of left decubitus ulcer with abscess while osteomyelitis is ruled out and patient undergoes further debridement and outpatient antibiotics are sought Diagnoses Abscess of left buttock L02.31 Spina bifida aperta of lumbar spine Q05.7 Essential hypertension I10 History of right nephrectomy Z90.5 Single functional kidney Z90.5 Status post incision and drainage Z98.890
--- NOTE | 2022-08-18 14:49 | P.OP_ITS ---
Operative Report Date of procedure: August 18, 2022 Pre-op diagnosis: Stage IV sacral and left ischial decubitus ulcers Post-op diagnosis: same Procedure done: Sharp excisional debridement of stage IV sacral decubitus ulcers including muscle subcutaneous tissue and skin Implants: None Specimens removed/disposition: Necrotic tissue-not sent to pathology Surgeon: Dr. Marty Cristina DO Anesthesia: General Estimated blood loss (mL): 20 Complications: None apparent Findings: Ulcers went down to bone. There was good coverage overall bone with no bone exposed whatsoever. Tunnel connecting the 2 sacral ulcers was opened. Brief History: Is a very pleasant 32-year-old gentleman who was born with spina bifida. He has stage IV sacral and left ischial decubitus ulcers. Sharp excisional debridement was indicated. The risk and benefits were explained and documented. Procedure: Patient was brought into the operating room and placed on the OR table in the prone position after general endotracheal intubation by the department of anesthesia. A timeout was performed. All present were in agreement. The gluteus area was inspected prepped and draped in usual sterile fashion. A 10 blade scalpel was used to open the tunnel between the 2 sacral ulcers. There was only thin skin overlying this. Bovie cautery was used and cut mode to remove some necrotic skin down to fresh bleeding scan. Fibrinous tissue and ex udate was also removed with Bovie cautery. Further necrotic tissue was removed with curved Forbes scissors and curettes. Dissection was carried down to fresh bleeding tissue. Debridement went down to muscle only. No bone was exposed. There is good healthy tissue overlying all bone. There is some tunneling at the 10 o'clock position to 12 o'clock position at the superior sacral ulcer. There is also inferior medial tunneling at the ischial ulcer. Pulse lavage was then used to further debride and irrigate with 3 L of normal saline wet-to-dry Kerlix was placed in the wound. Sterile dressings were applied. Patient tolerated procedure well.
--- NOTE | 2022-08-18 15:42 | ANE.PACU2 ---
Inpatient post-anesthesia follow up: Airway intact: Yes Vital signs: Temperature 97.7 F Pulse Rate 64 Respiratory Rate 18 Blood Pressure 108/69 Pulse Oximetry 98 Oxygen Delivery Me thod Room Air Oxygen Flow Rate 8 Fraction of Inspir ed Oxygen Hydration adequate: Yes Nausea and vomiting: Yes Pain level: 1 Mental status: Baseline
[2022-08-19] VITALS: BP 102/60; PULSE 80; RESP 17; TEMP 36.6; O2SAT 95
[2022-08-19] MEDS: piperacillin-tazobactam 3.375 GM in sodium chloride 0.9% (plus) 50 ML IV ×2 (01:18→09:43)
[2022-08-19 04:00] VITALS: BP 111/67; PULSE 72; RESP 18; TEMP 36.4; O2SAT 99
[2022-08-19] MEDS: sertraline 50 mg Tablet PO (05:25)
[2022-08-19] MEDS: pantoprazole DR 40 mg Tablet PO (05:25)
[2022-08-19 06:53] VITALS: BP 110/70; PULSE 70; RESP 18; TEMP 36.6; O2SAT 97
[2022-08-19] MEDS: vancomycin 1,250 MG/250 ML PIGGYBACK 250 MG IV (08:21)
[2022-08-19 10:38] LABS: Basophils # 0.1 10^3/uL (0.0-0.1); Basophils % 0.3 %; Eosinophils % 0.1 %; Hematocrit 33.8 % (42.0-52.0); Hemoglobin 10.5 g/dL (11.7-16.6); Lymphocytes # 2.3 10^3/uL (0.8-4.8); Lymphocytes % 11.3 %; Mean Corpuscular HGB Conc 31.1 g/dL (30.0-36.0); Mean Corpuscular Hemoglobin 24.7 pg (28.0-34.0); Mean Corpuscular Volume 79.5 fl (80-94); Mean Platelet Volume 9.3 fL (7.4-10.4); Monocytes # 0.8 10^3/uL (0.2-0.9); Monocytes % 4.1 %; Neutrophils # 16.53 10^3/uL (1.8-7.7); Neutrophils % 82.5 %; Nucleated Red Blood Cells % 0 %; Platelet Count 539 10^3/cmm (130-400); Red Blood Count 4.25 10^6/uL (4.1-5.3); Red Cell Distribution Width 15.6 % (12.1-15.1)
[2022-08-19 10:53] LABS: Alanine Aminotransferase 37 U/L (0-41); Albumin Level 2.6 g/dL (3.5-5.2); Alkaline Phosphatase 68 U/L (40-130); Anion Gap 17.3 (5-19); Aspartate Amino Transferase 19 U/L (0-40); Blood Urea Nitrogen 9 mg/dL (6-20); Calcium 8.2 mg/dL (8.5-10.5); Carbon Dioxide 19 mmol/L (22-29); Chloride 106 mmol/L (98-107); Globulin 4.3 g/dL (1.3-4.6); Glomerular Filtration Rate 129.9 mL/min (90-130); Glucose 146 mg/dL (65-115); Osmolality Calculated 287 mOsm/kg (285-295); Potassium 4.3 mmol/L (3.5-5.1); Sodium 138 mmol/L (136-145); Total Bilirubin 0.2 mg/dL (0.15-1.2); Total Protein 6.9 g/dL (6.6-8.7)
[2022-08-19] MEDS: ertapenem 1,000 MG in sodium chloride 0.9% (plus) 100 ML 200 MG IV (11:05)
[2022-08-19 11:41] VITALS: BP 112/72; PULSE 77; RESP 17; TEMP 36.7; O2SAT 98
--- NOTE | 2022-08-19 13:07 | P.DS_ITS ---
Discharge Providers Date of Admission: 08/14/22 16:01 Date of Discharge: August 19, 2022 Attending Provider at Admission: Keith Carrera MD Attending Provider at Discharge: Marcelo Adams MD Consults: Surgery: Dr. Lerma/Dr. Cristina ID: Dr. Barragan Diagnoses at Discharge Discharge Diagnosis (1) Abscess of left buttock: Status: Acute (2) Spina bifida aperta of lumbar spine: Status: Acute (3) Essential hypertension: Status: Acute (4) History of right nephrectomy: Status: Acute Permanent problem details: 2013 [facility] (5) Single functional kidney: Status: Inactive (6) Status post incision and drainage: Status: Acute Reason for Visit Reason for Visit: Left buttock sores Brief History: History as per HPI: Nico Herrera is a 32 year old male wheelchair-bound due to spinal bifida aparta of lumbar spine, neurogenic bladder rq self catheterization 5x/daily, congenital imperforate anus hx of colostomy came in today with complaints of having another left buttock ulceration/abscess.? Patient normally sees wound care for these was unable to see them at the last appointment.? Patient is wheelchair-bound secondary to spina bifida and paralysis.? Patient just finished a round of Levaquin.? Patient's lab work showed elevated white count at 17.3.? Patient's abdominal pelvic CT with contrast showed posterior subcutaneous fluid collection at L5, probable soft tissue abscess in the right buttock in the left buttock region measuring about 16.5 cm.Surgery was consulted by ER debridement, patient has been started on broard spectrum abxs. Hospital Course Hospital Course Patient was admitted to the hospital further evaluation and management of abscess of the left buttocks in setting of baseline spina bifida. Surgery was c onsulted. He was started on broad-spectrum antibiotics. Patient underwent multiple debridement with surgical team on 08/14, 08/16 and 08/18. During hospitalization his blood cultures remain negative though OR cultures are growing anaerobic gram-negative rods. On review of his old culture history he has history of infection with Proteus mirabilis. ID was consulted. CT was done which showed abscess without any osteomyelitis. Surgical findings intraoperatively also showed that osteomyelitis is less likely. Possible prolonged IV course with antibiotics for around 6 weeks of discussed in detail with the patient though he was hesitant and wanted to go for IV antibiotics for back along only if osteomyelitis was confirmed. Given less likelihood of osteomyelitis on CT scan and findings intraoperatively decision was made to treat with IV ertapenem for overall 10 days from the day of last debridement. Midline has been placed. Patient has to have CBC, CMP, ESR and CRP drawn in 4 days which will be followed up by primary care provider. He is to follow-up with the PCP in 1 week and with wound care onset appointment. Midline should be removed post completion of IV antibiotic treatment Physical Exam HENMT: COMMON NORMALS: normocephalic and atraumatic HEAD & SCALP: normocephalic and atraumatic Resp: COMMON NORMALS: normal respiratory effort, No retractions, No use of accessory muscles and clear to auscultation bilaterally EFFORT & INSPECTION: Yes symmetric chest movement AUSCULTATION: clear to auscultation bilaterally Cardio: COMMON NORMALS: regular rate, regular rhythm, S1 normal heart sound present, S2 normal heart sound present, No gallops present (Cardio), No murmurs present (Cardio), No rub (Cardio) and Peripheral pulses 2+ throughout RATE: regular rate RHYTHM: regular rhythm HEART SOUNDS: S1 normal heart sound present and S2 normal heart sound present PERIPHERAL PULSES: Peripheral pulses 2+ throughout GI: COMMON NORMALS: Normal to inspection, nondistended, normoactive bowel sounds present, Soft to palpation, non-tender, No hepatosplenomegaly present and no masses AUSCULTATION: Yes normoactive bowel sounds PALPATION: Yes Soft to palpation and Yes No hepatosplenomegaly present RECTAL EXAM: Yes deferred : COMMON NORMALS: Yes no CVA tenderness BLADDER/KIDNEY EXAM: Yes no CVA tenderness Back/Pelvis: COMMON NORMALS: no CVA tenderness Extremity: COMMON NORMALS: no clubbing, cyanosis or edema and no pedal edema Discharge Data Studies Completed and Pending Completed Studies During Hospitalization Category Date Time Status CT abdomen pelvis w con* [id number] Stat Cat Scan 08/14/22 14:06 Completed Pending at discharge Category Date Time Status Abscess Culture and Gram Stain Routine Lab 08/14/22 18:18 Results Anaerobic Culture Routine Lab 08/14/22 18:18 Results Blood Culture Stat Lab 08/14/22 11:42 Results Radiology Impressions Abdomen/Pelvis CT 08/14/22 14:06 Impression: 1. Posterior subcutaneous fluid containing density at the level of L5. 2. Probable soft tissue abscess in the buttocks unchanged in size and configuration from earlier study. 3. Absent right kidney. 4. Left lower quadrant colostomy. Cholecystectomy and peritoneal shunt tube. Microbiology 08/14/22 18:18 Buttock Gram Stain - Final 08/14/22 18:18 Buttock Anaerobic Culture - Preliminary Anaerobic gram negative rods 08/14/22 18:18 Buttock Abscess Culture - Final 08/17/22 16:35 Nose MRSA Culture - Final 08/14/22 18:18 Buttock Gram Stain - Final 08/14/22 18:18 Buttock Tissue Culture - Final 08/14/22 17:41 Urine,Clean Catch Urine Culture - Final 08/14/22 13:00 Blood Blood Culture - Preliminary NEGATIVE TO DATE Laboratory Results WBC 20.0 10^3/uL (4.0-10.0) H 08/19/22 10:27 RBC 4.25 10^6/uL (4.1-5.3) 08/19/22 10:27 Hgb 10.5 g/dL (11.7-16.6) L 08/19/22 10:27 Hct 33.8 % (42.0-52.0) L 08/19/22 10:27 MCV 79.5 fl (80-94) L D 08/19/22 10:27 MCH 24.7 pg (28.0-34.0) L 08/19/22 10:27 MCHC 31.1 g/dL (30.0-36.0) D 08/19/22 10:27 RDW 15.6 % (12.1-15.1) H 08/19/22 10:27 Plt Count 539 10^3/cmm (130-400) H D 08/19/22 10:27 MPV 9.3 fL (7.4-10.4) 08/19/22 10:27 Neut % (Auto) 82.5 % 08/19/22 10:27 Lymph % (Auto) 11.3 % 08/19/22 10:27 Hardy % (Auto) 4.1 % 08/19/22 10:27 Eos % (Auto) 0.1 % 08/19/22 10:27 Baso % (Auto) 0.3 % 08/19/22 10:27 Neut # (Auto) 16.53 10^3/uL (1.8-7.7) H 08/19/22 10:27 Lymph # (Auto) 2.3 10^3/uL (0.8-4.8) 08/19/22 10:27 Hardy # (Auto) 0.8 10^3/uL (0.2-0.9) 08/19/22 10:27 Eos # (Auto) 0.0 10^3/uL (0.0-0.8) 08/19/22 10:27 Baso # (Auto) 0.1 10^3/uL (0.0-0.1) 08/19/22 10:27 Nucleated RBC % (auto) 0 % 08/19/22 10:27 Total Counted 100 (0-100) 08/17/22 05:33 Atypical Lymphs % 0.0 % (0-5) 08/17/22 05:33 Absolute Neutrophils 11.2 10^3/cmm (1.4-6.5) H 08/17/22 05:33 Segmented Neutrophils 71 % 08/17/22 05:33 Abs Segm Neuts (Man) 10.2 10/cmm (1.6-7.1) H 08/17/22 05:33 Band Neutrophils 7.0 % 08/17/22 05:33 Abs Band Neuts (Man) 1.0 10^3/cmm (0.0-1.2) 08/17/22 05:33 Absolute Lymphocytes 2.0 10^3/cmm (1.2-3.4) 08/17/22 05:33 Lymphocytes (Manual) 14 % 08/17/22 05:33 Monocytes (Manual) 6.0 % 08/17/22 05:33 Absolute Monocytes 0.9 10^3/cmm (0.1-0.6) H 08/17/22 05:33 Eosinophils (Manual) 0 % 08/17/22 05:33 Absolute Eosinophils 0.0 10^3/cmm (0.0-0.7) 08/17/22 05:33 Basophils (Manual) 0.0 % 08/17/22 05:33 Absolute Basophils 0.0 10^3/cmm (0.0-0.2) 08/17/22 05:33 Metamyelocytes 1.0 % 08/17/22 05:33 Myelocytes 1.0 % 08/17/22 05:33 Promyelocytes 0.0 % 08/14/22 13:00 Nucleated RBCs # 0.0 /100WBC 08/19/22 10:27 Blast Cells Consulting Solution Director 08/14/22 13:00 Smudge Cells 1+ H 08/17/22 05:33 Toxic Granulation 1+ H 08/17/22 05:33 Toxic Vacuolation 1+ H 08/14/22 13:00 Platelet Estimate Increased (Normal) 08/17/22 05:33 Giant Platelets Trace 08/17/22 05:33 Hypochromasia 1+ H 08/14/22 13:00 Poikilocytosis Trace 08/17/22 05:33 Anisocytosis Trace 08/17/22 05:33 ESR 125 mm/hr (0-10) H 08/14/22 13:00 Sodium 138 mmol/L (136-145) 08/19/22 10:27 Potassium 4.3 mmol/L (3.5-5.1) 08/19/22 10:27 Chloride 106 mmol/L (98-107) 08/19/22 10:27 Carbon Dioxide 19 mmol/L (22-29) L 08/19/22 10:27 Anion Gap 17.3 (5-19) 08/19/22 10:27 BUN 9 mg/dL (6-20) 08/19/22 10:27 Creatinine 0.7 mg/dL (0.7-1.2) 08/19/22 10:27 GFR Calculation 129.9 mL/min (90-130) 08/19/22 10:27 Glucose 146 mg/dL (65-115) H 08/19/22 10:27 Estimat Average Glucose 120 08/17/22 05:33 Hemoglobin A1c 5.8 % (4.0-6.0) 08/17/22 05:33 Calculated Osmolality 287 mOsm/kg (285-295) 08/19/22 10:27 Lactic Acid 1.9 mmol/L (0.5-2.2) 08/14/22 13:00 Calcium 8.2 mg/dL (8.5-10.5) L 08/19/22 10:27 Iron 32 ug/dL (59-158) L 08/17/22 05:33 TIBC 130 mcg/dl 08/17/22 05:33 % Saturation 24.6 % (20-50) 08/17/22 05:33 Unsat Iron Binding 98 ug/dL (112-347) L 08/17/22 05:33 Total Bilirubin 0.2 mg/dL (0.15-1.2) 08/19/22 10:27 AST 19 U/L (0-40) 08/19/22 10: ALT 37 U/L (0-41) 08/19/22 10: Alkaline Phosphatase 68 U/L (40-130) 08/19/22 10: C-Reactive Protein 55.1 mg/L (0.0-4.9) H 08/17/22 05:33 Total Protein 6.9 g/dL (6.6-8.7) 08/19/22 10: Albumin 2.6 g/dL (3.5-5.2) L 08/19/22 10: Globulin 4.3 g/dL (1.3-4.6) 08/19/22 10: Triglycerides 69 mg/dL (0-150) 08/17/22 21:03 Cholesterol 83 mg/dL (0-200) 08/17/22 21:03 LDL Cholesterol, Calc 48 mg/dL (50-129) L 08/17/22 21:03 Total VLDL Cholesterol 14 mg/dL (0-30) 08/17/22 21:03 HDL Cholesterol 21 mg/dL (60-100) L 08/17/22 21:03 Cholesterol/HDL Ratio 3.95 mg/dL (1.0-5.00) 08/17/22 21:03 Vitamin B12 627 pg/mL (232-1245) 08/17/22 05:33 Folate 13.6 ng/mL (4.5-32.2) 08/17/22 21:03 Procalcitonin 0.21 ng/mL (0-0.5) 08/17/22 05:33 TSH 3.66 uIU/mL (0.27-4.20) 08/17/22 05:33 Urine Color Colorless (Yellow) 08/14/22 17:41 Urine Appearance Hazy (CLEAR) A 08/14/22 17:41 Urine pH 5 (5-7) 08/14/22 17:41 Ur Specific [place] 1.010 (1.005-1.030) 08/14/22 17:41 Urine Protein Neg (Negative) 08/14/22 17:41 Urine Glucose (UA) Norm (Normal) 08/14/22 17:41 Urine Ketones 2+ (Negative) H 08/14/22 17:41 Urine Blood Neg (Negative) 08/14/22 17:41 Urine Nitrate Negative (Negative) 08/14/22 17:41 Urine Bilirubin Neg (Negative) 08/14/22 17:41 Urine Urobilinogen Norm mg/dL (Negative) 08/14/22 17:41 Ur Leukocyte Esterase 1+ (Negative) H 08/14/22 17:41 Urine RBC 25-40 /hpf (0-2) H 08/14/22 17:41 Urine WBC 55-80 /hpf (0-5) H 08/14/22 17:41 Ur Squamous Epith Cells 0-4 /hpf (0-5) H 08/14/22 17:41 Amorphous Sediment Not Reportable 08/14/22 17:41 Urine Bacteria Trace /hpf (NONE) 08/14/22 17:41 Hyaline Casts 0-4 /lpf H 08/14/22 17:41 Urine Mucus Trace /hpf 08/14/22 17:41 Vancomycin Trough 21.8 ug/mL (10-15) H 08/17/22 21:03 Vitals Last Vital Signs Temp 98.1 F 08/19/22 11:41 Pulse 77 08/19/22 11:41 Resp 17 08/19/22 11:41 BP 112/72 08/19/22 11:41 Pulse Ox 98 08/19/22 11:41 O2 Del Method Room Air 08/19/22 11:41 O2 Flow Rate 8 08/18/22 14:50 Discharge Plan Discharge Patient Disposition: Home Health Service Condition: Stable Prescriptions: Continued (DME) catheter 16 Fr misc See Rx Instructions .Route Qty: 150 0RF Rx Instructions: As directed code [id number] (DME) Stomahesive Paste Paste See Rx Instructions .Route Qty: 2 11RF Rx Instructions: As directed (DME) ostomy supplies 4 X 4 wafer See Rx Instructions .Route Qty: 20 0RF Rx Instructions: As directed (DME) colostomy bags Misc See Rx Instructions .Route Qty: 30 0RF Rx Instructions: closed end pouch code [id number] miscellaneous medical supply Kit 1 ea miscellaneous ONCE Qty: 1 0RF Rx Instructions: Please replace wheelchair seat cover. (DME) DME: Walker Unit See Rx Instructions .Route Qty: 1 0RF Rx Instructions: As directed (DME) miscellaneous medical supply Misc See Rx Instructions .Route Qty: 1 0RF Rx Instructions: Left fork needs repaired and wheel (DME) WHEELCHAIR See Rx Instructions .Route .MEDSUPPLY Qty: 1 0RF Rx Instructions: As directed ibuprofen 200 mg Tablet 800 mg PO BID omeprazole 40 mg capsule,delayed release(DR/EC) 40 mg PO QAM sertraline 50 mg tablet 50 mg PO QAM Dakin's Solution 0.25 % solution 1 applic topical .2-3 TIMES A DAY Discontinued levofloxacin 500 mg tablet 500 mg PO DAILY Qty: 10 0RF Rx Instructions: FOR 10 DAYS (RX FILLED 08/03/22) lisinopril 5 mg tablet 5 mg PO QAM Discharge Orders: Discharge Order (Routine); Ordered 08/19/22 Ordered By: Marcelo Adams Referrals: Tete Dang FNP [Nurse Practitioner] - 08/25/22 10:00 am [facility], [Staff Physician] - 08/19/22 8:00 am ([phone] wound care) Discharge Diet: Regular Discharge Activity: Resume usual activity and Increase activity as tolerated Patient Instructions: Opioid Safety Activity Restrictions/Additional Instructions: Repeat CBC, CMP, ESR and CRP in 4 days. Labs to be followed up with PCP. C/w Ertapenem 1 gm IV for next 8 days. C/w wound care on set appointment. Weekly PICC line/midline dressing change. Remove midline after completion of antibiotic course. Discharge Attestations Time Spent in Discharge Care*: greater than 30 min Specific Discharge Activities: educating patient, discussing with pcp/other providers, discussing with case folder/social workers/dc planners, documenting/other paperwork and evaluating patient/reviewing data Status at Discharge: Cognitive status at discharge: cognitively intact , Behavioral status at discharge: cooperative , Functional status at discharge: other assisted ambulation , Quality Metrics Clinical Quality Measures [ No reported AMI, CVA or VTE this stay] Coding Level of Care Code 94408 Total time (in minutes) for Discharge: 60 Diagnoses Abscess of left buttock L02.31 Spina bifida aperta of lumbar spine Q05.7 Essential hypertension I10 History of right nephrectomy Z90.5 Single functional kidney Z90.5 Status post incision and drainage Z98.890
--- NOTE | 2022-08-19 15:00 | PC.NURSE ---
Midline placed to right basilic vein without difficulty. Pt referred for midline due to needing IV antibiotics x 10 days. Right basilic vein assessed, 3.5 mm, straight, and apparent best choice for insertion. Informed consent obtained from pt prior to procedure. Using sterile technique and MST, right basilic vein accessed x 1 stick. Mid arm circumference measured 10 cm from right AC 34 cm. Trimmed cath length 10 cm with 0 cm external length noted. Line secured with stat lock. Insertion site covered with Biopatch and TSM. Report given to bedside nurse, Simon.
== END 2022-08-19 16:28 | disposition home health service (06) | DRG 571 ==
LOC: ER 15:08 → MEDSURG 17:31
PROVIDERS: Physician Assistant; Specialist; Surgery; Admitting Provider Internal Medicine; Emergency Provider Emergency Medicine; Visit Provider Student in an Organized Health Care Education/Training Program
PROC: 0JB90ZZ Excision of Buttock Subcutaneous Tissue and Fascia, Open Approach (ICD-10-PCS; principal; 2022-08-14 18:00)
PROC: 0JD90ZZ Extraction of Buttock Subcutaneous Tissue and Fascia, Open Approach (ICD-10-PCS; principal; 2022-08-15 12:00)
PROC: 0KBP0ZZ Excision of Left Hip Muscle, Open Approach (ICD-10-PCS; principal; 2022-08-18 12:40)
DX: L89.324 Pressure ulcer of left buttock, stage 4 (principal); G82.20 Paraplegia, unspecified; L02.31 Cutaneous abscess of buttock; Q42.3 Congenital absence, atresia and stenosis of anus without fistula; L89.329 Pressure ulcer of left buttock, unspecified stage; Q05.7 Lumbar spina bifida without hydrocephalus; I10 Essential (primary) hypertension; Z90.5 Acquired absence of kidney; Z99.3 Dependence on wheelchair; N31.9 Neuromuscular dysfunction of bladder, unspecified; Z93.3 Colostomy status; F41.9 Anxiety disorder, unspecified; H40.9 Unspecified glaucoma; Z87.891 Personal history of nicotine dependence
CPT/HCPCS: 36415; 36569; 74177; 80048; 80053; 80061; 80202; 81001; 82607; 82746; 83036; 83540; 83550; 83605; 84145; 84443; 85007; 85025; 85651; 86140; 87040; 87070; 87075; 87077; 87086; 87176; 87205; 87641; 96365; 99285; C1751; J0690; J1100; J1335; J2250; J2371; J2405; J2543; J2704; J2710; J3010; J3370; J3490; J7030; J7050; Q3014; Q9967

== ENCOUNTER 2022-08-24 15:04 | Outpatient (CLI) | payer MEDICARE, MEDICAID, SELFPAY ==
[2022-08-24 16:01] LABS: Basophils # 0.1 10^3/uL (0.0-0.1); Basophils % 0.7 %; Eosinophils # 0.1 10^3/uL (0.0-0.8); Eosinophils % 0.5 %; Hematocrit 37.3 % (42.0-52.0); Hemoglobin 11.8 g/dL (11.7-16.6); Mean Corpuscular HGB Conc 31.6 g/dL (30.0-36.0); Mean Corpuscular Hemoglobin 25.2 pg (28.0-34.0); Mean Corpuscular Volume 79.7 fl (80-94); Mean Platelet Volume 9.5 fL (7.4-10.4); Monocytes # 0.7 10^3/uL (0.2-0.9); Monocytes % 7.6 %; Neutrophils # 6.66 10^3/uL (1.8-7.7); Neutrophils % 69.6 %; Nucleated Red Blood Cells % 0 %; Platelet Count 487 10^3/cmm (130-400); Red Blood Count 4.68 10^6/uL (4.1-5.3); Red Cell Distribution Width 17.3 % (12.1-15.1); White Blood Count 9.6 10^3/uL (4.0-10.0)
[2022-08-24 16:11] LABS: Erythrocyte Sedimentation Rate 62 mm/hr (0-10)
[2022-08-24 16:40] LABS: Alanine Aminotransferase 32 U/L (0-41); Albumin Level 3.2 g/dL (3.5-5.2); Alkaline Phosphatase 86 U/L (40-130); Anion Gap 14.8 (5-19); Aspartate Amino Transferase 13 U/L (0-40); Blood Urea Nitrogen 16 mg/dL (6-20); C Reactive Protein 14.1 mg/L (0.0-4.9); Calcium 8.8 mg/dL (8.5-10.5); Carbon Dioxide 23 mmol/L (22-29); Chloride 102 mmol/L (98-107); Globulin 3.9 g/dL (1.3-4.6); Glomerular Filtration Rate 129.9 mL/min (90-130); Glucose 91 mg/dL (65-115); Osmolality Calculated 283 mOsm/kg (285-295); Potassium 3.8 mmol/L (3.5-5.1); Sodium 136 mmol/L (136-145); Total Bilirubin 0.2 mg/dL (0.15-1.2); Total Protein 7.1 g/dL (6.6-8.7)
== END 2022-08-24 15:05 | disposition home or self-care (01) ==
PROVIDERS: Visit Provider Student in an Organized Health Care Education/Training Program
DX: L02.31 Cutaneous abscess of buttock (principal); Q05.7 Lumbar spina bifida without hydrocephalus
CPT/HCPCS: 80053; 85025; 85651; 86140

== ENCOUNTER → 2022-08-26 07:56 | Outpatient (BNVA) | payer MEDICARE, MEDICAID, SELFPAY | PROVIDERS: PCP Nurse Practitioner Family; Visit Provider Thoracic Surgery (Cardiothoracic Vascular Surgery) | DX: I96 Gangrene, not elsewhere classified (principal); L89.323 Pressure ulcer of left buttock, stage 3 | CPT/HCPCS: 11043; 11046 ==

== ENCOUNTER → 2022-09-02 07:56 | Outpatient (BNVA) | payer MEDICARE, MEDICAID, SELFPAY | PROVIDERS: PCP Nurse Practitioner Family; Visit Provider Nurse Practitioner Family | DX: I96 Gangrene, not elsewhere classified (principal); L89.323 Pressure ulcer of left buttock, stage 3 | CPT/HCPCS: 11042; 11045 ==

== ENCOUNTER → 2022-09-09 08:09 | Outpatient (BNVA) | payer MEDICARE, MEDICAID, SELFPAY | PROVIDERS: PCP Nurse Practitioner Family; Visit Provider Thoracic Surgery (Cardiothoracic Vascular Surgery) | DX: I96 Gangrene, not elsewhere classified (principal); L89.323 Pressure ulcer of left buttock, stage 3 | CPT/HCPCS: 11043; 11046 ==

== ENCOUNTER → 2022-09-23 07:50 | Outpatient (BNVA) | payer MEDICARE, MEDICAID, SELFPAY | PROVIDERS: PCP Nurse Practitioner Family; Visit Provider Thoracic Surgery (Cardiothoracic Vascular Surgery) | DX: I96 Gangrene, not elsewhere classified (principal); L89.323 Pressure ulcer of left buttock, stage 3; L89.152 Pressure ulcer of sacral region, stage 2 | CPT/HCPCS: 11042; 11045 ==

== ENCOUNTER → 2022-09-30 08:10 | Outpatient (BNVA) | payer MEDICARE, MEDICAID, SELFPAY | PROVIDERS: PCP Nurse Practitioner Family; Visit Provider Thoracic Surgery (Cardiothoracic Vascular Surgery) | DX: I96 Gangrene, not elsewhere classified (principal); L89.323 Pressure ulcer of left buttock, stage 3; L89.152 Pressure ulcer of sacral region, stage 2 | CPT/HCPCS: 11044; 87070; 87176; 87205; 97597; 97598 ==

== ENCOUNTER → 2022-10-01 07:55 | Outpatient (BNVA) | payer MEDICARE, MEDICAID, SELFPAY | PROVIDERS: PCP Nurse Practitioner Family; Referring Provider Dermatology; Visit Provider Student in an Organized Health Care Education/Training Program | DX: M25.511 Pain in right shoulder; M89.8X1 Other specified disorders of bone, shoulder | CPT/HCPCS: 73030; 99203 ==

== ENCOUNTER 2022-10-02 14:38 | Outpatient (CLI) | payer MEDICARE, MEDICAID, SELFPAY ==
--- NOTE | 2022-10-02 14:45 | CTR_ITS ---
PROCEDURE INFORMATION: Exam: CT Pelvis With Contrast Exam date and time: 10/02/2022 3:29 PM Age: 32 years old Clinical indication: Condition or disease; Other: Pressure ulcer of left buttock, stage 4; Prior surgery; Surgery date: 6+ months; Surgery type: Bladder, RT kidney, pins in hips, colostomy; Additional info: L89.324 - pressure ulcer of left buttock, stage 4 TECHNIQUE: Imaging protocol: Computed tomography of the pelvis with contrast. Radiation optimization: All CT scans at this facility use at least one of these dose optimization techniques: automated exposure control; mA and/or kV adjustment per patient size (includes targeted exams where dose is matched to clinical indication); or iterative reconstruction. Contrast material: OMNI 350; Contrast volume: 100 ml; Contrast route: INTRAVENOUS (IV); REPORTING DATA: Count of CT and Cardiac NM exams in prior 12 months: This patient has received [address] and 0 known cardiac nuclear medicine studies in the 12 months prior to the current study. COMPARISON: CT abdomen pelvis w con* [id number] 08/14/2022 2:33 PM RADIATION DOSE METRICS: Total DLP (mGy-cm): 736.83 FINDINGS: Tubes, catheters and devices: Partially visualized presumed shunt catheter in the anterior right lower quadrant. Stomach and bowel: Visualized small bowel and colon are unremarkable. Appendix: No evidence of appendicitis. Intraperitoneal space: Unremarkable. No free air. No significant fluid collection. Lymph nodes: Unremarkable. No enlarged lymph nodes. Urinary bladder: Stable mild wall thickening in the inferior urinary bladder. Reproductive: Bilateral large hydroceles. Bones/joints: There are multiple gas bubbles adjacent to the left ischial tuberosity and in the soft tissues of the inferior left medial buttock. Stable spinal dysraphism from L3 through the upper sacrum. Stable metal plates with screws in the proximal femurs. There is cortical destruction in the posterior left ischial tuberosity, new since the prior study. Small hip effusions. Soft tissues: Stable large soft tissue ulceration in the medial left buttock which extends to the posterior surface of the left ischial tuberosity. This likely extends to the posterior hip joint. Subcutaneous soft tissue stranding in the medial left buttock. Stable large multiloculated cystic structure in the posterior lumbosacral soft tissues. Other findings: Left lower quadrant mucous fistula. CT/CT pelvis w con* [id number] IMPRESSION: 1. Large decubitus ulcer in the medial left buttock with extension to the left ischial tuberosity, and probable extension to the posterior left hip joint. 2. Osteomyelitis with cortical destruction in the posterior left ischial tuberosity, new since the prior study. 3. Hip effusions. A septic left hip joint is not excluded. 4. Stable large complex cystic lesion in the posterior lumbar soft tissues, presumably a large myelomeningocele or myelocystocele.
[2022-10-02] MEDS: iohexol 350 mg/mL 500 mL Btl (per mL) IV (15:37)
== END 2022-10-02 14:39 | disposition home or self-care (01) ==
PROVIDERS: PCP Nurse Practitioner Family; Visit Provider Thoracic Surgery (Cardiothoracic Vascular Surgery)
DX: L89.324 Pressure ulcer of left buttock, stage 4 (principal); M86.9 Osteomyelitis, unspecified; M25.452 Effusion, left hip; M25.451 Effusion, right hip
CPT/HCPCS: 72193; Q9967

== ENCOUNTER → 2022-10-07 07:57 | Outpatient (BNVA) | payer MEDICARE, MEDICAID, SELFPAY | PROVIDERS: PCP Nurse Practitioner Family; Visit Provider Thoracic Surgery (Cardiothoracic Vascular Surgery) | DX: I96 Gangrene, not elsewhere classified (principal); L89.323 Pressure ulcer of left buttock, stage 3; L89.152 Pressure ulcer of sacral region, stage 2 | CPT/HCPCS: 11044; 11047; 87070; 87077; 87176; 87186; 87205; 97597; 97598 ==

== ENCOUNTER → 2022-10-14 07:50 | Outpatient (BNVA) | payer MEDICARE, MEDICAID, SELFPAY | PROVIDERS: PCP Nurse Practitioner Family; Visit Provider Thoracic Surgery (Cardiothoracic Vascular Surgery) | DX: I96 Gangrene, not elsewhere classified (principal); L89.324 Pressure ulcer of left buttock, stage 4; L89.152 Pressure ulcer of sacral region, stage 2 | CPT/HCPCS: 11042; 11045; 97597; 97598 ==

== ENCOUNTER 2022-10-15 15:32 | Outpatient (CLI) | payer MEDICARE, MEDICAID, SELFPAY ==
--- NOTE | 2022-10-15 17:00 | CT_ITS ---
WS: [id number] CT RIGHT SHOULDER, 3D HISTORY: RULE OUT FRACTURE, attention to clavicle. Technique: All CT scans at [facility] use at least one of these dose optimization techniques: automated exposure control; mA and/or kV adjustment per patient size (includes targeted exams where dose is matched to clinical indication); or iterative reconstruction. DLP: 742.38 mGy.cm COMPARISON: Shoulder radiograph 10/01/2022 Normal position of the humeral head at the glenoid. No fracture or dislocation. Normal scapula and co racoid process. No RIGHT clavicle fracture. There is normal alignment at the sternal manubrial joints. Degenerative c hanges at the AC joint. There is air at the AC joint and small subchondral cysts in the distal clavic le. Visualized RIGHT lung is clear. No rib abnormality. 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 IMPRESSION: 1. No RIGHT clavicular fracture. 2. Moderate AC joint arthritis. Degenerative air in the AC joint with osteophytes and subchondral cys tic changes. 3. Normal glenohumeral joint articulation.
== END 2022-10-15 15:33 | disposition home or self-care (01) ==
PROVIDERS: PCP Nurse Practitioner Family; Visit Provider Student in an Organized Health Care Education/Training Program
DX: M89.8X1 Other specified disorders of bone, shoulder (principal); Z03.89 Encounter for observation for other suspected diseases and conditions ruled out; M19.011 Primary osteoarthritis, right shoulder
CPT/HCPCS: 73200

== ENCOUNTER → 2022-10-21 07:56 | Outpatient (BNVA) | payer MEDICARE, MEDICAID, SELFPAY | PROVIDERS: PCP Nurse Practitioner Family; Visit Provider Thoracic Surgery (Cardiothoracic Vascular Surgery) | DX: I96 Gangrene, not elsewhere classified (principal); L89.324 Pressure ulcer of left buttock, stage 4; L89.152 Pressure ulcer of sacral region, stage 2 | CPT/HCPCS: 11042; 97597; 97598 ==

== ENCOUNTER → 2022-11-03 13:22 | Outpatient (BNVA) | payer MEDICARE, MEDICAID, SELFPAY | PROVIDERS: PCP Nurse Practitioner Family; Visit Provider Physician Assistant | DX: M89.8X1 Other specified disorders of bone, shoulder (principal) | CPT/HCPCS: 99213 ==

== ENCOUNTER → 2022-11-04 07:51 | Outpatient (BNVA) | payer MEDICARE, MEDICAID, SELFPAY | PROVIDERS: PCP Nurse Practitioner Family; Visit Provider Thoracic Surgery (Cardiothoracic Vascular Surgery) | DX: I96 Gangrene, not elsewhere classified (principal); L89.324 Pressure ulcer of left buttock, stage 4; L89.152 Pressure ulcer of sacral region, stage 2 | CPT/HCPCS: 11044; 11047; 87070; 87077; 87186; 97597; 97598 ==

== ENCOUNTER → 2022-11-11 07:52 | Outpatient (BNVA) | payer MEDICARE, MEDICAID, SELFPAY | PROVIDERS: PCP Nurse Practitioner Family; Visit Provider Thoracic Surgery (Cardiothoracic Vascular Surgery) | DX: I96 Gangrene, not elsewhere classified (principal); L89.324 Pressure ulcer of left buttock, stage 4; L89.152 Pressure ulcer of sacral region, stage 2 | CPT/HCPCS: 11042; 97597; 97598 ==

== ENCOUNTER → 2022-11-18 08:02 | Outpatient (BNVA) | payer MEDICARE, MEDICAID, SELFPAY | PROVIDERS: PCP Nurse Practitioner Family; Visit Provider Thoracic Surgery (Cardiothoracic Vascular Surgery) | DX: L89.324 Pressure ulcer of left buttock, stage 4 (principal); L89.152 Pressure ulcer of sacral region, stage 2 | CPT/HCPCS: 11042; 97597 ==

== ENCOUNTER → 2022-11-25 07:56 | Outpatient (BNVA) | payer MEDICARE, MEDICAID, SELFPAY | PROVIDERS: PCP Nurse Practitioner Family; Visit Provider Thoracic Surgery (Cardiothoracic Vascular Surgery) | DX: L89.324 Pressure ulcer of left buttock, stage 4 (principal); L89.152 Pressure ulcer of sacral region, stage 2 | CPT/HCPCS: 97597; 97598 ==

== ENCOUNTER → 2022-12-09 07:58 | Outpatient (BNVA) | payer MEDICARE, MEDICAID, SELFPAY | PROVIDERS: PCP Nurse Practitioner Family; Visit Provider Thoracic Surgery (Cardiothoracic Vascular Surgery) | DX: I96 Gangrene, not elsewhere classified (principal); L89.324 Pressure ulcer of left buttock, stage 4; L89.152 Pressure ulcer of sacral region, stage 2 | CPT/HCPCS: 97597; 97598 ==

== ENCOUNTER → 2022-12-16 07:52 | Outpatient (BNVA) | payer MEDICARE, MEDICAID, SELFPAY | PROVIDERS: PCP Nurse Practitioner Family; Visit Provider Thoracic Surgery (Cardiothoracic Vascular Surgery) | DX: I96 Gangrene, not elsewhere classified (principal); L89.324 Pressure ulcer of left buttock, stage 4 | CPT/HCPCS: 97597; A6446 ==

== ENCOUNTER → 2022-12-23 08:01 | Outpatient (BNVA) | payer MEDICARE, MEDICAID, SELFPAY | PROVIDERS: PCP Nurse Practitioner Family; Visit Provider Thoracic Surgery (Cardiothoracic Vascular Surgery) | DX: I96 Gangrene, not elsewhere classified (principal); L89.324 Pressure ulcer of left buttock, stage 4 | CPT/HCPCS: 11042 ==

== ENCOUNTER → 2022-12-30 08:02 | Outpatient (BNVA) | payer MEDICARE, MEDICAID, SELFPAY | PROVIDERS: PCP Nurse Practitioner Family; Visit Provider Thoracic Surgery (Cardiothoracic Vascular Surgery) | DX: L89.324 Pressure ulcer of left buttock, stage 4 (principal) | CPT/HCPCS: 11042; 99212; A6446 ==

== ENCOUNTER → 2023-01-06 08:19 | Outpatient (BNVA) | payer MEDICARE, MEDICAID, SELFPAY | PROVIDERS: PCP Nurse Practitioner Family; Visit Provider Nurse Practitioner Family | DX: L89.324 Pressure ulcer of left buttock, stage 4 (principal) | CPT/HCPCS: 11042; A6446 ==

== ENCOUNTER 2023-01-13 08:50 | Outpatient (CLI) | payer MEDICARE, MEDICAID, SELFPAY ==
--- NOTE | 2023-01-13 09:00 | CT_ITS ---
WS: [id number] CT ABDOMEN AND PELVIS NONCONTRAST HISTORY: R/O ABSCESS TECHNIQUE: Imaging performed through the abdomen and pelvis. Coronal and sagittal reformats are submi tted. All CT scans at [facility] use at least one of these dose optimization techniques: auto mated exposure control; mA and/or kV adjustment per patient size (includes targeted exams where dose is matched to clinical indication); or iterative reconstruction. DLP: 1124.13 mGy.cm COMPARISON: 08/14/2022 and 10/02/2022 Lower thorax: Lung bases are clear. Visualized heart is normal. No hiatal hernia. Liver: Normal size liver. No mass or bile duct dilatation. Gallbladder: Normal gallbladder. No pericholecystic fluid or cholelithiasis. No gallbladder wall thic kening. Pancreas: Normal size and attenuation. Normal pancreatic duct. No pancreatitis or mass. Spleen: Normal. Adrenal glands: Normal. No mass. Right kidney: Absent. Left kidney: Normal size kidney with no mass or hydronephrosis. Aorta: Normal abdominal aorta, no aneurysm or atherosclerosis. No free fluid, intraperitoneal air or significant lymphadenopathy. GI tract: Normal noncontrast imaging of the stomach, small bowel and colon. No obstruction or wall th ickening. Normal appendix. Abdominal wall: Muscular defect in the LEFT lateral abdominal wall contains a loop of colon but there is no obstruction. There is an additional LEFT abdominal colostomy. Pelvis: Mildly thickened urinary bladder. Diffuse thickening of the wall is similar to prior studies. There is a very large decubitus ulcer centered over the most inferior pelvis. Ulcer is just to the L EFT of midline and there is a fluid and air-filled tract extending to the LEFT ischial tuberosity. Th e amount of soft tissue thickening and infiltration is more pronounced than 10/02/2022. The increase i n size of the ulcer tract may be due to a debridement process. There is no focal collection containin g fluid. Again noted is sclerotic and lytic destructive changes involving the ischial tuberosity. Zeynep pect this is combination of acute on chronic osteomyelitis. The lytic changes in the ischial tuberosi ty are slightly more pronounced suggesting continued osteomyelitis. Osseous structures: There is a large open spinal defect in the lower lumbar spine containing fluid an d cord contents. This is probably a myelomeningocele. Very similar to prior studies. IMPRESSION: 1. LEFT posterior pelvis large decubitus ulcer has progressed since 10/02/2022. The air component in the soft tissue tract are more pronounced on the prior study. 2. Mixed lytic and sclerotic changes involving the LEFT ischial tuberosity. Progression of the lytic changes suggesting ongoing osteomyelitis. 3. LEFT lower quadrant colostomy and an additional LEFT lower quadrant hernia. 4. Peritoneal shunt catheter. No complications.
== END 2023-01-13 08:51 | disposition home or self-care (01) ==
LOC: RAD 08:51
PROVIDERS: PCP Nurse Practitioner Family; Visit Provider Thoracic Surgery (Cardiothoracic Vascular Surgery)
DX: L02.31 Cutaneous abscess of buttock (principal); L89.899 Pressure ulcer of other site, unspecified stage; Z93.3 Colostomy status; K43.9 Ventral hernia without obstruction or gangrene; Z98.2 Presence of cerebrospinal fluid drainage device
CPT/HCPCS: 11042; 74176; 99212; A6446

== ENCOUNTER → 2023-01-20 07:58 | Outpatient (BNVA) | payer MEDICARE, MEDICAID, SELFPAY | PROVIDERS: PCP Nurse Practitioner Family; Visit Provider Thoracic Surgery (Cardiothoracic Vascular Surgery) | DX: L89.324 Pressure ulcer of left buttock, stage 4 (principal) | CPT/HCPCS: 11044; 87070; 87176; 87186; 87205 ==

== ENCOUNTER → 2023-01-27 07:58 | Outpatient (BNVA) | payer MEDICARE, MEDICAID, SELFPAY | PROVIDERS: PCP Nurse Practitioner Family; Visit Provider Thoracic Surgery (Cardiothoracic Vascular Surgery) | DX: L89.324 Pressure ulcer of left buttock, stage 4 (principal) | CPT/HCPCS: 11042 ==

== ENCOUNTER → 2023-02-02 11:51 | Day surgery (SDC) | payer MEDICARE, MEDICAID, SELFPAY ==
--- NOTE | 2023-02-02 12:27 | XRR_ITS ---
PROCEDURE INFORMATION: Exam: XR Chest Exam date and time: 02/02/2023 1:58 PM Age: 32 years old Clinical indication: Device placement; Picc; Additional info: Post picc insertion, ange placing in gi specials room (across from nursing TECHNIQUE: Imaging protocol: Radiologic exam of the chest. Views: 1 view. COMPARISON: CT abdomen pelvis wo con [id number] 01/13/2023 9:06 AM FINDINGS: Tubes, catheters and devices: A PICC line enters from the left and terminates in the SVC near the atrial caval junction. Lungs: Unremarkable. No consolidation. Pleural spaces: Unremarkable. No pleural effusion. No pneumothorax. Heart/Mediastinum: Unremarkable. No cardiomegaly. Bones/joints: Unremarkable. XR/XR chest 1V portable [id number] IMPRESSION: PICC line insertion.
[2023-02-02 13:30] LABS: Basophils # 0.1 10^3/uL (0.0-0.1); Basophils % 0.7 %; Eosinophils # 0.3 10^3/uL (0.0-0.8); Eosinophils % 3.4 %; Lymphocytes # 2.4 10^3/uL (0.8-4.8); Lymphocytes % 24.5 %; Mean Corpuscular HGB Conc 29.2 g/dL (30-55); Mean Corpuscular Hemoglobin 21.5 pg (27-33); Mean Corpuscular Volume 73.7 fl (82-101); Mean Platelet Volume 8.9 fL (7.4-10.4); Monocytes # 0.7 10^3/uL (0.2-0.9); Monocytes % 6.5 %; Neutrophils # 6.44 10^3/uL (1.8-7.7); Neutrophils % 64.6 %; Nucleated Red Blood Cells % 0 %; Platelet Count 439 10^3/cmm (157-399); Red Blood Count 5.02 10^6/uL (3.85-5.65); White Blood Count 9.97 10^3/uL (3.29-11.43)
--- NOTE | 2023-02-02 13:35 | PC.NURSE ---
Single lumen PICC placed to left basilic vein. Referred to vascular access nurse from wound care for IV daptomycin x 6 weeks. Risks and benefits and informed consent obtained from patient. Pt right hand dominate. Left arm assessed with left basilic vein measuring 7 mm, straight, and apparent best choice for placement. Using sterile technique and MST, left basilic vein accessed x 1 stick. Mid-arm circumference measured 10 cm from left AC 36 cm. Trimmed cath 43 cm with 0 cm external length noted. CXR shows tip in distal SVC, in good position for use. Line secured with stat-lock. Insertion site covered with Biopatch and TSM. Report called to wound care. Pt to have [facility] for home health to manage dressing changes and infusions.
[2023-02-02 14:06] LABS: Alanine Aminotransferase 13 U/L (0-41); Albumin Level 3.4 g/dL (3.5-5.2); Alkaline Phosphatase 78 U/L (40-130); Blood Urea Nitrogen 10 mg/dL (6-20); C Reactive Protein 30.6 mg/L (0.0-4.9); Calcium 9.4 mg/dL (8.5-10.5); Carbon Dioxide 24 mmol/L (22-29); Chloride 105 mmol/L (98-107); Creatine Phosphokinase 50 U/L (39-308); Creatinine Clr Calc Pharmacy 195.8318; Globulin 4.2 g/dL (1.3-4.6); Glomerular Filtration Rate 155.2 mL/min (90-130); Glucose 69 mg/dL (65-115); Osmolality Calculated 283 mOsm/kg (285-295); Sodium 138 mmol/L (136-145); Total Bilirubin 0.2 mg/dL (0.15-1.2); Total Protein 7.6 g/dL (6.6-8.7)
[2023-02-02 14:08] LABS: Anion Gap 13.6 (5-19); Aspartate Amino Transferase 14 U/L (0-40); Potassium 4.6 mmol/L (3.5-5.1)
[2023-02-02 14:19] LABS: Erythrocyte Sedimentation Rate 99 mm/hr (0-10)
== END ==
LOC: GILAB 11:54
PROVIDERS: PCP Nurse Practitioner; Visit Provider Thoracic Surgery (Cardiothoracic Vascular Surgery)
DX: M86.9 Osteomyelitis, unspecified (principal); Z45.2 Encounter for adjustment and management of vascular access device; L89.322 Pressure ulcer of left buttock, stage 2
CPT/HCPCS: 11042; 36573; 36592; 71045; 80053; 82550; 85025; 85651; 86140; 96365; J0878

== ENCOUNTER 2023-02-09 10:18 | Outpatient (CLI) | payer MEDICARE, MEDICAID, SELFPAY ==
[2023-02-09 12:45] LABS: Creatine Phosphokinase 2982 U/L (39-308)
[2023-02-09 12:52] LABS: Alanine Aminotransferase 26 U/L (0-41); Albumin Level 3.5 g/dL (3.5-5.2); Alkaline Phosphatase 85 U/L (40-130); Blood Urea Nitrogen 16 mg/dL (6-20); Carbon Dioxide 20 mmol/L (22-29); Chloride 102 mmol/L (98-107); Globulin 3.5 g/dL (1.3-4.6); Glomerular Filtration Rate 129.9 mL/min (90-130); Glucose 86 mg/dL (65-115); Osmolality Calculated 286 mOsm/kg (285-295); Sodium 138 mmol/L (136-145); Total Bilirubin 0.2 mg/dL (0.15-1.2)
[2023-02-09 13:02] LABS: Aspartate Amino Transferase 67 U/L (0-40)
== END 2023-02-09 10:19 | disposition home or self-care (01) ==
LOC: LAB 10:19
PROVIDERS: PCP Nurse Practitioner; Visit Provider Thoracic Surgery (Cardiothoracic Vascular Surgery)
DX: M86.652 Other chronic osteomyelitis, left thigh (principal); M62.82 Rhabdomyolysis; Z79.2 Long term (current) use of antibiotics; Z79.899 Other long term (current) drug therapy
CPT/HCPCS: 80053; 82550; 99204

== ENCOUNTER → 2023-02-10 07:51 | Outpatient (BNVA) | payer MEDICARE, MEDICAID, SELFPAY | PROVIDERS: PCP Nurse Practitioner; Visit Provider Thoracic Surgery (Cardiothoracic Vascular Surgery) | DX: I96 Gangrene, not elsewhere classified (principal); L89.324 Pressure ulcer of left buttock, stage 4 | CPT/HCPCS: 11042; A6446 ==

== ENCOUNTER 2023-02-15 11:02 | Outpatient (CLI) | payer MEDICARE, MEDICAID, SELFPAY ==
[2023-02-15 12:26] LABS: Alanine Aminotransferase 15 U/L (0-41); Albumin Level 3.6 g/dL (3.5-5.2); Alkaline Phosphatase 96 U/L (40-130); Blood Urea Nitrogen 19 mg/dL (6-20); C Reactive Protein 14.3 mg/L (0.0-4.9); Calcium 9.1 mg/dL (8.5-10.5); Carbon Dioxide 24 mmol/L (22-29); Chloride 101 mmol/L (98-107); Creatine Phosphokinase 89 U/L (39-308); Globulin 3.5 g/dL (1.3-4.6); Glomerular Filtration Rate 129.9 mL/min (90-130); Glucose 78 mg/dL (65-115); Osmolality Calculated 281 mOsm/kg (285-295); Sodium 135 mmol/L (136-145); Total Bilirubin 0.2 mg/dL (0.15-1.2); Total Protein 7.1 g/dL (6.6-8.7)
[2023-02-15 12:27] LABS: Anion Gap 14.8 (5-19); Aspartate Amino Transferase 15 U/L (0-40); Potassium 4.8 mmol/L (3.5-5.1)
== END 2023-02-15 11:03 | disposition home or self-care (01) ==
LOC: LAB 11:09
PROVIDERS: Absent Provider Thoracic Surgery (Cardiothoracic Vascular Surgery); PCP Nurse Practitioner; Visit Provider Student in an Organized Health Care Education/Training Program
DX: M62.82 Rhabdomyolysis (principal); M86.60 Other chronic osteomyelitis, unspecified site; Z79.899 Other long term (current) drug therapy
CPT/HCPCS: 80053; 82550; 86140

== ENCOUNTER 2023-02-16 11:58 | Outpatient (CLI) | payer MEDICARE, MEDICAID, SELFPAY ==
[2023-02-16 14:34] LABS: Vancomycin Random 31.6 ug/mL (20.0-40.0)
== END 2023-02-16 11:59 | disposition home or self-care (01) ==
PROVIDERS: PCP Nurse Practitioner; Visit Provider Student in an Organized Health Care Education/Training Program
DX: M86.68 Other chronic osteomyelitis, other site (principal); Z79.2 Long term (current) use of antibiotics
CPT/HCPCS: 80202

== ENCOUNTER 2023-02-17 06:08 | Outpatient (CLI) | payer MEDICARE, MEDICAID, SELFPAY ==
[2023-02-17 06:45] LABS: Vancomycin Trough 6.9 ug/mL (10-15)
== END 2023-02-17 06:09 | disposition home or self-care (01) ==
PROVIDERS: PCP Nurse Practitioner; Visit Provider Student in an Organized Health Care Education/Training Program
DX: I96 Gangrene, not elsewhere classified (principal); L89.324 Pressure ulcer of left buttock, stage 4; M86.68 Other chronic osteomyelitis, other site
CPT/HCPCS: 11042; 80202; A6446

== ENCOUNTER 2023-02-19 11:33 | Outpatient (CLI) | payer MEDICARE, MEDICAID, SELFPAY ==
[2023-02-19 13:03] LABS: Basophils # 0.1 10^3/uL (0.0-0.1); Basophils % 1.3 %; Eosinophils # 0.3 10^3/uL (0.0-0.8); Eosinophils % 4.2 %; Hematocrit 36.7 % (37-53); Lymphocytes # 2.1 10^3/uL (0.8-4.8); Mean Corpuscular Hemoglobin 22.3 pg (27-33); Mean Corpuscular Volume 74.4 fl (82-101); Mean Platelet Volume 10.2 fL (7.4-10.4); Monocytes # 0.6 10^3/uL (0.2-0.9); Monocytes % 8.5 %; Neutrophils # 3.64 10^3/uL (1.8-7.7); Neutrophils % 54.7 %; Nucleated Red Blood Cells % 0 %; Platelet Count 286 10^3/cmm (157-399); Red Blood Count 4.93 10^6/uL (3.85-5.65); Red Cell Distribution Width 20.4 % (12.1-15.1); White Blood Count 6.67 10^3/uL (3.29-11.43)
[2023-02-19 13:20] LABS: Vancomycin Trough 12.8 ug/mL (10-15)
[2023-02-19 13:21] LABS: Alanine Aminotransferase 14 U/L (0-41); Albumin Level 3.6 g/dL (3.5-5.2); Alkaline Phosphatase 86 U/L (40-130); Blood Urea Nitrogen 15 mg/dL (6-20); Calcium 8.9 mg/dL (8.5-10.5); Carbon Dioxide 22 mmol/L (22-29); Chloride 103 mmol/L (98-107); Globulin 3.5 g/dL (1.3-4.6); Glomerular Filtration Rate 129.9 mL/min (90-130); Glucose 85 mg/dL (65-115); Osmolality Calculated 284 mOsm/kg (285-295); Sodium 137 mmol/L (136-145); Total Bilirubin 0.4 mg/dL (0.15-1.2); Total Protein 7.1 g/dL (6.6-8.7)
[2023-02-19 13:32] LABS: Anion Gap 17.1 (5-19); Aspartate Amino Transferase 15 U/L (0-40); Potassium 5.1 mmol/L (3.5-5.1)
== END 2023-02-19 11:34 | disposition home or self-care (01) ==
LOC: LAB 11:34
PROVIDERS: PCP Nurse Practitioner; Visit Provider Student in an Organized Health Care Education/Training Program
DX: M86.68 Other chronic osteomyelitis, other site (principal)
CPT/HCPCS: 80053; 80202; 85025

== ENCOUNTER → 2023-02-24 08:56 | Day surgery (SDC) | payer MEDICARE, MEDICAID, SELFPAY ==
[2023-02-24] MEDS: alteplase 1 mg/mL SDV 2 mL 2 MG INTRACATH (09:19)
[2023-02-24 09:23] VITALS: BP 150/84; PULSE 89; RESP 18; TEMP 36.9; O2SAT 98
[2023-02-24 10:23] LABS: Basophils # 0.1 10^3/uL (0.0-0.1); Basophils % 0.9 %; Eosinophils # 0.3 10^3/uL (0.0-0.8); Eosinophils % 3.8 %; Hematocrit 40.6 % (37-53); Lymphocytes # 1.4 10^3/uL (0.8-4.8); Lymphocytes % 19.4 %; Mean Corpuscular HGB Conc 30.3 g/dL (30-55); Mean Corpuscular Hemoglobin 22.2 pg (27-33); Mean Corpuscular Volume 73.4 fl (82-101); Mean Platelet Volume 9.3 fL (7.4-10.4); Monocytes # 0.7 10^3/uL (0.2-0.9); Monocytes % 9.6 %; Neutrophils # 4.88 10^3/uL (1.8-7.7); Neutrophils % 66.2 %; Nucleated Red Blood Cells % 0 %; Platelet Count 300 10^3/cmm (157-399); Red Blood Count 5.53 10^6/uL (3.85-5.65); Red Cell Distribution Width 20.3 % (12.1-15.1); White Blood Count 7.38 10^3/uL (3.29-11.43)
[2023-02-24 10:45] LABS: Alanine Aminotransferase 14 U/L (0-41); Albumin Level 3.9 g/dL (3.5-5.2); Alkaline Phosphatase 93 U/L (40-130); Blood Urea Nitrogen 15 mg/dL (6-20); Calcium 9.3 mg/dL (8.5-10.5); Carbon Dioxide 23 mmol/L (22-29); Chloride 101 mmol/L (98-107); Globulin 3.8 g/dL (1.3-4.6); Glomerular Filtration Rate 129.9 mL/min (90-130); Glucose 89 mg/dL (65-115); Osmolality Calculated 282 mOsm/kg (285-295); Sodium 136 mmol/L (136-145); Total Bilirubin 0.2 mg/dL (0.15-1.2); Total Protein 7.7 g/dL (6.6-8.7)
[2023-02-24 10:47] LABS: Anion Gap 16.6 (5-19); Potassium 4.6 mmol/L (3.5-5.1)
[2023-02-24 10:48] LABS: Aspartate Amino Transferase 16 U/L (0-40)
[2023-02-24 11:35] LABS: Vancomycin Trough 11.5 ug/mL (10-15)
== END ==
PROVIDERS: PCP Nurse Practitioner; Visit Provider Student in an Organized Health Care Education/Training Program
DX: Z45.2 Encounter for adjustment and management of vascular access device (principal); M62.82 Rhabdomyolysis; M86.60 Other chronic osteomyelitis, unspecified site; I96 Gangrene, not elsewhere classified; L89.324 Pressure ulcer of left buttock, stage 4
CPT/HCPCS: 11042; 36592; 36593; 80053; 80202; 85025; A6446; J2997

== ENCOUNTER → 2023-03-03 07:56 | Outpatient (BNVA) | payer MEDICARE, MEDICAID, SELFPAY | PROVIDERS: PCP Nurse Practitioner; Visit Provider Thoracic Surgery (Cardiothoracic Vascular Surgery) | DX: I96 Gangrene, not elsewhere classified (principal); L89.324 Pressure ulcer of left buttock, stage 4 | CPT/HCPCS: 11042; A6446 ==

== ENCOUNTER 2023-03-08 11:12 | Outpatient (RCR) | payer MEDICARE, MEDICAID, SELFPAY ==
[2023-03-08 11:53] LABS: Basophils % 0.8 %; Eosinophils # 0.2 10^3/uL (0.0-0.8); Eosinophils % 4.4 %; Hematocrit 38.6 % (37-53); Lymphocytes # 1.4 10^3/uL (0.8-4.8); Mean Corpuscular HGB Conc 29.8 g/dL (30-55); Mean Corpuscular Hemoglobin 22.7 pg (27-33); Mean Corpuscular Volume 76.3 fl (82-101); Mean Platelet Volume 10.7 fL (7.4-10.4); Monocytes # 0.5 10^3/uL (0.2-0.9); Neutrophils # 3.07 10^3/uL (1.8-7.7); Neutrophils % 58.6 %; Nucleated Red Blood Cells % 0 %; Platelet Count 323 10^3/cmm (157-399); Red Blood Count 5.06 10^6/uL (3.85-5.65); Red Cell Distribution Width 20.4 % (12.1-15.1); White Blood Count 5.23 10^3/uL (3.29-11.43)
[2023-03-08 12:12] LABS: Alanine Aminotransferase 12 U/L (0-41); Albumin Level 3.5 g/dL (3.5-5.2); Alkaline Phosphatase 78 U/L (40-130); Aspartate Amino Transferase 14 U/L (0-40); C Reactive Protein 31.3 mg/L (0.0-4.9); Globulin 3.8 g/dL (1.3-4.6); Glomerular Filtration Rate 129.9 mL/min (90-130); Total Bilirubin 0.2 mg/dL (0.15-1.2); Total Protein 7.3 g/dL (6.6-8.7)
== END 2023-03-10 23:59 | disposition home or self-care (01) ==
LOC: LAB 11:12
PROVIDERS: PCP Nurse Practitioner; Visit Provider Student in an Organized Health Care Education/Training Program
DX: M86.60 Other chronic osteomyelitis, unspecified site (principal); Z79.899 Other long term (current) drug therapy
CPT/HCPCS: 80076; 82565; 85025; 86140

== ENCOUNTER → 2023-03-10 07:52 | Outpatient (BNVA) | payer MEDICARE, MEDICAID, SELFPAY | PROVIDERS: PCP Nurse Practitioner; Visit Provider Thoracic Surgery (Cardiothoracic Vascular Surgery) | DX: I96 Gangrene, not elsewhere classified (principal); L89.324 Pressure ulcer of left buttock, stage 4 | CPT/HCPCS: 11042; 87070; 87077; 87176; 87186; 87205; A6446 ==

== ENCOUNTER 2023-03-16 08:38 | Oncology outpatient (recurring) (ONCR) | payer MEDICARE, MEDICAID, SELFPAY ==
[2023-03-16 08:49] VITALS: BP 144/94; PULSE 68; RESP 16; TEMP 37; O2SAT 96
[2023-03-16] MEDS: alteplase 1 mg/mL SDV 2 mL 2 MG INTRACATH (08:51)
[2023-03-16 10:32] LABS: Basophils # 0.1 10^3/uL (0.0-0.1); Basophils % 1.2 %; Eosinophils # 0.1 10^3/uL (0.0-0.8); Eosinophils % 1.4 %; Hematocrit 40.1 % (37-53); Lymphocytes # 1.4 10^3/uL (0.8-4.8); Lymphocytes % 15.1 %; Mean Corpuscular HGB Conc 30.7 g/dL (30-55); Mean Corpuscular Hemoglobin 22.8 pg (27-33); Mean Corpuscular Volume 74.3 fl (82-101); Mean Platelet Volume 9.2 fL (7.4-10.4); Monocytes # 0.6 10^3/uL (0.2-0.9); Monocytes % 6.6 %; Neutrophils # 6.94 10^3/uL (1.8-7.7); Neutrophils % 75.3 %; Nucleated Red Blood Cells % 0 %; Platelet Count 369 10^3/cmm (157-399); Red Cell Distribution Width 19.2 % (12.1-15.1); White Blood Count 9.22 10^3/uL (3.29-11.43)
[2023-03-16 10:53] LABS: Alanine Aminotransferase 13 U/L (0-41); Albumin Level 3.9 g/dL (3.5-5.2); Alkaline Phosphatase 96 U/L (40-130); Globulin 4.2 g/dL (1.3-4.6); Glomerular Filtration Rate 110.7 mL/min (90-130); Total Bilirubin 0.2 mg/dL (0.15-1.2); Total Protein 8.1 g/dL (6.6-8.7)
[2023-03-16 11:28] LABS: Aspartate Amino Transferase 18 U/L (0-40)
--- NOTE | 2023-03-16 12:46 | PC.NURSE ---
0825--Patient arrived for assessment of PICC line to the left medial upper arm. PICC line dressing is intact and last changes on 03/15/2023 by patient's home health agency at home. Patient is seen at home by home health weekly for labs and PICC line dressing changes. Reports that nurse was no able to get blood return yesterday from PICC line. PICC line flushes well today without resistance, one way valve will not allow blood return post flushing with saline flushes x 6. Alteplase 2mg injected to PICC line and was checked at 0925 and again at 0955. Blood return was positive upon second attempt. Labs were obtained as per orders in chart. Patient tolerated well and line was flushed with saline, and patient will flush with Heparin once at home, after antibiotic infusion. Patient denies further needs or concerns. Stable upon leaving. Labs sent to [facility] lab for processing and they will fax to provider. - Drew Humphries.
[2023-03-16 14:52] LABS: C Reactive Protein 30.1 mg/L (0.0-4.9)
== END 2023-04-08 23:59 | disposition home or self-care (01) ==
PROVIDERS: Student in an Organized Health Care Education/Training Program; PCP Nurse Practitioner; Visit Provider Radiology Radiation Oncology
DX: L02.31 Cutaneous abscess of buttock (principal); M86.60 Other chronic osteomyelitis, unspecified site; I96 Gangrene, not elsewhere classified; L89.324 Pressure ulcer of left buttock, stage 4
CPT/HCPCS: 36592; 36593; 80076; 82565; 85025; 86140; 99213; A6446; J2997

== ENCOUNTER → 2023-03-17 07:50 | Outpatient (BNVA) | payer MEDICARE, MEDICAID, SELFPAY | PROVIDERS: PCP Nurse Practitioner; Visit Provider Thoracic Surgery (Cardiothoracic Vascular Surgery) | DX: I96 Gangrene, not elsewhere classified (principal); L89.324 Pressure ulcer of left buttock, stage 4 | CPT/HCPCS: 99213; A6446 ==

== ENCOUNTER 2023-03-22 10:55 | Outpatient (CLI) | payer MEDICARE, MEDICAID, SELFPAY ==
[2023-03-22 11:22] LABS: Basophils # 0.1 10^3/uL (0.0-0.1); Basophils % 1.6 %; Eosinophils # 0.2 10^3/uL (0.0-0.8); Eosinophils % 3.4 %; Hematocrit 37.9 % (37-53); Lymphocytes # 1.7 10^3/uL (0.8-4.8); Lymphocytes % 29.5 %; Mean Corpuscular HGB Conc 29.8 g/dL (30-55); Mean Corpuscular Hemoglobin 22.9 pg (27-33); Mean Corpuscular Volume 76.7 fl (82-101); Mean Platelet Volume 10.6 fL (7.4-10.4); Monocytes # 0.4 10^3/uL (0.2-0.9); Monocytes % 7.8 %; Neutrophils # 3.26 10^3/uL (1.8-7.7); Neutrophils % 57.5 %; Nucleated Red Blood Cells % 0 %; Platelet Count 358 10^3/cmm (157-399); Red Blood Count 4.94 10^6/uL (3.85-5.65); Red Cell Distribution Width 18.8 % (12.1-15.1); White Blood Count 5.66 10^3/uL (3.29-11.43)
[2023-03-22 11:42] LABS: Alanine Aminotransferase 12 U/L (0-41); Albumin Level 3.4 g/dL (3.5-5.2); Alkaline Phosphatase 90 U/L (40-130); Blood Urea Nitrogen 11 mg/dL (6-20); Calcium 8.5 mg/dL (8.5-10.5); Carbon Dioxide 23 mmol/L (22-29); Chloride 103 mmol/L (98-107); Globulin 3.7 g/dL (1.3-4.6); Glomerular Filtration Rate 129.1 mL/min (90-130); Glucose 78 mg/dL (65-115); Osmolality Calculated 278 mOsm/kg (285-295); Sodium 135 mmol/L (136-145); Total Bilirubin 0.2 mg/dL (0.15-1.2); Total Protein 7.1 g/dL (6.6-8.7)
[2023-03-22 11:48] LABS: Anion Gap 13.3 (5-19); Aspartate Amino Transferase 13 U/L (0-40); Potassium 4.3 mmol/L (3.5-5.1)
[2023-03-22 12:12] LABS: Vancomycin Trough < 4.0 ug/mL (10-15)
[2023-03-22 16:15] LABS: C Reactive Protein 26.6 mg/L (0.0-4.9)
== END 2023-03-22 10:56 | disposition home or self-care (01) ==
PROVIDERS: PCP Nurse Practitioner; Visit Provider Student in an Organized Health Care Education/Training Program
DX: M86.60 Other chronic osteomyelitis, unspecified site (principal)
CPT/HCPCS: 80053; 80202; 85025; 86140

== ENCOUNTER → 2023-03-23 11:03 | Outpatient (BNVA) | payer MEDICARE, MEDICAID, SELFPAY | PROVIDERS: PCP Nurse Practitioner; Visit Provider Student in an Organized Health Care Education/Training Program | DX: M62.82 Rhabdomyolysis (principal) | CPT/HCPCS: 99214 ==

== ENCOUNTER → 2023-04-14 07:53 | Outpatient (BNVA) | payer MEDICARE, MEDICAID, SELFPAY | PROVIDERS: PCP Nurse Practitioner; Visit Provider Thoracic Surgery (Cardiothoracic Vascular Surgery) | DX: I96 Gangrene, not elsewhere classified (principal); L89.324 Pressure ulcer of left buttock, stage 4 | CPT/HCPCS: 97597; A6446 ==

== ENCOUNTER → 2023-04-28 08:01 | Outpatient (BNVA) | payer MEDICARE, MEDICAID, SELFPAY | PROVIDERS: PCP Nurse Practitioner; Visit Provider Thoracic Surgery (Cardiothoracic Vascular Surgery) | DX: I96 Gangrene, not elsewhere classified (principal); L89.324 Pressure ulcer of left buttock, stage 4 | CPT/HCPCS: 97597 ==

== ENCOUNTER → 2023-05-05 09:04 | Outpatient (BNVA) | payer MEDICARE, MEDICAID, SELFPAY | PROVIDERS: PCP Nurse Practitioner; Visit Provider Thoracic Surgery (Cardiothoracic Vascular Surgery) | DX: L89.324 Pressure ulcer of left buttock, stage 4 (principal); I96 Gangrene, not elsewhere classified | CPT/HCPCS: 97597; A6220; A6251; A6446 ==

== ENCOUNTER → 2023-05-12 08:55 | Outpatient (BNVA) | payer MEDICARE, MEDICAID, SELFPAY | PROVIDERS: PCP Nurse Practitioner; Visit Provider Thoracic Surgery (Cardiothoracic Vascular Surgery) | DX: I96 Gangrene, not elsewhere classified (principal); L89.324 Pressure ulcer of left buttock, stage 4 | CPT/HCPCS: 97597; A6446 ==

== ENCOUNTER → 2023-05-19 09:00 | Outpatient (BNVA) | payer MEDICARE, MEDICAID, SELFPAY | PROVIDERS: PCP Nurse Practitioner; Visit Provider Thoracic Surgery (Cardiothoracic Vascular Surgery) | DX: I96 Gangrene, not elsewhere classified (principal); L89.324 Pressure ulcer of left buttock, stage 4 | CPT/HCPCS: 97597 ==

== ENCOUNTER → 2023-05-26 08:37 | Outpatient (BNVA) | payer MEDICARE, MEDICAID, SELFPAY | PROVIDERS: PCP Nurse Practitioner; Visit Provider Thoracic Surgery (Cardiothoracic Vascular Surgery) | DX: I96 Gangrene, not elsewhere classified (principal); L89.324 Pressure ulcer of left buttock, stage 4 | CPT/HCPCS: 97597 ==

== ENCOUNTER → 2023-06-02 08:37 | Outpatient (BNVA) | payer MEDICARE, MEDICAID, SELFPAY | PROVIDERS: PCP Nurse Practitioner; Visit Provider Thoracic Surgery (Cardiothoracic Vascular Surgery) | DX: I96 Gangrene, not elsewhere classified (principal); L89.324 Pressure ulcer of left buttock, stage 4 | CPT/HCPCS: 97597 ==

== ENCOUNTER → 2023-06-09 09:00 | Outpatient (BNVA) | payer MEDICARE, MEDICAID, SELFPAY | PROVIDERS: PCP Nurse Practitioner; Visit Provider Thoracic Surgery (Cardiothoracic Vascular Surgery) | DX: I96 Gangrene, not elsewhere classified (principal); L89.324 Pressure ulcer of left buttock, stage 4 | CPT/HCPCS: 97597; A6237; A6250 ==

== ENCOUNTER → 2023-06-16 09:51 | Outpatient (BNVA) | payer MEDICARE, MEDICAID, SELFPAY | PROVIDERS: PCP Nurse Practitioner; Visit Provider Thoracic Surgery (Cardiothoracic Vascular Surgery) | DX: I96 Gangrene, not elsewhere classified (principal); L89.324 Pressure ulcer of left buttock, stage 4 | CPT/HCPCS: 97597; 97605; A6237; A6250 ==

== ENCOUNTER → 2023-06-23 09:05 | Outpatient (BNVA) | payer MEDICARE, MEDICAID, SELFPAY | PROVIDERS: PCP Nurse Practitioner; Visit Provider Thoracic Surgery (Cardiothoracic Vascular Surgery) | DX: L89.324 Pressure ulcer of left buttock, stage 4 (principal) | CPT/HCPCS: 97597; A6237; A6250 ==

== ENCOUNTER → 2023-06-30 09:11 | Outpatient (BNVA) | payer MEDICARE, MEDICAID, SELFPAY | PROVIDERS: PCP Nurse Practitioner; Visit Provider Thoracic Surgery (Cardiothoracic Vascular Surgery) | DX: I96 Gangrene, not elsewhere classified (principal); L89.324 Pressure ulcer of left buttock, stage 4 | CPT/HCPCS: 97597 ==

== ENCOUNTER → 2023-07-07 10:10 | Outpatient (BNVA) | payer MEDICARE, MEDICAID, SELFPAY | PROVIDERS: PCP Nurse Practitioner; Visit Provider Thoracic Surgery (Cardiothoracic Vascular Surgery) | DX: I96 Gangrene, not elsewhere classified (principal); L89.324 Pressure ulcer of left buttock, stage 4 | CPT/HCPCS: 97597; 97605; A6446 ==

== ENCOUNTER → 2023-07-14 09:56 | Outpatient (BNVA) | payer MEDICARE, MEDICAID, SELFPAY | PROVIDERS: PCP Nurse Practitioner; Visit Provider Thoracic Surgery (Cardiothoracic Vascular Surgery) | DX: L89.324 Pressure ulcer of left buttock, stage 4 (principal); I96 Gangrene, not elsewhere classified | CPT/HCPCS: 87070; 87176; 87205; 97597; A6446 ==

== ENCOUNTER → 2023-07-28 10:07 | Outpatient (BNVA) | payer MEDICARE, MEDICAID, SELFPAY | PROVIDERS: PCP Nurse Practitioner; Visit Provider Thoracic Surgery (Cardiothoracic Vascular Surgery) | DX: I96 Gangrene, not elsewhere classified (principal); L89.324 Pressure ulcer of left buttock, stage 4 | CPT/HCPCS: 97597 ==

== ENCOUNTER → 2023-08-04 09:18 | Outpatient (BNVA) | payer MEDICARE, MEDICAID, SELFPAY | PROVIDERS: PCP Nurse Practitioner; Visit Provider Thoracic Surgery (Cardiothoracic Vascular Surgery) | DX: I96 Gangrene, not elsewhere classified (principal); L89.324 Pressure ulcer of left buttock, stage 4 | CPT/HCPCS: 11044; 87070; 87176; 87205; A6446 ==

== ENCOUNTER → 2023-08-11 09:59 | Outpatient (BNVA) | payer MEDICARE, MEDICAID, SELFPAY | PROVIDERS: PCP Nurse Practitioner; Visit Provider Thoracic Surgery (Cardiothoracic Vascular Surgery) | DX: I96 Gangrene, not elsewhere classified (principal); L89.324 Pressure ulcer of left buttock, stage 4 | CPT/HCPCS: 97597; A6237; A6250 ==

== ENCOUNTER → 2023-08-18 09:58 | Outpatient (BNVA) | payer MEDICARE, MEDICAID, SELFPAY | PROVIDERS: PCP Nurse Practitioner; Visit Provider Thoracic Surgery (Cardiothoracic Vascular Surgery) | DX: I96 Gangrene, not elsewhere classified (principal); L89.324 Pressure ulcer of left buttock, stage 4 | CPT/HCPCS: 97597; 97605 ==

== ENCOUNTER → 2023-08-25 10:32 | Outpatient (BNVA) | payer MEDICARE, MEDICAID, SELFPAY | PROVIDERS: PCP Nurse Practitioner; Visit Provider Thoracic Surgery (Cardiothoracic Vascular Surgery) | DX: I96 Gangrene, not elsewhere classified (principal); L89.324 Pressure ulcer of left buttock, stage 4 | CPT/HCPCS: 97597 ==

== ENCOUNTER → 2023-09-08 09:54 | Outpatient (BNVA) | payer MEDICARE, MEDICAID, SELFPAY | PROVIDERS: PCP Nurse Practitioner; Visit Provider Thoracic Surgery (Cardiothoracic Vascular Surgery) | DX: I96 Gangrene, not elsewhere classified (principal); L89.324 Pressure ulcer of left buttock, stage 4 | CPT/HCPCS: 97597; 97605; A6237; A6250 ==

== ENCOUNTER → 2023-09-22 10:03 | Outpatient (BNVA) | payer MEDICARE, MEDICAID, SELFPAY | PROVIDERS: PCP Nurse Practitioner; Visit Provider Thoracic Surgery (Cardiothoracic Vascular Surgery) | DX: I96 Gangrene, not elsewhere classified (principal); L89.324 Pressure ulcer of left buttock, stage 4 | CPT/HCPCS: 97597; 97605; A6237; A6250 ==

== ENCOUNTER → 2023-09-29 10:00 | Outpatient (BNVA) | payer MEDICARE, MEDICAID, SELFPAY | PROVIDERS: PCP Nurse Practitioner; Visit Provider Thoracic Surgery (Cardiothoracic Vascular Surgery) | DX: I96 Gangrene, not elsewhere classified (principal); L89.324 Pressure ulcer of left buttock, stage 4 | CPT/HCPCS: 97597; 97605; A6237; A6250 ==

== ENCOUNTER → 2023-10-06 09:03 | Outpatient (BNVA) | payer MEDICARE, MEDICAID, SELFPAY | PROVIDERS: PCP Nurse Practitioner; Visit Provider Thoracic Surgery (Cardiothoracic Vascular Surgery) | DX: I96 Gangrene, not elsewhere classified (principal); L89.324 Pressure ulcer of left buttock, stage 4 | CPT/HCPCS: 97597; 97605; A6237; A6250 ==

== ENCOUNTER → 2023-10-13 09:00 | Outpatient (BNVA) | payer MEDICARE, MEDICAID, SELFPAY | PROVIDERS: PCP Nurse Practitioner; Visit Provider Thoracic Surgery (Cardiothoracic Vascular Surgery) | DX: I96 Gangrene, not elsewhere classified (principal); L89.324 Pressure ulcer of left buttock, stage 4 | CPT/HCPCS: 97597; 97605 ==

== ENCOUNTER → 2023-10-27 09:03 | Outpatient (BNVA) | payer MEDICARE, MEDICAID, SELFPAY | PROVIDERS: PCP Nurse Practitioner; Visit Provider Thoracic Surgery (Cardiothoracic Vascular Surgery) | DX: I96 Gangrene, not elsewhere classified (principal); L89.324 Pressure ulcer of left buttock, stage 4 | CPT/HCPCS: 97597; 97605 ==

== ENCOUNTER → 2023-11-17 08:54 | Outpatient (BNVA) | payer MEDICARE, MEDICAID, SELFPAY | PROVIDERS: PCP Nurse Practitioner; Visit Provider Thoracic Surgery (Cardiothoracic Vascular Surgery) | DX: I96 Gangrene, not elsewhere classified (principal); L89.324 Pressure ulcer of left buttock, stage 4 | CPT/HCPCS: 97597; A6021; A6237 ==

== ENCOUNTER → 2023-11-30 13:30 | Outpatient (BNVA) | payer MEDICARE, MEDICAID, SELFPAY | PROVIDERS: PCP Nurse Practitioner; Visit Provider Student in an Organized Health Care Education/Training Program | DX: M62.82 Rhabdomyolysis (principal) | CPT/HCPCS: 36415; 80053; 85025; 86140; 99214 ==

== ENCOUNTER → 2023-12-01 08:56 | Outpatient (BNVA) | payer MEDICARE, MEDICAID, SELFPAY | PROVIDERS: PCP Nurse Practitioner; Visit Provider Thoracic Surgery (Cardiothoracic Vascular Surgery) | DX: I96 Gangrene, not elsewhere classified (principal); L89.324 Pressure ulcer of left buttock, stage 4 | CPT/HCPCS: 97597; A6237; A6250 ==

== ENCOUNTER 2023-12-10 10:00 | Outpatient (CLI) | payer MEDICARE, MEDICAID, SELFPAY ==
--- NOTE | 2023-12-10 10:00 | CT_ITS ---
WS: [id number] CT ABDOMEN AND PELVIS NONCONTRAST HISTORY: chronic osteomyelitis TECHNIQUE: Imaging performed through the abdomen and pelvis. Coronal and sagittal reformats are submi tted. All CT scans at [facility] use at least one of these dose optimization techniques: auto mated exposure control; mA and/or kV adjustment per patient size (includes targeted exams where dose is matched to clinical indication); or iterative reconstruction. DLP: 1079.45 mGy.cm COMPARISON: 01/13/2023 Lower thorax: Lung bases are clear. Visualized heart is normal. No hiatal hernia. Liver: Normal size liver. No mass or bile duct dilatation. Gallbladder: Contracted. No adjacent inflammation. Pancreas: Normal size and attenuation. Normal pancreatic duct. No pancreatitis or mass. Spleen: Normal. Adrenal glands: Normal. No mass. Right kidney: RIGHT nephrectomy. No mass in the renal bed. Left kidney: Normal size kidney with no mass or hydronephrosis. Aorta: Normal abdominal aorta, no aneurysm or atherosclerosis. SCREENER PERFUMER shunt catheter is reidentified with the tip ending in the anterior RIGHT upper abdomen. LEFT colos sami. Additional LEFT lower abdominal wall pelvis hernia. No change. No obstruction. GI tract: No GI tract obstruction. Pelvis: No free fluid in the pelvis. Large air-containing tract along the posterior LEFT pelvis extends to the ischial tuberosity. This is an air-filled tract with thick soft tissue wall. As compared to 01/13/2023 there has been a decrease in size of the overall peripheral soft tissue thickening. Sclerosis is now present at the LEFT ischia l tuberosity where there was a lytic change before. Overall there is been a slight improvement in the decubitus ulcer and the extent of acute appearing osteomyelitis. Osseous sclerosis involving the LEF T posterior acetabulum and the inferior pubic rami. Osseous structures: Dystrophic femoral heads. CT/CT abdomen pelvis wo con [id number] IMPRESSION: 1. Large decubitus ulcer tract over the posterior LEFT pelvis extends to the i schial tuberosity. There has been moderate improvement in the overall size of t he tract and the peripheral soft tissue thickening. No focal fluid collection. 2. Increasing sclerosis involving the ischial tuberosity and the inferior LEFT pubic rami consistent with healing or chronic osteomyelitis. No new area of charlie cency or osseous destruction.
== END 2023-12-10 10:05 | disposition home or self-care (01) ==
PROVIDERS: PCP Nurse Practitioner; Visit Provider Student in an Organized Health Care Education/Training Program
DX: M86.652 Other chronic osteomyelitis, left thigh (principal); L97.129 Non-pressure chronic ulcer of left thigh with unspecified severity
CPT/HCPCS: 74176

== ENCOUNTER → 2023-12-15 09:08 | Outpatient (BNVA) | payer MEDICARE, MEDICAID, SELFPAY | PROVIDERS: PCP Nurse Practitioner; Visit Provider Thoracic Surgery (Cardiothoracic Vascular Surgery) | DX: I96 Gangrene, not elsewhere classified (principal); L89.324 Pressure ulcer of left buttock, stage 4 | CPT/HCPCS: 97597; 97605; A6237; A6250 ==

== ENCOUNTER → 2023-12-29 09:04 | Outpatient (BNVA) | payer MEDICARE, MEDICAID, SELFPAY | PROVIDERS: PCP Nurse Practitioner; Visit Provider Thoracic Surgery (Cardiothoracic Vascular Surgery) | DX: I96 Gangrene, not elsewhere classified (principal); L89.324 Pressure ulcer of left buttock, stage 4 | CPT/HCPCS: 97597 ==

== ENCOUNTER → 2024-01-05 09:03 | Outpatient (BNVA) | payer MEDICARE, MEDICAID, SELFPAY | PROVIDERS: PCP Nurse Practitioner; Visit Provider Thoracic Surgery (Cardiothoracic Vascular Surgery) | DX: I96 Gangrene, not elsewhere classified (principal); L89.324 Pressure ulcer of left buttock, stage 4 | CPT/HCPCS: 97597; A6446 ==

== ENCOUNTER → 2024-01-19 08:57 | Outpatient (BNVA) | payer MEDICARE, MEDICAID, SELFPAY | PROVIDERS: PCP Nurse Practitioner; Visit Provider Thoracic Surgery (Cardiothoracic Vascular Surgery) | DX: I96 Gangrene, not elsewhere classified (principal); L89.324 Pressure ulcer of left buttock, stage 4 | CPT/HCPCS: 97597 ==

== ENCOUNTER → 2024-01-26 09:15 | Outpatient (BNVA) | payer MEDICARE, MEDICAID, SELFPAY | PROVIDERS: PCP Nurse Practitioner; Visit Provider Thoracic Surgery (Cardiothoracic Vascular Surgery) | DX: I96 Gangrene, not elsewhere classified (principal); L89.324 Pressure ulcer of left buttock, stage 4 | CPT/HCPCS: 97597 ==

== ENCOUNTER → 2024-02-16 09:38 | Outpatient (BNVA) | payer MEDICARE, MEDICAID, SELFPAY | PROVIDERS: PCP Nurse Practitioner; Visit Provider Thoracic Surgery (Cardiothoracic Vascular Surgery) | DX: I96 Gangrene, not elsewhere classified (principal); L89.324 Pressure ulcer of left buttock, stage 4 | CPT/HCPCS: 97597; A6251; A6446 ==

== ENCOUNTER → 2024-03-01 09:45 | Outpatient (BNVA) | payer MEDICARE, MEDICAID, SELFPAY | PROVIDERS: PCP Nurse Practitioner; Visit Provider Thoracic Surgery (Cardiothoracic Vascular Surgery) | DX: I96 Gangrene, not elsewhere classified (principal); L89.324 Pressure ulcer of left buttock, stage 4 | CPT/HCPCS: 97597; A6446 ==

== ENCOUNTER → 2024-03-08 09:36 | Outpatient (BNVA) | payer MEDICARE, MEDICAID, SELFPAY | PROVIDERS: PCP Nurse Practitioner; Visit Provider Thoracic Surgery (Cardiothoracic Vascular Surgery) | DX: I96 Gangrene, not elsewhere classified (principal); L89.324 Pressure ulcer of left buttock, stage 4 | CPT/HCPCS: 11044; 87070; 87176; 87205; A6220; A6251; A6446 ==

== ENCOUNTER 2024-03-15 08:56 | Outpatient (CLI) | payer MEDICARE, MEDICAID, SELFPAY ==
[2024-03-15 09:20] LABS: Basophils # 0.1 10^3/uL (0.0-0.1); Basophils % 0.8 %; Eosinophils # 0.3 10^3/uL (0.0-0.8); Eosinophils % 2.1 %; Lymphocytes % 16.9 %; Mean Corpuscular Hemoglobin 21.5 pg (27-33); Mean Corpuscular Volume 71.8 fl (82-101); Mean Platelet Volume 8.8 fL (7.4-10.4); Monocytes # 0.7 10^3/uL (0.2-0.9); Monocytes % 5.8 %; Neutrophils # 8.74 10^3/uL (1.8-7.7); Nucleated Red Blood Cells % 0 %; Platelet Count 474 10^3/cmm (157-399); Red Blood Count 5.43 10^6/uL (3.85-5.65); Red Cell Distribution Width 19.1 % (12.1-15.1); White Blood Count 11.81 10^3/uL (3.29-11.43)
[2024-03-15 10:03] LABS: Anion Gap 17.9 (5-19); Blood Urea Nitrogen 20 mg/dL (6-20); C Reactive Protein 25.4 mg/L (0.0-4.9); Calcium 8.7 mg/dL (8.5-10.5); Carbon Dioxide 19 mmol/L (22-29); Chloride 104 mmol/L (98-107); Glomerular Filtration Rate 129.1 mL/min (90-130); Glucose 128 mg/dL (65-115); Osmolality Calculated 286 mOsm/kg (285-295); Potassium 4.9 mmol/L (3.5-5.1); Sodium 136 mmol/L (136-145)
== END 2024-03-15 08:57 | disposition home or self-care (01) ==
LOC: LAB 08:58
PROVIDERS: PCP Nurse Practitioner Family; Visit Provider Thoracic Surgery (Cardiothoracic Vascular Surgery)
DX: R52 Pain, unspecified (principal); L89.304 Pressure ulcer of unspecified buttock, stage 4; I96 Gangrene, not elsewhere classified; L89.324 Pressure ulcer of left buttock, stage 4
CPT/HCPCS: 36415; 80048; 85025; 86140; 97597; A6220; A6251; A6446

== ENCOUNTER 2024-03-16 14:57 | Outpatient (CLI) | payer MEDICARE, MEDICAID, SELFPAY ==
--- NOTE | 2024-03-16 15:00 | CT_ITS ---
WS: [id number] CT ABDOMEN AND PELVIS NONCONTRAST HISTORY: L89.304 - Pressure ulcer of unspecified buttock, stage 4 TECHNIQUE: Imaging performed through the abdomen and pelvis. Coronal and sagittal reformats are submitted. All CT scans at [facility] use at least one of these dose optimization techniques: automated exposure control; mA and/or kV adjustment per patient size (includes targeted exams where dose is matched to clinical indication); or iterative reconstruction. DLP: 970.63 mGy.cm COMPARISON: 12/10/2023 Lower thorax: Lung bases are clear. Visualized heart is normal. Small hiatal hernia. Liver: Normal size liver. No mass or bile duct dilatation. Gallbladder: Prior cholecystectomy. Pancreas: Normal size and attenuation. Normal pancreatic duct. No pancreatitis or mass. Spleen: Normal size spleen with granulomata. Adrenal glands: Normal. No mass. Right kidney: Absent RIGHT kidney. No mass at the renal bed. Left kidney: Normal size kidney with no mass or hydronephrosis. Aorta: Normal abdominal aorta, no aneurysm or atherosclerosis. No free fluid, intraperitoneal air or significant lymphadenopathy. GI tract: Nondistended stomach. LEFT lower quadrant colostomy. Abdominal wall: COCOA PRESS OPERATOR shunt catheter enters the peritoneal cavity in the mid abdomen with tip terminating on the RIGHT. LEFT lower quadrant hernia contains a loop of nondilated colon. Pelvis: Urinary bladder is slightly over distended. There is a large decubitus ulcer which has progressed since 12/10/2023 centered around the LEFT ischium. Tract of air extends to the ischial tuberosity. The surrounding soft tissue measures 11.9 x 8.0 cm and extends greater towards the midline. There is extension of abnormal soft tissue along the perineum and scrotum. Increased sclerosis and chronic irregularity involving the LEFT ischial tuberosity is similar to the prior study. The extent of the air contact on the ischial tuberosity has progressed since the prior study. No definite acute osteomyelitis. Moderate LEFT curvature lumbar spine. Increase in the lumbar lordosis. CT/CT abdomen pelvis wo con [id number] IMPRESSION: 1. Decubitus ulcer with large air-filled tract in the posterior LEFT pelvis ex tending to the ischial tuberosity. The air tract has increased in size and now does extend and contact the ischial tuberosity in a greater extent as compared to the prior study. There is increased soft tissue. Ulcer measures approximatel y 11.9 x 8.0 cm. 2. Sclerosis and cortical irregularity of the LEFT ischial tuberosity is simil ar to the prior CT. No new cortical lucency. 3. The soft tissue inflammation has progressed from the decubitus ulcer into t he perineum and posterior scrotum. 4. LEFT lower abdominal wall hernia contains sigmoid colon with no obstruction . 5. LEFT lower quadrant colostomy is unchanged. 6. Prior RIGHT nephrectomy.
== END 2024-03-16 14:58 | disposition home or self-care (01) ==
PROVIDERS: PCP Nurse Practitioner Family; Visit Provider Thoracic Surgery (Cardiothoracic Vascular Surgery)
DX: L89.324 Pressure ulcer of left buttock, stage 4 (principal); M89.8X8 Other specified disorders of bone, other site; L08.89 Other specified local infections of the skin and subcutaneous tissue; N49.2 Inflammatory disorders of scrotum; K43.9 Ventral hernia without obstruction or gangrene; R93.89 Abnormal findings on diagnostic imaging of other specified body structures; Z98.890 Other specified postprocedural states; K44.9 Diaphragmatic hernia without obstruction or gangrene; Z90.49 Acquired absence of other specified parts of digestive tract; D73.89 Other diseases of spleen; M43.8X6 Other specified deforming dorsopathies, lumbar region; M40.56 Lordosis, unspecified, lumbar region; Z96.89 Presence of other specified functional implants
CPT/HCPCS: 74176

== ENCOUNTER → 2024-03-20 13:53 | Outpatient (BNVA) | payer MEDICARE, MEDICAID, SELFPAY | PROVIDERS: PCP Nurse Practitioner Family; Visit Provider Nurse Practitioner Family | DX: L72.0 Epidermal cyst (principal); D22.39 Melanocytic nevi of other parts of face | CPT/HCPCS: 10060; 99214 ==

== ENCOUNTER → 2024-03-22 10:16 | Outpatient (BNVA) | payer MEDICARE, MEDICAID, SELFPAY | PROVIDERS: PCP Nurse Practitioner Family; Visit Provider Thoracic Surgery (Cardiothoracic Vascular Surgery) | DX: I96 Gangrene, not elsewhere classified (principal); L89.324 Pressure ulcer of left buttock, stage 4 | CPT/HCPCS: 97597; A6220; A6251; A6446 ==

== ENCOUNTER → 2024-04-06 10:35 | Outpatient (BNVA) | payer MEDICARE, MEDICAID, SELFPAY | PROVIDERS: PCP Nurse Practitioner Family; Visit Provider Thoracic Surgery (Cardiothoracic Vascular Surgery) | DX: I96 Gangrene, not elsewhere classified (principal); L89.324 Pressure ulcer of left buttock, stage 4 | CPT/HCPCS: 97597; A6220; A6251; A6446 ==

== ENCOUNTER → 2024-04-13 09:33 | Outpatient (BNVA) | payer MEDICARE, MEDICAID, SELFPAY | PROVIDERS: PCP Nurse Practitioner Family; Visit Provider Thoracic Surgery (Cardiothoracic Vascular Surgery) | DX: I96 Gangrene, not elsewhere classified (principal); L89.324 Pressure ulcer of left buttock, stage 4 | CPT/HCPCS: 97597; A6220; A6251; A6446 ==

== ENCOUNTER → 2024-04-27 08:48 | Outpatient (BNVA) | payer MEDICARE, MEDICAID, SELFPAY | PROVIDERS: PCP Nurse Practitioner Family; Visit Provider Thoracic Surgery (Cardiothoracic Vascular Surgery) | DX: I96 Gangrene, not elsewhere classified (principal); L89.324 Pressure ulcer of left buttock, stage 4; L89.892 Pressure ulcer of other site, stage 2 | CPT/HCPCS: 97597; A6021; A6220; A6251; A6446 ==

== ENCOUNTER → 2024-05-11 09:32 | Outpatient (BNVA) | payer MEDICARE, MEDICAID, SELFPAY | PROVIDERS: PCP Nurse Practitioner Family; Visit Provider Thoracic Surgery (Cardiothoracic Vascular Surgery) | DX: I96 Gangrene, not elsewhere classified (principal); L89.144 Pressure ulcer of left lower back, stage 4; L89.892 Pressure ulcer of other site, stage 2 | CPT/HCPCS: 97597; A6021; A6446 ==

== ENCOUNTER → 2024-05-24 11:12 | Outpatient (BNVA) | payer MEDICARE, MEDICAID, SELFPAY | PROVIDERS: PCP Nurse Practitioner Family | DX: I96 Gangrene, not elsewhere classified (principal); L89.324 Pressure ulcer of left buttock, stage 4; L89.892 Pressure ulcer of other site, stage 2 | CPT/HCPCS: 11042; 97597; A6021; A6212; A6446 ==

== ENCOUNTER → 2024-06-07 09:32 | Outpatient (BNVA) | payer MEDICARE, MEDICAID, SELFPAY | PROVIDERS: PCP Nurse Practitioner Family; Visit Provider Thoracic Surgery (Cardiothoracic Vascular Surgery) | DX: I96 Gangrene, not elsewhere classified (principal); L89.324 Pressure ulcer of left buttock, stage 4; L89.893 Pressure ulcer of other site, stage 3 | CPT/HCPCS: 97597; A6446 ==

== ENCOUNTER → 2024-06-21 09:35 | Outpatient (BNVA) | payer MEDICARE, MEDICAID, SELFPAY | PROVIDERS: PCP Nurse Practitioner Family; Visit Provider Thoracic Surgery (Cardiothoracic Vascular Surgery) | DX: I96 Gangrene, not elsewhere classified (principal); L89.893 Pressure ulcer of other site, stage 3; L89.324 Pressure ulcer of left buttock, stage 4 | CPT/HCPCS: 97597; A6446 ==

== ENCOUNTER → 2024-06-28 09:38 | Outpatient (BNVA) | payer MEDICARE, MEDICAID, SELFPAY | PROVIDERS: PCP Nurse Practitioner Family; Visit Provider Thoracic Surgery (Cardiothoracic Vascular Surgery) | DX: I96 Gangrene, not elsewhere classified (principal); L89.324 Pressure ulcer of left buttock, stage 4; L89.893 Pressure ulcer of other site, stage 3 | CPT/HCPCS: 11044; 87070; 87176; 87205; 97597; A6212 ==

== ENCOUNTER → 2024-07-12 08:48 | Outpatient (BNVA) | payer MEDICARE, MEDICAID, SELFPAY | PROVIDERS: PCP Nurse Practitioner Family; Visit Provider Thoracic Surgery (Cardiothoracic Vascular Surgery) | DX: L89.324 Pressure ulcer of left buttock, stage 4 (principal); I96 Gangrene, not elsewhere classified; L89.893 Pressure ulcer of other site, stage 3 | CPT/HCPCS: 11044; 87070; 87176; 87205; 97597; A6212 ==

== ENCOUNTER 2024-07-20 16:35 | Outpatient (CLI) | payer MEDICARE, MEDICAID, SELFPAY ==
--- NOTE | 2024-07-20 16:41 | CTR_ITS ---
PROCEDURE INFORMATION: Exam: CT Abdomen And Pelvis Without And With Contrast Exam date and time: 07/20/2024 5:24 PM Age: 34 years old Clinical indication: Condition or disease; Other: Pressure ulcer on left buttock; Prior surgery; Surgery date: 6+ months; Surgery type: Bilat hips, colostomy, shunt, right nephrectomy; Pressure ulcer of left buttock x 2 years; Additional info: Pressure ulcer of left buttock, stage 4 TECHNIQUE: Imaging protocol: Computed tomography of the abdomen and pelvis without and with contrast. Radiation optimization: All CT scans at this facility use at least one of these dose optimization techniques: automated exposure control; mA and/or kV adjustment per patient size (includes targeted exams where dose is matched to clinical indication); or iterative reconstruction. Contrast material: OMNIPAQUE 350; Contrast volume: 100 ml; Contrast route: INTRAVENOUS (IV); COMPARISON: CT abdomen pelvis wo con [id number] 03/16/2024 3:44 PM RADIATION DOSE METRICS: Total DLP (mGy-cm): 1540.46 FINDINGS: Tubes, catheters and devices: Shunt catheter with tip in the anterior right peritoneal cavity. The catheter appears disrupted in the lower right chest wall. Liver: Normal. No mass. Gallbladder and biliary ducts: Normal. No calcified stones. No ductal dilation. Pancreas: Normal. No ductal dilation. Spleen: Normal. No splenomegaly. Adrenal glands: Normal. No mass. Kidneys and ureters: Right nephrectomy. Chronic cortical scarring in the superior left kidney with a lobulated contour. No calculus or hydronephrosis. Normal contrast excretion. Stomach and bowel: Left upper quadrant colostomy. Left lower quadrant mucous fistula. The stomach and small bowel are unremarkable. No wall thickening or obstruction. Appendix: The appendix is visualized and is normal. Intraperitoneal space: Unremarkable. No free air. No significant fluid collection. Retroperitoneal space: Clips in the right retroperitoneum. Vasculature: Unremarkable. No abdominal aortic aneurysm. Lymph nodes: Unremarkable. No enlarged lymph nodes. Urinary bladder: Mild wall thickening in the urinary bladder. Small gas bubble in the bladder, presumably from recent catheterization. Reproductive: Unremarkable as visualized. Bones/joints: Thoracolumbar scoliosis. Old healed subtrochanteric right femur fracture with metal hardware. Old healed subtrochanteric left femur fracture with metal hardware in place. Sclerosis of the left ischial tuberosity with heterotopic bone formation. Sclerosis and thickening of the inferior left pubic ramus. No bone lucency or permeative appearance. Posterior neural tube defect at L4-L5 with a large myelomeningocele measuring 10.0 x 8.9 x 9.1 cm. Soft tissues: Decubitus pressure sore at the tip of the sacrum with a 1.2 x 3.3 x 2.2 cm subcutaneous fluid collection with a thin rind of enhancement. Large decubitus ulcer in the left buttock which extends to the left ischial tuberosity. Other findings: Fatty atrophy of the inferior left abdominal rectus muscle. CT/CT abdomen pelvis wo/w [id number] IMPRESSION: 1. Stable large decubitus ulcer in the left buttock region extending to the ischial tuberosity. 2. Stable chronic sclerosis of the left ischial tuberosity and inferior pubic ramus, likely indicating chronic osteomyelitis. 3. Stable small decubitus wound over the tip of the sacrum with a stable 3.3 cm subcutaneous fluid collection. A small chronic abscess is not excluded. 4. Urinary bladder wall thickening. Cystitis is not excluded. Clinical correlation recommended. 5. Large lower lumbar myelomeningocele.
[2024-07-20] MEDS: iohexol 350 mg/mL 500 mL Btl (per mL) IV (17:41)
== END 2024-07-20 16:36 | disposition home or self-care (01) ==
LOC: RAD 16:36
PROVIDERS: PCP Nurse Practitioner Family; Visit Provider Thoracic Surgery (Cardiothoracic Vascular Surgery)
DX: L89.324 Pressure ulcer of left buttock, stage 4 (principal)
CPT/HCPCS: 74178

== ENCOUNTER → 2024-07-21 09:05 | Outpatient (BNVA) | payer MEDICARE, MEDICAID, SELFPAY | PROVIDERS: PCP Nurse Practitioner Family; Visit Provider Thoracic Surgery (Cardiothoracic Vascular Surgery) | DX: I96 Gangrene, not elsewhere classified (principal); L89.324 Pressure ulcer of left buttock, stage 4; L89.893 Pressure ulcer of other site, stage 3 | CPT/HCPCS: 97597; A6212 ==

== ENCOUNTER → 2024-07-28 08:25 | Outpatient (BNVA) | payer MEDICARE, MEDICAID, SELFPAY | PROVIDERS: PCP Nurse Practitioner Family; Visit Provider Thoracic Surgery (Cardiothoracic Vascular Surgery) | DX: I96 Gangrene, not elsewhere classified (principal); L89.324 Pressure ulcer of left buttock, stage 4; L89.893 Pressure ulcer of other site, stage 3 | CPT/HCPCS: 97597; A6212 ==

== ENCOUNTER 2024-08-02 10:07 | Outpatient (CLI) | payer MEDICARE, MEDICAID, SELFPAY ==
[2024-08-02 10:56] LABS: Basophils # 0.1 10^3/uL (0.0-0.1); Basophils % 0.5 %; Eosinophils # 0.3 10^3/uL (0.0-0.8); Eosinophils % 2.4 %; Hematocrit 40.4 % (37-53); Lymphocytes % 18.5 %; Mean Corpuscular HGB Conc 29.7 g/dL (30-55); Mean Corpuscular Hemoglobin 21.1 pg (27-33); Mean Corpuscular Volume 71.1 fl (82-101); Mean Platelet Volume 9.2 fL (7.4-10.4); Monocytes # 0.4 10^3/uL (0.2-0.9); Monocytes % 3.9 %; Neutrophils # 7.84 10^3/uL (1.8-7.7); Neutrophils % 74.4 %; Nucleated Red Blood Cells % 0 %; Platelet Count 373 10^3/cmm (157-399); Red Blood Count 5.68 10^6/uL (3.85-5.65); Red Cell Distribution Width 19.4 % (12.1-15.1); White Blood Count 10.53 10^3/uL (3.29-11.43)
[2024-08-02 11:17] LABS: Anion Gap 17.4 (5-19); Blood Urea Nitrogen 19 mg/dL (6-20); C Reactive Protein 18.7 mg/L (0.0-4.9); Calcium 9.2 mg/dL (8.5-10.5); Carbon Dioxide 21 mmol/L (22-29); Chloride 102 mmol/L (98-107); Glomerular Filtration Rate 128.3 mL/min (90-130); Glucose 106 mg/dL (65-115); Osmolality Calculated 285 mOsm/kg (285-295); Potassium 4.4 mmol/L (3.5-5.1); Sodium 136 mmol/L (136-145)
== END 2024-08-02 10:08 | disposition home or self-care (01) ==
LOC: LAB 10:10
PROVIDERS: PCP Nurse Practitioner Family; Visit Provider Thoracic Surgery (Cardiothoracic Vascular Surgery)
DX: L89.324 Pressure ulcer of left buttock, stage 4 (principal); Z09 Encounter for follow-up examination after completed treatment for conditions other than malignant neoplasm
CPT/HCPCS: 80048; 85025; 86140; 97597; A6212; A6446

== ENCOUNTER → 2024-08-16 08:43 | Outpatient (BNVA) | payer MEDICARE, MEDICAID, SELFPAY | PROVIDERS: PCP Nurse Practitioner Family; Visit Provider Thoracic Surgery (Cardiothoracic Vascular Surgery) | DX: I96 Gangrene, not elsewhere classified (principal); L89.324 Pressure ulcer of left buttock, stage 4 | CPT/HCPCS: 97597; A6446 ==

== ENCOUNTER → 2024-08-22 13:31 | Outpatient (BNVA) | payer MEDICARE, MEDICAID, SELFPAY | PROVIDERS: PCP Nurse Practitioner Family; Visit Provider Student in an Organized Health Care Education/Training Program | DX: Z09 Encounter for follow-up examination after completed treatment for conditions other than malignant neoplasm (principal) | CPT/HCPCS: 99214 ==

== ENCOUNTER → 2024-08-30 08:57 | Outpatient (BNVA) | payer MEDICARE, MEDICAID, SELFPAY | PROVIDERS: PCP Nurse Practitioner Family; Visit Provider Thoracic Surgery (Cardiothoracic Vascular Surgery) | DX: L89.324 Pressure ulcer of left buttock, stage 4 (principal) | CPT/HCPCS: 97597; A6446 ==

== ENCOUNTER → 2024-09-20 10:37 | Outpatient (BNVA) | payer MEDICARE, MEDICAID, SELFPAY | PROVIDERS: PCP Nurse Practitioner Family; Visit Provider Thoracic Surgery (Cardiothoracic Vascular Surgery) | DX: I96 Gangrene, not elsewhere classified (principal); L89.324 Pressure ulcer of left buttock, stage 4 | CPT/HCPCS: 97597; A6446 ==

== ENCOUNTER 2024-10-18 11:34 | Outpatient (CLI) | payer MEDICARE, MEDICAID, SELFPAY | END 2024-10-18 11:35 | disposition home or self-care (01) | LOC: LAB 11:37 | PROVIDERS: PCP Nurse Practitioner Family; Visit Provider Student in an Organized Health Care Education/Training Program | DX: M86.60 Other chronic osteomyelitis, unspecified site (principal); L89.324 Pressure ulcer of left buttock, stage 4 | CPT/HCPCS: 36415; 85651; 86140; 97597 ==

== ENCOUNTER → 2024-11-15 10:42 | Outpatient (BNVA) | payer MEDICARE, MEDICAID, SELFPAY | PROVIDERS: PCP Nurse Practitioner Family; Visit Provider Thoracic Surgery (Cardiothoracic Vascular Surgery) | DX: I96 Gangrene, not elsewhere classified (principal); L89.324 Pressure ulcer of left buttock, stage 4 | CPT/HCPCS: 97597 ==

== ENCOUNTER → 2024-11-29 10:39 | Outpatient (BNVA) | payer MEDICARE, MEDICAID, SELFPAY | PROVIDERS: PCP Nurse Practitioner Family; Visit Provider Thoracic Surgery (Cardiothoracic Vascular Surgery) | DX: I96 Gangrene, not elsewhere classified (principal); L89.324 Pressure ulcer of left buttock, stage 4 | CPT/HCPCS: 97597 ==

== ENCOUNTER → 2024-12-13 10:34 | Outpatient (BNVA) | payer MEDICARE, MEDICAID, SELFPAY | PROVIDERS: PCP Nurse Practitioner Family; Visit Provider Thoracic Surgery (Cardiothoracic Vascular Surgery) | DX: I96 Gangrene, not elsewhere classified (principal); L89.324 Pressure ulcer of left buttock, stage 4 | CPT/HCPCS: 97597 ==

== ENCOUNTER → 2024-12-27 08:25 | Outpatient (BNVA) | payer MEDICARE, MEDICAID, SELFPAY | PROVIDERS: PCP Nurse Practitioner Family; Visit Provider Thoracic Surgery (Cardiothoracic Vascular Surgery) | DX: I96 Gangrene, not elsewhere classified (principal); L89.324 Pressure ulcer of left buttock, stage 4 | CPT/HCPCS: 97597; 97598 ==

== ENCOUNTER 2025-01-01 12:11 | Inpatient (IN) | payer MEDICARE, MEDICAID, SELFPAY ==
[2025-01-01] VITALS (9 sets, daily range): BP systolic 104–126; BP diastolic 59–70; PULSE 82–128; RESP 16–18; TEMP 36.6–38.8; O2SAT 94–100; BMI 32.8
--- NOTE | 2025-01-01 12:30 | ED_ITS ---
HPI - Wound/Laceration 2 General: Chief Complaint: Wound/Laceration Stated Complaint: chills, fever, has a sore on L side bottom Time Seen by Provider: 01/01/25 12:23 History of Present Illness: 34-year-old man with a history of spina bifida with paraplegia and wheelchair dependence, single functional kidney, hypertension, anxiety, congenital imperforate anus, neurogenic bladder, and chronic pressure ulcer who presents to the emergency room today with worsening of the pressure ulcer. He follows Dr. Pereira in wound clinic and Dr. Barragan for ID. He is febrile on presentation. Tachycardic initially. No altered mental status. No chest pain. Related Data Home Medications ?Medication ?Instructions ?Recorded ?Confirmed ibuprofen 200 mg tablet 800 mg PO BID PRN Pain 08/1401/01/25 Previous Rx's ?Medication ?Instructions ?Recorded catheter 16 Fr #150 ea 07/03/20 colostomy bags #30 ea 07/03/20 ostomy adhesive (Stomahesive Paste) #2 tubes 07/03/20 ostomy supplies 4 X 4 wafer #20 wafers 07/03/20 WHEELCHAIR #1 ea 07/30/22 WHEELCHAIR REPAIRS #1 ea 02/16/23 wheels for wheelchair #1 ea 10/04/23 Wheelchair #1 ea 02/08/24 miscellaneous medical supply #1 ea 03/30/24 Allergies Allergy/AdvReac Type Severity Reaction Status Date / Time daptomycin Allergy Severe ADR-Muscle Verified 07/17/24 10:57 Pain sulfamethoxazole (From Allergy Mild ADR-Itching Verified 03/13/24 12:54 Bactrim) trimethoprim (From Bactrim) Allergy Mild ADR-Itching Verified 03/13/24 12:54 acetaminophen (From Tylenol) Allergy itching Verified 03/13/24 12:54 latex Allergy rash Verified 03/13/24 12:54 Review of Systems 2 Narrative: Constitutional symptoms: Negative except as documented in HPI. Skin symptoms: Negative except as documented in HPI. Eye symptoms: Negative except as documented in HPI. ENMT symptoms: Negative except as documented in HPI. Respiratory symptoms: Negative except as documented in HPI. Cardiovascular symptoms: Negative except as documented in HPI. Gastrointestinal symptoms: Negative except as documented in HPI. Genitourinary symptoms: Negative except as documented in HPI. Musculoskeletal symptoms: Negative except as documented in HPI. Neurologic symptoms: Negative except as documented in HPI. Psychiatric symptoms: Negative except as documented in HPI. Endocrine symptoms: Negative except as documented in HPI. PFSH ED 2 PFSH: Medical History (Updated 01/01/25 @ 14:33 by Adore Rodriguez MD) Wheelchair dependent Single functional kidney Vitamin D deficiency Medication management Hypertension screen Essential hypertension Anxiety Pressure ulcer caused by device Congenital imperforate anus Neurogenic bladder Spina bifida aperta of lumbar spine Glaucoma Surgical History History of right nephrectomy 2013 [facility] Colostomy status Status post ventriculo-peritoneal shunt placement Status post hip surgery Bilateral pin surgery Family History Other Spina bifida Social History Smoking and tobacco/nicotine status: former use of tobacco/nicotine Alcohol intake: never Substance/Drug Use: never Physical Exam 2 Narrative: EXAM NARRATIVE: General: Alert, no acute distress. Skin: Warm, dry. Large wound. It is currently fairly foul-smelling and the area to the top of the picture below does appear to be infected Head: Normocephalic, atraumatic. Neck: Supple, trachea midline. Eye: Extraocular movements are intact. Ears, nose, mouth and throat: mucosa moist. Cardiovascular: Regular, Normal peripheral perfusion. Respiratory: Lungs are clear to auscultation, respirations are non-labored, breath sounds are equal, Symmetrical chest wall expansion. Gastrointestinal: Soft, Nontender, Non distended Musculoskeletal: Contractured lower extremities Neurological: Alert and oriented, No focal neurological deficit observed. Psychiatric: Cooperative, appropriate mood & affect. Course 2 Vital Signs: Vital signs: Vital Signs Temperature 101.9 F H 01/01/25 12:15 Pulse Rate 99 01/01/25 13:48 Respiratory Rate 16 01/01/25 13:48 Blood Pressure 108/67 01/01/25 13:48 Pulse Oximetry 99 01/01/25 13:48 Oxygen Delivery Me thod Room Air 01/01/25 13:03 MDM - Wound/Laceration Medical Decision Making Medical decision making Patient's reason for coming to the emergency room: Worsening pressure ulcer with concern for infection Social determinants: Patient is disabled I reviewed the patient's medical record. 34-year-old man with a history of spina bifida with paraplegia and wheelchair dependence, single functional kidney, hypertension, anxiety, congenital imperforate anus, neurogenic bladder, and chronic pressure ulcer I reviewed the patient's current home meds Patient does not have any chronic medications listed. Alternate historians: provides some history as well Differential diagnosis: including but not limited to and based on the above HPI, review of systems and physical exam: In this person with a wound that is appearing more infected would have concern for sepsis, SIRS, renal failure etc. Basic labs cultures lactate all ordered. Orders placed to evaluate differential diagnosis based on the above differential, HPI and physical exam Lab Review: Laboratory results were reviewed and interpreted by myself the emergency room physician. Leukocytosis with white count 16,000. Extremely elevated ESR and CRP at greater than 130 and 226 respectively. This is significantly over what these labs have been in the past. No renal failure. Assessment of risk: Level of risk: Moderate risk patient. Chronic wound. Paraplegia. Hospitalization considerations: Patient is being admitted. I believe he may be septic today. Reexamination: Patient has no altered mental status. No increased work of breathing. Heart rate has improved some. Consultation: I spoke Dr. Jasso was on-call for the hospital service who agrees to admission. Consultation: I spoke with Dr. Gibson who is on for general surgery. He will see the patient as well. Assessment and plan: Wound infection decubitus ulcer Sepsis Fever Spina bifida Paraplegia Neurogenic bladder -2.5 L normal saline bolus. Fluid volumes based on ideal body weight. -Broad-spectrum antibiotics were administered. Zyvox and meropenem -Sepsis quality measures. -Lactic acid with a reflex was ordered. -Blood cultures were ordered. ?I reevaluated the patient's volume status after sepsis fluids were given. -I discussed the patient with the hospitalist on-call who is admitting the patient. - Discussed findings and plan with patient. Answered any questions. - All laboratory values were reviewed and interpreted personally by myself, the ER physician - Evaluation and treatment of this problem were appropriate in the emergency setting Critical Care: -I spent a total of 44 minutes of critical care time managing the patient, independent of any other practitioner. -The time involved in the performance of separately reportable procedures was not counted towards critical care time. Lab Data 01/01/25 13:40 01/01/25 13:40 Laboratory Results WBC 16.09 10^3/uL (3.29-11.43) H 01/01/25 13:40 RBC 4.63 10^6/uL (3.85-5.65) 01/01/25 13:40 Hgb 10.00 g/dL (11.27-16.99) L 01/01/25 13:40 Hct 32.6 % (37-53) L 01/01/25 13:40 MCV 70.4 fl (82-101) L 01/01/25 13:40 MCH 21.6 pg (27-33) L 01/01/25 13:40 MCHC 30.7 g/dL (30-55) 01/01/25 13:40 RDW 16.3 % (12.1-15.1) H 01/01/25 13:40 Plt Count 494 10^3/cmm (157-399) H 01/01/25 13:40 MPV 9.5 fL (7.4-10.4) 01/01/25 13:40 Neut % (Auto) 83.6 % 01/01/25 13:40 Lymph % (Auto) 6.9 % 01/01/25 13:40 [place] % (Auto) 8.0 % 01/01/25 13:40 Eos % (Auto) 0.4 % 01/01/25 13:40 Baso % (Auto) 0.4 % 01/01/25 13:40 Neut # (Auto) 13.45 10^3/uL (1.8-7.7) H 01/01/25 13:40 Lymph # (Auto) 1.1 10^3/uL (0.8-4.8) 01/01/25 13:40 [place] # (Auto) 1.3 10^3/uL (0.2-0.9) H 01/01/25 13:40 Eos # (Auto) 0.1 10^3/uL (0.0-0.8) 01/01/25 13:40 Baso # (Auto) 0.1 10^3/uL (0.0-0.1) 01/01/25 13:40 Nucleated RBC % (auto) 0 % 01/01/25 13:40 Nucleated RBCs # 0.0 /100WBC 01/01/25 13:40 ESR > 130 mm/hr (0-10) H 01/01/25 13:40 Sodium 134 mmol/L (136-145) L 01/01/25 13:40 Potassium 3.9 mmol/L (3.5-5.1) 01/01/25 13:40 Chloride 102 mmol/L (98-107) 01/01/25 13:40 Carbon Dioxide 17 mmol/L (22-29) L 01/01/25 13:40 Anion Gap 18.9 (5-19) 01/01/25 13:40 BUN 11 mg/dL (6-20) 01/01/25 13:40 Creatinine 0.8 mg/dL (0.7-1.2) 01/01/25 13:40 GFR Calculation 110.0 mL/min (90-130) 01/01/25 13:40 Glucose 123 mg/dL (65-115) H 01/01/25 13:40 Calculated Osmolality 279 mOsm/kg (285-295) L 01/01/25 13:40 Lactic Acid 1.0 mmol/L (0.5-2.2) 01/01/25 13:40 Calcium 8.7 mg/dL (8.5-10.5) 01/01/25 13:40 Total Bilirubin 0.5 mg/dL (0.15-1.2) 01/01/25 13:40 AST 16 U/L (0-40) 01/01/25 13:40 ALT 25 U/L (0-41) 01/01/25 13:40 Alkaline Phosphatase 73 U/L (40-130) 01/01/25 13:40 C-Reactive Protein 226.0 mg/L (0.0-4.9) H 01/01/25 13:40 Total Protein 7.3 g/dL (6.6-8.7) 01/01/25 13:40 Albumin 3.0 g/dL (3.5-5.2) L 01/01/25 13:40 Globulin 4.3 g/dL (1.3-4.6) 01/01/25 13:40 All radiology interpretation(s) finalized by discharge Discharge Plan Discharge Patient Disposition: Admitted As Inpatient Clinical Impression: Wound infection, Decubitus ulcer, Sepsis, Fever, Spina bifida aperta of lumbar spine, Paraplegia, Neurogenic bladder Condition: Stable Coding Level of Care Code ED Scientific Programmer for Petros Mays
--- OUTSIDE RECORDS SUMMARY | 2025-01-01 12:41 | XMS_ITS | Encounter Summary ---
Author Organization [facility] Address [address] [place] [address] Care Team Providers Care Elder Assistant Name Role Phone Unavailable Primary Care Provider Unavailabl e Encounter Details Date Type Department Care Team (Latest Contact Info) Description 01/28/1998 Outpatient Historical [facility]- [address] [phone] Rickie Shrestha DO NO ADDRESS ON FILE Spina bifida without mention of hydrocephalus, cervical region (CMS/HCC) (Primary Dx) Social History Tobacco Use Types Packs/Day Years Used Date Smoking Tobacco: Never Assessed Sex and Gender Information Value Date Recorded Sex Assigned at Not on file 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
--- OUTSIDE RECORDS SUMMARY | 2025-01-01 12:41 | XMS_ITS | Clinical Summary ---
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 Gender Identity Not on file Sexual Orientation Not on file Plan of Treatment Health Maintenance Due Date Last Done Comments Medicare Annual Wellness 1989 IPV Vaccines (4 of 4 - 4-dos e series) 1993 06/21/1990, 1989, 1989 Varicella Vaccines (1 of 2 - 13+ 2-dose series) 2002 Td, Tdap Vaccines Adult 2008 HPV Vaccines (1 - 3-dose SCD M series) 2016 Influenza Vaccination (#1) 2024 HIB Vaccines Aged Out 04/25/1990 No longer eligi ble based on patient's age to complete this topic MMR Vaccines Completed 06/21/1990 Hepatitis B Vaccines Completed 04/22/2000, 12/03/1998, 10/11/1998 Hepatitis A Vaccines Aged Out No long er eligible based on patient's age to complete this topic Meningococcal Vaccines Aged Out No lo nger eligible based on patient's age to complete this topic Pneumococcal Vaccine: Pediatrics (0 to 5 Years) and At-Risk Patients (6 to 49 Years) Aged Out No longer eligible b ased on patient's age to complete this topic RSV Mab Nirsevimab (Beyfortu s) <20 months Aged Out No longer eligible b ased on patient's age to complete this topic Rotavirus Vaccines Aged Out No longer eligible based on patient's age to complete this topic Insurance MEDICARE [facility]
--- OUTSIDE RECORDS SUMMARY | 2025-01-01 12:41 | XMS_ITS | Clinical Summary ---
Author Organization [facility] Address [address] [facility] Attn: [place] [address] Care Team Providers Care Asphalt Paver Operator Name Role Phone Unavailable Primary Care Provider Unavailabl e Allergies Active Allergy Reactions Criticality Noted Date Comments Latex Hives High 11/04/2009 Active Problems Problem Noted Date Diagnosed Date Spina bifida 01/27/2011 Immunizations Immunization Administration Dates Next Due (M-M-R II/PRIORIX)(12 MO UP) MEASLES, MUMPS AND RUBELLA VIRUS VACCINE, 0.5 ML IM/SUBCUT 06/21/1990 Dt Dtp Dtap Vaccine 06/21/1990, 0,1989,1989 HIB, Unspecified Formulation 04/25/1990 Hepatitis B Vaccine 04/22/2000,12/03/1998,1998 IPV/OPV 06/21/1990,1989,1989 Social History Tobacco Use Types Packs/Day Years Used Date Smoking Tobacco: Every Day Cigarettes Smokeless Tobacco: Never Alcohol Use Standard Drinks/Week Comments No 0 (1 standard drink = 0.6 oz pur e alcohol) Sex and Gender Information Value Date Recorded Sex Assigned at Not on file Legal Sex Male 11:42 PM CDT Gender Identity Not on file Sexual Orientation Not on file Last Filed Vital Signs Vital Sign Reading Time Taken Comments Blood Pressure 135/79 04/24/2014 2:48 PM CDT Pulse 95 04/24/2014 2:48 PM CDT Temperature 37.1 C (98.7 F) 04/24/2014 2:48 PM CDT Respiratory Rate 20 04/24/2014 2:48 PM CDT Oxygen Saturation - - Inhaled Oxygen Concentration - - Weight 89.8 kg (198 lb) 04/24/2014 2:48 PM CDT Height 170.2 cm (5' 7 ) 04/24/2014 2:48 PM CDT Body Mass Index 31.01 04/24/2014 2:48 PM CDT Plan of Treatment Health Maintenance Due Date Last Done Comments DTAP/TDAP/TD VACCINES (5 - Tdap) 2000 06/21/1990, 01/18/1990, 1989, Additional history exists HPV VACCINES (1 - 3-dose SCD M series) 2016 INFLUENZA VACCINE (#1) 2024 HEPATITIS B VACCINES Completed 04/22/2000, 12/03/1998, 10/11/1998
--- OUTSIDE RECORDS SUMMARY | 2025-01-01 12:41 | XMS_ITS | Clinical Summary ---
Author Organization [facility] Address [address] [place] [address] Care Team Providers Care Solar Sales Representative And Assessor Name Role Phone Unavailable Primary Care Provider Unavailabl e Allergies Active Allergy Reactions Criticality Noted Date Comments Latex Hives High 11/04/2009 Medications ranitidine (ZANTAC) 150 mg tablet TAKE 1 TAB BY MOUTH 2 TIMES DAILY. 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
--- OUTSIDE RECORDS SUMMARY | 2025-01-01 12:41 | XMS_ITS | Data Portability ---
Author Organization [place] - [facility], [facility] Address [address] [facility] [address] Assessment Encounter Date Assessment Date Assessment LastModified by Organization Details LastModified Time 05/14/2016 05/14/2016 Discussed healthy eating and upper body exercise. Blood drawn and sent to lab. Follow up in 6-12 months. Order for wheelchair, ostomy supplies and catheter. He states he will have them request refills from us. Physical Therapy consult eval and treat. [email or web address] Not available 05/14/2016 21:25:50 06/17/2017 06/17/2017 Will fax office note to [facility] in [facility] FAX: [email or web address] Not available 06/17/2017 09:53:00 09/13/2018 09/13/2018 Discussed the importance of maintaining an active lifestyle and a healthy diet. Will send DME order for a new wheelchair to DME company of Pt's choice. Advised to see stock room manager for help losing weight and Pt states they are too busy. Discussed the possibility of having gastric bypass surgery. Not available 09/13/2018 10:17:59 Plan of Treatment Reminders Order Date Submit Date Provider Last Modified By Organization Details Last Modified Time Details Appointments None recorded. Lab hepatitis panel (A+B+C), acute, serum 2016 017 [facility], [address] [place], [address], 7 13:42:54 iron + TIBC + ferritin, serum 2016 017 [facility], [address] [address], 7 13:42:54 CBC w/ auto diff 2016 017 [facility], [address] [employer], [address], 7 13:42:55 TSH, serum or plasma 2016 017 [facility], [address] [address] [address], 7 13:42:56 vitamin B12 + folate, serum or blood 2016 017 [facility], [address], [address], 7 13:42:55 CMP, serum or plasma 2016 017 [facility], [address] [place], [address], 7 13:42:54 Referral physical therapist referral 2017 018 [email or web address] Not available 8 12:34:29 physical therapist referral - Wheelchair evaluation 2016 017 [email or web address] [facility], [address] [place], [address], 7 11:56:36 Procedures None recorded. Surgeries None recorded. Imaging None recorded. Medication Orders Xyzal 5 mg tablet 2017 018 [facility], [address], [place], [address], 9 10:01:44 ranitidine 150 mg tablet 2017 018 [facility], [address] [place], [address], 0 13:06:46 ranitidine 150 mg tablet 2016 017 [facility], [address] [place], [address], 0 13:06:46 Patient TargetsNo targets recorded. Patient Instructions Encounter Date Encounter Id Patient Instructions Last Modified By Organization Details Last Modified Time 05/14/2016 [id number] A healthy lifestyle: care instructions Not available 05/14/2016 15:54:09 09/13/2018 [id number] heart-healthy diet: care instructions [email or web address] Not available 09/13/2018 11:28:08 walking for exercise: care instructions [email or web address] Not available 09/13/2018 11:28:08 04/25/2024 [id number] wheelchair repair* Not available 05/10/2024 14:45:08 Recommended to follow up for Medicare Wellness Exam and Labs. [email or web address] Not available 04/25/2024 11:54:38 10/17/2024 [id number] heart-healthy diet: care instructions Not available 10/18/2024 09:59:45 walking for exercise: care instructions Not available 10/18/2024 09:59:45 Reason for Referral Wheelchair evaluation Referring Physician: Joan Gongora, Family Medicine, Encounter Date: 05/14/2016 Referring Physician: Dipak Gil, Family Medicine, Encounter Date: 06/17/2017 Results Created Date Observation Date Name Description Value Unit Range Abnormal Flag Note LastModifiedBy Organization Detail LastModifiedTime 05/16/19 17 05/15/2016 iron + TIBC + dell tin, serum iron, total 104 mcg/d L 50-195 normal Not Available [employer] [facility] [address] [place], [address], 05/15/2016 13:42:54 05/16/19 17 05/15/2016 iron + TIBC + dell tin, serum iron binding capacity 309 mcg/d L_(ca lc) 250-42 5 normal Not Available [address], [address], 05/15/2016 13:42:54 05/16/19 17 05/15/2016 iron + TIBC + dell tin, serum % saturation 34 %_(ca lc) 15-60 normal Not Available [address], [address], 05/15/2016 13:42:54 05/16/19 17 05/15/2016 iron + TIBC + dell tin, serum ferritin 75 NG/mL 20-345 normal Not Available [address], [address], 05/15/2016 13:42:54 05/16/19 17 05/15/2016 hepat itis panel (A+B+ C), acute , serum hepatitis A IgM NON-RE ACTIVE non-re active normal Not Available [address] [address] [place], [address], 05/15/2016 13:42:54 05/16/19 17 05/15/2016 hepat itis panel (A+B+ C), acute , serum hepatitis B surface antigen NON-RE ACTIVE non-re active normal Not Available [address], [address], 05/15/2016 13:42:54 05/16/19 17 05/15/2016 hepat itis panel (A+B+ C), acute , serum hepatitis B core antibody (IgM) NON-RE ACTIVE non-re active normal Not Available [address], [address], 05/15/2016 13:42:54 05/16/19 17 05/15/2016 hepat itis panel (A+B+ C), acute , serum hepatitis C antibody NON-RE ACTIVE non-re active normal Not Available [address], [place], [address], 05/15/2016 13:42:54 05/16/19 17 05/15/2016 hepat itis panel (A+B+ C), acute , serum signal to cut-off 0.03 <1.00 normal Not Available [facility] [address], [address], 05/15/2016 13:42:54 05/16/19 17 05/15/2016 CMP, serum or plasm a glucose 110 mg/dL 65-99 high Fasti ng refer ence inter kecia For someo ne witho ut known diabe mary, a gluco se value betwe en 100 and 125 mg/dL is consi stent with predi abete s and shoul d be confi rmed with a follo w-up test. Not Available [facility] [address], [address], 05/15/2016 13:42:54 05/16/19 17 05/15/2016 CMP, serum or plasm a urea nitrogen (BUN) 21 mg/dL 7-25 normal Not Available [facility] [address], [address], 05/15/2016 13:42:54 05/16/19 17 05/15/2016 CMP, serum or plasm a creatinine 0.86 mg/dL 0.60-1 .35 normal Not Available [facility] [address], [address], 05/15/2016 13:42:54 05/16/19 17 05/15/2016 CMP, serum or plasm a eGFR non-afr. slovenian 119 mL/mi n/1.7 3m2 > or = 60 normal Not Available [facility] [address], [address], 05/15/2016 13:42:54 05/16/19 17 05/15/2016 CMP, serum or plasm a eGFR 138 mL/mi n/1.7 3m2 > or = 60 normal Not Available [facility] [address] [address], [place], [address], 05/15/2016 13:42:54 05/16/19 17 05/15/2016 CMP, serum or plasm a BUN/creatini ne ratio NOT APPLIC ABLE (calc ) 6-22 Not Available [address], [address], 05/15/2016 13:42:54 05/16/19 17 05/15/2016 CMP, serum or plasm a sodium 139 mmol/ L 135-14 6 normal Not Available [address], [address], 05/15/2016 13:42:54 05/16/19 17 05/15/2016 CMP, serum or plasm a potassium 4.1 mmol/ L 3.5-5. 3 normal Not Available [address], [address], 05/15/2016 13:42:54 05/16/19 17 05/15/2016 CMP, serum or plasm a chloride 108 mmol/ L 98-110 normal Not Available [address], [address], 05/15/2016 13:42:54 05/16/19 17 05/15/2016 CMP, serum or plasm a carbon dioxide 20 mmol/ L 20-31 normal Not Available [address], [address], 05/15/2016 13:42:54 05/16/19 17 05/15/2016 CMP, serum or plasm a calcium 9.4 mg/dL 8.6-10 .3 normal Not Available [address], [address], 05/15/2016 13:42:54 05/16/19 17 05/15/2016 CMP, serum or plasm a protein, total 6.7 g/dL 6.1-8. 1 normal Not Available [address], [address], 05/15/2016 13:42:54 05/16/19 17 05/15/2016 CMP, serum or plasm a albumin 4.2 g/dL 3.6-5. 1 normal Not Available [address], [address], 05/15/2016 13:42:54 05/16/19 17 05/15/2016 CMP, serum or plasm a globulin 2.5 g/dL_ (calc ) 1.9-3. 7 normal Not Available [address], [address], 05/15/2016 13:42:54 05/16/19 17 05/15/2016 CMP, serum or plasm a albumin/glob ulin ratio 1.7 (calc ) 1.0-2. 5 normal Not Available [address], [address], 05/15/2016 13:42:54 05/16/19 17 05/15/2016 CMP, serum or plasm a bilirubin, total 0.3 mg/dL 0.2-1. 2 normal Not Available [address], [address], 05/15/2016 13:42:54 05/16/19 17 05/15/2016 CMP, serum or plasm a alkaline phosphatase 73 U/L 40-115 normal Not Available [facility] [employer] [address], [address], 05/15/2016 13:42:54 05/16/19 17 05/15/2016 CMP, serum or plasm a AST 12 U/L 10-40 normal Not Available [address], [address], 05/15/2016 13:42:54 05/16/19 17 05/15/2016 CMP, serum or plasm a ALT 21 U/L 9-46 normal Not Available [address], [address], 05/15/2016 13:42:54 05/16/19 17 05/15/2016 CBC w/ auto diff white blood cell count 9.4 thous and/u L 3.8-10 .8 normal Not Available [address], [address], 05/15/2016 13:42:55 05/16/19 17 05/15/2016 CBC w/ auto diff red blood cell count 5.57 subha on/uL 4.20-5 .80 normal Not Available [address], [address], 05/15/2016 13:42:55 05/16/19 17 05/15/2016 CBC w/ auto diff hemoglobin 16.4 g/dL 13.2-1 7.1 normal Not Available [address], [address], 05/15/2016 13:42:55 05/16/19 17 05/15/2016 CBC w/ auto diff hematocrit 49.2 % 38.5-5 0.0 normal Not Available [address], [address], 05/15/2016 13:42:55 05/16/19 17 05/15/2016 CBC w/ auto diff MCV 88.2 fL 80.0-1 00.0 normal Not Available [address], [address], 05/15/2016 13:42:55 05/16/19 17 05/15/2016 CBC w/ auto diff MCH 29.5 pg 27.0-3 3.0 normal Not Available [address], [address], 05/15/2016 13:42:55 05/16/19 17 05/15/2016 CBC w/ auto diff MCHC 33.4 g/dL 32.0-3 6.0 normal Not Available [address], [address], 05/15/2016 13:42:55 05/16/19 17 05/15/2016 CBC w/ auto diff RDW 13.9 % 11.0-1 5.0 normal Not Available [address], [address], 05/15/2016 13:42:55 05/16/19 17 05/15/2016 CBC w/ auto diff platelet count 193 thous and/u L 140-40 0 normal Not Available [address], [address], 05/15/2016 13:42:55 05/16/19 17 05/15/2016 CBC w/ auto diff MPV 10.8 fL 7.5-12 .5 normal Not Available [address], [address], 05/15/2016 13:42:55 05/16/19 17 05/15/2016 CBC w/ auto diff absolute neutrophils 6505 cells /uL 1500-7 800 normal Not Available [address], [address], 05/15/2016 13:42:55 05/16/19 17 05/15/2016 CBC w/ auto diff absolute lymphocytes 2012 cells /uL 850-39 00 normal Not Available [address], [address], 05/15/2016 13:42:55 05/16/19 17 05/15/2016 CBC w/ auto diff absolute monocytes 639 cells /uL 200-95 0 normal Not Available [address], [address], 05/15/2016 13:42:55 05/16/19 17 05/15/2016 CBC w/ auto diff absolute eosinophils 216 cells /uL 15-500 normal Not Available [facility] [address] [address] [place], [address], 05/15/2016 13:42:55 05/16/19 17 05/15/2016 CBC w/ auto diff absolute basophils 28 cells /uL 0-200 normal Not Available [facility] [address] [place], [address], 05/15/2016 13:42:55 05/16/19 17 05/15/2016 CBC w/ auto diff neutrophils 69.2 % normal Not Available [address] [place], [address], 05/15/2016 13:42:55 05/16/19 17 05/15/2016 CBC w/ auto diff lymphocytes 21.4 % normal Not Available [address], [address], 05/15/2016 13:42:55 05/16/19 17 05/15/2016 CBC w/ auto diff monocytes 6.8 % normal Not Available [address], [address], 05/15/2016 13:42:55 05/16/19 17 05/15/2016 CBC w/ auto diff eosinophils 2.3 % normal Not Available [address], [address], 05/15/2016 13:42:55 05/16/19 17 05/15/2016 CBC w/ auto diff basophils 0.3 % normal Not Available [facility] [address] [place], [address], 05/15/2016 13:42:55 05/16/19 17 05/15/2016 vitam in B12 + folat e, serum or blood vitamin B12 339 pg/mL 200-11 00 normal Pleas e Note: Altho ugh the refer ence range for vitam in B12 is 200-1 100 pg/mL , it has been repor aditya that betwe en 5 and 10% of patie nts with value s betwe en 200 and 400 pg/mL may exper ience neuro psych iatri c and hemat ologi c abnor malit ies due to occul t B12 defic iency ; less than 1% of patie nts with value s above 400 pg/mL will have sympt oms. Not Available [facility] [address] [address] [place], [address], 05/15/2016 13:42:55 05/16/1905/15/2016 vitam in B12 + folat e, serum or blood folate, serum 4.7 NG/mL low Refer ence Range Low: <3.4 Borde rline : 3.4-5 .4 Fara l: >5.4 Not Available [facility] [address] [address] [address], [place], [address], 05/15/2016 13:42:55 05/16/1905/15/2016 TSH, serum or plasm a TSH w/reflex to FT4 0.78 mIU/L 0.40-4 .50 normal NO COLLE CTION DATE RECEI KRZYSZTOF. WE HAVE USED THE DATE THE SPECI MEN WAS RECEI KRZYSZTOF BY THIS LABOR ATORY THE COLLE CTION DATE. IF THIS IS INCOR RECT, PLEAS E CONTA CT CLIEN T SERVI GINGER. PHONE NUMBE R: [phone] Not Available [employer] [address] [address] [place], [address], 05/15/2016 13:42:56 Result Notes None recorded. Problems Name Problem SNOMED Code Status Onset Date Resolution Date Notes Provider Name and Address Organization Details Recorded Time Urinary tract infectio us disease 85588059 Completed 201305/14/2016 Created By: DARBY FELDMAN; Modified By: JOAN GONGORA; Category : DD; Examiner : Joan Gongora; Medicine Descript ion: URINARY TRACT INFECTIO N; Display in Medcin: YES; Display in ESB: YES; Confiden tiality Level: Level 1; Type: Diagnosi s Sapna Pineda LPN [facility] 7 14:54:02 Dependen ce on wheel chair 262830788 Active 2013 Created By: DARBY FELDMAN; Modified By: JOAN GONGORA; Category : DD; Examiner : Joan Gongora; Medicine Descript ion: physical disabili ty: wheelcha ir dependen ce; Display in Medcin: YES; Display in ESB: YES; Confiden tiality Level: Level 1; Type: Diagnosi s Not Available [facility] 6 22:25:37 Laborato ry procedur e performe d [id number] Completed 201305/14/2016 Created By: DARBY FELDMAN; Modified By: JOAN GONGOAR; Category : DD; Medicine Descript ion: Laborato ry Studies; Display in Medcin: YES; Display in ESB: YES; Confiden tiality Level: Level 1; Type: Diagnosi s Sapna Edwin, DIRECTOR [employer] [facility] 7 14:53:46 Malaise and fatigue 798805785 Completed 201305/14/2016 Created By: DARBY FELDMAN; Modified By: JOAN GONGORA; Category : DD; Examiner : JOAN GONGORA; Medicine Descript ion: feeling tired or poorly; Display in Medcin: YES; Display in ESB: YES; Confiden tiality Level: Level 1; Type: Diagnosi s Sapna Edwin, DIRECTOR [employer] [facility] 7 14:53:51 Acute bronchit is 48650742 Completed 201305/14/2016 Created By: LISSET TRAN; Modified By: LISSET TRAN; Category : DD; Examiner : Lisset Tran; Medicine Descript ion: ACUTE BRONCHIT IS; Display in Medcin: YES; Display in ESB: YES; Confiden tiality Level: Level 1; Type: Diagnosi s Sapna Edwin, DIRECTOR [employer] null, [facility] 7 14:53:42 Spina bifida 74447265 Active 2014 Created By: JOAN GONGORA; Modified By: JOAN GONGORA; Category : DD; Examiner : Joan Gongora; Medicine Descript ion: CONGENIT AL SPINAL ANOMALY SPINA BIFIDA; Display in Medcin: YES; Display in ESB: YES; Confiden tiality Level: Level 1; Type: Diagnosi s Not Available [facility] 6 22:25:36 Otitis media 14129269 Completed 201405/14/2016 Created By: JOAN GONGORA; Modified By: JOAN GONGORA; Category : DD; Examiner : Joan Gongora; Medicine Descript ion: OTITIS MEDIA LEFT EAR; Display in Medcin: YES; Display in ESB: YES; Confiden tiality Level: Level 1; Type: Diagnosi s Sapna Edwin, DIRECTOR [employer] [facility] 7 14:53:57 Urinary incontin ence 938520531 Active 2014 Created By: JOAN GONGORA; Modified By: JOAN GONGORA; Category : DD; Examiner : Joan Gongora; Medicine Descript ion: URINARY INCONTIN ENCE; Display in Medcin: YES; Display in ESB: YES; Confiden tiality Level: Level 1; Type: Diagnosi s Not Available [facility] 6 22:25:36 Colostom y present 739663608 Active 2014 Created By: JOAN GONGORA; Modified By: JOAN GONGORA; Category : DD; Examiner : Joan Gongora; Medicine Descript ion: COLOSTOM Y STATUS; Display in Medcin: YES; Display in ESB: YES; Confiden tiality Level: Level 1; Type: Diagnosi s Not Available [facility] 6 22:25:36 [place] e [id number] Completed 201405/14/2016 Created By: JOAN GONGORA; Modified By: JOAN GONGORA; Category : DD; Examiner : Joan Gongora; Medicine Descript ion: CHOLELIT HIASIS; Display in Medcin: YES; Display in ESB: YES; Confiden tiality Level: Level 1; Type: Diagnosi s Sapna Edwin, DIRECTOR [employer] [facility] 7 14:53:49 Disorder of bursa of shoulder region 00085427 Completed 201405/14/2016 Created By: JOAN GONGORA; Modified By: JOAN GONGORA; Category : DD; Examiner : Joan Gongora; Medicine Descript ion: TENDONIT IS ROTATOR CUFF LEFT; Display in Medcin: YES; Display in ESB: YES; Confiden tiality Level: Level 1; Type: Jorje Pineda DIRECTOR [employer] [facility] 7 14:53:55 Iron deficien cy anemia 66224466 Completed 201405/14/2016 Created By: JOAN GONGORA; Modified By: JOAN GONGORA; Category : DD; Examiner : Joan Gongora; Medicine Descript ion: IRON DEFICIEN CY ANEMIA; Display in Medcin: YES; Display in ESB: YES; Confiden tiality Level: Level 1; [facility]: [facility] 7 14:54:08 Gastroes ophageal reflux disease without esophagi tis 836861911 Active 2016 JOAN GONGORA, KEIRY [address] [place] [address], [address] , [facility] 7 15:51:32 Problem Notes None recorded. Procedures Surgical History Date Name Laterality Status Provider Name and Address Organization Details Recorded Time 05/15/19 17 venipuncture completed Krystina Langston [facility] 05/14/2016 15:59:33 Eye Surgery completed Sapna Pineda LPN [facility] 09/13/2018 09:56:19 procedure on kidney completed Sapna Pineda LPN [facility] 09/13/2018 09:56:40 colostomy completed [facility] 04/25/2024 11:33:30 creation of cystoperitoneal shunt completed [facility] 04/25/2024 11:34:34 Imaging Results None recorded. Procedure Notes None recorded. Medical Equipment None Reported. Allergies Allergen ID Allergen Name Allergen Category Reaction Reaction Severity Criticality Documentation Date Start Date Code Code System Note Provider Name and Address Organization Details Recorded Time 43564 latex environme nt,medica tion itching Not available Not available 01/12/20162014 29402 91 RxNorm React ion: Itchi ng; Comme nt: Last Edite d: 08-08 14:45 :43; Not Available [facility] 6 04:02:15 39413 Tylenol medicatio n itching Not available Not available 01/12/2016201343 3 RxNorm React ion: Itchi ng; Comme nt: Last Edite d: 08-01 10:45 :21; Not Available [facility] 6 04:02:16 [address]71 Bactrim medicatio n myalgias (muscle pain) Not available Not available 04/25/2024 65605 9 RxNorm Janette garcia [facility] 5 11:25:29 Medications Name Sig Start Date Stop Date Status Note LastModified by Organization Details LastModified Time Prescript ion - Prior Authoriza tion Request active [facility] Not Available Not Available Not Available ondansetr on HCl 4 mg tablet TAKE 1 TABLET BY MOUTH every 8 HOURS Needed FOR nausea AND vomiting 04/25 completed Not Available Not Available Not Available ciproflox acin 500 mg tablet TAKE 1 TABLET BY MOUTH TWICE A DAY FOR 10 DAYS 10/17 completed Not Available Not Available Not Available sulfameth oxazole 800 mg-trimet hoprim 160 mg tablet TAKE 1 TABLET BY MOUTH TWICE DAILY 10/17 completed Not Available Not Available Not Available omeprazol e 40 mg capsule,d elayed release TAKE 1 CAPSULE BY MOUTH EVERY MORNING 10/17 completed Not Available Not Available Not Available omeprazol e 10 mg capsule,d elayed release 04/25 completed Not Available Not Available Not Available linezolid 600 mg tablet TAKE 1 TABLET BY MOUTH TWICE A DAY FOR 10 DAYS 10/17 completed Not Available Not Available Not Available ranitidin e 150 mg tablet TAKE ONE TABLET BY MOUTH IN THE EVENING 02/13 completed Not Available Not Available Not Available Pepcid 40 mg tablet Take 1 tablet every day by oral route. 02/16 completed Not Available Not Available Not Available lisinopri l 5 mg tablet TAKE 1 TABLET BY MOUTH DAILY 04/25 completed Not Available Not Available Not Available mupirocin 2 % topical ointment Apply to wound on back twice daily until healed. 04/25 completed Not Available Not Available Not Available levofloxa fortunato 500 mg tablet TAKE 1 TABLET BY MOUTH DAILY 04/25 completed Not Available Not Available Not Available levofloxa fortunato 750 mg tablet TAKE 1 TABLET BY MOUTH DAILY FOR 7 DAYS 04/25 completed Not Available Not Available Not Available sertralin e 50 mg tablet TAKE 1 TABLET BY MOUTH EVERY MORNING 04/25 completed Not Available Not Available Not Available amoxicill in 500 mg-potass ium clavulana te 125 mg tablet TAKE 1 TABLET BY MOUTH TWICE DAILY 04/25 completed Not Available Not Available Not Available Xyzal 5 mg tablet Take 1 tablet every day by oral route. 09/13 completed Not Available Not Available Not Available Protonix 40 mg granules delayed-r elease packet Take 1 packet every day by oral route. 02/20 completed Not Available Not Available Not Available Vitals Date Recorded Body height Body mass index (BMI) Body weight Body temperature Heart rate Oxygen saturation Respiratory rate Systolic And Diastolic Provider Name and Address Organization Details Last Updated DateTime 5 162.56 cm 39.5 kg/m2 942466. 25 g 99.4 [degF] 80 /min 98 % 18 /min 110/80 mm[Hg] Janette Bailey [facility] 5 11:32:08 Date Recorded Systolic And Diastolic Provider Name and Address Organization Details Last Updated DateTime 05/14/2016 118/72 mm[Hg] JOAN GONGORA NP [address], [address], [facility] 05/14/2016 15:43:27 Date Recorded Body height Body weight Body mass index (BMI) Body temperature Heart rate Oxygen saturation Respiratory rate Provider Name and Address Organization Details Last Updated DateTime 7 162.56 cm 15412.3 6 g 36.9 kg/m2 97.7 [degF] 107 /min 97 % 18 /min Sapna Pineda LPN [facility] 7 14:51:34 Date Recorded Body weight Body temperature Heart rate Oxygen saturation Respiratory rate Body mass index (BMI) Body height Systolic And Diastolic Provider Name and Address Organization Details Last Updated DateTime 8 91783.3 6 g 97 [degF] 86 /min 97 % 20 /min 36.9 kg/m2 162.56 cm 118/76 mm[Hg] Zonia Oj [facility] 8 09:21:31 Date Recorded Body height Body mass index (BMI) Body weight Heart rate Oxygen saturation Respiratory rate Body temperature Systolic And Diastolic Provider Name and Address Organization Details Last Updated DateTime 9 162.56 cm 36.9 kg/m2 15847.3 6 g 88 /min 97 % 18 /min 97.1 [degF] 128/68 mm[Hg] Sapna Pineda LPN [facility] 9 10:04:11 Date Recorded Body height Body temperature Heart rate Oxygen saturation Respiratory rate Systolic And Diastolic Provider Name and Address Organization Details Last Updated DateTime 5 162.56 cm 100.5 [degF] 112 /min 98 % 18 /min 112/74 mm[Hg] Leigh Ann Cartwright [facility] 5 15:01:45 Social History Question Answer Notes LastModified by Organizat ion Details LastModified Time Tobacco Smoking Status Former Smoker Sapna Pineda LPN [facility] 05/14/2016 14:55:23 Do You Have An Advance Directive? No Information not available 05/14/2016 Are You Blind Or Do You Have Difficulty Seeing? Yes Wears Glasses Information not available 04/25/2024 Is Blood Transfusion Acceptable In An Emergency? Yes Information not available 10/17/2024 What Is Your Level Of Caffeine Consumption? Heavy Information not available 05/14/2016 How Much Tobacco Do You Chew? None Information not available 05/14/2016 Commercial Sex Work No Information not available 05/14/2016 In The 14 Days Before Symptom Onset, Have You Had Close Contact With A [facility] centered COVID-19 While That Case Was Ill? No Information not available 04/25/2024 In The 14 Days Before Symptom Onset, Have You Had Close Contact With A Person Who Is Under Investigation For COVID-19 While That Person Was Ill? No [email or web address] Information not available 04/25/2024 Have You Been To An Area Known To Be High Risk For COVID-19? No [email or web address] Information not available 04/25/2024 Are You Deaf Or Do You Have Serious Difficulty Hearing? No [email or web address] Information not available 04/25/2024 What Type Of Diet Are You Following? REGULAR Information not available 05/14/2016 Which Illicit Or Recreational Drugs Have You Used? None Information not available 05/14/2016 Have You Processed Blood Or Body Fluids From An Ebola Virus Disease Patient Without Appropriate PPE? No Information not available 04/25/2024 Education 12 Information no t available 05/14/2016 What Is The Highest Grade Or Level Of School You Have Completed Or The Highest Degree You Have Received? [id number] Information not available 10/17/2024 Are There Any Guns Present In Your Home? Yes Information not available 05/14/2016 Hard Of Hearing Or Deaf In One Or Both Ears? No Information not available 05/14/2016 High Number Of Sexual Partners No Information not available 05/14/2016 History Of Inconsistent/no Condom Use No Information not available 05/14/2016 International Travel None Information not available 05/14/2016 Legally Blind In One Or Both Eyes? No Information not available 05/14/2016 In The Past 6 Months Have You Fallen No Information not available 05/14/2016 Medication List Reconciled Yes Information not available 09/13/2018 What Number (0-10) Best Describes How, During The Past Week, Has Interfered With Your General Activity? 0 Information not available 05/14/2016 What Number (0-10) Best Describes How, During The Past Week, Pain Has Interfered With Your Enjoyment In The Past Week 0 Information not available 05/14/2016 What Number (0-10) Best Describes Your Pain On Average In The Past Week 2 [email or web address] Information not available 06/17/2017 Total PEG Score 2 [email or web address] Informati on not available 06/17/2017 Sexual Orientation Straight Or Hererosexual Information not available 06/17/2017 Gender Identity Male [email or web address] Informati on not available 06/17/2017 Eye Exam 02/09/2016 [email or web address] Information no t available 06/17/2017 Do You Feel Safe Yes Informat ion not available 09/13/2018 Marital Status Informatio n not available 05/14/2016 What Was The Date Of Your Most Recent Tobacco Screening? 10/17/2024 Information not available 10/17/2024 Mother With HIV? No Informat ion not available 05/14/2016 Do You Use Your Seat Belt Or Car Seat Routinely? Yes Information not available 10/17/2024 Seat Belts Used Routinely Yes Information not available 05/14/2016 Are You Sexually Active? Yes Information not available 09/13/2018 Sexual Partner Has HIV? No Information not available 05/14/2016 Sexual Partner Uses IV Drugs? No Information not available 05/14/2016 Smoke Alarm In Home Yes Information not available 05/14/2016 How Much Tobacco Do You Smoke? No Information not available 09/13/2018 General Stress Level High Information not available 05/14/2016 Do You Use Sunscreen Routinely? No Information not available 05/14/2016 How Many Years Have You Smoked Tobacco? 1.5 Information not available 05/14/2016 Have You Used IV Drugs? No Information not available 05/14/2016 Do You Have Difficulty Walking Or Climbing Stairs? Yes Information not available 04/25/2024 Sex: Male Functional Status Question Answer Note LastModified by Organizat ion Details LastModified Time Do you or have you ever used smokeless tobacco? Never used smokeless tobacco Information not available 09/13/2018 Are you currently employed? No Information not available 10/17/2024 Do you have transportation difficulties? No Information not available 10/17/2024 Are you able to care for yourself independently? Yes [email or web address] Information not available 04/25/2024 Do you have difficulty dressing, bathing, grooming, or toileting? No Information not available 10/17/2024 Do you or have you ever used e-cigarettes or vape? Never used electronic cigarettes Information not available 09/13/2018 What is your exercise level? Moderate Information not available 05/14/2016 Do you use any illicit or recreational drugs? No Information not available 10/17/2024 Do you or have you ever used any other forms of tobacco or nicotine? No Information not available 10/17/2024 What is your level of alcohol consumption? Occasional Information not available 05/14/2016 Are you able to walk independently without assistance or assistive devices? [email or web address] Information not available 05/14/2016 Do you have difficulty doing errands alone? 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 [id number] [email or web address] Information not available 10/17/2024 Do you have difficulty concentrating, remembering or making decisions? No [email or web address] Information no t available 04/25/2024 Family History Relationship Description Onset Age of this Age Resolved Age Notes LastModified by Organization Details LastModified Time Paternal Grandmother Heart disease Not available 2016 14:54:34 Maternal Grandmother Hypertensive disorder Not available 2016 14:54:46 Maternal Grandmother Malignant neoplastic disease Not available 2016 14:55:00 Father No current problems or disability Not available 09/13 09:57:46 Mother No current problems or disability Not available 09/13 09:57:46 Medical History Condition Response Incontinence Y Bladder or Kidney Problems Y Kidney Stones Y Urinary Problems Y Immunizations Vaccine Type Date Status Note Provider Ta del cid and Address Organization Details Recorded Time DTP 0 completed Not Available [facility] 10/17/2024 15:10:29 polio, unspecified formulation 0 completed Not Available [facility] 10/17/2024 15:10:29 DTP 0 completed Not Available [facility] 10/17/2024 15:10:29 polio, unspecified formulation 0 completed Not Available [facility] 10/17/2024 15:10:29 DTP 0 completed Not Available [facility] 10/17/2024 15:10:29 Hib (PRP-T) 1 completed Not Available [facility] 10/17/2024 15:10:29 DTP 1 completed Not Available [facility] 10/17/2024 15:10:29 polio, unspecified formulation 1 completed Not Available [facility] 10/17/2024 15:10:29 MMR 1 completed Not Available [facility] 10/17/2024 15:10:29 Hep B, unspecified formulation 9 completed Not Available [facility] 10/17/2024 15:10:29 Hep B, unspecified formulation 9 completed Not Available [facility] 10/17/2024 15:10:29 Hep B, unspecified formulation 1 completed Not Available [facility] 10/17/2024 15:10:29 Past Encounters Encounter ID Performer Location Encounter Start Date Encounter Closed Date Diagnosis/Indication Diagnosis SNOMED-CT Code Diagnosis ICD10 Code Diagnosis IMO Codes Diagnosis Note [id number] Tesha Guerra MD [facility] [address] [place] [address] 05/14/2016 14:38:45 05/15/2016 12:40:50 Adult health examination 848614219 Z00.00 Viral screening 57130584 4 Z11.59 Colostomy present 630061 009 Z93.3 Urinary incontinence 165 947651 R32 Dependence on wheel chair 890869127 Z99.3 Spina bifida 69746383 Q0 5.9 Gastroesop hageal reflux disease without esophagitis 630322208 K21.9 Iron deficiency 08170586 E61.1 [id number] Dipak Gil DO [facility] [address] [place] [address] 06/17/2017 09:13:36 06/17/2017 09:53:33 Spina bifida 05114707 Q05.9 Dependence on wheel chair 496765766 Z99.3 Allergic rhinitis 994553 04 J30.1 Discussed steriod injections every 3 months and nasal spray to help ease allergy symptoms. Recommende d claritin daily. Pt refused to use nasal spray but is willing to start back on a Antihistam ine daily. Gastroesop hageal reflux disease without esophagitis 202871915 K21.9 [id number] Dipak Gil [facility] [address] [place] [address] 09/13/2018 09:48:46 09/13/2018 11:21:44 Diet education 87733975 Z71.3 Discussed the importance of maintainin g a healthy diet. Exercises education, guidance, and counseling 028576401 Z71.82 Discussed the importance of maintainin g an active lifestyle. Finding of body mass index 507387557 E66.9 Spina bifida 03072637 Q0 5.9 [id number] TANNA GR [facility] [address] [place] [address] 04/25/2024 10:37:54 04/26/2024 16:15:48 Spina bifida 66667958 Q05.[address] for wheelchair and wheelchair repair to [facility]. Colostomy present 387812 009 Z93.3 Receives colostomy supplies from [employer] Urinary incontinence 165 542783 R32 Self-caths and receives his supplies from [facility] [employer] Dependence on wheel chair 852971642 Z99.3 [id number] TANNA GR [facility] [address] [place] [address] 10/17/2024 14:51:47 10/18/2024 08:35:36 Spina bifida 41739753 Q05.9 Fishing Permit Exemption Statement of Eligibilit y and Hunting Method Exemption Statement (for hunting from a vehicle) forms were completed and provided to the patient. Dependence on wheel chair 732749643 Z99.3 Body mass index 30+ - obesity 261734408 E66.9 7918515 Diet education 43542538 Z71.3 Exercises education, guidance, and counseling 644325876 Z71.82 Adult heal th examination 044705940 Z00.01 [id number] Patient presented to office today for their Medicare Annual Wellness Visit. He follows with infectious disease specialist Radha Barragan MD, at [facility] in [place]. Medical records will be contacted to obtain his recent lab results. He also follows with Dr. Pereira for management of a pressure ulcer. Health Concerns Section Related Observation LastModified by Organization Detai ls LastModified Time None Recorded Concern Status LastModified by Organization Details LastModified Time None Recorded Advance Directives Directive N: Payers Insurance Date Sequence Insurance Name Policy Number Policy Corbett Covered Member ID Corbett Member ID Guarantor Name 10/16/2024 2 [place] Nico Nae Javier [id number] Nico Nae Javier 10/16/2024 NGS [facility] [place] - [facility] (MEDICARE) Nico Herrera [id number] Nico Herrera 10/24/2024 1 [place] Nico Del Cid Javier [id number] Nico Del Cid Javier Notes Date Note Type Note Provider Name and Address Organization Details Recorded Time 05/14/2016 text/html He states he needs a new wheel chair. His current wheelchair's front wheel has been repaired in the past and does not roll well. Front plate is falling off, tires are bad, and the back rest keeps coming off. This is a health hazard and significantly increases risk of falls. He has paraplegia and has little to no use of his legs at all.He needs new colostomy bag and supplies. He changes the bag and everything once a day. He denies any breakdown and stoma is pink. He uses adhesive paste.He uses a self cath 14Fr five times a day and as needed. He is in need of supplies for that as well.He is in school and is very active. 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 He uses his upper body to lift himself often but does not perform specific exercises or weight lifting. JOAN GONGORA NP [address], [address], [facility] 05/14/2016 21:31:08 06/17/2017 text/html Here for face to face visit to discuss manual wheelchair needs. Mobility limitations - Unable to stand, Limited ADL'S, He is not fit for cane or walker. Sufficient upper ext function to safely propel manual wheelchair. He reports he has no trouble operating the wheelchair. He has been using a custom lightweight wheel chair. He has been diagnosed with spina bifida and is unable to stand. He is currently living by himself. His daily activities are limited. He spends around 16 hours per day in the wheelchair. He also needs a cushion for his wheel chair for his butt but doesn't need one for his back. He complains of trouble with seasonal allergies. Dipak garcia, [facility] 06/17/2017 09:54:41 09/13/2018 text/html Pt is here needing paperwork filled out so they can have a new wheelchair. Pt states the frame on their last wheelchair broke. Dipak garcia, [facility] 02/20/2019 10:30:29 04/25/2024 text/html Patient is in need of a new wheel chair. His current wheelchair's front plate is broke and also has a screw missing from a wheel. This is a health hazard and significantly increases risk of falls. He has paraplegia and has little to no use of his legs at all. . He also has a colostomy and gets his supplies from [employer]. He uses a self cath 14Fr 4-5 five times a day and as needed. Currently going to wound clinic for his pressure sore on left buttock. Home health has been coming out once weekly but they are going to be discharged soon. Keyona Chavez NP [address], [address], [facility] 04/26/2024 11:16:01 10/17/2024 text/html Medicare Annual Wellness VisitReported by PatientSocial/Behavior al HistoryFor fracture risk, patient reportshistory of fracturesbut reportsno recent explained fracture,no sudden unexplained fractures, andno previous musculoskeletal injuries. For diet and nutrition, patient reportshealthy diet. For physical activity, patient reportsexercises on a regular basis,recent increase in physical activity, andgood physical condition.Mental Status:For depression risk, patient reportsnever feels sad, empty, or tearful,no loss of interest in activities,no significant changes in weight,no sleep disturbances or insomnia,no agitation,no loss of energy,no feelings of worthlessness or guilt,no thoughts of suicide,no history of depression, andno history of mood disorders. For orientation, patient reportsno disorientation to time,no disorientation to date, andno disorientation to place. For concentration and memory, patient reportsno decreased concentrating ability,no memory lapses or loss, anddoes not forget words. For speech/motor difficulties, patient reportsno speech difficulties,no difficulty expressing formulated concepts,no difficulty with fine manipulative tasks,no difficulty writing/copying,no slowed reaction time, anddoes not knock things over when trying to pick them up.Functional AbilityFor activities of daily living, patient reportsunable to contol urination and bowelsbut reportsable to bathe with limited or no assistance,able to dress with limited or no assistance,able to feed self with limited or no assistance,able to get out of chair or bed with limited or no assistance,able to groom with limited or no assistance, andable to toilet with limited or no assistance. For home safety, patient reportsfire armsanddoes not have hand bars in the bathroom/showerbut reportsno unsafe joelle hazzards,no unsafe stairs,no unsafe gas appliances,working smoke/co detectors,wears protective head gear for biking/high velocity,use of seatbelts,practicing 'safer sex',no vision or hearing loss while driving, andgood lighting in the home. For hearing, patient reportsno loss of hearing. For vision, patient reportsno vision problems. For instrumental activities of daily living, patient reportsable to do house work with limited or no assistance,able to grocery shop with limited or no assistance,able to manage medications with limited or no assistance,able to manage money with limited or no assistance,able to prepare meals with limited or no assistance, andable to use the phone with limited or no assistance. For falls risk assessment, patient reportsno frequent falls while walking,no fall in the past year,no fall since last visit, andno dizziness/vertigo. Here for Medic[facility] Wellness exam. Patient has spina bifida and uses a wheelchair. 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 Keyona Chavez NP [address], [address], [facility] 10/17/2024 16:22:26
--- OUTSIDE RECORDS SUMMARY | 2025-01-01 12:41 | XMS_ITS | Continuity of Care Document ---
Author Organization [facility] Address [address] [place] [address] Assessment No assessment recorded. Plan of Treatment Reminders Order Date Submit Date Provider Last Modified By Organization Details Last Modified Time Details Appointments None record ed. Lab None record ed. Referral None record ed. Procedures None record ed. Surgeries None record ed. Imaging None record ed. Medication Orders None record ed. Patient TargetsNo targets recorded. Patient Instructions Encounter Date Encounter Id Patient Instructions Last Modified By Organization Details Last Modified Time 10/17/2024 [id number] heart-healthy diet: care instructions Not available 10/18/2024 09:59:45 walking for exercise: care instructions Not available 10/18/2024 09:59:45 Reason for Referral None Reported. Problems Name Problem SNOMED Code Status Onset Date Resolution Date Notes Provider Name and Address Organization Details Recorded Time Urinary tract infectio us disease 95800561 Completed 201305/14/2016 Created By: DARBY FELDMAN; Modified By: JOAN ECHAVARRIA; Category : DD; Examiner : Joan Echavarria; Medicine Descript ion: URINARY TRACT INFECTIO N; Display in Medcin: YES; Display in ESB: YES; Confiden tiality Level: Level 1; Type: Jorje Pineda LPN [facility] 7 14:54:02 Dependen ce on wheel chair 109182824 Active 2013 Created By: DARBY FELDMAN; Modified By: JOAN ECHAVARRIA; Category : DD; Examiner : Joan Echavarria; Medicine Descript ion: physical disabili ty: wheelcha ir dependen ce; Display in Medcin: YES; Display in ESB: YES; Confiden tiality Level: Level 1; Type: Diagnosi s Not Available [facility] 6 22:25:37 Laborato ry procedur e performe d [id number] Completed 201305/14/2016 Created By: DARBY FELDMAN; Modified By: JOAN ECHAVARRIA; Category : DD; Medicine Descript ion: Laborato ry Studies; Display in Medcin: YES; Display in ESB: YES; Confiden tiality Level: Level 1; Type: Diagnosi s [facility] 7 14:53:46 Malaise and fatigue 499717888 Completed 201305/14/2016 Created By: DARBY FELDMAN; Modified By: JOAN ECHAVARRIA; Category : DD; Examiner : JOAN ECHAVARRIA; Medicine Descript ion: feeling tired or poorly; Display in Medcin: YES; Display in ESB: YES; Confiden tiality Level: Level 1; Type: Diagnosi s [facility] 7 14:53:51 Acute bronchit is 29211844 Completed 201305/14/2016 Created By: LISSET DAVE; Modified By: LISSET DAVE; Category : DD; Examiner : Lisset Dave; Medicine Descript ion: ACUTE BRONCHIT IS; Display in Medcin: YES; Display in ESB: YES; Confiden tiality Level: Level 1; Type: Diagnosi s [facility] 7 14:53:42 Spina bifida 21730816 Active 2014 Created By: JOAN ECHAVARRIA; Modified By: JOAN ECHAVARRIA; Category : DD; Examiner : Joan Echavarria; Medicine Descript ion: CONGENIT AL SPINAL ANOMALY SPINA BIFIDA; Display in Medcin: YES; Display in ESB: YES; Confiden tiality Level: Level 1; Type: Diagnosi s Not Available [facility] 6 22:25:36 Otitis media 57762619 Completed 201405/14/2016 Created By: JOAN ECHAVARRIA; Modified By: JOAN ECHAVARRIA; Category : DD; Examiner : Joan Echavarria; Medicine Descript ion: OTITIS MEDIA LEFT EAR; Display in Medcin: YES; Display in ESB: YES; Confiden tiality Level: Level 1; Type: Diagnosi s Sapna Edwin, [employer] null, [facility] 7 14:53:57 Urinary incontin ence 693119292 Active 2014 Created By: JOAN ECHAVARRIA; Modified By: JOAN ECHAVARRIA; Category : DD; Examiner : Joan Echavarria; Medicine Descript ion: URINARY INCONTIN ENCE; Display in Medcin: YES; Display in ESB: YES; Confiden tiality Level: Level 1; Type: Diagnosi s Not Available [facility] 6 22:25:36 Colostom y present 510885857 Active 2014 Created By: JOAN ECHAVARRIA; Modified By: JOAN ECHAVARRIA; Category : DD; Examiner : Joan Echavarria; Medicine Descript ion: COLOSTOM Y STATUS; Display in Medcin: YES; Display in ESB: YES; Confiden tiality Level: Level 1; Type: Diagnosi s Not Available [facility] 6 22:25:36 Stephen del cid 603062074 Completed 201405/14/2016 Created By: JOAN ECHAVARRIA; Modified By: JOAN ECHAVARRIA; Category : DD; Examiner : Joan Echavarria; Medicine Descript ion: CHOLELIT HIASIS; Display in Medcin: YES; Display in ESB: YES; Confiden tiality Level: Level 1; Type: Diagnosi s Sapna Edwin, [employer] null, [facility] 7 14:53:49 Disorder of bursa of shoulder region 61928554 Completed 201405/14/2016 Created By: JOAN ECHAVARRIA; Modified By: JOAN ECHAVARRIA; Category : DD; Examiner : Joan Echavarria; Medicine Descript ion: TENDONIT IS ROTATOR CUFF LEFT; Display in Medcin: YES; Display in ESB: YES; Confiden tiality Level: Level 1; Type: Diagnosi s Sapna Edwin, [employer] [facility] 7 14:53:55 Iron deficien cy anemia 57541415 Completed 201405/14/2016 Created By: JOAN ECHAVARRIA; Modified By: JOAN ECHAVARRIA; Category : DD; Examiner : Joan Echavarria; Medicine Descript ion: IRON DEFICIEN CY ANEMIA; Display in Medcin: YES; Display in ESB: YES; Confiden tiality Level: Level 1; Type: [facility] 7 14:54:08 Gastroes ophageal reflux disease without esophagi tis 999562276 Active 2016 JOAN ECHAVARRIA, KEIRY [address] [place] [address], [id number] , [facility] 7 15:51:32 Problem Notes None recorded. Procedures Surgical History Date Name Laterality Status Provider Name and Address Organization Details Recorded Time 05/15/19 17 venipuncture completed Krystina Langston [facility] 05/14/2016 15:59:33 Eye Surgery completed Sapna Pineda LPN [facility] 09/13/2018 09:56:19 procedure on kidney completed Sapna Pineda [employer] [facility] 09/13/2018 09:56:40 colostomy completed [facility] 04/25/2024 11:33:30 creation of cystoperitoneal shunt completed [facility] 04/25/2024 11:34:34 Imaging Results None recorded. Procedure Notes None recorded. Medical Equipment None Reported. Allergies Allergen ID Allergen Name Allergen Category Reaction Reaction Severity Criticality Documentation Date Start Date Code Code System Note Provider Name and Address Organization Details Recorded Time 92702 latex environme nt,medica tion itching Not available Not available 01/12/20162014 07910 91 RxNorm React ion: Itchi ng; Comme nt: Last Edite d: 08-08 14:45 :43; Not Available [facility] 6 04:02:15 28861 Tylenol medicatio n itching Not available Not available 01/12/2016201343 3 RxNorm React ion: Itchi ng; Comme nt: Last Edite d: 08-01 10:45 :21; Not Available [facility] 6 04:02:16 85189 Bactrim medicatio n myalgias (muscle pain) Not available Not available 04/25/2024 07456 9 RxNorm Janette garcia [facility] 11:25:29 Medications Name Sig Start Date Stop Date Status Note LastModified by Organization Details LastModified Time Prescript ion - Prior Authoriza tion Request active [facility] Not Available Not Available Not Available [email or web address] [...] Available Vitals Date Recorded Body height Body temperature Heart rate Oxygen saturation Respiratory rate Systolic And Diastolic Provider Name and Address Organization Details Last Updated DateTime 5 162.56 cm 100.5 [degF] 112 /min 98 % 18 /min 112/74 mm[Hg] [facility] 5 15:01:45 Social History Question Answer Notes LastModified by Organizat ion Details LastModified Time Tobacco Smoking Status Former Smoker Sapna Pineda LPN [facility] 05/14/2016 14:55:23 Do You Have An Advance [...] Have You Had Close Contact With A Laboratory-[facility] COVID-19 While That Case Was Ill? No [email or web address] Information not available 04/25/2024 In The 14 Days Before Symptom Onset, Have You Had Close Contact With A Person Who Is Under Investigation For COVID-19 While That Person Was Ill? No [email or web address] Information not available 04/25/2024 Have You Been To An Area Known To Be High Risk For COVID-19? No [email or web address] Information not available 04/25/2024 Are You Deaf Or Do You Have Serious Difficulty Hearing? No [email or web address] Information not available 04/25/2024 What Type Of Diet Are You Following? REGULAR Information not available 05/14/2016 Which Illicit Or Recreational Drugs Have You Used? None Information not available 05/14/2016 Have You Processed Blood Or Body Fluids From An Ebola Virus Disease Patient Without Appropriate PPE? No [email or web address] Information not available 04/25/2024 Education 12 Information no t available 05/14/2016 What Is The Highest Grade Or Level Of School You Have Completed Or The Highest Degree You Have Received? [id number] Information not available 10/17/2024 Are There Any [...] On Average In The Past Week 2 [email or web address] Information not available 06/17/2017 Total PEG Score 2 [email or web address] Informati on not available 06/17/2017 Sexual Orientation Straight Or Hererosexual [email or web address] Information not available 06/17/2017 Gender Identity Male [email or web address] Informati on not available 06/17/2017 Eye Exam 02/09/2016 [email or web address] Information no t available 06/17/2017 Do You [...] Have Difficulty Walking Or Climbing Stairs? Yes [email or web address] Information not available 04/25/2024 Sex: Male Functional Status Question Answer Note LastModified by Organizat ion Details LastModified Time Do you or have you ever used smokeless tobacco? Never used smokeless tobacco Information not available 09/13/2018 Are you currently employed? No Information not available 10/17/2024 Do you have transportation difficulties? No Information not available 10/17/2024 Are you able to care for yourself independently? Yes [email or web address] Information not available 04/25/2024 Do you have difficulty dressing, bathing, grooming, or toileting? No Information not available 10/17/2024 Do you or have you ever used e-cigarettes or vape? Never used electronic cigarettes Information not available 09/13/2018 What is your exercise level? Moderate Information not available 05/14/2016 Do you use any illicit or recreational drugs? No [facility] Information not available 10/17/2024 Do you or have you ever used any other forms of tobacco or nicotine? No [facility] Information not available 10/17/2024 What is your level of alcohol consumption? Occasional Information not available 05/14/2016 Are you able to walk independently without assistance or assistive devices? [email or web address] Information not available 05/14/2016 Do you have difficulty doing errands alone? 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 [id number] [facility] Information not available 10/17/2024 Do you have difficulty concentrating, remembering or making decisions? No Information no t available 04/25/2024 Family History [...] Immunizations Vaccine Type Date Status Note Provider Nam e and Address Organization Details Recorded Time DT 0 completed Not Available [facility] 10/17/2024 15:10:29 polio, unspecified formulation 0 completed Not Available [facility] 10/17/2024 15:10:29 DTP 0 completed Not Available [facility] 10/17/2024 15:10:29 polio, unspecified formulation 0 completed Not Available [facility] 10/17/2024 15:10:29 DTP 0 completed Not Available [facility] 10/17/2024 15:10:29 Hib (PRP-T) 1 completed Not Available [facility] 10/17/2024 15:10:29 DTP 1 completed Not Available [facility] 10/17/2024 15:10:29 polio, unspecified formulation 1 completed Not Available [facility] 10/17/2024 15:10:29 MMR 1 completed Not Available [facility] 10/17/2024 15:10:29 Hep B, unspecified formulation 9 completed Not Available [facility] 10/17/2024 15:10:29 Hep B, unspecified formulation 9 completed Not Available [facility] 10/17/2024 15:10:29 Hep B, unspecified formulation 1 completed Not Available [facility] 10/17/2024 15:10:29 Past Encounters Encounter ID Performer Location Encounter Start Date Encounter Closed Date Diagnosis/Indication Diagnosis SNOMED-CT Code Diagnosis ICD10 Code Diagnosis IMO Codes Diagnosis Note [id number] TANNA GR DO [facility] [address] [place] [address] 10/17/2024 14:51:47 10/18/2024 08:35:36 Spina bifida 77400167 Q05.9 Fishing Permit Exemption Statement of Eligibilit y and Hunting Method Exemption Statement (for hunting from a vehicle) forms were completed and provided to the patient. Dependence on wheel chair 211057734 Z99.3 Body mass index 30+ - obesity 564413873 E66.9 1528412 Diet education 29867578 Z71.3 Exercises education, guidance, and counseling 608973464 Z71.82 Adult heal th examination 450617160 Z00.01 [id number] Patient presented to office today for their Medicare Annual Wellness Visit. He follows with infectious disease specialist Radha Barragan MD, at [facility] in [place]. Medical records will be contacted to obtain his recent lab results. He also follows with Dr. Pereira for management of a pressure ulcer. Health Concerns Section Related Observation LastModified by Organization Detai ls LastModified Time None Recorded Concern Status LastModified by Organization Details LastModified Time None Recorded Payers Encounter Date Sequence Insurance Name Policy Number Policy Corbett Covered Member ID Corbett Member ID Guarantor Name 10/17/2024 1 [place] Nico Herrera [id number] Nico Herrera 10/17/2024 2 [place] Nico Herrera [id number] Nico Del Cid Javier Notes Date Note Type Note Provider Name and Address Organization Details Recorded Time 10/17/2024 text/html Medicare Annual Wellness VisitReported by [...] no assistance. For home safety, patient reportsfire prasannadoes not have hand bars in the bathroom/showerbut [...] from his truck. Keyona Chavez NP [address], [place], [address], [facility] 10/17/2024 16:22:26
--- NOTE | 2025-01-01 13:56 | PC.PHAR ---
Pt states he no longer takes any medications.
[2025-01-01 14:07] LABS: Hematocrit 32.6 % (37-53); Hemoglobin 10.00 g/dL (11.27-16.99); Mean Corpuscular HGB Conc 30.7 g/dL (30-55); Mean Corpuscular Hemoglobin 21.6 pg (27-33); Mean Corpuscular Volume 70.4 fl (82-101); Nucleated Red Blood Cells % 0 %; Platelet Count 494 10^3/cmm (157-399); Red Blood Count 4.63 10^6/uL (3.85-5.65); White Blood Count 16.09 10^3/uL (3.29-11.43)
[2025-01-01 14:24] LABS: Alanine Aminotransferase 25 U/L (0-41); Albumin Level 3.0 g/dL (3.5-5.2); Alkaline Phosphatase 73 U/L (40-130); Anion Gap 18.9 (5-19); Aspartate Amino Transferase 16 U/L (0-40); Blood Urea Nitrogen 11 mg/dL (6-20); Calcium 8.7 mg/dL (8.5-10.5); Carbon Dioxide 17 mmol/L (22-29); Chloride 102 mmol/L (98-107); Globulin 4.3 g/dL (1.3-4.6); Glucose 123 mg/dL (65-115); Osmolality Calculated 279 mOsm/kg (285-295); Potassium 3.9 mmol/L (3.5-5.1); Sodium 134 mmol/L (136-145); Total Protein 7.3 g/dL (6.6-8.7)
[2025-01-01 14:27] LABS: Lactic Sepsis W/Reflex 1.0 mmol/L (0.5-2.2)
[2025-01-01] MEDS: linezolid premix 600 MG/300 ML PREMIX 300 MG IV (14:50)
--- NOTE | 2025-01-01 14:55 | PM.CONSULT ---
Providers/Reason For Consult Consulting Physician/Specialty*: Dr. Gibson general surgery Reason for Consult*: Decubitus ulcer Primary Care Provider: LUIS Coleman History of Present Illness History of Present Illness Nico Herrera is a 34 year old male surgery was consulted to evaluate decubitus ulcer buttocks. It is a stage IV decubitus ulcer with exposure of bone. No purulence. No devitalized tissue. Adequate drainage and tissue at wound base. No surrounding cellulitis. No fluctuance. Medications/Allergies Home Medications ?Medication ?Instructions ?Recorded ?Confirmed ?Last Taken ?Type catheter 16 Fr #150 ea 07/03/20 01/01/25 02/24/23 Rx colostomy bags #30 ea 07/03/20 01/01/25 02/24/23 Rx ostomy adhesive (Stomahesive Paste) #2 tubes 07/03/20 01/01/25 02/24/23 Rx ostomy supplies 4 X 4 wafer #20 wafers 07/03/20 01/01/25 02/24/23 Rx WHEELCHAIR #1 ea 07/30/22 01/01/25 02/24/23 Rx ibuprofen 200 mg tablet 800 mg PO BID PRN Pain 08/14/22 01/01/25 02/24/23 History WHEELCHAIR REPAIRS #1 ea 02/16/23 01/01/25 02/24/23 Rx wheels for wheelchair #1 ea 10/04/23 01/01/25 Unknown Rx Wheelchair #1 ea 02/08/24 01/01/25 Unknown Rx miscellaneous medical supply #1 ea 03/30/24 01/01/25 Unknown Rx Allergies Allergy/AdvReac Type Severity Reaction Status Date / Time daptomycin Allergy Severe ADR-Muscle Verified 07/17/24 10:57 Pain sulfamethoxazole (From Allergy Mild ADR-Itching Verified 03/13/24 12:54 Bactrim) trimethoprim (From Bactrim) Allergy Mild ADR-Itching Verified 03/13/24 12:54 acetaminophen (From Tylenol) Allergy itching Verified 03/13/24 12:54 latex Allergy rash Verified 03/13/24 12:54 Current Medications Generic Name Dose Route Start Last Admin Trade Name Freq PRN Reason Stop Dose Admin Sodium Chloride 500 mls @ 999 mls/hr 01/01/25 14:31 01/01/25 14:51 Sodium Chloride 0.9% IV 01/01/25 15:01 999 mls/hr .Q31M STA Administration PFSH Acute PFSH: Medical History (Updated 01/01/25 @ 19:31 by Haylee Dutta NP) Pressure injury of left buttock, stage 4 Wheelchair dependent Single functional kidney Vitamin D deficiency Medication management Hypertension screen Essential hypertension Anxiety Pressure ulcer caused by device Congenital imperforate anus Neurogenic bladder Spina bifida aperta of lumbar spine Glaucoma Surgical History History of right nephrectomy 2013 [facility] Colostomy status Status post ventriculo-peritoneal shunt placement Status post hip surgery Bilateral pin surgery Family History Other Spina bifida Social History Smoking and tobacco/nicotine status: former use of tobacco/nicotine Alcohol intake: never Substance/Drug Use: never Vitals/I&O/Wt Last Vital Signs Temp 101.9 F H 01/01/25 12:15 Pulse 99 01/01/25 13:48 Resp 16 01/01/25 13:48 BP 108/67 01/01/25 13:48 Pulse Ox 99 01/01/25 13:48 O2 Del Method Room Air 01/01/25 13:03 Weight last 48 hrs Weight 200 lb Physical Exam Narrative: Chest: Unlabored breathing room air. No lymphadenopathy. Heart: Regular rate and rhythm. Abdomen: Soft, nontender, nondistended. No masses or lymphadenopathy. Left buttock: Stage IV decubitus ulcer down to bone. Granulation tissue at wound base. No cellulitis. No fluctuance. No abscess. Data 01/02/25 15:45 01/02/25 05:44 Micro: Microbiology 01/01/25 13:40 Blood Culture - Preliminary Blood SPECIMEN COLLECTED 01/01/25 13:41 Blood Culture - Preliminary Blood SPECIMEN COLLECTED A&P Assessment and plan 1. Decubitus ulcer: Plan: 34-year-old male with a decubitus ulcer left buttock stage IV down to bone. Known to wound care. No indication for surgical debridement. Recommend packing with moistened Kerlix with half-strength Dakin's. Frequent pressure offloading. Recommend an air mattress. Continue follow-up with wound care. Rest of care per hospitalist. PDMP PDMP Reviewed: Not Reviewed Coding Level of Care Code 57354 Diagnoses Decubitus ulcer L89.90
[2025-01-01 15:18] LABS: Glucose Urine UA Negative (Normal); Nitrate Urine Negative (Negative); Specific Gravity, Urine 1.012 (1.005-1.030)
[2025-01-01 15:22] LABS: Universal Test for UA Present (0)
[2025-01-01 15:36] LABS: UA Slide Review UA Slide Review Perf
--- NOTE | 2025-01-01 16:44 | PM.HP ---
Providers/Chief Complaint Primary Care Provider: LUIS Coleman Chief Complaint: chills, fever, has a sore on L side bottom History of Present Illness Nico Herrera is a 34 year old male HTN, spina bifida / paraplegia (c/b neurogenic bladder, RABBLE FURNACE TENDER shunt in situ), solitary kidney (s/p right nephrectomy), congenital imperforate anus, chronic osteomyelitis involving left ischial tuberosity, chronic pressure ulcer and anxiety. Wheelchair-bound at baseline. Patient [place] [facility] [place] out of concern for infected ischial pressure wound. Patient reports having a chronic issue that is likely surgical debridement due to infection. Reports to have developed subjective fever and chills on night with progressively increasing drainage from the wound and toxic odor. Patient reports feeling rough and dehydrated, prompting ED visit. Denies chest pain, palpitations, dizziness, shortness of breath, pleurisy, abdominal pain, new or worsening back pain and change in micturition. Mild URI symptoms, some cough without purulence. He has neurogenic bladder and straight caths himself 4-5 times per day. Patient verbalizes a belief that he always has a slight UTI that manifests when he does not take care of himself. ED Course Presenting VS: T 101.9 BP 113/66 HR 125 RR 17 Febrile and tachycardic Labs. 01/01/25 1340 Inflammation/Infection LA 1.0 ESR > 130 CRP 226 Hemogram WBC 16.09, RBC 4.63, PLT 494 HGB 10.0 HCT 32.6 Chemistry Na 134 K 3.9 Cl 102 Ca 8.7 Glu 123 Renal CO2 17 AG 18.9 BUN 11 Cr 0.8 eGFR 110 Liver AST 16 ALT 25 ALP 73 T. Bili 0.5 Alb 3.0 T.Protein 7.3 Urinalysis SG 1.012, protein (2+), LE (1+), WBC (21-50) Labs remarkable for significantly elevated inflammatory markers, leukocytosis, anemia and HAGMA No imaging was done in ED In ED received... 1355 NS 2L bolus 1355 Linezolid 600 mg 1355 Meropenem 500 mg 1431 NS 500 ml bolus 1436 Ibuprofen 800 mg Review of Systems Narrative: A 10 point review of systems was completed. Except for the symptoms detailed in the HPI, all other symptoms were reviewed and are negative. Medications/Allergies Home Medications ?Medication ?Instructions ?Recorded ?Confirmed ?Last Taken ?Type catheter 16 Fr #150 ea 07/03/20 01/01/25 02/24/23 Rx colostomy bags #30 ea 07/03/20 01/01/25 02/24/23 Rx ostomy adhesive (Stomahesive Paste) #2 tubes 07/03/20 01/01/25 02/24/23 Rx ostomy supplies 4 X 4 wafer #20 wafers 07/03/20 01/01/25 02/24/23 Rx WHEELCHAIR #1 ea 07/30/22 01/01/25 02/24/23 Rx ibuprofen 200 mg tablet 800 mg PO BID PRN Pain 08/14/22 01/01/25 02/24/23 History WHEELCHAIR REPAIRS #1 ea 02/16/23 01/01/25 02/24/23 Rx wheels for wheelchair #1 ea 10/04/23 01/01/25 Unknown Rx Wheelchair #1 ea 02/08/24 01/01/25 Unknown Rx miscellaneous medical supply #1 ea 03/30/24 01/01/25 Unknown Rx Allergies Allergy/AdvReac Type Severity Reaction Status Date / Time daptomycin Allergy Severe ADR-Muscle Verified 07/17/24 10:57 Pain sulfamethoxazole (From Allergy Mild ADR-Itching Verified 03/13/24 12:54 Bactrim) trimethoprim (From Bactrim) Allergy Mild ADR-Itching Verified 03/13/24 12:54 acetaminophen (From Tylenol) Allergy itching Verified 03/13/24 12:54 latex Allergy rash Verified 03/13/24 12:54 Additional Medication Information allergies reviewed PFSH Acute PFSH: Medical History (Updated 01/01/25 @ 19:31 by Haylee Dutta NP) Pressure injury of left buttock, stage 4 Wheelchair dependent Single functional kidney Vitamin D deficiency Medication management Hypertension screen Essential hypertension Anxiety Pressure ulcer caused by device Congenital imperforate anus Neurogenic bladder Spina bifida aperta of lumbar spine Glaucoma Surgical History History of right nephrectomy 2013 [facility] Colostomy status Status post ventriculo-peritoneal shunt placement Status post hip surgery Bilateral pin surgery Family History Other Spina bifida Social History Smoking and tobacco/nicotine status: former use of tobacco/nicotine Alcohol intake: never Substance/Drug Use: never Vitals/I&O/Wt Last Vital Signs Temp 101.9 F H 01/01/25 12:15 Pulse 126 H 01/01/25 15:00 Resp 18 01/01/25 15:00 BP 105/59 01/01/25 15:00 Pulse Ox 99 01/01/25 15:00 O2 Del Method Room Air 01/01/25 13:03 Weight last 48 hrs Weight 90.718 kg Physical Exam Narrative: Constitutional: NAD, nontoxic appearing Head: NC/AT Eyes: PERRLA, EOMI Ears: Normal external ears. Hearing intact to normal voice. Nose: Normal external nose. No epistaxis. Throat: Dry MM Respiratory: CTAB. No accessory muscle use. On room air. Cardiovascular: Regular. No murmur. Extremities: No edema bilaterally Gastrointestinal: Soft. NT. ND. +BS + colostomy Genitourinary: No kim catheter Musculoskeletal: + paraplegia, diminished muscle tone of lower extremities Skin: Deep ischial pressure ulcer with malodorous drainage Quick SOFA Score: Respiratory Rate: 16 Blood Pressure: 104/60 Aleksandar Coma Scale: 15 qSOFA Score: 0 If qSOFA score 2 or greater, continue: Blood Pressure Mean: 74 Bilirubin (mg/dl): 0.5 Platelets (x10?/ml): 494 Creatinine (mg/dl): 0.8 Evaluation: Current stage of sepsis: sepsis Sepsis stage criteria used: CMS Sep-1 and Sepsis-3 Crystalloid fluids: 30 mL/kg crystalloid fluids ordered and initiated within 3 hours (30 ml/kg crystalloids were not completed in ED, patient arrived w/ bags of saline full at bedside, will infuse now) Blood cultures ordered: Yes Possible source: wound Focused Exam: Vital signs: Temp Pulse Resp BP Pulse Ox O2 Del Method 01/01/25 15:00 126 H 18 105/59 99 01/01/25 13:48 99 16 108/67 99 01/01/25 13:03 117 H 16 126/70 99 Room Air 01/01/25 12:31 128 H 16 126/70 99 Room Air 01/01/25 12:15 101.9 F H 125 H 17 113/66 100 Room Air Cardiovascular exam: regular rhythm Capillary refill: < 3 Seconds Peripheral pulse strength: 1+ Faint Peripheral pulse location: Pedal Skin exam: not diaphoretic and no mottling Date exam was performed: 01/01/25 Time exam was performed: 19:32 Sepsis Screen No Definite Risk Today, 17:30 Respiratory Rate, (12 - 18) 16 breaths/min Today, 19:32 Blood Pressure 104/66 mmHg Today, 19:32 Aleksandar Coma Scale Score 15 Today, 18:03 Quick SOFA Score 0 Today, 19:36 SOFA Score: [place] Coma Scale Score 15 Today, 18:03 Blood Pressure Mean 78 mmHg Today, 19:32 Total Bilirubin, (0.15-1.2) 0.5 mg/dL Today, 13:40 Platelet Count, (157-399) 494 10^3/cmm H Today, 13:40 Creatinine, (0.7-1.2) 0.8 mg/dL Today, 13:40 Data 01/01/25 13:40 01/01/25 13:40 Other Labs: Labs. 01/01/25 1340 Inflammation/Infection LA 1.0 ESR > 130 CRP 226 Hemogram WBC 16.09, RBC 4.63, PLT 494 HGB 10.0 HCT 32.6 Chemistry Na 134 K 3.9 Cl 102 Ca 8.7 Glu 123 Renal CO2 17 AG 18.9 BUN 11 Cr 0.8 eGFR 110 Liver AST 16 ALT 25 ALP 73 T. Bili 0.5 Alb 3.0 T.Protein 7.3 Urinalysis SG 1.012, protein (2+), LE (1+), WBC (21-50) Labs remarkable for significantly elevated inflammatory markers, leukocytosis, anemia and HAGMA Micro: Microbiology 01/01/25 13:40 Blood Culture - Preliminary Blood SPECIMEN COLLECTED 01/01/25 13:41 Blood Culture - Preliminary Blood SPECIMEN COLLECTED blood cultures x 2 and urine culture collected in ED, results pending A&P Assessment and plan 1. Chronic osteomyelitis: 2. Sacral decubitus ulcer, stage IV: 3. Microcytic anemia: 4. Sepsis without septic shock: Plan: # fever # sacral wound # chronic osteomyelitis involving left ischeial tuberosity Concern for infection Source is not entirely clear, however his wound is of high suspicion History of chronic osteomyelitis involving left ischial tuberosity and chronic open ongoing pressure ulcer of right buttock stage IV which places him for recurrent cycles of infection. Pertinent labs: ESR > 130, CRP 226 - General surgery consulted in ED, pending evaluation - Consult infectious disease Discussed case with ID, will see patient 01/02, start on meropenem and vancomycin - CT Abdomen/Pelvis w/wo - blood cx and urine cx collected in ED, will need follow-up on results - obtain CXR for completion - consult wound care # Sepsis w/o septic shock # HAGMA SIRS: + fever + tachycardia, LA - Blood cultures and urine cultures have been collected and results pending - Sepsis mIVF bolus, not completed in ED, bags handing at bedside on transfer discussed w/ RN, they are to be completed now - On antibiotics, pharmacy consulted to dose # Microcytic anemia Baseline HGB 11-12 g/dL, last at baseline 07/2024 Presenting HGB 10.0 - HGB below goal, asymptomatic, no active bleeding, continue trending # congenital imperforate anus (colostomy in place) - colostomy care # spina bifida / paraplegia c/b neurogenic bladder, RABBLE FURNACE TENDER shunt in situ # Solitary kidney, s/p prior nephrectomy Renal function stable. Will need to be mindful with meds in contrast and lieu of single kidney VTE w/ SCDs and lovenox PDMP PDMP Reviewed: Not Reviewed Attestations Medical Necessity Statement*: Hospital admission under inpatient status. Patient will require more than 2 midnights for the management of his sacral wound infection and sepsis. Coding Level of Care Code 66677 Diagnoses Chronic osteomyelitis M86.60 Sacral decubitus ulcer, stage IV L89.154 Microcytic anemia D50.9 Sepsis without septic shock A41.9 Sacral decubitus ulcer, stage IV L89.154
--- NOTE | 2025-01-01 18:18 | CTR_ITS ---
PROCEDURE INFORMATION: Exam: CT Abdomen And Pelvis Without Contrast Exam date and time: 01/01/2025 9:40 PM Age: 34 years old Clinical indication: Condition or disease; Other: Pressure injury TECHNIQUE: Imaging protocol: Computed tomography of the abdomen and pelvis without contrast. Radiation optimization: All CT scans at this facility use at least one of these dose optimization techniques: automated exposure control; mA and/or kV adjustment per patient size (includes targeted exams where dose is matched to clinical indication); or iterative reconstruction. COMPARISON: CT abdomen pelvis wo/w [id number] 07/20/2024 5:24 PM RADIATION DOSE METRICS: Total DLP (mGy-cm): 921.13 FINDINGS: Tubes, catheters and devices: Presumptive ventriculostomy catheter with tip in the region of the right hemiabdomen. Liver: Normal. No mass. Gallbladder and biliary ducts: Normal. No calcified stones. No ductal dilation. Pancreas: Normal. No ductal dilation. Spleen: Fold granulomatous disease of spleen. Adrenal glands: Normal. No mass. Kidneys and ureters: Right nephrectomy. Stomach and bowel: Two ostomies in the left hemiabdomen without evidence of obstruction or inflammatory change of associated bowel. Appendix: No evidence of appendicitis. Intraperitoneal space: Unremarkable. No free air. No significant fluid collection. Vasculature: Unremarkable. No abdominal aortic aneurysm. Lymph nodes: Unremarkable. No enlarged lymph nodes. Urinary bladder: Thickened bladder wall, likely chronic changes though can not totally exclude inflammation or infection. Reproductive: Unremarkable as visualized. Bones/joints: Unremarkable. No acute fracture. Soft tissues: Large left ischial tuberosity pressure ulcer with surrounding soft tissue stranding and skin thickening with pockets of air extending lateral to the left trochanter, no definite rounded collection to suggest definite abscess. Associated subcutaneous stranding compatible with cellulitis. CT/CT abdomen pelvis wo con [id number] IMPRESSION: Large left ischial tuberosity pressure ulcer with surrounding soft tissue stranding and skin thickening, with pockets of air extending lateral to the left trochanter, no definite rounded collection to suggest definite abscess.
--- NOTE | 2025-01-01 18:39 | XRR_ITS ---
PROCEDURE INFORMATION: Exam: XR Chest Exam date and time: 01/01/2025 7:46 PM Age: 34 years old Clinical indication: Cough; Additional info: Sepsis, cough, immunocompromised TECHNIQUE: Imaging protocol: Radiologic exam of the chest. Views: 1 view. COMPARISON: CR XR chest 1V portable [id number] 02/02/2023 1:58 PM FINDINGS: Tubes, catheters and devices: There is a right-sided ventriculoperitoneal shunt catheter tubing which demonstrates several areas of discontinuity as were seen on prior exam. There has been interval removal of a left upper extremity PICC line Lungs: Lungs clear Pleural spaces: No significant pleural effusion present. Heart/Mediastinum: Heart normal size Bones/joints: Unremarkable. XR/XR chest 1V portable [id number] IMPRESSION: No acute cardiopulmonary process demonstrated
[2025-01-02] MEDS: linezolid premix 600 MG/300 ML PREMIX 300 MG IV (02:12)
[2025-01-02 03:57] VITALS: BP 97/58; PULSE 113; RESP 16; TEMP 38.1; O2SAT 98
[2025-01-02 06:12] LABS: Hematocrit 28.4 % (37-53); Hemoglobin 8.30 g/dL (11.27-16.99); Mean Corpuscular HGB Conc 29.2 g/dL (30-55); Mean Corpuscular Hemoglobin 20.5 pg (27-33); Mean Corpuscular Volume 70.3 fl (82-101); Nucleated Red Blood Cells % 0 %; Platelet Count 438 10^3/cmm (157-399); Red Blood Count 4.04 10^6/uL (3.85-5.65); White Blood Count 12.65 10^3/uL (3.29-11.43)
[2025-01-02 06:35] LABS: Anion Gap 17.6 (5-19); Blood Urea Nitrogen 8 mg/dL (6-20); Calcium 8.0 mg/dL (8.5-10.5); Carbon Dioxide 16 mmol/L (22-29); Chloride 105 mmol/L (98-107); Glucose 121 mg/dL (65-115); Magnesium 2.0 mg/dL (1.7-2.3); Osmolality Calculated 280 mOsm/kg (285-295); Potassium 3.6 mmol/L (3.5-5.1); Sodium 135 mmol/L (136-145)
[2025-01-02 07:40] VITALS: BP 101/62; PULSE 105; RESP 18; TEMP 37.2; O2SAT 95
--- NOTE | 2025-01-02 08:20 | P.PN_ITS ---
Vitals/I&O/Wt Last Vital Signs Temp 99 F 01/02/25 07:40 Pulse 105 H 01/02/25 07:40 Resp 18 01/02/25 07:40 BP 101/62 01/02/25 07:40 Pulse Ox 95 01/02/25 07:40 O2 Del Method Room Air 01/02/25 03:57 01/01/25 01/02/25 01/02/25 22:59 06:59 14:59 Intake Total 2800 / 2800 300 / 3100 Balance 2800 / 2800 300 / 3100 Weight last 48 hrs Weight 85.729 kg Weight 86.908 kg Weight 90.718 kg Physical Exam 2 Narrative: Constitutional: NAD, nontoxic appearing Head: NC/AT Eyes: PERRLA, EOMI Ears: Normal external ears. Hearing intact to normal voice. Nose: Normal external nose. No epistaxis. Throat: Dry MM Respiratory: CTAB. No accessory muscle use. On room air. Cardiovascular: Regular. No murmur. Extremities: No edema bilaterally Gastrointestinal: Soft. NT. ND. +BS + colostomy Genitourinary: No kim catheter Musculoskeletal: + paraplegia, diminished muscle tone of lower extremities Skin: Deep ischial pressure ulcer with malodorous drainage Data 01/02/25 15:45 01/02/25 05:44 Other Labs: Labs, 01/02/25 0544 reviewed Hemogram WBC 12.65 RBC 4.04 PLT 438 Hgb 8.3 HCT 28.4 Chemistry Na 135 K 3.6 Mg 2.0 Cl 105 Ca 8.0 Glu 121 CO2 16 AG 17.6 BUN 8 Cr 0.8 eGFR 110.0 - Anemia, metabolic acidosis, and borderline lower limit potassium noted - Blood cultures still pending - Urine culture still pending Micro: Microbiology 01/01/25 13:40 Blood Culture - Preliminary Blood SPECIMEN COLLECTED 01/01/25 13:41 Blood Culture - Preliminary Blood SPECIMEN COLLECTED CT Abd/Pel: Radiologist's impression: CT ABDOMEN / PELVIS, 01/01/25 reviewed Impression Large left ischial tuberosity pressure ulcer with surrounding soft tissue stranding and skin thickening, with pockets of air extending lateral to the left trochanter, no definite rounded collection to suggest definite abscess. Presumptive ventriculostomy catheter with tip in the region of the right fernie- abdomen. Right nephrectomy Two ostomies in the left hemiabdomen without evidence of obstruction or inflammatory change of associated bowel. CXR: Radiologist's impression: XR CHEST, 01/01/25 No acute cardiopulmonary process demonstrated A&P Assessment and plan 1. Necrotizing soft tissue infection: 2. Sacral decubitus ulcer, stage IV: 3. Sepsis without septic shock: 4. Microcytic anemia: 5. Chronic osteomyelitis: Plan: # Necrotizing Soft Tissue Infection # Sacral Decubitus Ulcer, Stage IV # Chronic osteomyelitis involving left ischeial tuberosity CT Abdomen/Pelvis 01/01/25 Large left ischial tuberosity pressure ulcer with surrounding soft tissue stranding and skin thickening, with pockets of air extending lateral to the left trochanter, no definite rounded collection to suggest definite abscess. History of chronic osteomyelitis involving left ischial tuberosity and chronic open ongoing pressure ulcer of right buttock stage IV which places him for recurrent cycles of infection. Concern for infection Pertinent labs: ESR > 130 and CRP 226 (01/01/25) - CT A/P suggestive of potential cellulitis / necrotizing soft tissue infection, no abscess - General surgery consulted in ED, pending evaluation - Consult infectious disease Discussed case with ID, recommended starting on meropenem and vancomycin Pending evaluation by ID today 01/02 - blood cx and urine cx collected in ED, pending, will need follow-up on results - obtain CXR for completion - consult wound care # Sepsis w/o septic shock # HAGMA SIRS: + fever + tachycardia, LA 1.0 (wnl) CXR negative CT A/P suggestive of cellulitis / soft tissue necrotizing infection - Blood cultures and urine cultures have been collected and results pending - Sepsis mIVF bolus done with improvement in tachycardia - On antibiotics, pharmacy consulted to dose (meropenem and vancomycin) # Metabolic acidosis w/ normal anion gap CO2 16 - Start on mIVF, LR at 125 x16 hrs, thereafter re-evaluate need for further IVF # Microcytic anemia Baseline HGB 11-12 g/dL, last at baseline 07/2024. Presenting HGB (01/01) 10.0 Today's (01/02) HGB 8.3 (MCV 70.3). Exhibiting 1.7 g/dL drop from yesterday. No active signs of blood loss reported - Will monitor closely, repeat HGB at 1400 HGB trend 10.0 (01/01) -> 8.3 (01/02) # Congenital imperforate anus (colostomy in place) Per CT A/P 01/01/25, ostomies in the left fernie-abdomen without evidence of obstruction or inflammatory change of associated bowel. - Colostomy care # Spina bifida / paraplegia c/b neurogenic bladder, STEWARD/STEWARDESS NIGHT shunt in situ - straight cath Q6H, patient may do himself if desires # Solitary kidney, s/p prior right nephrectomy (2013) Renal function stable. Will need to be mindful with meds in contrast and lieu of single kidney VTE w/ SCDs and lovenox PDMP PDMP Reviewed: Not Reviewed Attestations 2 Medical Necessity Statement*: Hospital admission under inpatient status. Patient will require more than 2 midnights for the management of his sacral wound infection and sepsis. Coding Level of Care Code Acute Code for Chg Fwd Diagnoses Necrotizing soft tissue infection M79.89 Sacral decubitus ulcer, stage IV L89.154 Sepsis without septic shock A41.9 Microcytic anemia D50.9 Chronic osteomyelitis M86.60
--- NOTE | 2025-01-02 10:41 | PC.CHAP ---
Pastoral Care Encounter/Spiritual Assessment Type of Contact [] Declined radio electrician visit [] Patient/Family/Request visit [] Outpatient visit [] Follow-up visit [] Physician referral [] Code/Alert [x] Routine visit [] Staff referral [] Actively dying [] Patient sleeping [] Family support [] [] Out of room [] Palliative care [] [] Receiving care in room [] Pre-surgical visit [] Trauma [] Long length of stay [] ICU visit [] Other: Relational/Emotional Strength [x] Patient feels connected with others/family/visitors/staff [] Distress [] Loneliness/isolation [] Abandonment Spirituality of Patient [x] Person of Ghada [] Attends Mu-Ism of their Ghada [x] Believes in Prayer [] Reads Bible or Muslim materials [] There are Spiritual issues to be addressed Program Director/Traffic Director Interventions [x] Prayer [x] Active listening [] Non-anxious presence [x] Spiritual/emotional support [] Crisis/trauma care [] Spiritual counseling [] Bereavement support [] Provided bereavement packet [] Provided Bible/devotional materials [] Provided toy/stuffed animal, coloring book to patient or family member [] Provided Communion [] Anointing/Prosser [] Salvation [x] Completed spiritual assessment [] Other: Impact on Illness or Injury [] Angry [] Fearful [] Anxious [] Often cries [] Exhaustion [] Unable to work [] Unable to attend mormonism [] Unable to walk/stand [] Unable to read [] Unable to drive [] Unable to eat/drink [] Unable to sleep [] Unable to be with family [] Patient intubated [] Other: Summary Time spent with patient 5 min
[2025-01-02 11:36] LABS: Ferritin 407 ng/mL (30-400); Iron 13 ug/dL (59-158); Total Iron Binding Capacity 131 mcg/dl; Unsaturated Iron Binding 118 ug/dL (112-347)
[2025-01-02 11:44] VITALS: BP 105/65; PULSE 99; RESP 16; TEMP 37; O2SAT 99
[2025-01-02] MEDS: sodium hypochlorite 0.25% Btl 473 mL 1 APPLIC TOPICAL ×2 (14:24→23:14)
--- NOTE | 2025-01-02 15:29 | P.PN_ITS ---
Subjective 2 Subjective: She is overall feeling better today, stating he is fine. Has had malodorous drainage from the buttock wound. This is new from prior, although overall has dealt with the wound for a long time. Had previously considered flap coverage recommendation, but decided not to proceed at that time. May reconsider in the future. Vitals/I&O/Wt Last Vital Signs Temp 98.6 F 01/02/25 11:44 Pulse 99 01/02/25 11:44 Resp 16 01/02/25 11:44 BP 105/65 01/02/25 11:44 Pulse Ox 99 01/02/25 11:44 O2 Del Method Room Air 01/02/25 03:57 01/02/25 01/02/25 01/02/25 06:59 14:59 22:59 Intake Total 300 / 3100 760 / 760 Balance 300 / 3100 760 / 760 Weight last 48 hrs Weight 85.729 kg Weight 86.908 kg Weight 90.718 kg Physical Exam 2 Narrative: Accompanied by his on second visit. Const: COMMON NORMALS: patient oriented x3 and alert GENERAL APPEARANCE: c ooperative ORIENTATION/CONSCIOUSNESS: Yes awake HENMT: COMMON NORMALS: oropharynx normal Neck/C-Spine: COMMON NORMALS: no JVD Resp: COMMON NORMALS: normal respiratory effort and clear to auscultation bilaterally AUSCULTATION: clear to auscultation bilaterally Cardio: COMMON NORMALS: no JVD, regular rhythm, S1 normal heart sound present, S2 normal heart sound present and No murmurs present (Cardio) RHYTHM: regular rhythm HEART SOUNDS: S1 normal heart sound present and S2 normal heart sound present GI: COMMON NORMALS: Normal to inspection, nondistended, normoactive bowel sounds present, Soft to palpation and non-tender PALPATION: Yes Soft to palpation Neuro: COMMON NORMALS: patient oriented x3 and moves all extremities S ENSORIUM/ORIENTATION: Yes alert Skin: NARRATIVE SKIN EXAM: Deep pressure ulcer of left buttock with deep bone exposure. Small area of necrosis on the deep posterior aspect. Without other necrosis around the wound. Without significant erythema. With white/purulent drainage. Data 01/02/25 05:44 01/02/25 05:44 Micro: Microbiology 01/01/25 15:02 Urine Culture - Preliminary Urine,Clean Catch Group g streptococcus 01/01/25 13:41 Blood Culture - Preliminary Blood NEGATIVE TO DATE 01/01/25 13:40 Blood Culture - Preliminary Blood NEGATIVE TO DATE A&P Assessment and plan 1. Necrotizing soft tissue infection: 2. Sacral decubitus ulcer, stage IV: 3. Sepsis without septic shock: 4. Microcytic anemia: 5. Chronic osteomyelitis: Plan: # Sacral Decubitus Ulcer, Stage IV with cellulitis # Chronic osteomyelitis involving left ischeial tuberosity CT Abdomen/Pelvis 01/01/25 Large left ischial tuberosity pressure ulcer with surrounding soft tissue stranding and skin thickening, with pockets of air extending lateral to the left trochanter, no definite rounded collection to suggest definite abscess. Discussed with patient and his . With copious white/purulent appearing borders drainage from the wound. Wound on examination without necrosis apart from 1 spot on the deep posterior aspect. As per discussion with the surgeon packing with gauze moistened and half-strength Dakin solution discussed with patient and family. Discussed consideration of wound VAC. He had previously considered flap coverage of the area, however, had declined Wound cultures been obtained, discussed with him to be interpreted with caveat of high likelihood of contamination. Follow-up urine culture. Continue. Coverage with meropenem and gram-positive coverage changed to vancomycin. Monitor for risk of seizure, JAMI. History of chronic osteomyelitis involving left ischial tuberosity and chronic open ongoing pressure ulcer of right buttock stage IV which places him for recurrent cycles of infection. - CT A/P suggestive of potential cellulitis / necrotizing soft tissue infection, no abscess - General surgery consulted in ED, pending evaluation - Consult infectious disease Discussed case with ID, recommended starting on meropenem and vancomycin Pending evaluation by ID today 01/02 - blood cx and urine cx collected in ED, pending, will need follow-up on results - Reviewed CXR UTI: Pertinent labs: ESR > 130 and CRP 226 (01/01/25) Discussed with him history of ESBL in the urine. Continue meropenem coverage at current time. # Sepsis w/o septic shock Reviewed vitals, CBC. Cultures. Improving leukocytosis. So far persistent sinus tachycardia. Blood cultures negative so far. Low blood pressure: Blood pressure 98/40. Has received fluid resuscitation with fluid boluses yesterday afternoon. Noted hypoalbuminemia. Will give a bag of albumin. Start midodrine. Hold LR infusion for now. Reassess vitals. Hold antihypertensive medications. # Mixed acid-base disorder with metabolic acidosis and contraction alkalosis Lactic acid reviewed, 1. Urine reviewed, without ketones. Received transient hydration with LR. Repeat chemistry requested. # Microcytic anemia: Acute on chronic Baseline HGB 11-12 g/dL, last at baseline 07/2024. Presenting HGB (01/01) 10.0 Today's (01/02) HGB 8.3 (MCV 70.3). Exhibiting 1.7 g/dL drop from yesterday. No active signs of blood loss reported Check Hemoccult, iron studies. 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 Per discussion with him has been functioning without any issues. 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 Will need to be mindful with meds in contrast and lieu of single kidney VTE PPx w/ SCDs and lovenox Discussed with nursing, supervisor case loading. PDMP PDMP Reviewed: Not Reviewed Attestations 2 Medical Necessity Statement*: Continue admission for assessment management of sepsis with left buttock deep wound with cellulitis, UTI, acute on chronic anemia. and High MDM includes amount and/or complexity of data reviewed/ordered [ resulted lab(s)/test(s), ordered lab(s)/test(s) and other healthcare professional discussion] and described risk of complication, morbidity or mortality of management as documented Diagnoses Necrotizing soft tissue infection M79.89 Sacral decubitus ulcer, stage IV L89.154 Sepsis without septic shock A41.9 Microcytic anemia D50.9 Chronic osteomyelitis M86.60
[2025-01-02 15:31] VITALS: BP 98/40; PULSE 110; RESP 18; TEMP 37.3; O2SAT 97
[2025-01-02] MEDS: albumin 25 G/100 ML BAG 60 G IV (16:02)
[2025-01-02 16:18] LABS: Hemoglobin 8.40 g/dL (11.27-16.99)
--- NOTE | 2025-01-02 16:19 | PHA.VACGOAL ---
Vancomycin Goal - Goal Vancomycin Indication:: SSTI - Therapy Day of therpy:: Day []of [] . Actual body weight (kg): 85.729 kg - Data Labs: WBC 12.65 10^3/uL (3.29-11.43) H 01/02/25 05:44 RBC 4.04 10^6/uL (3.85-5.65) 01/02/25 05:44 Hgb 8.40 g/dL (11.27-16.99) L 01/02/25 15:45 Hct 28.4 % (37-53) L 01/02/25 05:44 MCV 70.3 fl (82-101) L 01/02/25 05:44 MCH 20.5 pg (27-33) L 01/02/25 05:44 MCHC 29.2 g/dL (30-55) L 01/02/25 05:44 RDW 16.3 % (12.1-15.1) H 01/02/25 05:44 Sodium 135 mmol/L (136-145) L 01/02/25 05:44 Potassium 3.6 mmol/L (3.5-5.1) 01/02/25 05:44 Chloride 105 mmol/L (98-107) 01/02/25 05:44 Carbon Dioxide 16 mmol/L (22-29) L 01/02/25 05:44 Anion Gap 17.6 (5-19) 01/02/25 05:44 BUN 8 mg/dL (6-20) 01/02/25 05:44 Creatinine 0.8 mg/dL (0.7-1.2) 01/02/25 05:44 GFR Calculation 110.0 mL/min (90-130) 01/02/25 05:44 Treatment plan:: new consult Regimen:: 1000 MG Q8H
--- NOTE | 2025-01-02 16:38 | P.PN_ITS ---
Subjective 2 Subjective: No acute events overnight Vitals/I&O/Wt Last Vital Signs Temp 99.1 F 01/02/25 15:31 Pulse 110 H 01/02/25 15:31 Resp 18 01/02/25 15:31 BP 98/40 01/02/25 15:31 Pulse Ox 97 01/02/25 15:31 O2 Del Method Room Air 01/02/25 15:31 01/02/25 01/02/25 01/02/25 06:59 14:59 22:59 Intake Total 300 / 3100 760 / 760 Balance 300 / 3100 760 / 760 Weight last 48 hrs Weight 189 lb Weight 191 lb 9.6 oz Weight 200 lb Physical Exam 2 Narrative: Chest: Unlabored breathing room air. No lymphadenopathy. Heart: Regular rate and rhythm. Abdomen: Soft, nontender, nondistended. No masses or lymphadenopathy. Left buttock: Stage IV decubitus ulcer down to bone being packed with Dakin solution Data 01/02/25 15:45 01/02/25 05:44 Micro: Microbiology 01/01/25 15:02 Urine Culture - Preliminary Urine,Clean Catch Group g streptococcus 01/01/25 13:41 Blood Culture - Preliminary Blood NEGATIVE TO DATE 01/01/25 13:40 Blood Culture - Preliminary Blood NEGATIVE TO DATE A&P Assessment and plan 1. Decubitus ulcer: Plan: 34-year-old male with stage IV decubitus ulcer left buttock. No indication for surgical debridement. Continue packing with Kerlix moistened with half-strength Dakin's. Frequent pressure offloading. Recommend air mattress. Rest of care per hospitalist. PDMP PDMP Reviewed: Not Reviewed Attestations 2 Medical Necessity Statement*: N/A Coding Level of Care Code 54875 Diagnoses Decubitus ulcer L89.90
--- NOTE | 2025-01-02 16:42 | PM.CONSULT ---
Providers/Reason For Consult Consulting Physician/Specialty*: Radha Barragan MD/ infectious Disease Reason for Consult*: [facility] infection Requesting Physician: Haylee Dutta NP Attending Physician: Jayesh Jasso Primary Care Provider: LUIS Coleman History of Present Illness History of Present Illness Nico Herrera is a 34 year old male known to the infectious disease service as an outpatient for chronic osteomyelitis of the pelvis. 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 He has had a persistent decubitus wound which has waxed and waned since 2022. He has previously been treated with IV ceftaroline for 7 weeks in March 2023. Culture at that time had shown MRSA, superficial cultures have previously grown multiple gram-negative's including Proteus mirabilis, Pseudomonas aeruginosa ,Acinetobacter , Enterobacter cloacae. He currently follows with the infectious disease clinic with surveillance plan with CT abdomen and pelvis every 6 months and inflammatory markers every few months. He was last seen in August 2024. Per last CT of the abdomen in July 2024, he had chronic stable osteomyelitis of the left ischial tuberosity and a chronic abscess over tip of the sacrum 3.3 cm subcutaneous collection. He has a large lower lumbar myelomeningocele. He has declined referral to plastic surgery in the past due to reservations about being away from family for an extended amount of time however has kept follow-up with wound care clinic. Been busy in the last 2 months with the deer hunting season. On December 27, 2024 he was noted to have palpable bone covered with healthy appearing granulation tissue. Next CT was planned in January as an outpatient. Currently he is admitted to the last on 01/01/2025 with worsening of his ulcer. He was febrile with a fever to 101 Fahrenheit with leukocytosis and increased drainage from the wound. He was evaluated by general surgery, not found to have current indication for I&D. CT of the abdomen and pelvis performed without contrast showed large left ischial tuberosity pressure ulcer with surrounding soft tissue stranding and skin thickening with pockets of air extending lateral to the left trochanter without any definite abscess.CXR Was negative for any consolidation. Blood cx pending, thus far negative, UA with 11-20 sq epithelial cells, not a clean catch. CRP elevated at 226. ESR > 130. Review of Systems General: Reports: 10 or more systems reviewed and unremarkable except in HPI and below Const: Denies: fever(s), chills or body aches Eyes: Denies: change in vision, blurry vision or photophobia ENMT: Reports: hoarseness; Denies: throat pain, enlarged tonsils, odynophagia or nasal congestion Card: Denies: chest pain, palpitations, irregular heart rhythm, edema, swelling of feet/ankles, lightheadedness, pre-syncope, dyspnea on exertion or orthopnea Resp: Denies: dyspnea, productive cough, non-productive cough, wheezing, stridor, pain on inspiration, change in phlegm color, hemoptysis or chest congestion GI: Denies: abdominal pain, nausea, vomiting, hematemesis, coffee ground emesis, dysphagia, heartburn, diarrhea, constipation, GI cramping, change in stool character, hematochezia or melena : Denies: flank pain, dysuria, urinary frequency, urinary urgency, urinary hesitancy or hematuria Musc: Denies: neck pain, back pain, extremity pain, joint swelling, joint warmth or deformity Neuro: Denies: headache(s), numbness in extremities, weakness in extremities, sensory changes, difficulty walking, frequent falls, dizziness, vertigo, behavioral changes, Slurred speech present or seizure-like activity Psych: Denies: anxiety, depression, suicidal ideation or homicidal ideation Endo: Denies: polyuria, polydipsia, tired all the time, cold intolerance or hot flashes Bradly/Lymph: Denies: easy bruising or easy bleeding Medications/Allergies Home Medications ?Medication ?Instructions ?Recorded ?Confirmed ?Last Taken ?Type catheter 16 Fr #150 ea 07/03/20 01/01/25 02/24/23 Rx colostomy bags #30 ea 07/03/20 01/01/25 02/24/23 Rx ostomy adhesive (Stomahesive Paste) #2 tubes 07/03/20 01/01/25 02/24/23 Rx ostomy supplies 4 X 4 wafer #20 wafers 07/03/20 01/01/25 02/24/23 Rx WHEELCHAIR #1 ea 07/30/22 01/01/25 02/24/23 Rx ibuprofen 200 mg tablet 800 mg PO BID PRN Pain 08/14/22 01/01/25 02/24/23 History WHEELCHAIR REPAIRS #1 ea 02/16/23 01/01/25 02/24/23 Rx wheels for wheelchair #1 ea 10/04/23 01/01/25 Unknown Rx Wheelchair #1 ea 02/08/24 01/01/25 Unknown Rx miscellaneous medical supply #1 ea 03/30/24 01/01/25 Unknown Rx Allergies Allergy/AdvReac Type Severity Reaction Status Date / Time daptomycin Allergy Severe ADR-Muscle Verified 07/17/24 10:57 Pain sulfamethoxazole (From Allergy Mild ADR-Itching Verified 03/13/24 12:54 Bactrim) trimethoprim (From Bactrim) Allergy Mild ADR-Itching Verified 03/13/24 12:54 acetaminophen (From Tylenol) Allergy itching Verified 03/13/24 12:54 latex Allergy rash Verified 03/13/24 12:54 Current Medications Generic Name Dose Route Start Last Admin Trade Name Freq PRN Reason Stop Dose Admin Enoxaparin Sodium 40 mg 01/01/25 18:45 01/01/25 19:48 Enoxaparin 40 Mg/0.4 Ml Syringe SUBCUT Not Given Q24H CHRISTIAN Lactated Ringer's 1,000 mls @ 125 mls/hr 01/02/25 09:00 01/02/25 09:30 Lactated Ringers IV 01/03/25 00:59 125 mls/hr On Hold: 01/02/25 15:24 .Q8H CHRISTIAN Administration Albumin Human 25 g in 100 mls @ 60 mls/hr 01/02/25 15:24 01/02/25 16:02 Albumin IV 01/02/25 17:03 60 mls/hr ONCE ONE Administration Meropenem 500 mg 01/01/25 22:00 01/02/25 14:23 Meropenem 500 Mg Sdv IVP 500 mg Q8H CHRISTIAN Administration Protocol Sodium Hypochlorite 1 applic 01/02/25 13:45 01/02/25 14:24 Sodium Hypochlorite 0.25% Btl 473 Ml TOPICAL 1 applic BID CHRISTIAN Administration PFSH Acute PFSH: Medical History (Updated 01/01/25 @ 19:31 by Haylee Dutta NP) Pressure injury of left buttock, stage 4 Wheelchair dependent Single functional kidney Vitamin D deficiency Medication management Hypertension screen Essential hypertension Anxiety Pressure ulcer caused by device Congenital imperforate anus Neurogenic bladder Spina bifida aperta of lumbar spine Glaucoma Surgical History History of right nephrectomy 2013 [facility] Colostomy status Status post ventriculo-peritoneal shunt placement Status post hip surgery Bilateral pin surgery Family History Other Spina bifida Social History Smoking and tobacco/nicotine status: former use of tobacco/nicotine Alcohol intake: never Substance/Drug Use: never Vitals/I&O/Wt Last Vital Signs Temp 99.1 F 01/02/25 15:31 Pulse 110 H 01/02/25 15:31 Resp 18 01/02/25 15:31 BP 98/40 01/02/25 15:31 Pulse Ox 97 01/02/25 15:31 O2 Del Method Room Air 01/02/25 15:31 01/02/25 01/02/25 01/02/25 06:59 14:59 22:59 Intake Total 300 / 3100 760 / 760 Balance 300 / 3100 760 / 760 Weight last 48 hrs Weight 85.729 kg Weight 86.908 kg Weight 90.718 kg Physical Exam Narrative: General: No acute distress, AO x3 HEENT: PERRLA, pupils bilaterally equal and reactive, pallors not present Abdomen: Soft, nontender, no organomegaly, bowel sounds present Large tunneling wound over the left buttock going to bone with overlying soft tissue cover. noted trickling of pus from a superior tract to down Data 01/02/25 15:45 01/02/25 05:44 Other Labs: Radiology Impressions Abdomen/Pelvis CT 01/01/25 18:18 IMPRESSION: Large left ischial tuberosity pressure ulcer with surrounding soft tissue stranding and skin thickening, with pockets of air extending lateral to the left trochanter, no definite rounded collection to suggest definite abscess. Chest X-Ray 01/01/25 18:39 IMPRESSION: No acute cardiopulmonary process demonstrated Laboratory Results WBC 12.65 10^3/uL (3.29-11.43) H 01/02/25 05:44 RBC 4.04 10^6/uL (3.85-5.65) 01/02/25 05:44 Hgb 8.40 g/dL (11.27-16.99) L 01/02/25 15:45 Hct 28.4 % (37-53) L 01/02/25 05:44 MCV 70.3 fl (82-101) L 01/02/25 05:44 MCH 20.5 pg (27-33) L 01/02/25 05:44 MCHC 29.2 g/dL (30-55) L 01/02/25 05:44 RDW 16.3 % (12.1-15.1) H 01/02/25 05:44 Plt Count 438 10^3/cmm (157-399) H 01/02/25 05:44 MPV 9.4 fL (7.4-10.4) 01/02/25 05:44 Neut % (Auto) 81.0 % 01/02/25 05:44 Lymph % (Auto) 8.2 % 01/02/25 05:44 Larue % (Auto) 8.6 % 01/02/25 05:44 Eos % (Auto) 0.7 % 01/02/25 05:44 Baso % (Auto) 0.5 % 01/02/25 05:44 Neut # (Auto) 10.24 10^3/uL (1.8-7.7) H 01/02/25 05:44 Lymph # (Auto) 1.0 10^3/uL (0.8-4.8) 01/02/25 05:44 Larue # (Auto) 1.1 10^3/uL (0.2-0.9) H 01/02/25 05:44 Eos # (Auto) 0.1 10^3/uL (0.0-0.8) 01/02/25 05:44 Baso # (Auto) 0.1 10^3/uL (0.0-0.1) 01/02/25 05:44 Nucleated RBC % (auto) 0 % 01/02/25 05:44 Nucleated RBCs # 0.0 /100WBC 01/02/25 05:44 ESR > 130 mm/hr (0-10) H 01/01/25 13:40 Sodium 135 mmol/L (136-145) L 01/02/25 05:44 Potassium 3.6 mmol/L (3.5-5.1) 01/02/25 05:44 Chloride 105 mmol/L (98-107) 01/02/25 05:44 Carbon Dioxide 16 mmol/L (22-29) L 01/02/25 05:44 Anion Gap 17.6 (5-19) 01/02/25 05:44 BUN 8 mg/dL (6-20) 01/02/25 05:44 Creatinine 0.8 mg/dL (0.7-1.2) 01/02/25 05:44 GFR Calculation 110.0 mL/min (90-130) 01/02/25 05:44 Glucose 121 mg/dL (65-115) H 01/02/25 05:44 Calculated Osmolality 280 mOsm/kg (285-295) L 01/02/25 05:44 Lactic Acid 1.0 mmol/L (0.5-2.2) 01/01/25 13:40 Calcium 8.0 mg/dL (8.5-10.5) L 01/02/25 05:44 Magnesium 2.0 mg/dL (1.7-2.3) 01/02/25 05:44 Iron 13 ug/dL (59-158) L 01/02/25 05:44 TIBC 131 mcg/dl 01/02/25 05:44 % Saturation 9.9 % (20-50) L 01/02/25 05:44 Unsat Iron Binding 118 ug/dL (112-347) 01/02/25 05:44 Ferritin 407 ng/mL (30-400) H 01/02/25 05:44 Total Bilirubin 0.5 mg/dL (0.15-1.2) 01/01/25 13:40 AST 16 U/L (0-40) 01/01/25 13:40 ALT 25 U/L (0-41) 01/01/25 13:40 Alkaline Phosphatase 73 U/L (40-130) 01/01/25 13:40 C-Reactive Protein 226.0 mg/L (0.0-4.9) H 01/01/25 13:40 Total Protein 7.3 g/dL (6.6-8.7) 01/01/25 13:40 Albumin 3.0 g/dL (3.5-5.2) L 01/01/25 13:40 Globulin 4.3 g/dL (1.3-4.6) 01/01/25 13:40 Urine Color Yellow (Yellow) 01/01/25 15:02 Urine Appearance Cloudy (CLEAR) A 01/01/25 15:02 Urine pH 6.5 (5-7) 01/01/25 15:02 Ur Specific Billings 1.012 (1.005-1.030) 01/01/25 15:02 Urine Protein 2+ (Negative) A 01/01/25 15:02 Urine Glucose (UA) Negative (Normal) 01/01/25 15:02 Urine Ketones Negative (Negative) 01/01/25 15:02 Urine Blood Negative (Negative) 01/01/25 15:02 Urine Nitrate Negative (Negative) 01/01/25 15:02 Urine Bilirubin Negative (Negative) 01/01/25 15:02 Urine Urobilinogen 1.0 mg/dL (Negative) 01/01/25 15:02 Ur Leukocyte Esterase 1+ (Negative) A 01/01/25 15:02 Urine RBC 0-2 /hpf (0-2) 01/01/25 15:02 Urine WBC 21-50 /hpf (0-5) H 01/01/25 15:02 Ur Squamous Epith Cells 11-20 /hpf (0-5) H 01/01/25 15:02 Amorphous Sediment Not Reportable 01/01/25 15:02 Urine Bacteria Trace /hpf (NONE) 01/01/25 15:02 Hyaline Casts 1.21 /lpf 01/01/25 15:02 Micro: Microbiology 01/01/25 15:02 Urine Culture - Preliminary Urine,Clean Catch Group g streptococcus 01/01/25 13:41 Blood Culture - Preliminary Blood NEGATIVE TO DATE 01/01/25 13:40 Blood Culture - Preliminary Blood NEGATIVE TO DATE A&P Assessment and plan 1. Chronic osteomyelitis: 2. Neurogenic bladder: 3. Spina bifida aperta of lumbar spine: 4. Paraplegia: 5. Wheelchair dependent: 6. Fever: 7. Cellulitis: Plan: 34-year-old male with past medical history as noted above, chronic osteomyelitis of the pelvis, currently admitted with worsening drainage from the wound along with fever and chills. Small amount of pus is noted trickling from the superior edge of the wound. no significant slough noted on exam today. No areas of necrosis. Patient has been evaluated by general surgery, no current indication for debridement. Pocket of air noted just lateral to the existing tract on CT pelvis which may be phlegmonous changes versus developing abscess. MRI pelvis without contrast ordered to better characterize. No drainable abscess noted currently. Inflammatory markers are elevated consistent with acute infection. UA not a clean-catch specimen. Chest x-ray without consolidation. Currently patient is on treatment with meropenem and vancomycin which we will continue empirically. Past cultures from this wound have had MRSA and multiple gram-negative's including Acinetobacter most recently in July 2024. Will follow with results of MRI testing and pending wound cultures. PDMP PDMP Reviewed: Not Reviewed Coding Level of Care Code Acute Code for Chg Fwd High MDM includes number and complexity of problems actively addressed during encounter, amount and/or complexity of data reviewed/ordered and described risk of complication, morbidity or mortality of management as documented Diagnoses Chronic osteomyelitis M86.60 Neurogenic bladder N31.9 Spina bifida aperta of lumbar spine Q05.7 Paraplegia G82.20 Wheelchair dependent Z99.3 Fever R50.9 Cellulitis L03.90
--- NOTE | 2025-01-02 17:53 | PC.NURSE ---
Patient refusing the lovenox shot. pt educated on purpose for the shot.
[2025-01-02 19:20] VITALS: BP 92/54; PULSE 103; RESP 1; TEMP 37.7; O2SAT 98
[2025-01-02 20:36] LABS: Coronavirus 229E,HKU1,NL63,OC4 Not Detected (NOT DETECT); Parainfluenza Virus Type 1 Not Detected (NOT DETECT); Parainfluenza Virus Type 2 Not Detected (NOT DETECT); Parainfluenza Virus Type 3 Not Detected (NOT DETECT); Parainfluenza Virus Type 4 Not Detected (NOT DETECT); SARS-COV-2 Not Detected (NOT DETECT)
[2025-01-02 23:39] VITALS: BP 93/56; PULSE 102; RESP 17; TEMP 37.3; O2SAT 91
[2025-01-03 03:49] VITALS: BP 99/62; PULSE 89; RESP 16; TEMP 36.9; O2SAT 99
[2025-01-03 04:59] LABS: Hematocrit 28.4 % (37-53); Hemoglobin 8.60 g/dL (11.27-16.99); Mean Corpuscular HGB Conc 30.3 g/dL (30-55); Mean Corpuscular Hemoglobin 21.2 pg (27-33); Mean Corpuscular Volume 70.1 fl (82-101); Platelet Count 469 10^3/cmm (157-399); Red Blood Count 4.05 10^6/uL (3.85-5.65); White Blood Count 11.26 10^3/uL (3.29-11.43)
[2025-01-03 05:20] LABS: Anion Gap 15.5 (5-19); Blood Urea Nitrogen 7 mg/dL (6-20); Calcium 8.2 mg/dL (8.5-10.5); Carbon Dioxide 19 mmol/L (22-29); Chloride 110 mmol/L (98-107); Glucose 112 mg/dL (65-115); Osmolality Calculated 291 mOsm/kg (285-295); Potassium 3.5 mmol/L (3.5-5.1); Sodium 141 mmol/L (136-145)
[2025-01-03 05:58] LABS: Absolute Segmented Neutrophil 8.4 10/cmm (1.6-7.1); Atypical Lymphs 0.0 % (0-5); Band Neutrophils Absolute 0.0 10^3/cmm (0.0-1.2); Total Cells Counted 100 (0-100)
[2025-01-03 05:59] LABS: Anisocytosis Trace; Microcytosis 1+
[2025-01-03] MEDS: sodium hypochlorite 0.25% Btl 473 mL 1 APPLIC TOPICAL (06:06)
[2025-01-03 07:26] VITALS: BP 97/61; PULSE 81; RESP 17; TEMP 36.7; O2SAT 99
--- NOTE | 2025-01-03 09:39 | P.PN_ITS ---
Subjective 2 Subjective: NAEON Decubitus being packed with Dakins Vitals/I&O/Wt Last Vital Signs Temp 98.1 F 01/03/25 07:26 Pulse 81 01/03/25 07:26 Resp 17 01/03/25 07:26 BP 97/61 01/03/25 07:26 Pulse Ox 99 01/03/25 07:26 O2 Del Method Room Air 01/03/25 07:26 01/02/25 01/03/25 01/03/25 22:59 06:59 14:59 Intake Total 710 / 1470 1250 / 2720 360 / 360 Balance 710 / 1470 1250 / 2720 360 / 360 Weight last 48 hrs Weight 190 lb Weight 189 lb Weight 191 lb 9.6 oz Weight 200 lb Physical Exam 2 Narrative: rrr unlabored breathing ra abdomen soft, nt, nd Decubitus being packed with dakins. Clean base. Data 01/03/25 04:27 01/03/25 04:27 Micro: Microbiology 01/01/25 18:40 Anaerobic Culture - Preliminary Buttock 01/02/25 18:29 Occult Blood (FIT) - Final Stool - Stool Aspirate 01/01/25 15:02 Urine Culture - Preliminary Urine,Clean Catch Group g streptococcus 01/01/25 13:41 Blood Culture - Preliminary Blood NEGATIVE TO DATE 01/01/25 13:40 Blood Culture - Preliminary Blood NEGATIVE TO DATE A&P Assessment and plan 1. Decubitus ulcer: Plan: 34yo male with decubitus ulcer. Continue packing with Dakins solution. Follow up with wound care after discharge. PDMP PDMP Reviewed: Not Reviewed Attestations 2 Medical Necessity Statement*: NA Coding Level of Care Code 63593 Diagnoses Decubitus ulcer L89.90
[2025-01-03 11:11] VITALS: BP 110/69; PULSE 79; RESP 16; TEMP 37.1; O2SAT 98
--- NOTE | 2025-01-03 11:46 | PM.PN ---
Subjective Subjective: leukocytosis resolved, improved fever curve patient is eager to return home today for thanksgiving tomorrow Medications: Reviewed: Yes Vitals/I&O/Wt Last Vital Signs Temp 98.8 F 01/03/25 11:11 Pulse 79 01/03/25 11:11 Resp 16 01/03/25 11:11 BP 110/69 01/03/25 11:11 Pulse Ox 98 01/03/25 11:11 O2 Del Method Room Air 01/03/25 11:11 01/02/25 01/03/25 01/03/25 22:59 06:59 14:59 Intake Total 710 / 1470 1250 / 2720 360 / 360 Balance 710 / 1470 1250 / 2720 360 / 360 Weight last 48 hrs Weight 86.183 kg Weight 85.729 kg Weight 86.908 kg Weight 90.718 kg Physical Exam Narrative: General: No acute distress, AO x3 HEENT: PERRLA, pupils bilaterally equal and reactive, pallors not present Abdomen: Soft, nontender, no organomegaly, bowel sounds present Large tunneling wound over the left buttock going to bone with overlying soft tissue cover. noted trickling of pus from a superior tract to down Data 01/03/25 04:27 01/03/25 04:27 Micro: Microbiology 01/01/25 18:40 Anaerobic Culture - Preliminary Buttock 01/02/25 18:29 Occult Blood (FIT) - Final Stool - Stool Aspirate 01/01/25 15:02 Urine Culture - Preliminary Urine,Clean Catch Group g streptococcus 01/01/25 13:41 Blood Culture - Preliminary Blood NEGATIVE TO DATE 01/01/25 13:40 Blood Culture - Preliminary Blood NEGATIVE TO DATE A&P Assessment and plan 1. Chronic osteomyelitis: 2. Neurogenic bladder: 3. Spina bifida aperta of lumbar spine: 4. Paraplegia: 5. Wheelchair dependent: 6. Fever: 7. Cellulitis: Plan: 34-year-old male with past medical history as noted above, chronic osteomyelitis of the pelvis, currently admitted with worsening drainage from the wound along with fever and chills. Small amount of pus is noted trickling from the superior edge of the wound. no significant slough noted on exam today. No areas of necrosis. Patient has been evaluated by general surgery, no current indication for debridement. Pocket of air noted just lateral to the existing tract on CT pelvis which may be phlegmonous changes versus developing abscess. MRI pelvis without contrast ordered to better characterize. No drainable abscess noted currently. Inflammatory markers are elevated consistent with acute infection. UA not a clean-catch specimen. Chest x-ray without consolidation. Currently patient is on treatment with meropenem and vancomycin which we will continue empirically. Past cultures from this wound have had MRSA and multiple gram-negative's including Acinetobacter most recently in July 2024. Will follow with results of MRI testing and pending wound cultures. 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 He is afebrile today, leukocytosis resolved. Wound cx remains pending, however patient eager to [facility] today to make it home for [facility]. Given clinical improvement okay for discharge on Levaquin 750mg daily and linezolid 600mg BID today. Will follow cx as outpatient and adjust abx if indicated. f/up Jan PDMP PDMP Reviewed: Not Reviewed Attestations Medical Necessity Statement*: per admitting Coding Level of Care Code Acute Code for Chg Fwd Diagnoses Chronic osteomyelitis M86.60 Neurogenic bladder N31.9 Spina bifida aperta of lumbar spine Q05.7 Paraplegia G82.20 Wheelchair dependent Z99.3 Fever R50.9 Cellulitis L03.90
[2025-01-03 13:01] VITALS: BP 110/69; PULSE 79; RESP 16; TEMP 37.1; O2SAT 98
--- NOTE | 2025-01-03 14:15 | PC.SOCIAL ---
*IMM* Patient received copy of IMM Copy placed in chart, initialled and dated.
--- NOTE | 2025-01-03 20:47 | P.DS_ITS ---
Discharge Providers Date of Admission: 01/01/25 16:50 Date of Discharge: January 03, 2025 Attending Provider at Admission: Jayesh Jasso Attending Provider at Discharge: Jayesh Jasso Primary Care Provider: LUIS Coleman Diagnoses at Discharge Discharge Diagnosis 1. Chronic osteomyelitis: 2. Neurogenic bladder: 3. Spina bifida aperta of lumbar spine: 4. Paraplegia: 5. Wheelchair dependent: 6. Fever: Reason for Visit Reason for Visit: chills, fever, has a sore on L side bottom Brief History: Nico Herrera is a 34 year old male HTN, spina bifida / paraplegia (c/b neurogenic bladder, [employer] SECTION shunt in situ), solitary kidney (s/p right nephrectomy), congenital imperforate anus, chronic osteomyelitis involving left ischial tuberosity, chronic pressure ulcer and anxiety. Wheelchair-bound at baseline. Patient presented to [facility] ED on 01/01/25 out of concern for infected ischial pre ssure wound. Patient reports having a chronic issue that is likely surgical debridement due to infection. Reports to have developed subjective fever and chills on night with progressively increasing drainage from the wound and toxic odor. Patient reports feeling rough and dehydrated, prompting ED visit. Denies chest pain, palpitations, dizziness, shortness of breath, pleurisy, abdominal pain, new or worsening back pain and change in micturition. Mild URI symptoms, some cough without purulence. He has neurogenic bladder and straight caths himself 4-5 times per day. Patient verbalizes a belief that he always has a slight UTI that manifests when he does not take care of himself. Hospital Course Hospital Course He was treated with IV antibiotics initially with meropenem and linezolid subsequently switched to vancomycin for left buttock wound cellulitis, with copious purulent malodorous drainage, without noted any significant areas of necrosis, minimal area noted deep and posteriorly. Was assessed by surgery, with recommendation for continued half-strength Dakin solution soaked into g auze, packing twice daily and as needed. Wound cultures obtained, blood cultures negative to date. Urinalysis abnormal presentation, questionable contaminated sample. Group G strep so far noted in the urine. Appreciate ID consultation. Sepsis resolved, leukocytosis resolved, initial fever one 101.9, resolving. As he is otherwise improving, she requested to be discharged home with additional follow-up with ID and wound care in office. He is for now going to be empirically treated with Levaquin and linezolid pending follow-up of cultures and follow-up with infectious disease, scheduled for January 25. Long-term he is going to consider further regarding flap repair of the wound. Physical Exam Const: COMMON NORMALS: patient oriented x3 and alert GENERAL APPEARANCE: cooperative ORIENTATION/CONSCIOUSNESS: Yes awake HENMT: COMMON NORMALS: oropharynx normal Neck/C-Spine: COMMON NORMALS: no JVD Resp: COMMON NORMALS: normal respiratory effort and clear to auscultation bilaterally AUSCULTATION: clear to auscultation bilaterally Cardio: COMMON NORMALS: no JVD, regular rhythm, S1 normal heart sound present, S2 normal heart sound present and No murmurs present (Cardio) RHYTHM: regular rhythm HEART SOUNDS: S1 normal heart sound present and S2 normal heart sound present GI: COMMON NORMALS: Normal to inspection, nondistended, normoactive bowel sounds present, Soft to palpation and non-tender PALPATION: Yes Soft to palpation Neuro: COMMON NORMALS: patient oriented x3 and moves all extremities SENSORIUM/ORIENTATION: Yes alert Skin: NARRATIVE SKIN EXAM: Deep pressure ulcer of left buttock with deep bone exposure. Small area of necrosis on the deep posterior aspect. Without other necrosis around the wound. Without significant erythema. With white/purulent drainage. Discharge Data Studies Completed and Pending Completed Studies During Hospitalization Category Date Time Status CT abdomen pelvis wo con [id number] Urgent Cat Scan 01/01/25 18:18 Completed XR chest 1V portable [id number] Routine Exams 01/01/25 18:39 Completed Pending at discharge Category Date Time Status Anaerobic Culture Routine Lab 01/02/25 08:49 Results Blood Culture Stat Lab 01/01/25 13:40 Results Urine Culture Stat Lab 01/01/25 15:02 Results Wound Culture Routine Lab 01/02/25 08:49 Results Radiology Impressions Abdomen/Pelvis CT 01/01/25 18:18 IMPRESSION: Large left ischial tuberosity pressure ulcer with surrounding soft tissue stranding and skin thickening, with pockets of air extending lateral to the left trochanter, no definite rounded collection to suggest definite abscess. Chest X-Ray 01/01/25 18:39 IMPRESSION: No acute cardiopulmonary process demonstrated Laboratory Results WBC 11.26 10^3/uL (3.29-11.43) 01/03/25 04:27 RBC 4.05 10^6/uL (3.85-5.65) 01/03/25 04:27 Hgb 8.60 g/dL (11.27-16.99) L 01/03/25 04:27 Hct 28.4 % (37-53) L 01/03/25 04:27 MCV 70.1 fl (82-101) L 01/03/25 04:27 MCH 21.2 pg (27-33) L 01/03/25 04:27 MCHC 30.3 g/dL (30-55) 01/03/25 04:27 RDW 16.4 % (12.1-15.1) H 01/03/25 04:27 Plt Count 469 10^3/cmm (157-399) H 01/03/25 04:27 MPV 9.5 fL (7.4-10.4) 01/03/25 04:27 Neut % (Auto) 81.0 % 01/02/25 05:44 Lymph % (Auto) 8.2 % 01/02/25 05:44 Worth % (Auto) 8.6 % 01/02/25 05:44 Eos % (Auto) 0.7 % 01/02/25 05:44 Baso % (Auto) 0.5 % 01/02/25 05:44 Neut # (Auto) 10.24 10^3/uL (1.8-7.7) H 01/02/25 05:44 Lymph # (Auto) 1.0 10^3/uL (0.8-4.8) 01/02/25 05:44 Worth # (Auto) 1.1 10^3/uL (0.2-0.9) H 01/02/25 05:44 Eos # (Auto) 0.1 10^3/uL (0.0-0.8) 01/02/25 05:44 Baso # (Auto) 0.1 10^3/uL (0.0-0.1) 01/02/25 05:44 Nucleated RBC % (auto) 0 % 01/02/25 05:44 Total Counted 100 (0-100) 01/03/25 04:27 Atypical Lymphs % 0.0 % (0-5) 01/03/25 04:27 Absolute Neutrophils 8.4 10^3/cmm (1.4-6.5) H 01/03/25 04:27 Segmented Neutrophils 75 % 01/03/25 04:27 Band Neutrophils 0.0 % 01/03/25 04:27 Absolute Lymphocytes 1.7 10^3/cmm (1.2-3.4) 01/03/25 04:27 Lymphocytes (Manual) 15 % 01/03/25 04:27 Monocytes (Manual) 8.0 % 01/03/25 04:27 Absolute Monocytes 0.9 10^3/cmm (0.1-0.6) H 01/03/25 04:27 Eosinophils (Manual) 2 % 01/03/25 04:27 Absolute Eosinophils 0.2 10^3/cmm (0.0-0.7) 01/03/25 04:27 Basophils (Manual) 0.0 % 01/03/25 04: Absolute Basophils 0.0 10^3/cmm (0.0-0.2) 01/03/25 04:27 Nucleated RBCs # 0.0 /100WBC 01/02/25 05:44 Platelet Estimate Increased (Normal) 01/03/25 04:27 Anisocytosis Trace 01/03/25 04:27 Microcytosis 1+ H 01/03/25 04:27 ESR > 130 mm/hr (0-10) H 01/01/25 13:40 Sodium 141 mmol/L (136-145) 01/03/25 04:27 Potassium 3.5 mmol/L (3.5-5.1) 01/03/25 04:27 Chloride 110 mmol/L (98-107) H 01/03/25 04:27 Carbon Dioxide 19 mmol/L (22-29) L 01/03/25 04:27 Anion Gap 15.5 (5-19) 01/03/25 04:27 BUN 7 mg/dL (6-20) 01/03/25 04:27 Creatinine 0.6 mg/dL (0.7-1.2) L 01/03/25 04:27 GFR Calculation 153.3 mL/min (90-130) H 01/03/25 04:27 Glucose 112 mg/dL (65-115) 01/03/25 04:27 Calculated Osmolality 291 mOsm/kg (285-295) 01/03/25 04:27 Lactic Acid 1.0 mmol/L (0.5-2.2) 01/01/25 13:40 Calcium 8.2 mg/dL (8.5-10.5) L 01/03/25 04:27 Magnesium 2.0 mg/dL (1.7-2.3) 01/02/25 05:44 Iron 13 ug/dL (59-158) L 01/02/25 05:44 TIBC 131 mcg/dl 01/02/25 05:44 % Saturation 9.9 % (20-50) L 01/02/25 05:44 Unsat Iron Binding 118 ug/dL (112-347) 01/02/25 05:44 Ferritin 407 ng/mL (30-400) H 01/02/25 05:44 Total Bilirubin 0.5 mg/dL (0.15-1.2) 01/01/25 13:40 AST 16 U/L (0-40) 01/01/25 13:40 ALT 25 U/L (0-41) 01/01/25 13:40 Alkaline Phosphatase 73 U/L (40-130) 01/01/25 13:40 C-Reactive Protein 136.7 mg/L (0.0-4.9) H 01/03/25 04:27 Total Protein 7.3 g/dL (6.6-8.7) 01/01/25 13:40 Albumin 3.0 g/dL (3.5-5.2) L 01/01/25 13:40 Globulin 4.3 g/dL (1.3-4.6) 01/01/25 13:40 Urine Color Yellow (Yellow) 01/01/25 15:02 Urine Appearance Cloudy (CLEAR) A 01/01/25 15:02 Urine pH 6.5 (5-7) 01/01/25 15:02 Ur Specific [place] 1.012 (1.005-1.030) 01/01/25 15:02 Urine Protein 2+ (Negative) A 01/01/25 15:02 Urine Glucose (UA) Negative (Normal) 01/01/25 15:02 Urine Ketones Negative (Negative) 01/01/25 15:02 Urine Blood Negative (Negative) 01/01/25 15:02 Urine Nitrate Negative (Negative) 01/01/25 15:02 Urine Bilirubin Negative (Negative) 01/01/25 15:02 Urine Urobilinogen 1.0 mg/dL (Negative) 01/01/25 15:02 Ur Leukocyte Esterase 1+ (Negative) A 01/01/25 15:02 Urine RBC 0-2 /hpf (0-2) 01/01/25 15:02 Urine WBC 21-50 /hpf (0-5) H 01/01/25 15:02 Ur Squamous Epith Cells 11-20 /hpf (0-5) H 01/01/25 15:02 Amorphous Sediment Not Reportable 01/01/25 15:02 Urine Bacteria Trace /hpf (NONE) 01/01/25 15:02 Hyaline Casts 1.21 /lpf 01/01/25 15:02 Adenovirus (PCR) Not detected (NOT DETECT) 01/02/25 18:37 C. pneumoniae DNA (PCR) Not detected (NOT DETECT) 01/02/25 18:37 Coronavirus 229E (PCR) Not detected (NOT DETECT) 01/02/25 18:37 Human Metapneumovir PCR Not detected (NOT DETECT) 01/02/25 18:37 Influenza A (H1) PCR Not detected (NOT DETECT) 01/02/25 18:37 Influ A (H1/09) PCR Not detected (NOT DETECT) 01/02/25 18:37 Influenza A (H3) PCR Not detected (NOT DETECT) 01/02/25 18:37 Influenza Type A (PCR) Not detected (NOT DETECT) 01/02/25 18:37 Influenza Type B (PCR) Not detected (NOT DETECT) 01/02/25 18:37 M. pneumoniae (PCR) Not detected (NOT DETECT) 01/02/25 18:37 Parainfluenza 1 (PCR) Not detected (NOT DETECT) 01/02/25 18:37 Parainfluenza 2 (PCR) Not detected (NOT DETECT) 01/02/25 18:37 Parainfluenza 3 (PCR) Not detected (NOT DETECT) 01/02/25 18:37 Parainfluenza 4 (PCR) Not detected (NOT DETECT) 01/02/25 18:37 RSV Type A (PCR) Not detected (NOT DETECT) 01/02/25 18:37 RSV Type B (PCR) Not detected (NOT DETECT) 01/02/25 18:37 Entero/Rhino (PCR) Not detected (NOT DETECT) 01/02/25 18:37 SARS-CoV-2 (PCR) Not detected (NOT DETECT) 01/02/25 18:37 Vitals Last Vital Signs Temp 98.8 F 01/03/25 13:01 Pulse 79 01/03/25 13:01 Resp 16 01/03/25 13:01 BP 110/69 01/03/25 13:01 Pulse Ox 98 01/03/25 13:01 O2 Del Method Room Air 01/03/25 11:11 Discharge Plan Discharge Patient Disposition: Home Condition: Stable Prescriptions: New Dakin's Solution 0.25 % solution 1 applic topical BID Qty: 473 2RF Continued (DME) catheter 16 Fr misc See Rx Instructions .Route Qty: 150 0RF Rx Instructions: As directed code a4351 (DME) Stomahesive Paste Paste See Rx Instructions .Route Qty: 2 11RF Rx Instructions: As directed (DME) ostomy supplies 4 X 4 wafer See Rx Instructions .Route Qty: 20 0RF Rx Instructions: As directed (DME) colostomy bags Misc See Rx Instructions .Route Qty: 30 0RF Rx Instructions: closed end pouch code a5054 (DME) WHEELCHAIR See Rx Instructions .Route .MEDSUPPLY Qty: 1 0RF Rx Instructions: As directed (DME) WHEELCHAIR REPAIRS See Rx Instructions .Route .MEDSUPPLY Qty: 1 11RF Rx Instructions: Wheelchair repairs, may replace cushion and back as needed (DME) wheels for wheelchair See Rx Instructions .Route .MEDSUPPLY Qty: 1 0RF Rx Instructions: new wheels for wheelchair [facility] (DME) Wheelchair See Rx Instructions .Route .MEDSUPPLY Qty: 1 0RF Rx Instructions: As directed (DME) miscellaneous medical supply Misc See Rx Instructions .Route Qty: 1 0RF Rx Instructions: general wheelchair repairs ibuprofen 200 mg Tablet 800 mg PO BID PRN (Reason: Pain) No Action levofloxacin 750 mg tablet 750 mg PO DAILY PRN (Reason: cellulitis) 7 Days Qty: 7 5RF Rx Instructions: start at the onset of infection over wound linezolid 600 mg tablet 600 mg PO BID PRN (Reason: cellulitis) 7 Days Qty: 14 5RF Rx Instructions: start at onset of wound worsening Discharge Order = DC NOW: Discharge Order (Routine); Ordered 01/03/25 Ordered By: Jayesh Jasso Referrals: [facility] [Provider Group, Infectious Disease] - 01/25/25 10:30 am Keyona Chavez NP [Referring, Nurse Practitioner] - 01/10/25 10:40 am Curtis Pereira MD [Physician, Wound Care] - 1 week Referral Note: wound cellulitis We have notified your physician's clinic of the need for a follow-up appointment to be scheduled. If you have not heard from them within the next 2 business days, please call them directly. Patient Instructions: Levofloxacin (By mouth), Linezolid (By mouth), Osteomyelitis (DC), Opioid Safety, Patient Portal & [facility] Instructions Activity Restrictions/Additional Instructions: Continue dressing changes with gauze moistened with half-strength Dakin solution twice daily and as needed. Continue empiric antibiotic coverage at this time with Levaquin and linezolid while cultures are pending, and follow-up with wound care and infectious disease. Long-term, continue consideration of flap repair of the wound. Continue to reposition every 2 hours to prevent pressure ulcers, maintain balanced diet, consider addition of nutritional supplements/shakes. Discharge Attestations Time Spent in Discharge Care*: greater than 30 min Status at Discharge: Cognitive status at discharge: cognitively intact , Behavioral status at discharge: cooperative , Quality Metrics Clinical Quality Measures [ No reported AMI, CVA or VTE this stay] Coding Level of Care Code 29254 Total time (in minutes) for Discharge: 45 Diagnoses Chronic osteomyelitis M86.60 Neurogenic bladder N31.9 Spina bifida aperta of lumbar spine Q05.7 Paraplegia G82.20 Wheelchair dependent Z99.3 Fever R50.9 Cellulitis L03.90
== END 2025-01-03 13:04 | disposition home or self-care (01) | DRG 871 ==
LOC: ER 14:33 → MEDSURG 16:50
PROVIDERS: Emergency Medicine; Nurse Practitioner Gerontology; Student in an Organized Health Care Education/Training Program; Admitting Provider Internal Medicine; Emergency Provider Emergency Medicine; PCP Nurse Practitioner Family; Visit Provider Internal Medicine
DX: A41.9 Sepsis, unspecified organism (principal); L89.154 Pressure ulcer of sacral region, stage 4; Q42.3 Congenital absence, atresia and stenosis of anus without fistula; G82.20 Paraplegia, unspecified; I96 Gangrene, not elsewhere classified; M86.68 Other chronic osteomyelitis, other site; N39.0 Urinary tract infection, site not specified; I95.9 Hypotension, unspecified; I10 Essential (primary) hypertension; Q05.7 Lumbar spina bifida without hydrocephalus; D50.9 Iron deficiency anemia, unspecified; F41.9 Anxiety disorder, unspecified; N31.9 Neuromuscular dysfunction of bladder, unspecified; H40.9 Unspecified glaucoma; R00.0 Tachycardia, unspecified; Z99.3 Dependence on wheelchair; Z88.2 Allergy status to sulfonamides; Z88.8 Allergy status to other drugs, medicaments and biological substances; Z88.6 Allergy status to analgesic agent; Z91.040 Latex allergy status; Z90.5 Acquired absence of kidney; Z93.3 Colostomy status; Z87.891 Personal history of nicotine dependence; Z98.2 Presence of cerebrospinal fluid drainage device; Z11.52 Encounter for screening for COVID-19
CPT/HCPCS: 36415; 51702; 71045; 74176; 80048; 80053; 81001; 82274; 82728; 83540; 83550; 83605; 83735; 85007; 85018; 85025; 85027; 85651; 86140; 87040; 87070; 87075; 87077; 87086; 87186; 87486; 87581; 87633; 96365; 96375; 99285; A6446; J2020; J2185; J3372; J3373; J7030; J7040; J7050; J7120; J9999; P9046

== ENCOUNTER → 2025-01-11 14:57 | Outpatient (BNVA) | payer MEDICARE, MEDICAID, SELFPAY | PROVIDERS: PCP Nurse Practitioner Family; Visit Provider Thoracic Surgery (Cardiothoracic Vascular Surgery) | DX: L89.324 Pressure ulcer of left buttock, stage 4 (principal) | CPT/HCPCS: 97597; 97598 ==

== ENCOUNTER → 2025-01-18 10:45 | Outpatient (BNVA) | payer MEDICARE, MEDICAID, SELFPAY | PROVIDERS: PCP Nurse Practitioner Family; Visit Provider Thoracic Surgery (Cardiothoracic Vascular Surgery) | DX: L89.324 Pressure ulcer of left buttock, stage 4 (principal) | CPT/HCPCS: 97597; 97598 ==

== ENCOUNTER 2025-01-25 06:00 | Outpatient (CLI) | payer MEDICARE, MEDICAID, SELFPAY | END 2025-01-25 06:01 | disposition home or self-care (01) | LOC: RAD 02-01 06:57 | PROVIDERS: PCP Nurse Practitioner Family; Visit Provider Student in an Organized Health Care Education/Training Program | DX: L89.324 Pressure ulcer of left buttock, stage 4 (principal); M86.68 Other chronic osteomyelitis, other site | CPT/HCPCS: 97597; 97598; 99214; A6021 ==